=== PATIENT | female | born 1970 | race Caucasian/White ===

== ENCOUNTER → 2016-11-30 | Outpatient (CLI) | payer OTHER ==
--- NOTE | 2016-12-01 08:17 | MM ---
Reason for exam: screening (asymptomatic). Last mammogram was performed 1 year ago. History: Family history of breast cancer in maternal aunt. Implants in both breasts, May 22, 2014. Physical Findings: A clinical breast exam by your physician is recommended on an annual basis and results should be correlated with mammographic findings. MG Screening Mammo Implant/CAD Bilateral CC, MLO, and ID view(s) were taken. Prior study comparison: November 29, 2015, bilateral MG screening mammo implant/CAD. There are scattered fibroglandular densities. Finding: There are typically benign round calcifications in both breasts. There is no discrete abnormality. There are subpectoral implants x 2. ASSESSMENT: Benign, BI-RAD 2 RECOMMENDATION: Routine screening mammogram of both breasts in 1 year.
== END | disposition home or self-care (01) ==
LOC: RADMAMWWP 09:15
PROVIDERS: ATTEND Family Medicine
DX: Z12.31 Encounter for screening mammogram for malignant neoplasm of breast (principal)

== ENCOUNTER → 2016-12-08 | Outpatient (CLI) | payer OTHER ==
--- NOTE | 2016-12-08 09:16 | US ---
EXAMINATION TYPE: US thyroid st tissue head/neck DATE OF EXAM: 12/08/2016 8:15 AM COMPARISON: NONE CLINICAL HISTORY: E21.0 PARATHYROID ENLARGEMENT. GLAND SIZE: Right Lobe: 4.2 x 1.0 x 1.4 cm Overall Parenchyma: homogenous Left Lobe: 4.8 x 1.0 x 1.5 cm Overall Parenchyma: homogeneous Isthmus Thickness: 0.2 cm NODULES RIGHT: # of nodules measured on right: 0 LEFT: # of nodules measured on left: 0 ISTHMUS: # of nodules measured in the isthmus: 0 TECHNOLOGIST IMPRESSION: Bilateral neck scanned, no abnormal lymphadenopathy noted. Parathyroid area scanned, no obvious nodule or abnormality IMPRESSION: Normal study.
== END | disposition home or self-care (01) ==
LOC: RADUSWWP 07:58
PROVIDERS: ATTEND Family Medicine
DX: E21.0 Primary hyperparathyroidism (principal)
CPT/HCPCS: 76536

== ENCOUNTER → 2016-12-08 | Outpatient (CLI) | payer OTHER ==
--- NOTE | 2016-12-08 08:43 | MR ---
EXAMINATION TYPE: MR brain wo con DATE OF EXAM: 12/08/2016 7:53 AM COMPARISON: MRI brain January 14, 2015. HISTORY: temporal lobe white matter changes per order, memory loss per patient. TECHNIQUE: Multiplanar, multisequence imaging of the brain and brainstem is performed without IV cont rast. FINDINGS: Diffusion weighted images demonstrate no evidence of a recent infarct or other diffusion abnormality. There is no worrisome extra-axial fluid collection. The ventricular system and cisternal spaces are normal in size and appearance. The brain volume is age appropriate. There are some scattered foci of T2 hyperintensity seen throughout the white matter bilaterally. I estimates 5 to 8 scattered lesions all measuring 4 mm or smaller in size. There may be new left posterior frontal coronal radiata lesio n on axial image 17. Other lesions felt stable. Midline structures demonstrate normal morphology. The craniocervical junction appears within normal limits. Normal vascular flow voids are present. The globes are distorted by artifact. The visualized paranasal sinuses are clear. IMPRESSION: Mild nonspecific white matter changes with possible single new lesion, among the broad di fferential ischemic change related to product of migraine headaches, infectious process such as Lyme' s disease, and vasculitis need to be considered.
== END | disposition home or self-care (01) ==
LOC: RADMRIMAIN 07:17
PROVIDERS: ATTEND Family Medicine
DX: R90.82 White matter disease, unspecified (principal)
CPT/HCPCS: 70551; 76536

== ENCOUNTER → 2017-06-21 | Outpatient (CLI) | payer OTHER ==
--- NOTE | 2017-06-21 15:42 | XR ---
EXAMINATION TYPE: XR shoulder complete LT DATE OF EXAM: 06/21/2017 COMPARISON: NONE HISTORY: Pain TECHNIQUE: Three views are submitted. FINDINGS: The osseous structures are intact. There is no acute fracture or dislocation. Arthropathy of the AC joint. IMPRESSION: 1. AC joint arthropathy correlate for chronic rotator cuff disease. IMPRESSION: 1. No acute process.
--- NOTE | 2017-06-21 15:42 | XR ---
EXAMINATION TYPE: XR thoracic spine complete DATE OF EXAM: 06/21/2017 COMPARISON: NONE HISTORY: Back pain Alignment is anatomic. There is no compression deformities. Hypertrophic and degenerative disc disea se noted throughout the thoracic spine with most marked changes seen involving the mid and lower thor acic spine. No compression deformities. Curvature of the spine noted. Surgical clips in the right upper quadrant noted. IMPRESSION: 1. Multilevel degenerative disc disease.
--- NOTE | 2017-06-21 15:42 | XR ---
EXAMINATION TYPE: XR cervical spine comp DATE OF EXAM: 06/21/2017 TECHNIQUE: Frontal, lateral, oblique, swimmers, and open mouth view of the cervical spine are obtaine d. HISTORY: M25.512:Pain in left shoulder, M54.2:Cervicalgia COMPARISON: None FINDINGS: The cervical spine is visualized in its entirety from C1 thru the top of T1 level, it is s atisfactory in alignment without evidence of acute fracture or dislocation. The pre-vertebral soft t issue appears within normal limits. The C1-C2 articulation is within normal limits on the open mouth view. The oblique images are within normal limits. Intervertebral disc space narrowing is seen at C 5-C6 with endplate sclerosis. IMPRESSION: 1. No acute fracture or dislocation is seen in the cervical spine. 2. Mild degenerative disc disease at C5-C6.
== END ==
LOC: RAD 15:02
PROVIDERS: ATTEND Family Medicine
DX: M50.322 Other cervical disc degeneration at C5-C6 level (principal); M51.34 Other intervertebral disc degeneration, thoracic region; M19.012 Primary osteoarthritis, left shoulder
CPT/HCPCS: 72050; 72072

== ENCOUNTER → 2017-08-06 | Outpatient (CLI) | payer OTHER ==
--- NOTE | 2017-08-09 07:22 | MR ---
EXAMINATION TYPE: MR cspine/tspine/lspine wo con DATE OF EXAM: 08/06/2017 COMPARISON: Outside report of prior MRI lumbar spine dated 01/12/2012 from [facility] HISTORY: shoulder pain , neck pain, back pain TECHNIQUE: Multiplanar, multisequence imaging of the cervical, thoracic, and lumbar spine was perform ed without IV contrast. FINDINGS: CERVICAL SPINE: The cervical spine vertebral bodies maintain vertebral body height and alignment. Bon e marrow signal is within normal limits. Cervical cord signal is unremarkable. C2-C5: At each level there is a small left paracentral disc osteophyte complex present without neural foraminal stenosis or spinal canal stenosis. C5-C6: A large bilobed disc bulge is seen with mass effect upon the ventral thecal space abutting the ventral cervical cord resulting in mild spinal canal stenosis and mild bilateral neural foraminal na rrowing in combination with mild uncovertebral hypertrophy. C6-C7: Small left paracentral disc osteophyte complex is seen without spinal canal stenosis nor neura l foraminal narrowing. THORACIC SPINE: The thoracic spine vertebral bodies maintain vertebral body height and alignment. Bon e marrow signal is within normal limits. Cervical cord signal is unremarkable. Intervertebral disc sp parul narrowing, disc desiccation and broad-based disc bulges are present at T8-T9, T9-T10 and T11-T12 without focal disc herniation. No disc herniation is seen at any thoracic vertebral level. No neural foraminal narrowing or spinal canal stenosis are seen at any thoracic vertebral level. Mild facet art hropathy is present T10-T11 and T11-T12. LUMBAR SPINE: The lumbar spine vertebral bodies maintain vertebral body height and alignment. Bone ma rrow signal is within normal limits. Cervical cord signal is unremarkable. Disc desiccation is seen a t L3-S1. T2 hyperintense and T1 hypointense right posterior renalr lesion is 8 mm and too small to ac curately characterize but could represent a renal cyst. L1-L2: No significant disc disease, neuroforaminal narrowing, or spinal canal stenosis. L2-L3: No significant disc disease, neural foraminal narrowing, or spinal canal stenosis. L3-L4: Small broad-based disc bulge results in mild bilateral neural foraminal narrowing. No spinal c anal stenosis. Mild facet arthropathy and ligamentum flavum buckling are present. L4-L5: Left paracentral annular tear is seen within a broad-based disc bulge. No current focality to suggest disc herniation. Facet arthropathy and ligamentum flavum buckling contribute to minimal neura l foraminal narrowing. No spinal canal stenosis. L5-S1: The previously described right eccentric broad-based disc bulge with annular tear has progress ed to a focal disc herniation. This disc protrusion/herniation is foraminal extending into the right neural foramen creating only mild neural foraminal narrowing in combination with facet arthropathy an d ligamentum flavum buckling, however there is abutment with the exiting L5 nerve root. The left neur al foramen and spinal canal remain patent. IMPRESSION: 1. Progression of the previously described annular tear at L5-S1, now seen as a right neural foramina l disc herniation abutting the right L5 nerve root. 2. Left paracentral annular tear at L4-L5 without recurrent disc herniation. Minimal bilateral neural foraminal narrowing but no spinal canal stenosis. 3. Large bilobed broad-based disc bulge at C5-C6 resulting in mild spinal canal stenosis. No neural f oraminal narrowing. 4. No evidence of disc herniation, neural foraminal stenosis or spinal canal stenosis within the thor acic spine.
== END | disposition home or self-care (01) ==
LOC: RADMRIMAIN 12:16
PROVIDERS: ATTEND Family Medicine
DX: M48.02 Spinal stenosis, cervical region (principal); M99.73 Connective tissue and disc stenosis of intervertebral foramina of lumbar region; M51.26 Other intervertebral disc displacement, lumbar region; M50.222 Other cervical disc displacement at C5-C6 level; M51.37 Other intervertebral disc degeneration, lumbosacral region
CPT/HCPCS: 72141; 72146; 72148

== ENCOUNTER → 2017-10-22 | Outpatient (CLI) | payer OTHER ==
--- NOTE | 2017-10-23 08:52 | ECHOF ---
Referral Reason:R07.89 Chest pain MEASUREMENTS -------- HEIGHT: 170.2 cm WEIGHT: 77.1 kg BP: 130/93 RVIDd: 2.4 cm (< 3.3) IVSd: 1.0 cm (0.6 - 1.1) LVIDd: 4.8 cm (3.9 - 5.3) LVPWd: 1.0 cm (0.6 - 1.1) IVSs: 1.6 cm LVIDs: 3.1 cm LVPWs: 1.5 cm LA Diam: 3.1 cm (2.7 - 3.8) LAESV Index (A-L): 11.83 ml/m Ao Diam: 3.4 cm (2.0 - 3.7) AV Cusp: 2.3 cm (1.5 - 2.6) MV EXCURSION: 15.271 mm (> 18.000) MV EF SLOPE: 100 mm/s (70 - 150) EPSS: 0.2 cm MV E Robinson: 0.60 m/s MV DecT: 232 ms MV A Robinson: 0.76 m/s MV E/A Ratio: 0.80 FINDINGS -------- Sinus rhythm. This was a technically good study. The left ventricular size is normal. Left ventricular wall thickness is normal. Overall left vent ricular systolic function is normal with, an EF between 60 - 65 %. The right ventricle is normal in size. The left atrial size is normal. The right atrium is normal in size. The aortic valve is trileaflet and appears structurally normal. The mitral valve is normal. The tricuspid valve appears structurally normal. The pulmonic valve was not well visualized. There is no pulmonic regurgitation present. The aortic root size is normal. Normal inferior vena cava with normal inspiratory collapse consistent with estimated right atrial pre ssure of 5 mmHg. There is no pericardial effusion. CONCLUSIONS -------- 1. Sinus rhythm. 2. This was a technically good study. 3. Left ventricular wall thickness is normal. 4. Overall left ventricular systolic function is normal with, an EF between 60 - 65 %. 5. The left atrial size is normal. 6. The aortic valve is trileaflet and appears structurally normal. 7. The mitral valve is normal. 8. The pulmonic valve was not well visualized. 9. There is no pulmonic regurgitation present. 10. The aortic root size is normal. 11. Normal inferior vena cava with normal inspiratory collapse consistent with estimated right atrial pressure of 5 mmHg. 12. There is no pericardial effusion. R[employer]STAB[employer] CREW PUSHER: Charleen Wilcox RDCS
--- NOTE | 2017-10-28 20:03 | EST ---
EXERCISE STRESS AGE: 47 SEX: Female. HT: 67 WT: 170 PROTOCOL: Abiel. STAGE: III DURATION OF EXERCISE: 9 minutes 23 seconds. HEART RATE REST: 91 BLOOD PRESSURE REST: 130/93 MAXIMUM HEART RATE ACHIEVED: 141 MAXIMUM BLOOD PRESSURE: 156/78 85% MPHR: 149 100% MPHR: 175 METS: 10.9 INDICATIONS: History of shortness of breath with exertion. CLINICAL INFORMATION: Baseline heart rate 91 beats per minute. Baseline blood pressure 130/93 mmHg. Baseline 12-lead ECG showed normal sinus rhythm with normal cardiac intervals. Patient exercised on a Abiel protocol for 9 minutes 23 seconds, achieving a peak heart rate of 141 beats per minute. Normal blood pressure response to exercise. There was no ECG evidence for ischemia; however, there was considerable baseline artifact during the stress test portion. No exercise-induced arrhythmias were noted. IMPRESSION: Good exercise capacity. Normal blood pressure response to exercise. No definite ECG evidence for ischemia. At peak exercise and during recovery, no arrhythmias were noted. MMODL / IJN: [id number] /
== END | disposition home or self-care (01) ==
LOC: RADNMMAIN 11:23
PROVIDERS: ATTEND Family Medicine
DX: R07.89 Other chest pain (principal)
CPT/HCPCS: 93017; 93306

== ENCOUNTER → 2017-10-26 | Outpatient (CLI) | payer OTHER ==
--- NOTE | 2017-10-26 10:23 | XR ---
EXAMINATION TYPE: XR chest 2V DATE OF EXAM: 10/26/2017 COMPARISON: NONE TECHNIQUE: PA and lateral views submitted. HISTORY: Chest pain FINDINGS: The lungs are clear and there is no pneumothorax, pleural effusion, or focal pneumonia. Curvature t he spine noted with degenerative changes. Biapical pleural thickening arthropathy of the shoulders. N o overt failure. Degenerative change of the spine. IMPRESSION: 1. No acute process.
== END | disposition home or self-care (01) ==
LOC: RADXRMAIN 09:14
PROVIDERS: ATTEND Family Medicine
DX: R07.89 Other chest pain (principal)
CPT/HCPCS: 71046

== ENCOUNTER → 2017-10-29 | Outpatient (CLI) | payer OTHER ==
[2017-10-29 12:12] LABS: Basophils % (A) 1 %; Eosinophils # (A) 0.1 k/uL (0-0.7); Eosinophils % (A) 1 %; HGB 14.6 gm/dL (11.4-16.0); Lymphocytes # (A) 1.6 k/uL (1.0-4.8); Lymphocytes % (A) 22 %; MCH 30.8 pg (25.0-35.0); MCHC 31.6 g/dL (31.0-37.0); MCV 97.3 fL (80.0-100.0); Mean Platelet Volume 6.9; Monocytes # (A) 0.5 k/uL (0-1.0); Monocytes % (A) 7 %; Neutrophils % (A) 68 %; Platelet Count 280 k/uL (150-450); RBC 4.73 m/uL (3.80-5.40); RDW 14.5 % (11.5-15.5); WBC 7.4 k/uL (3.8-10.6)
[2017-10-29 19:31] LABS: Immunoglobulin E 15.6 IU/mL (0.00-114.00)
[2017-11-01 15:07] LABS: Alt. alternata IgE Class CLASS I; Alternaria alternata IgE 0.65 kU/L (<0.35); Asperg. fumagatus IgE <0.35 kU/L (<0.35); Asperg. fumagatus IgE Class CLASS 0; Bermuda Grass IgE <0.35 kU/L (<0.35); Birch(Com.Silvr) IgE <0.35 kU/L (<0.35); Birch(Com.Silvr) IgE Class CLASS 0; Cat Epith & Dander IgE <0.35 kU/L (<0.35); Cat Epith & Dander IgE Class CLASS 0; Clad herbarum IgE <0.35 kU/L (<0.35); Cockroach IgE <0.35 kU/L (<0.35); Cottonwood IgE <0.35 kU/L (<0.35); Dermato. Pteronyssinus IgE <0.35 kU/L (<0.35); Dermato. farinae IgE <0.35 kU/L (<0.35); Dermato. farinae IgE Class CLASS 0; Dog Dander IgE <0.35 kU/L (<0.35); Elm IgE <0.35 kU/L (<0.35); Maple (Box Elder) IgE <0.35 kU/L (<0.35); Maple (Box Elder) IgE Class CLASS 0; Mountain Cedar IgE <0.35 kU/L (<0.35); Mountain Cedar IgE Class CLASS 0; Mouse Urine IgE Class CLASS 0; Nettle IgE <0.35 kU/L (<0.35); Nettle IgE Class CLASS 0; Oak IgE <0.35 kU/L (<0.35); Penicillium notatum IgE Class CLASS 0; Rough Marshelder IgE <0.35 kU/L (<0.35); Rough Marshelder IgE Class CLASS 0; Timothy Grass IgE <0.35 kU/L (<0.35); White Ash IgE Class CLASS 0
[2017-11-02 12:17] LABS: Alpha 1 Anti-Trypsin 154 mg/dL (90 - 200)
[2017-11-03 18:17] LABS: Alternaria Alternata IgG 2.1 mcg/mL (< 13.6); Aspergillus fumigatus IgG Not detected (Not detected); Aureobasidium pullulans IgG 2.7 mcg/mL (< 13.6); Cladosporium herbarium IgG 12.5 mcg/mL (< 14.7); Phoma ssp. IgG 2.8 mcg/mL (< 6.6); Saccaharomospora viridis Not detected (Not detected); Saccaharopoly. rectivirgula Not detected (Not detected)
== END | disposition home or self-care (01) ==
LOC: LABWHC1 11:42
PROVIDERS: ATTEND Internal Medicine
DX: R05 Cough (principal); J45.909 Unspecified asthma, uncomplicated
CPT/HCPCS: 36415; 82103; 82104; 82785; 85025; 86001; 86003; 86606; 86609

== ENCOUNTER → 2017-11-23 | Outpatient (CLI) | payer OTHER | END | disposition home or self-care (01) | LOC: CPPFTMAIN 12:01 | PROVIDERS: ATTEND Internal Medicine | DX: R06.02 Shortness of breath (principal) | CPT/HCPCS: 94060; 94726; 94729 ==

== ENCOUNTER 2017-11-30 19:57 | Observation (INO) | payer OTHER ==
[2017-11-30] MEDS ORDERED: SODIUM CHLORIDE 0.9% 1,000 ML IV STA (21:09)
[2017-11-30] MEDS ORDERED: HYDROmorphone 4 MG/ML 1 ML SYRINGE IVP STA (21:09)
[2017-11-30] MEDS ORDERED: ACETAMINOPHEN TAB 325 MG TAB PO STA (21:12)
--- NOTE | 2017-11-30 21:12 | ED ---
Abdominal Pain HPI - General Chief Complaint: Abdominal Pain Stated Complaint: lower right abdominal pain Time Seen by Provider: 11/30/17 21:03 Source: patient Mode of arrival: ambulatory Limitations: no limitations - History of Present Illness Initial Comments: 47-year-old female patient presents to the emergency department today for complaints of right lower quadrant abdominal pain. Patient states the pain started last evening. She states that the pain is sharp in nature and constant. She states that she has had some diarrhea with this. States she did take Zantac and Gas-X without relief of symptoms. States that today she has had nausea and decreased appetite. States she did attempt to eat earlier but did vomit it up. She states that she has been feeling warmer than usual and has possibly had a fever. She denies any history of abdominal surgeries. She denies any hematuria, dysuria, urinary frequency, urinary urgency. She denies any hematemesis, hematochezia, or melena. Patient denies any recent rash, chills, shortness breath, chest pain, back pain, numbness, tingling, dizziness, weakness, headache, visual changes, or any other complaints. - Related Data Home Medications Medication Instructions Recorded Confirmed Albuterol Inhaler [Ventolin Hfa 2 puff INHALATION RT-Q6H PRN 11/30/17 11/30/17 Inhaler] Ascorbic Acid [Vitamin C] 500 mg PO DAILY 11/30/17 11/30/17 Beclomethasone Dipropionate [Qvar 1 puff INHALATION RT-BID PRN 11/30/17 11/30/17 80 mcg] Cholecalciferol [Vitamin D3] 1,000 unit PO DAILY 11/30/17 11/30/17 Cyclobenzaprine [Flexeril] 20 mg PO HS 11/30/17 11/30/17 Diazepam [Valium] 5 mg PO HS PRN 11/30/17 11/30/17 Ferrous Sulfate [Feosol] 325 mg PO DAILY 11/30/17 11/30/17 HYDROcodone/APAP 10-325MG [[place] 1 tab PO QID PRN 11/30/17 11/30/17 10-325] Loratadine [Claritin] 10 mg PO DAILY 11/30/17 11/30/17 Phentermine HCl [Adipex-P] 37.5 mg PO QAM 11/30/17 11/30/17 Ranitidine HCl 150 mg PO BID 11/30/17 11/30/17 Thyroid,Pork [[place] Thyroid] 15 mg PO DAILY 11/30/17 11/30/17 Ubidecarenone [Co Q-10] 100 mg PO DAILY 11/30/17 11/30/17 Vitamin B Complex 1 cap PO DAILY 11/30/17 11/30/17 metFORMIN HCL 1,000 mg PO HS 11/30/17 11/30/17 traZODone HCL 50 mg PO HS 11/30/17 11/30/17 Allergies Allergy/AdvReac Type Severity Reaction Status Date / Time broccoli Allergy Unknown Verified 11/30/17 20:28 pineapple Allergy Unknown Verified 11/30/17 20:28 Sulfa (Sulfonamide Allergy shortness Verified 11/30/17 20:28 Antibiotics) of breathe Review of Systems ROS Statement: Those systems with pertinent positive or pertinent negative responses have been documented in the HPI. ROS Other: All systems not noted in ROS Statement are negative. Past Medical History Past Medical History: Asthma Additional Past Medical History / Comment(s): Temporal lobe brain damage History of Any Multi-Drug Resistant Organisms: None Reported Past Surgical History: Cholecystectomy, Orthopedic Surgery Additional Past Surgical History / Comment(s): bilateral knee, gastric sleeve Past Psychological History: ADD/ADHD Smoking Status: Current every day smoker Past Alcohol Use History: Occasional Past Drug Use History: None Reported General Exam Limitations: no limitations General appearance: alert, in no apparent distress, other (This is a well- developed, well-nourished, nontoxic-appearing 47-year-old female patient in no acute distress. Vital signs upon presentation are temperature 198.6, pulse 117 , respirations 18, blood pressure 137/95, pulse ox 100% on room air.) Eye exam: Present: normal appearance, PERRL, EOMI. Absent: scleral icterus, conjunctival injection, periorbital swelling ENT exam: Present: normal exam, normal oropharynx, mucous membranes moist Respiratory exam: Present: normal lung sounds bilaterally. Absent: respiratory distress, wheezes, rales, rhonchi, stridor Cardiovascular Exam: Present: regular rate, normal rhythm, normal heart sounds. Absent: systolic murmur, diastolic murmur, rubs, gallop, clicks GI/Abdominal exam: Present: soft, tenderness (Right lower quadrant tenderness, periumbilical tenderness), normal bowel sounds. Absent: distended, guarding, rebound, rigid Back exam: Present: normal inspection. Absent: CVA tenderness (R), CVA tenderness (L) Neurological exam: Present: alert, oriented X3, CN II-XII intact Psychiatric exam: Present: normal affect, normal mood Skin exam: Present: warm, dry, intact, normal color. Absent: rash Course Vital Signs 11/30/17 11/30/17 11/30/17 20:09 20:57 23:05 Temperature 98.6 F 100.2 F H 98.9 F Pulse Rate 117 H 106 H 103 H Respiratory 18 18 20 Rate Blood Pressure 137/95 137/81 120/73 O2 Sat by Pulse 100 100 95 Oximetry 12/01/17 00:25 Temperature 98.3 F Pulse Rate 75 Respiratory 18 Rate Blood Pressure 129/85 O2 Sat by Pulse 98 Oximetry Medical Decision Making - Medical Decision Making 47-year-old female patient presented to the emergency department today for complaints of right lower quadrant abdominal pain and lack of appetite. Upon arrival patient was febrile, white blood cell count showed a level of 12.3, neutrophils 10.4. CT of the abdomen and pelvis was obtained and showed a thickened appendix with surrounding inflammatory changes consistent with acute appendicitis. Patient was started on Rocephin and Flagyl at the direction of my attending physician Dr. Douglas. He did speak with the on-call surgeon Dr. Tam who admits patient is planning surgery in the morning. Pain management , nausea management, and IV fluids have been provided. - Lab Data Result diagrams: 11/30/17 20:40 11/30/17 20:40 Lab Results 11/30/17 11/30/17 11/30/17 Range/Units 20:40 20:40 20:40 WBC 12.3 H (3.8-10.6) k/uL RBC 5.08 (3.80-5.40) m/uL Hgb 15.7 (11.4-16.0) gm/dL Hct 46.4 H (34.0-46.0) % MCV 91.4 D (80.0-100.0) fL MCH 31.0 (25.0-35.0) pg MCHC 33.9 (31.0-37.0) g/dL RDW 12.4 (11.5-15.5) % Plt Count 293 (150-450) k/uL Neutrophils % 85 % Lymphocytes % 7 % Monocytes % 6 % Eosinophils % 1 % Basophils % 0 % Neutrophils # 10.4 H (1.3-7.7) k/uL Lymphocytes # 0.8 L (1.0-4.8) k/uL Monocytes # 0.7 (0-1.0) k/uL Eosinophils # 0.1 (0-0.7) k/uL Basophils # 0.0 (0-0.2) k/uL Sodium 137 (137-145) mmol/L Potassium 4.3 (3.5-5.1) mmol/L Chloride 101 (98-107) mmol/L Carbon Dioxide 25 (22-30) mmol/L Anion Gap 11 mmol/L BUN 19 H (7-17) mg/dL Creatinine 0.60 (0.52-1.04) mg/dL Est GFR (MDRD) Af Amer >60 (>60 ml/min/1.73 sqM) Est GFR (MDRD) Non-Af >60 (>60 ml/min/1.73 sqM) Glucose 84 (74-99) mg/dL Plasma Lactic Acid [place] 1.2 (0.7-2.0) mmol/L Calcium 10.1 (8.4-10.2) mg/dL Total Bilirubin 0.6 (0.2-1.3) mg/dL AST 26 (14-36) U/L ALT 35 (9-52) U/L Alkaline Phosphatase 63 (38-126) U/L Total Protein 7.2 (6.3-8.2) g/dL Albumin 4.4 (3.5-5.0) g/dL Amylase 58 (30-110) U/L Lipase 56 (23-300) U/L Urine Color Urine Appearance (Clear) Urine pH (5.0-8.0) Ur Specific [place] (1.001-1.035) Urine Protein (Negative) Urine Glucose (UA) (Negative) Urine Ketones (Negative) Urine Blood (Negative) Urine Nitrite (Negative) Urine Bilirubin (Negative) Urine Urobilinogen (<2.0) mg/dL Ur Leukocyte Esterase (Negative) 11/30/17 Range/Units 23:05 WBC (3.8-10.6) k/uL RBC (3.80-5.40) m/uL Hgb (11.4-16.0) gm/dL Hct (34.0-46.0) % MCV (80.0-100.0) fL MCH (25.0-35.0) pg MCHC (31.0-37.0) g/dL RDW (11.5-15.5) % Plt Count (150-450) k/uL Neutrophils % % Lymphocytes % % Monocytes % % Eosinophils % % Basophils % % Neutrophils # (1.3-7.7) k/uL Lymphocytes # (1.0-4.8) k/uL Monocytes # (0-1.0) k/uL Eosinophils # (0-0.7) k/uL Basophils # (0-0.2) k/uL Sodium (137-145) mmol/L Potassium (3.5-5.1) mmol/L Chloride (98-107) mmol/L Carbon Dioxide (22-30) mmol/L Anion Gap mmol/L BUN (7-17) mg/dL Creatinine (0.52-1.04) mg/dL Est GFR (MDRD) Af Amer (>60 ml/min/1.73 sqM) Est GFR (MDRD) Non-Af (>60 ml/min/1.73 sqM) Glucose (74-99) mg/dL Plasma Lactic Acid [place] (0.7-2.0) mmol/L Calcium (8.4-10.2) mg/dL Total Bilirubin (0.2-1.3) mg/dL AST (14-36) U/L ALT (9-52) U/L Alkaline Phosphatase (38-126) U/L Total Protein (6.3-8.2) g/dL Albumin (3.5-5.0) g/dL Amylase (30-110) U/L Lipase (23-300) U/L Urine Color Yellow Urine Appearance Clear (Clear) Urine pH 5.5 (5.0-8.0) Ur Specific [place] 1.021 (1.001-1.035) Urine Protein Negative (Negative) Urine Glucose (UA) Negative (Negative) Urine Ketones Negative (Negative) Urine Blood Negative (Negative) Urine Nitrite Negative (Negative) Urine Bilirubin Negative (Negative) Urine Urobilinogen <2.0 (<2.0) mg/dL Ur Leukocyte Esterase Negative (Negative) - Radiology Data Radiology results: report reviewed, image reviewed CT the abdomen and pelvis was obtained, report was reviewed in its entirety. Impression by Dr. Crain shows thickened appendix with surrounding inflammatory changes consistent with acute appendicitis. No abscess seen. Disposition Clinical Impression: Appendicitis Disposition: ADMITTED IP TO THIS [facility] Condition: Serious Decision to Admit Reason: Admit from EC Decision Date: 11/30/17 Decision Time: 23:57
[2017-11-30] MEDS: ONDANSETRON 4 MG/2 ML VIAL IVP STA (21:21)
[2017-11-30 21:41] LABS: ALT 35 U/L (9-52); AST 26 U/L (14-36); Albumin 4.4 g/dL (3.5-5.0); Alkaline Phosphatase 63 U/L (38-126); Amylase 58 U/L (30-110); Anion Gap 11 mmol/L; Basophils % (A) 0 %; Blood Urea Nitrogen 19 mg/dL (7-17); Calcium 10.1 mg/dL (8.4-10.2); Carbon Dioxide 25 mmol/L (22-30); Chloride 101 mmol/L (98-107); Eosinophils # (A) 0.1 k/uL (0-0.7); Eosinophils % (A) 1 %; Glucose 84 mg/dL (74-99); HCT 46.4 % (34.0-46.0); HGB 15.7 gm/dL (11.4-16.0); Lipase 56 U/L (23-300); Lymphocytes # (A) 0.8 k/uL (1.0-4.8); Lymphocytes % (A) 7 %; MCHC 33.9 g/dL (31.0-37.0); Mean Platelet Volume 6.5; Monocytes # (A) 0.7 k/uL (0-1.0); Monocytes % (A) 6 %; Neutrophils # (A) 10.4 k/uL (1.3-7.7); Neutrophils % (A) 85 %; Platelet Count 293 k/uL (150-450); Potassium 4.3 mmol/L (3.5-5.1); RBC 5.08 m/uL (3.80-5.40); RDW 12.4 % (11.5-15.5); Sodium 137 mmol/L (137-145); Total Bilirubin 0.6 mg/dL (0.2-1.3); Total Protein 7.2 g/dL (6.3-8.2); WBC 12.3 k/uL (3.8-10.6)
[2017-11-30 21:53] LABS: MCV 91.4 fL (80.0-100.0)
--- NOTE | 2017-11-30 22:27 | CT ---
EXAMINATION TYPE: CT abdomen pelvis wo con DATE OF EXAM: 11/30/2017 COMPARISON: NONE HISTORY: RLQ pain. CT DLP: 403.8 mGycm Automated exposure control for dose reduction was used. TECHNIQUE: Helical acquisition of images was performed from the lung bases through the pelvis. FINDINGS: Lung bases are clear of consolidation. There is no pleural effusion. Liver shows no focal defect. There are clips from cholecystectomy. Spleen and pancreas appear normal. Bile ducts are not dilated. There is no adrenal mass. Kidneys have normal size and contour. There is no hydronephrosis. There is no retroperitoneal adenopathy. There are surgical clips apparently from bariatric surgery. There is extensive fat stranding in the right lower quadrant. Appendix measures 10 mm. I see no intestinal wall thickening. There is no sign of a bowel obstruction. Bladder distends smooth ly. There is no sign of a pelvic mass. The bony structures are intact. There is no sign of free air. IMPRESSION: THICKENED APPENDIX WITH SURROUNDING INFLAMMATORY CHANGES CONSISTENT WITH ACUTE APPENDICITIS. NO ABSCE SS SEEN.
[2017-11-30] MEDS ORDERED: metroNIDAZOLE-NS PMX 500 MG in SALINE 1 100ML.BAG IVPB STA (23:10)
[2017-11-30 23:28] LABS: Appearance,Urine Clear (Clear); Bilirubin,Urine Negative (Negative); Blood,Urine Negative (Negative); Color,Urine Yellow; Glucose,Urine (UA) Negative (Negative); Ketones,Urine Negative (Negative); Leukocyte Esterase,Urine Negative (Negative); Nitrite,Urine Negative (Negative); PH, Urine 5.5 (5.0-8.0); Protein,Urine Negative (Negative); Specific Gravity,Urine 1.021 (1.001-1.035); Urobilinogen,Urine <2.0 mg/dL (<2.0)
[2017-11-30] MEDS ORDERED: cefTRIAXone IN SWFI 1,000 MG/10 ML SYRINGE IVP ONE (23:45)
[2017-11-30] MEDS ORDERED: cefTRIAXone IN SWFI 1,000 MG/10 ML SYRINGE IVP STA (23:57)
[2017-11-30] MEDS ORDERED: ACETAMINOPHEN TAB 325 MG TAB PO PRN (23:58)
[2017-11-30] MEDS ORDERED: NALOXONE 0.4 MG/ML 1 ML VIAL IV PRN (23:58)
[2017-11-30] MEDS ORDERED: ONDANSETRON 4 MG/2 ML VIAL IVP PRN (23:58)
[2017-12-01 01:25] VITALS: BMI 27.3
[2017-12-01] MEDS ORDERED: DIAZEPAM 5 MG TAB PO PRN (02:14)
[2017-12-01] MEDS: CYCLOBENZAPRINE 10 MG TAB PO SCH ×2 (02:45→20:40)
[2017-12-01] MEDS: traZODone HCL 50 MG TAB PO SCH ×2 (02:45→20:40)
[2017-12-01] MEDS: HYDROmorphone 4 MG/ML 1 ML SYRINGE IVP PRN ×3 (02:46→12:59)
[2017-12-01 07:36] LABS: Basophils % (A) 0 %; Eosinophils % (A) 0 %; HCT 40.2 % (34.0-46.0); HGB 13.1 gm/dL (11.4-16.0); Lymphocytes # (A) 1.2 k/uL (1.0-4.8); Lymphocytes % (A) 15 %; MCH 30.9 pg (25.0-35.0); MCHC 32.5 g/dL (31.0-37.0); MCV 95.1 fL (80.0-100.0); Mean Platelet Volume 6.3; Monocytes # (A) 0.6 k/uL (0-1.0); Monocytes % (A) 8 %; Neutrophils # (A) 5.8 k/uL (1.3-7.7); Neutrophils % (A) 73 %; Platelet Count 245 k/uL (150-450); RBC 4.23 m/uL (3.80-5.40); RDW 12.4 % (11.5-15.5)
[2017-12-01 07:43] LABS: Anion Gap 9 mmol/L; Blood Urea Nitrogen 16 mg/dL (7-17); Calcium 8.8 mg/dL (8.4-10.2); Carbon Dioxide 27 mmol/L (22-30); Chloride 102 mmol/L (98-107); Glucose 85 mg/dL (74-99); Sodium 138 mmol/L (137-145)
--- NOTE | 2017-12-01 08:13 | P.GSHP ---
History of Present Illness H&P Date: 11/30/17 Chief Complaint: Right lower quadrant pain This a 47-year-old female referred from Dr. Jason Carrasco. Patient was admitted through the emergency room on with complaints of right lower quadrant pain. Her CAT scan shows evidence of acute appendicitis. The patient' s had pain for approximately 12 hours. Past Medical History Past Medical History: Asthma, Blood Disorder, Eye Disorder, GERD/Reflux, Memory Impairment, Pneumonia, Thyroid Disorder Additional Past Medical History / Comment(s): Temporal lobe brain damage, anemia , gastritis, bleeding ulcer, short term memory loss, arthritis, DDD, Left rotator cuff 2 tears History of Any Multi-Drug Resistant Organisms: None Reported Past Surgical History: Adenoidectomy, Cholecystectomy, Hysterectomy, Orthopedic Surgery, Tonsillectomy, Tubal Ligation Additional Past Surgical History / Comment(s): bilateral knee, gastric sleeve tonsils, addenoids, hyst, tubal Past Anesthesia/Blood Transfusion Reactions: Previous Problems w/ Anesthesia Additional Past Anesthesia/Blood Transfusion Reaction / Comment(s): Needs low anesthesia, VSS plummet. Sickness r/t anesthesia Past Psychological History: ADD/ADHD, Anxiety, PTSD Smoking Status: Current every day smoker Past Alcohol Use History: Occasional Past Drug Use History: None Reported - Past Family History Father Family Medical History: Pulmonary Embolus Mother Family Medical History: Diabetes Mellitus, Hypertension Medications and Allergies Home Medications Medication Instructions Recorded Confirmed Type Albuterol Inhaler [Ventolin Hfa 2 puff INHALATION RT-Q6H PRN 11/30/17 11/30/17 History Inhaler] Ascorbic Acid [Vitamin C] 500 mg PO DAILY 11/30/17 11/30/17 History Beclomethasone Dipropionate [Qvar 1 puff INHALATION RT-BID PRN 11/30/17 History 80 mcg] Cholecalciferol [Vitamin D3] 1,000 unit PO DAILY 11/30/17 11/30/17 History Cyclobenzaprine [Flexeril] 20 mg PO HS 11/30/17 11/30/17 History Diazepam [Valium] 5 mg PO HS PRN 11/30/17 11/30/17 History Ferrous Sulfate [Feosol] 325 mg PO DAILY 11/30/17 11/30/17 History HYDROcodone/APAP 10-325MG [[place] 1 tab PO QID PRN 11/30/17 11/30/17 History 10-325] Loratadine [Claritin] 10 mg PO DAILY 11/30/17 11/30/17 History Phentermine HCl [Adipex-P] 37.5 mg PO QAM 11/30/17 11/30/17 History Ranitidine HCl 150 mg PO BID 11/30/17 11/30/17 History Thyroid,Pork [[place] Thyroid] 15 mg PO DAILY 11/30/17 11/30/17 History Ubidecarenone [Co Q-10] 100 mg PO DAILY 11/30/17 11/30/17 History Vitamin B Complex 1 cap PO DAILY 11/30/17 11/30/17 History metFORMIN HCL 1,000 mg PO HS 11/30/17 11/30/17 History traZODone HCL 50 mg PO HS 11/30/17 11/30/17 History Allergies Allergy/AdvReac Type Severity Reaction Status Date / Time broccoli Allergy Unknown Verified 11/30/17 20:28 pineapple Allergy Unknown Verified 11/30/17 20:28 Sulfa (Sulfonamide Allergy shortness Verified 11/30/17 20:28 Antibiotics) of breathe Surgical - Exam Vital Signs Temp Pulse Resp BP Pulse Ox 98.6 F 117 H 18 137/95 100 11/30/17 20:09 11/30/17 20:09 11/30/17 20:09 11/30/17 20:09 11/30/17 20:09 - General well developed, no distress - Eyes PERRL - ENT normal pinna - Neck no masses - Respiratory normal expansion - Cardiovascular Rhythm: regular - Abdomen Right lower quadrant tenderness with rebound tenderness Abdomen: soft Results - Labs 12/01/17 07:10 12/01/17 07:10 Abnormal Lab Results - Last 24 Hours (Table) 11/30/17 11/30/17 Range/Units 20:40 20:40 WBC 12.3 H (3.8-10.6) k/uL Hct 46.4 H (34.0-46.0) % Neutrophils # 10.4 H (1.3-7.7) k/uL Lymphocytes # 0.8 L (1.0-4.8) k/uL BUN 19 H (7-17) mg/dL Diabetes panel 11/30/17 12/01/17 Range/Units 20:40 07:10 Sodium 137 138 (137-145) mmol/L Potassium 4.3 4.0 (3.5-5.1) mmol/L Chloride 101 102 (98-107) mmol/L Carbon Dioxide 25 27 (22-30) mmol/L BUN 19 H 16 (7-17) mg/dL Creatinine 0.60 0.64 (0.52-1.04) mg/dL Glucose 84 85 (74-99) mg/dL Calcium 10.1 8.8 (8.4-10.2) mg/dL AST 26 (14-36) U/L ALT 35 (9-52) U/L Alkaline Phosphatase 63 (38-126) U/L Total Protein 7.2 (6.3-8.2) g/dL Albumin 4.4 (3.5-5.0) g/dL Calcium panel 11/30/17 12/01/17 Range/Units 20:40 07:10 Calcium 10.1 8.8 (8.4-10.2) mg/dL Albumin 4.4 (3.5-5.0) g/dL Pituitary panel 11/30/17 12/01/17 Range/Units 20:40 07:10 Sodium 137 138 (137-145) mmol/L Potassium 4.3 4.0 (3.5-5.1) mmol/L Chloride 101 102 (98-107) mmol/L Carbon Dioxide 25 27 (22-30) mmol/L BUN 19 H 16 (7-17) mg/dL Creatinine 0.60 0.64 (0.52-1.04) mg/dL Glucose 84 85 (74-99) mg/dL Calcium 10.1 8.8 (8.4-10.2) mg/dL Adrenal panel 11/30/17 12/01/17 Range/Units 20:40 07:10 Sodium 137 138 (137-145) mmol/L Potassium 4.3 4.0 (3.5-5.1) mmol/L Chloride 101 102 (98-107) mmol/L Carbon Dioxide 25 27 (22-30) mmol/L BUN 19 H 16 (7-17) mg/dL Creatinine 0.60 0.64 (0.52-1.04) mg/dL Glucose 84 85 (74-99) mg/dL Calcium 10.1 8.8 (8.4-10.2) mg/dL Total Bilirubin 0.6 (0.2-1.3) mg/dL AST 26 (14-36) U/L ALT 35 (9-52) U/L Alkaline Phosphatase 63 (38-126) U/L Total Protein 7.2 (6.3-8.2) g/dL Albumin 4.4 (3.5-5.0) g/dL - Imaging CT scan - pelvis: report reviewed (Acute appendicitis) Assessment and Plan Assessment: Acute appendicitis. Patient will undergo laparoscopic appendectomy.
[2017-12-01] MEDS ORDERED: IV FLUID CONTINUATION 775 ML IV ONE (08:43)
[2017-12-01] MEDS: ONDANSETRON 4 MG/2 ML VIAL IVP STA (09:03)
[2017-12-01] MEDS ORDERED: DEXAMETHASONE SOD PHOSPHATE 10 MG/ML 1 ML VIAL IV ONE (09:03)
[2017-12-01] MEDS ORDERED: METOCLOPRAMIDE 5 MG/ML 2 ML VIAL IVP ONE (09:04)
[2017-12-01] MEDS ORDERED: SCOPOLAMINE 1.5MG/72HR PATCH TRANSDERM ONE (09:04)
[2017-12-01] MEDS ORDERED: FAMOTIDINE 20 MG/2 ML VIAL IV ONE (09:04)
[2017-12-01] MEDS ORDERED: HEPARIN SODIUM,PORCINE 5,000 UNIT/ML 1 ML VIAL SQ ONE (09:05)
[2017-12-01] MEDS ORDERED: LIDOCAINE 1% INJ 10MG/ML (20 ML MDV) ONE (09:22)
[2017-12-01] MEDS ORDERED: MIDAZOLAM 2 MG/2 ML VIAL ONE (09:22)
[2017-12-01] MEDS ORDERED: GLYCOPYRROLATE 0.2 MG/ML 2 ML VIAL ONE (09:22)
[2017-12-01] MEDS ORDERED: SODIUM CHLORIDE 0.9% 50 ML with ceFAZolin 2,000 MG IV ONE ×2 (09:22)
[2017-12-01] MEDS ORDERED: NEOSTIGMINE 1 MG/ML 10 ML VIAL ONE (09:22)
[2017-12-01] MEDS ORDERED: ROCURONIUM BROMIDE 10 MG/ML 10 ML VIAL IV ONE (09:22)
[2017-12-01] MEDS ORDERED: PROPOFOL 10 MG/ML 20 ML VIAL IV ONE (09:22)
[2017-12-01] MEDS ORDERED: fentaNYL (PF) 50 MCG/ML 2 ML AMP ONE (09:22)
[2017-12-01] MEDS ORDERED: PHENYLEPHRINE-0.9% NACL SYG 1 MG/10 ML SYRINGE ONE (09:22)
[2017-12-01] MEDS ORDERED: ALBUTEROL INHALER 60 PUFF/8 GM INHALER INHALATION ONE (09:22)
[2017-12-01] MEDS ORDERED: BUPIVACAINE (PF) 0.25% 30 ML VIAL SQ ONE (09:52)
[2017-12-01] MEDS ORDERED: NALOXONE 0.4 MG/ML 1 ML VIAL IV PRN (10:14)
[2017-12-01] MEDS ORDERED: LACTATED RINGERS 1,000 ML IV ONE ×2 (10:14→11:02)
[2017-12-01] MEDS ORDERED: HYDROmorphone 4 MG/ML 1 ML SYRINGE IVP PRN ×2 (10:14→13:31)
[2017-12-01] MEDS ORDERED: HYDROcodone/APAP 5-325MG 1 EACH TAB PO PRN (10:14)
--- NOTE | 2017-12-01 10:14 | P.OP ---
Date of Procedure: 12/01/17 Preoperative Diagnosis: Acute appendicitis Postoperative Diagnosis: Acute appendicitis Procedure(s) Performed: Laparoscopic appendectomy Anesthesia: AMARJIT Surgeon: Phoenix Tam Estimated Blood Loss (ml): 5 Pathology: other (Appendix) Condition: stable Disposition: PACU Description of Procedure: The patient's placed on the operating table in the supine position. The patient received general anesthesia. The abdomen was prepped and draped in the usual sterile fashion. The skin was anesthetized 1% local Xylocaine at the trocar sites. Using an 11 blade the skin was incised at the umbilicus. The umbilicus was grasped with a [place] clamp and then a Veress needle was placed into the peritoneal cavity. Position of the Veress needle was confirmed with positive drop test. After adequate insufflation a 5 mm trocar was placed into the peritoneal cavity. The abdomen was further insufflated. And then the laparoscope was placed in the peritoneal cavity. Next a 5 mm trocar was placed in the midline suprapubic position. And then a 10 mm trocar was placed in the midline epigastric position. The patient was rotated with the right side up and in Trendelenburg. The appendix was visualized. The appendix appeared to be inflamed. The appendix was grasped and then using the Harmonic scissors the mesoappendix was divided. A PDS Endoloop was then placed around the base of the appendix. And then the appendix was divided using Harmonic scissors. The appendix was placed into an Endo Catch and brought out through the 10 mm trocar site. The abdomen was irrigated. There is no bleeding seen. The trochars withdrawn. The skin was closed interrupted 3-0 Monocryl suture. Dermabond dressing was applied. Patient was sent to recovery room in stable condition.
[2017-12-01] MEDS ORDERED: MEPERIDINE 50 MG/ML SYRINGE IVP ONE ×2 (10:30→10:55)
[2017-12-01] MEDS ORDERED: ALBUTEROL NEBULIZED 2.5 MG/3 ML INHALATION PRN (13:28)
[2017-12-01] MEDS ORDERED: HYDROcodone/APAP 10-325MG 1 EACH TAB PO PRN (13:28)
[2017-12-01] MEDS ORDERED: BUDESONIDE 0.5 MG/2 ML NEBU INHALATION PRN (13:28)
[2017-12-01] MEDS ORDERED: THYROID, PORK 30 MG TAB PO STA (14:29)
[2017-12-01] MEDS ORDERED: FAMOTIDINE 20 MG TAB PO STA (15:51)
[2017-12-01] MEDS ORDERED: HYDROmorphone 0.5 MG/0.5 ML SYRINGE IVP PRN (20:10)
[2017-12-01] MEDS: FAMOTIDINE 20 MG TAB PO SCH (20:40)
[2017-12-01] MEDS: DOCUSATE 100 MG CAP PO SCH (20:40)
[2017-12-01] MEDS ORDERED: traZODone HCL 50 MG TAB PO SCH (21:00)
[2017-12-01] MEDS ORDERED: metFORMIN 500 MG TAB PO SCH (21:00)
[2017-12-01] MEDS ORDERED: CYCLOBENZAPRINE 10 MG TAB PO SCH (21:00)
[2017-12-01] MEDS ORDERED: cefTRIAXone IN SWFI 1,000 MG/10 ML SYRINGE IVP SCH (23:00)
[2017-12-02] MEDS ORDERED: THYROID, PORK 30 MG TAB PO SCH (06:30)
[2017-12-02 07:04] LABS: Basophils % (A) 0 %; Eosinophils % (A) 0 %; HCT 36.7 % (34.0-46.0); HGB 11.9 gm/dL (11.4-16.0); Lymphocytes # (A) 1.5 k/uL (1.0-4.8); Lymphocytes % (A) 26 %; MCH 30.3 pg (25.0-35.0); MCHC 32.5 g/dL (31.0-37.0); MCV 93.2 fL (80.0-100.0); Mean Platelet Volume 6.6; Monocytes # (A) 0.5 k/uL (0-1.0); Monocytes % (A) 8 %; Neutrophils # (A) 3.6 k/uL (1.3-7.7); Neutrophils % (A) 62 %; Platelet Count 259 k/uL (150-450); RBC 3.94 m/uL (3.80-5.40); RDW 12.2 % (11.5-15.5); WBC 5.8 k/uL (3.8-10.6)
[2017-12-02 08:20] VITALS: BP 125/73; PULSE 79; RESP 16; TEMP 97.7
[2017-12-02] MEDS: FAMOTIDINE 20 MG TAB PO SCH (08:43)
[2017-12-02] MEDS: DOCUSATE 100 MG CAP PO SCH (08:44)
[2017-12-02] MEDS ORDERED: ASCORBIC ACID 500 MG TAB PO SCH (09:00)
[2017-12-02] MEDS ORDERED: CO Q-10 100MG PO SCH (09:00)
[2017-12-02] MEDS ORDERED: CHOLECALCIFEROL 1,000 UNIT TAB PO SCH (09:00)
[2017-12-02] MEDS ORDERED: LORATADINE 10 MG TAB PO SCH (09:00)
[2017-12-02] MEDS ORDERED: FERROUS SULFATE 325 MG TAB PO SCH (09:00)
[2017-12-02] MEDS ORDERED: B COMPLEX-VIT C-VIT E-ZINC 1 EACH TAB PO SCH (09:00)
[2017-12-02] MEDS ORDERED: ENOXAPARIN 40 MG/0.4 ML SYRINGE SQ SCH (09:00)
--- NOTE | 2017-12-02 10:18 | P.DS ---
Providers Date of admission: 11/30/17 23:06 Expected date of discharge: 12/02/17 Attending physician: Phoenix Tam Primary care physician: Jason Carrasco [facility] Course: 47-year-old female came into the emergency room with right lower quadrant pain. CAT scan abdomen and pelvis showed evidence of an acute appendicitis. Patient stated the pain started 12 hours prior. Patient's primary care providers Dr. Jason Carrasco. On December 01 patient underwent laparoscopic appendectomy for acute appendicitis. There was no postop events. On the day of discharge patient was hemodynamically stable and appropriate proceed with a discharge to home Impression discharge diagnoses Present on admission right lower quadrant abdominal pain suspect due to acute appendicitis CAT scan abdomen and pelvis on admission showed evidence of an acute appendicitis Postop December 01 laparoscopic appendectomy for acute appendicitis The above impression and plan of care have been discussed and directed by signing physician. Mirna Steiner nurse practitioner acting as scribe for signing physician. Patient Condition at Discharge: Serious Plan - Discharge Summary Discharge Rx Participant: Yes New Discharge Prescriptions: New Acetaminophen Tab [Tylenol] 650 mg PO Q6HR PRN tab PRN Reason: Mild Pain Or Fever > 100.5 HYDROcodone/APAP 10-325MG [[place] 10-325] 1 each PO QID PRN #20 tab PRN Reason: Pain Continue Ubidecarenone [Co Q-10] 100 mg PO DAILY Ferrous Sulfate [Iron (65 MG Elemental)] 325 mg PO DAILY Cholecalciferol [Vitamin D3] 1,000 unit PO DAILY Ascorbic Acid [Vitamin C] 500 mg PO DAILY Albuterol Inhaler [Ventolin Hfa Inhaler] 2 puff INHALATION RT-Q6H PRN PRN Reason: Shortness Of Breath metFORMIN HCL 1,000 mg PO HS Vitamin B Complex 1 cap PO DAILY Diazepam [Valium] 5 mg PO HS PRN PRN Reason: Anxiety Cyclobenzaprine [Flexeril] 20 mg PO HS traZODone HCL 50 mg PO HS Ranitidine HCl 150 mg PO BID Loratadine [Claritin] 10 mg PO DAILY HYDROcodone/APAP 10-325MG [[place] 10-325] 1 tab PO QID PRN PRN Reason: Pain Thyroid,Pork [[place] Thyroid] 15 mg PO DAILY Phentermine HCl [Adipex-P] 37.5 mg PO QAM Beclomethasone Dipropionate [Qvar 80 mcg] 1 puff INHALATION RT-BID PRN PRN Reason: Shortness Of Breath Discharge Medication List Albuterol Inhaler [Ventolin Hfa Inhaler] 2 puff INHALATION RT-Q6H PRN 11/30/17 [ History] Ascorbic Acid [Vitamin C] 500 mg PO DAILY 11/30/17 [History] Beclomethasone Dipropionate [Qvar 80 mcg] 1 puff INHALATION RT-BID PRN 11/30/17 [History] Cholecalciferol [Vitamin D3] 1,000 unit PO DAILY 11/30/17 [History] Cyclobenzaprine [Flexeril] 20 mg PO HS 11/30/17 [History] Diazepam [Valium] 5 mg PO HS PRN 11/30/17 [History] Ferrous Sulfate [Iron (65 MG Elemental)] 325 mg PO DAILY 11/30/17 [History] HYDROcodone/APAP 10-325MG [[place] 10-325] 1 tab PO QID PRN 11/30/17 [History] Loratadine [Claritin] 10 mg PO DAILY 11/30/17 [History] Phentermine HCl [Adipex-P] 37.5 mg PO QAM 11/30/17 [History] Ranitidine HCl 150 mg PO BID 11/30/17 [History] Thyroid,Pork [[place] Thyroid] 15 mg PO DAILY 11/30/17 [History] Ubidecarenone [Co Q-10] 100 mg PO DAILY 11/30/17 [History] Vitamin B Complex 1 cap PO DAILY 11/30/17 [History] metFORMIN HCL 1,000 mg PO HS 11/30/17 [History] traZODone HCL 50 mg PO HS 11/30/17 [History] Acetaminophen Tab [Tylenol] 650 mg PO Q6HR PRN tab 12/02/17 [Rx] HYDROcodone/APAP 10-325MG [[place] 10-325] 1 each PO QID PRN #20 tab 12/02/17 [Rx] Follow up Appointment(s)/Referral(s): Jason Carrasco DO [Primary Care Provider] - 1-2 days Phoenix Tam MD [STAFF PHYSICIAN] - 1 Week Activity/Diet/Wound Care/Special Instructions: Patient home medications in pharmacy No tub bath for six weeks. Shower daily. No lifting over 4 pounds for the next 6 weeks. Do not remove surgical dressings until seen in a follow-up visit. May use ice packs to surgical site. No driving while taking narcotic for pain. Discharge Disposition: HOME SELF-CARE
== END 2017-12-02 10:45 | disposition home or self-care (01) ==
LOC: EC 19:57 → INTOOBSV 23:06 → 3SUR 23:06 → UNDODISIN 12-02 10:45
PROVIDERS: ADMIT Surgery; ATTEND Surgery
DX: K35.80 Unspecified acute appendicitis (principal); J45.909 Unspecified asthma, uncomplicated; F43.10 Post-traumatic stress disorder, unspecified; K21.9 Gastro-esophageal reflux disease without esophagitis; M19.90 Unspecified osteoarthritis, unspecified site; F90.9 Attention-deficit hyperactivity disorder, unspecified type; R41.3 Other amnesia; E07.9 Disorder of thyroid, unspecified; F41.9 Anxiety disorder, unspecified; F17.210 Nicotine dependence, cigarettes, uncomplicated; Z87.11 Personal history of peptic ulcer disease; Z86.2 Personal history of diseases of the blood and blood-forming organs and certain disorders involving the immune mechanism; Z86.69 Personal history of other diseases of the nervous system and sense organs; Z87.01 Personal history of pneumonia (recurrent); Z90.89 Acquired absence of other organs; Z90.49 Acquired absence of other specified parts of digestive tract; Z98.51 Tubal ligation status; Z90.710 Acquired absence of both cervix and uterus; Z79.899 Other long term (current) drug therapy; Z79.891 Long term (current) use of opiate analgesic; Z79.84 Long term (current) use of oral hypoglycemic drugs; Z88.2 Allergy status to sulfonamides; Z91.018 Allergy to other foods; Z98.84 Bariatric surgery status; Z83.3 Family history of diabetes mellitus; Z82.49 Family history of ischemic heart disease and other diseases of the circulatory system
CPT/HCPCS: 44970; 96375 ×3; 96361; 96365; 99285; 36415; 88304; 80053; 80048; 82150; 83605; 83690; 85025 ×3; 81003; 87040; 74176; G0378 ×3; J2250; J1644; J1100; J2710; J2765; J2175; J2405 ×2; J2001; J1650; J0696; J3010; J0690; J2370; J2704; J1170 ×3

== ENCOUNTER → 2018-04-22 | Outpatient (CLI) | payer OTHER ==
--- NOTE | 2018-04-22 13:16 | XR ---
Right hand HISTORY: Pain in right hand, thumb 3 views of the right hand Hypertrophic changes present at the carpometacarpal joint of the first digit. Small ossific density p resent with remodeling. Some marginal spurring, subchondral sclerosis noted. IMPRESSION: Osteoarthritis.
== END | disposition home or self-care (01) ==
LOC: RADXRMAIN 09:07
PROVIDERS: ATTEND Family Medicine
DX: M19.041 Primary osteoarthritis, right hand (principal)

== ENCOUNTER → 2018-08-22 | Outpatient (CLI) | payer OTHER ==
--- NOTE | 2018-08-22 23:01 | MR ---
EXAMINATION TYPE: MR cspine/tspine/lspine wo con DATE OF EXAM: 08/22/2018 COMPARISON: Prior MRI entire spine August 06, 2017 HISTORY: M54.5, G89.29,M25.512 all per border. Headaches with numbness into fingers for 10 to 20 year s causing pain and weakness into left arm per patient. DDD and osteoarthritis mid back since 1994 wit h pain per patient. Toe and leg numbness with back pain since 1994 causing pain into bilateral buttoc ks per patient. TECHNIQUE: Multiplanar, multisequence imaging of the cervical, thoracic, and lumbar spine are all per formed without IV contrast. FINDINGS: C-SPINE: FINDINGS: Sagittal images of the cervical spine show the craniocervical junction to remain within nor mal limits. The cervical and upper thoracic spinal cord is normal in course, caliber, and signal. Th ere is stable grade 1 retrolisthesis of C5 on C6.. There is stable moderate disc space narrowing C5-C 6 level otherwise the vertebral body and intravertebral disk heights are normal. The bone marrow sig nal intensity is within normal limits. No significant spurring is present. Axial images at C2-C3 through C4-C5 levels show stable small to tiny left paracentral disc protrusion s effacing the anterolateral thecal sac, bilateral neural foramina are patent. No significant change from prior. Axial images at C5-C6 levels with posterior spur disc complex effacing the anterior thecal sac and ca using mild to moderate right greater than left bilateral neural foraminal narrowing, no significant c hange from prior. Axial images at C6-C7 level left paracentral disc protrusion axial image 16 effacing anterior thecal sac, bilateral neural foramina are patent. No significant change from prior. Axial images at C7-T1 level are felt within normal limits. IMPRESSION: Multilevel degenerative changes of cervical spine as detailed above, most prominent findi ngs redemonstrated at C5-C6 level. No significant change from prior study noted. T-SPINE: FINDINGS: Spinal cord redemonstrates normal course, caliber, and signal as it courses the thoracic sp ine. Vertebral body heights and alignment remain satisfactory. Multilevel disc desiccation is redem onstrated. There is some mild disc space narrowing mid to lower thoracic levels again seen. Tiny mult ilevel posterior disc herniations are seen minimally effacing the anterior thecal sac on sagittal sarah ges at T2-T3, T3-T4, T5-T6, T6-T7, T7-T8, T8-T9, T9-T10, and T11-T12 levels. No significant change fr om prior. Some heterogeneous endplate changes at T12 level are present. Mild multilevel anterior spur ring lower thoracic spine is redemonstrated. Review of the axial images shows no significant spinal canal stenosis or neural foraminal narrowing a t any thoracic level. No significant new or large disc herniation is present. IMPRESSION: Stable multilevel degenerative changes in thoracic spine as detailed above. L-SPINE: Sagittal images of the lumbar spine show vertebral body heights and alignment to appear satisfactory. Multilevel disc desiccation is seen but this space heights are fairly well-maintained. No new or lar ge posterior disc herniations are seen on sagittal images. The conus medullaris remains normal in po sition and signal ending mid L1 level. The bone marrow signal intensity is within normal limits. No significant spurring is seen. Axial images show the T12-L1, L1-L2, and L2-L3 levels all to remain within normal limits. Axial images at the L3-L4 level show mild facet degenerative changes bilaterally. There is broad-base d posterior disc protrusion mildly facing anterior thecal sac. Bilateral neural foramina are patent. No significant change from prior. Axial images at L4-L5 level mild facet degenerative changes bilaterally. There is broad-based posteri or disc protrusion minimally effacing the anterior thecal sac. Bilateral neural foramina are patent. No significant change from prior. Axial images at the L5-S1 level shows mild to moderate facet degenerative changes bilaterally. There is right foraminal disc protrusion axial image 3 redemonstrated causing asymmetric moderate inferior right-sided neural foraminal narrowing encroaching on right L5 nerve sagittal image 13. Left-sided ne ural foramen is patent. No significant change from prior. There is fairly stable 8 mm oval T2 hyperintense lesion posterior right kidney axial image 25 favorin g simple thin-walled cyst IMPRESSION: Multilevel degenerative changes in the mid to lower lumbar spine as detailed above, stabl e eccentric disc herniation right L5-S1 level encroaching on exiting right L5 nerve.
== END | disposition home or self-care (01) ==
LOC: RADMRIMAIN 17:10
PROVIDERS: ATTEND Family Medicine
DX: M51.27 Other intervertebral disc displacement, lumbosacral region (principal); M47.812 Spondylosis without myelopathy or radiculopathy, cervical region; M47.814 Spondylosis without myelopathy or radiculopathy, thoracic region; M47.816 Spondylosis without myelopathy or radiculopathy, lumbar region
CPT/HCPCS: 72141; 72146; 72148

== ENCOUNTER → 2018-09-05 | Outpatient (CLI) | payer OTHER ==
--- NOTE | 2018-09-05 15:47 | CT ---
EXAMINATION TYPE: CT abdomen pelvis wo con DATE OF EXAM: 09/05/2018 COMPARISON: INDICATION: Patient complains of RUQ pain. DLP: 405.2 mGycm, Automated exposure control for dose reduction was used. CONTRAST: mL of . Study performed without Oral Contrast TECHNIQUE: Axial images were obtained from above the diaphragm to the pubic rami in the axial plane a t 5 mm thick sections. Reconstructed images are reviewed on the computer in the coronal plane. FINDINGS: Limited CT sections are obtained the lung bases. The lung bases are clear. Bilateral breast prosthe ses are present. Small hiatal hernia is present. Gastric sleeve is been performed. CT ABDOMEN: Liver: Normal Spleen: Normal Pancreas: Normal Adrenal glands: The adrenal glands are normal. Gallbladder: Surgically absent. Kidneys: No masses are evident. No hydronephrosis is present. No cysts are present. No renal stone s are identified. Aorta: Normal. Inferior vena cava: Normal. CT PELVIS: Loops of bowel within the abdomen and pelvis are normal. Study is performed without oral contrast . Appendix: Normal as visualized. Urinary bladder: Normal. Genitourinary structures: Vaginal cuff region is normal. No free fluid is within the pelvis. Adnexal regions are normal. Osseous structures: No suspicious lytic or sclerotic lesions. IMPRESSIONS: 1. Normal noncontrast CT abdomen and pelvis. 2. Hiatal hernia. Gastric sleeve is been performed.
== END | disposition home or self-care (01) ==
LOC: RADCTMAIN 08:19
PROVIDERS: ATTEND Family Medicine
DX: K44.9 Diaphragmatic hernia without obstruction or gangrene (principal); Z98.84 Bariatric surgery status
CPT/HCPCS: 74176

== ENCOUNTER → 2018-10-07 | Outpatient (CLI) | payer OTHER ==
[2018-10-07 14:25] LABS: Blood Urea Nitrogen 19 mg/dL (7-17)
--- NOTE | 2018-10-07 15:57 | CT ---
CT brain with and without contrast HISTORY: S06.5X9A, abnormal physical exam with blood crusting right ureter Helical acquisition obtained through the brain pre- and postadministration of 100 cc Isovue 300 IV. DLP 2072.0 mGycm, automated exposure control for dose reduction utilized. No comparisons There is no hemorrhage or hydrocephalus. No abnormal enhancement following contrast administration. C alvarium is intact. Paranasal sinuses and mastoid air cells as visualized are normal. Orbits show sym metric appearance. There is a partially empty sella present. IMPRESSION: No abnormality evident to account for patient's symptoms.
== END | disposition home or self-care (01) ==
LOC: RADCTMAIN 13:49
PROVIDERS: ATTEND Family Medicine
DX: S06.5X9A Traumatic subdural hemorrhage with loss of consciousness of unspecified duration, initial encounter (principal)
CPT/HCPCS: 82565; 84520; 70470; 36415; Q9967

== ENCOUNTER → 2018-11-24 | Outpatient (CLI) | payer OTHER ==
--- NOTE | 2018-11-25 10:50 | MM ---
Reason for exam: screening (asymptomatic). Last mammogram was performed 2 years ago. History: Family history of breast cancer in maternal aunt. Implants in both breasts, May 22, 2014. Physical Findings: A clinical breast exam by your physician is recommended on an annual basis and results should be correlated with mammographic findings. MG Screening Mammo Implant/CAD Bilateral CC, MLO, and ID view(s) were taken. Prior study comparison: November 30, 2016, bilateral MG screening mammo implant/CAD. November 29, 2015, bilateral MG screening mammo implant/CAD. The breast tissue is heterogeneously dense. This may lower the sensitivity of mammography. Finding #1: There is a 14 mm oval mass in the upper quadrant, anterior position of the right breast on MLO ID view only. Finding #2: There are typically benign round calcifications in both breasts. Bilateral subpectoral implants redemonstrated. ASSESSMENT: Incomplete: need additional imaging evaluation, BI-RAD 0 RECOMMENDATION: Special view mammogram of the right breast. Ultrasound of the left breast. (palpable by patient) [facility] will attempt to contact patient to return for supplemental views and ultrasound.
== END | disposition home or self-care (01) ==
LOC: RADMAMWWP 13:02
PROVIDERS: ATTEND Family Medicine
DX: Z12.31 Encounter for screening mammogram for malignant neoplasm of breast (principal)
CPT/HCPCS: 77067

== ENCOUNTER → 2018-12-08 | Outpatient (CLI) | payer OTHER ==
--- NOTE | 2018-12-08 10:32 | MM ---
Reason for exam: additional evaluation requested from abnormal screening. Last mammogram was performed less than 1 month ago. History: Family history of breast cancer in maternal aunt. Implants in both breasts, May 22, 2014. Physical Findings: Nurse did not find any significant physical abnormalities on exam. MG Work Up Ulices W/Imp W/CAD R ML and spot compression MLO view(s) were taken of the right breast. Prior study comparison: November 24, 2018, bilateral MG screening mammo implant/CAD. November 30, 2016, bilateral MG screening mammo implant/CAD. There is no discrete abnormality. Prior may have been nipple. These results were verbally communicated with the patient and result sheet given to the patient on 12/08/18. ASSESSMENT: Benign, BI-RAD 2 RECOMMENDATION: Return to routine screening mammogram schedule for both breasts.
--- NOTE | 2018-12-08 10:33 | USB ---
Reason for exam: additional evaluation requested from abnormal screening. History: Family history of breast cancer in maternal aunt. Implants in both breasts, May 22, 2014. US Breast Workup Limited LT Left limited breast ultrasound including focal area of concern, retroareolar and axilla demonstrates no significant cystic or solid lesion seen greater than 0.50cm. These results were verbally communicated with the patient and result sheet given to the patient on 12/08/18. ASSESSMENT: Negative, BI-RAD 1 RECOMMENDATION: Return to routine screening mammogram schedule for both breasts.
== END | disposition home or self-care (01) ==
LOC: RADMAMWWP 07:55
PROVIDERS: ATTEND Family Medicine
DX: R92.8 Other abnormal and inconclusive findings on diagnostic imaging of breast (principal)
CPT/HCPCS: 77065

== ENCOUNTER → 2018-12-13 | Outpatient (CLI) | payer OTHER ==
[2018-12-14 01:54] LABS: Cyclic Citrullinated Pep IgG NEGATIVE (NEGATIVE); DNA Double-Stranded NEGATIVE (NEGATIVE); RNP <0.2 AI; Scleroderma SC-70 Ab <0.2 AI
== END | disposition home or self-care (01) ==
LOC: LABWHC1 16:29
PROVIDERS: ATTEND Nurse Practitioner Family
DX: R53.83 Other fatigue (principal); R41.3 Other amnesia
CPT/HCPCS: 36415; 82607; 83516; 84443; 84481; 86038; 86200; 86225; 86235

== ENCOUNTER → 2018-12-19 | Outpatient (CLI) | payer OTHER ==
[2018-12-19 17:02] LABS: Total Protein,CSF 30 mg/dL (12-60)
[2018-12-19 17:09] LABS: Appearance,CSF Clear; CSF Tube Number 4
[2018-12-19 19:16] LABS: Red Blood Cell,CSF 0 u/L (0-10)
[2018-12-19 19:17] LABS: Nucleated Cells, CSF 3 u/L (0-5)
[2018-12-21 13:24] LABS: IgG/Albumin Index (CSF) 0.52 (0.00 - 0.77); Immunoglobulin G 654 mg/dL (700 - 1600)
== END ==
LOC: LABWHC1 09:17
PROVIDERS: ATTEND Nurse Practitioner Family
DX: R90.82 White matter disease, unspecified (principal)
CPT/HCPCS: 36415; 82040; 82042; 82784; 83873; 83916; 84157; 87801; 89050

== ENCOUNTER → 2019-06-14 | Outpatient (CLI) | payer OTHER ==
--- NOTE | 2019-07-14 12:03 | EM ---
EVENT MONITOR AGE: 49 SEX: Female INDICATIONS: Patient was monitored between the 14 of June and the June,. Rhythm strip revealed sinus mechanism with single PVC. There was episode of sinus tachycardia and a short burst of supraventricular tachycardia that was asymptomatic. Symptoms of nausea, vomiting, and sweating correlated with sinus mechanism. Symptoms of dizziness or lightheadedness correlated with a single PVC as well with episode of atrial tachycardia. No evidence of atrial fibrillation was noted and no significant ventricular ectopic activity was noted. MMODL / IJN: [id number] /
== END | disposition home or self-care (01) ==
LOC: RADECHMAIN 12:22
PROVIDERS: ATTEND Family Medicine
DX: R00.2 Palpitations (principal); I45.10 Unspecified right bundle-branch block
CPT/HCPCS: 93270

== ENCOUNTER 2019-07-19 22:16 | Emergency (ER) | payer OTHER ==
--- NOTE | 2019-07-19 22:52 | ED ---
Wound/Laceration HPI - General Chief Complaint: Wound/Laceration Stated Complaint: Calf Wound Time Seen by Provider: 07/19/19 22:51 Source: patient Mode of arrival: ambulatory Limitations: no limitations - History of Present Illness Initial Comments: This is a 49-year-old female who presents the ER today for reevaluation of wound. Patient reports that yesterday she was carrying a plastic tote that was broken and it hit her in the left lateral aiken causing a skin flap. Patient was seen and evaluated at outside hospital, though was a flap because of the size of the decision was made to suture down the skin tear as a biologic dressing and apply Dermabond over the wound. Patient reports today she noted that the skin flap appears to be blackened and she is concerned that there is redness around the wound. She wanted a second opinion. Patient wants to have the Dermabond removed and the skin flap removed. She states that she when she had a [place] niculectomy they left the wound open and she did dressing changes and debridement for healing. She thought that that might be what we should do with this wound. - Related Data Home Medications Medication Instructions Recorded Confirmed Albuterol Inhaler [Ventolin Hfa 2 puff INHALATION RT-Q6H PRN 11/30/17 07/19/19 Inhaler] Ascorbic Acid [Vitamin C] 500 mg PO DAILY 11/30/17 07/19/19 Cholecalciferol [Vitamin D3 (25 1,000 unit PO DAILY 11/30/17 07/19/19 Mcg = 1000 Iu)] Cyclobenzaprine [Flexeril] 20 mg PO HS 11/30/17 07/19/19 Ferrous Sulfate [Iron (65 MG 325 mg PO DAILY 11/30/17 07/19/19 Elemental)] HYDROcodone/APAP 10-325MG [[place] 1 tab PO QID PRN 11/30/17 07/19/19 10-325] Loratadine [Claritin] 10 mg PO DAILY 11/30/17 07/19/19 Phentermine HCl [Adipex-P] 37.5 mg PO QAM 11/30/17 07/19/19 Ranitidine HCl 150 mg PO BID 11/30/17 07/19/19 Thyroid,Pork [[place] Thyroid] 15 mg PO DAILY 11/30/17 07/19/19 Ubidecarenone [Co Q-10] 100 mg PO DAILY 11/30/17 07/19/19 Vitamin B Complex 1 cap PO DAILY 11/30/17 07/19/19 metFORMIN HCL 1,000 mg PO HS 11/30/17 07/19/19 traZODone HCL 50 mg PO HS 11/30/17 07/19/19 Furosemide [Lasix] 20 mg PO DAILY 07/19/19 07/19/19 Previous Rx's Medication Instructions Recorded Cephalexin [Keflex] 500 mg PO Q6HR #28 cap 07/19/19 Allergies Allergy/AdvReac Type Severity Reaction Status Date / Time broccoli Allergy Unknown Verified 07/19/19 22:53 pineapple Allergy Unknown Verified 07/19/19 22:53 Sulfa (Sulfonamide Allergy shortness Verified 07/19/19 22:53 Antibiotics) of breathe Review of Systems ROS Statement: Those systems with pertinent positive or pertinent negative responses have been documented in the HPI. ROS Other: All systems not noted in ROS Statement are negative. Past Medical History Past Medical History: Asthma, Blood Disorder, Eye Disorder, GERD/Reflux, Memory Impairment, Pneumonia, Thyroid Disorder Additional Past Medical History / Comment(s): Temporal lobe brain damage, anemia, gastritis, bleeding ulcer, short term memory loss, arthritis, DDD, Left rotator cuff 2 tears History of Any Multi-Drug Resistant Organisms: None Reported Past Surgical History: Adenoidectomy, Cholecystectomy, Hysterectomy, Orthopedic Surgery, Tonsillectomy, Tubal Ligation Additional Past Surgical History / Comment(s): bilateral knee, gastric sleeve tonsils, addenoids, hyst, tubal Past Anesthesia/Blood Transfusion Reactions: Previous Problems w/ Anesthesia Additional Past Anesthesia/Blood Transfusion Reaction / Comment(s): Needs low anesthesia, VSS plummet. Sickness r/t anesthesia Past Psychological History: ADD/ADHD, Anxiety, PTSD Smoking Status: Current every day smoker Past Alcohol Use History: Occasional Past Drug Use History: None Reported - Past Family History Father Family Medical History: Pulmonary Embolus Mother Family Medical History: Diabetes Mellitus, Hypertension General Exam - General Exam Comments Initial Comments: Physical Exam GENERAL: Patient is well-developed and well-nourished. Patient is nontoxic and well-hydrated and is in no distress. HENT: Normocephalic, Atraumatic. EYES: PERRL, EOMI PULMONARY: Unlabored respirations. CARDIOVASCULAR: RRR ABDOMEN: Soft and nontender with normal bowel sounds. SKIN: Laceration on left lateral aiken, flap repaired with suture and dermabond flap is necrotic there is bruising around the injury no purulent drainage, no malodorous drainage : Deferred NEUROLOGIC: Patient is alert and oriented x3. Moving all extremities spontaneously MUSCULOSKELETAL: Normal extremities with adequate strength and full range of motion. No lower extremity swelling or edema. No calf tenderness. PSYCHIATRIC: Anxious Limitations: no limitations Course Vital Signs 07/19/19 07/19/19 22:20 23:27 Temperature 98.6 F 97.8 F Pulse Rate 107 H 79 Respiratory 16 18 Rate Blood Pressure 135/87 156/86 O2 Sat by Pulse 99 97 Oximetry Medical Decision Making - Medical Decision Making Patient was seen and evaluated history was obtained from the patient Patient had a traumatic injury of the left aiken yesterday was repaired at an outside hospital today she has some redness and area, on my evaluation of a very high suspicion this is simply a hematoma however patient is very anxious concerned about infection. At this time I will not take down the Dermabond or remove the sutures however the borders of the erythema were marked with a surgical pen patient will be given Keflex ordered patient advised follow-up with her primary care physician on Wednesday for wound evaluation. Patient was advised to take pictures of the wound daily to track any changes. All questions pert aining care were answered return parameters were discussed patient was discharged home in stable condition. Disposition Clinical Impression: Visit for wound check Disposition: HOME SELF-CARE Condition: Stable Instructions (If sedation given, give patient instructions): Wound Infection (DC) Prescriptions: Cephalexin [Keflex] 500 mg PO Q6HR #28 cap Is patient prescribed a controlled substance at d/c from ED?: No Referrals: Jason Carrasco DO [Primary Care Provider] - 1-2 days
[2019-07-19] MEDS ORDERED: CEPHALEXIN 500MG STARTER PACK 4 CAP BTL PO STA (23:16)
[2019-07-19 23:28] VITALS: BP 156/86; PULSE 79; RESP 18; TEMP 97.8
== END 2019-07-19 23:27 | disposition home or self-care (01) ==
LOC: EC 22:16
DX: S81.812A Laceration without foreign body, left lower leg, initial encounter (principal); J45.909 Unspecified asthma, uncomplicated; K21.9 Gastro-esophageal reflux disease without esophagitis; E07.9 Disorder of thyroid, unspecified; D64.9 Anemia, unspecified; F41.9 Anxiety disorder, unspecified; F17.200 Nicotine dependence, unspecified, uncomplicated; Z88.2 Allergy status to sulfonamides; Z91.018 Allergy to other foods; Z79.84 Long term (current) use of oral hypoglycemic drugs; Z79.890 Hormone replacement therapy; Z79.899 Other long term (current) drug therapy; Z98.890 Other specified postprocedural states; W22.8XXA Striking against or struck by other objects, initial encounter; Y93.89 Activity, other specified
CPT/HCPCS: 99282

== ENCOUNTER → 2019-12-05 | Outpatient (CLI) | payer OTHER ==
--- NOTE | 2019-12-05 16:47 | CT ---
EXAMINATION TYPE: CT abdomen pelvis wo con DATE OF EXAM: 12/05/2019 COMPARISON: 09/05/2018 HISTORY: Generalized abdominal and back pain. CT DLP: 1044 mGycm Automated exposure control for dose reduction was used. TECHNIQUE: Helical acquisition of images was performed from the lung bases through the pelvis. FINDINGS: LUNG BASES: No significant abnormality is appreciated. LIVER/GB: Gallbladder is surgically absent. Unenhanced liver is unremarkable in morphology. PANCREAS: No significant abnormality is seen. SPLEEN: No significant abnormality is seen. ADRENALS: No significant abnormality is seen. KIDNEYS: No hydronephrosis. Punctate 1 to 2 mm nonobstructing left upper pole renal calculus on image 23. No right-sided renal calculi. FREE AIR: No free air is visualized ADENOPATHY: No greater than 1 cm short axis lymph node in the abdomen or pelvis. OSSEOUS STRUCTURES: Multilevel degenerative change of the spine. BOWEL: Gastric sleeve noted. There is a hernia containing oral contrast. Very few sigmoid diverticul a are seen without pericolonic fat stranding. No dilated large bowel. Small bowel are clustered in th e left mid abdomen, however no dilation is seen. Minimal prominence of the valvulae conniventes. OTHER: Bilateral breast implants are partially visualized. IMPRESSION: 1. SMALL HIATAL HERNIA CONTAINS CONTRAST AND MAY RELATE TO GASTROESOPHAGEAL REFLUX. 2. SLIGHT PROMINENCE OF THE SMALL BOWEL MUCOSAL FOLD. MILD INFLAMMATORY OR INFECTIOUS ENTERITIS IS PO SSIBLE. 3. PUNCTATE NONOBSTRUCTING SOLITARY LEFT RENAL CALCULUS.
== END | disposition home or self-care (01) ==
LOC: RADCTMAIN 14:03
PROVIDERS: ATTEND Family Medicine
DX: K44.9 Diaphragmatic hernia without obstruction or gangrene (principal); K21.9 Gastro-esophageal reflux disease without esophagitis; N20.0 Calculus of kidney
CPT/HCPCS: 74176

== ENCOUNTER 2019-12-21 08:39 | Day surgery (SDC) | payer OTHER ==
[2019-12-18 18:19] VITALS: BMI 30.5
--- NOTE | 2019-12-21 08:05 | P.GSHP ---
History of Present Illness H&P Date: 12/21/19 CHIEF COMPLAINT: GERD and colon screen HISTORY OF PRESENT ILLNESS: The patient is a 49-year-old female who presents with gastroesophageal reflux disease and need for colon screen. Upper and lower endoscopy were offered for further evaluation and management. PAST MEDICAL HISTORY: Please see list. PAST SURGICAL HISTORY: Please see list. MEDICATIONS: Please see list. ALLERGIES: Please see list. SOCIAL HISTORY: No illicit drug use FAMILY HISTORY: No reports of Crohn disease or ulcerative colitis. REVIEW OF ORGAN SYSTEMS: CONSTITUTIONAL: No reports of fevers or chills. GI: Denies any blood in stools or constipation. PHYSICAL EXAM: VITAL SIGNS: Stable GENERAL: Well-developed pleasant in no acute distress. HEENT: No scleral icterus. Extraocular movements grossly intact. Moist buccal mucosa. NECK: Supple without lymphadenopathy. CHEST: Unlabored respirations. Equal bilateral excursions. CARDIOVASCULAR: Regular rate and rhythm. Distal 2+ pulses. ABDOMEN: Soft, nondistended. MUSCULOSKELETAL: No clubbing, cyanosis, or edema. ASSESSMENT: 1. Gastroesophageal reflux disease 2. Colon screen. PLAN: 1. Recommend proceeding with an upper and lower endoscopy Past Medical History Past Medical History: Asthma, Blood Disorder, Eye Disorder, GERD/Reflux, GI Bleed, Memory Impairment, Musculoskeletal Disorder, Pneumonia, Thyroid Disorder Additional Past Medical History / Comment(s): Temporal lobe brain damage, anemia/low iron, gastritis, bleeding ulcer 2009, short term memory loss, arthritis, DDD, Left rotator cuff 2 tears that dislocates. Metabolic syndrome, Insulin resistance, eats once daily. "Incomplete RBBB." Hx colon polyps. Bruises easily. History of Any Multi-Drug Resistant Organisms: None Reported Past Surgical History: Adenoidectomy, Appendectomy, Bariatric Surgery, Breast Surgery, Cholecystectomy, Hysterectomy, Orthopedic Surgery, Tonsillectomy, Tubal Ligation Additional Past Surgical History / Comment(s): bilateral knees, gastric sleeve 02/2012, Hemorrhoids, Colonoscopy, Brachioplasty, Breast Augmentation w/ implants, Thigh plastic surgery, lower body lift, Panniculectomy, exc cyst upper lip, exc cysts from labia, lt 5th finger repair/reattached, Rt thumb basal joint exc/repair w/ CTR Past Anesthesia/Blood Transfusion Reactions: Previous Problems w/ Anesthesia, Family History of Problems w/ Anesthesia, Postoperative Nausea & Vomiting (PONV) Additional Past Anesthesia/Blood Transfusion Reaction / Comment(s): Needs low anesthesia, VS plummet; has awoken during surgery in [place]. Uuncle has anesthesia problems, allergic reaction. Smoking Status: Current every day smoker - Past Family History Father Family Medical History: Pulmonary Embolus Mother Family Medical History: Diabetes Mellitus, Hypertension Medications and Allergies Home Medications Medication Instructions Recorded Confirmed Type Albuterol Inhaler [Ventolin Hfa 2 puff INHALATION RT-Q6H PRN 11/30/17 12/18/19 History Inhaler] Cholecalciferol [Vitamin D3 (25 1,000 unit PO DAILY 11/30/17 12/18/19 History Mcg = 1000 Iu)] Cyclobenzaprine [Flexeril] 10 mg PO TID PRN 11/30/17 12/18/19 History Ferrous Sulfate [Iron (65 MG 325 mg PO DAILY 11/30/17 12/18/19 History Elemental)] HYDROcodone/APAP 10-325MG [[place] 1 tab PO QID PRN 11/30/17 12/18/19 History 10-325] Loratadine [Claritin] 10 mg PO DAILY 11/30/17 12/18/19 History Phentermine HCl [Adipex-P] 37.5 mg PO QAM 11/30/17 12/18/19 History Thyroid,Pork [[place] Thyroid] 7.5 mg PO DAILY 11/30/17 12/18/19 History Ubidecarenone [Co Q-10] 100 - 200 mg PO DAILY 11/30/17 12/18/19 History metFORMIN HCL 1,000 mg PO BID 11/30/17 12/18/19 History traZODone HCL 50 mg PO HS 11/30/17 12/18/19 History Furosemide [Lasix] 20 mg PO DAILY 07/19/19 12/18/19 History Dexlansoprazole [Dexilant] 60 mg PO BID 12/18/19 12/18/19 History Simethicone [Gas-X] 125 mg PO DIRECTED PRN 12/18/19 12/18/19 History Toradol Injection 1 injection IM Q14D 12/18/19 History Allergies Allergy/AdvReac Type Severity Reaction Status Date / Time broccoli Allergy Unknown Verified 12/18/19 17:27 pineapple Allergy Unknown Verified 12/18/19 17:27 Sulfa (Sulfonamide Allergy shortness Verified 12/18/19 17:27 Antibiotics) of breathe, wheezy
[~2019-12-21 08:39] MED LIST: LACTATED RINGERS 1,000 ML IV SCH
[2019-12-21 09:06] VITALS: RESP 16; TEMP 97.4
[2019-12-21] MEDS ORDERED: LIDOCAINE 1% 20 ML VIAL (10MG/ML) FOR IV START INTRADERMA ONE (09:07)
[2019-12-21] MEDS ORDERED: ONDANSETRON 4 MG/2 ML VIAL IVP ONE (09:08)
[2019-12-21] MEDS ORDERED: LIDOCAINE 1% INJ 10MG/ML (20 ML MDV) ONE (09:08)
[2019-12-21] MEDS ORDERED: PROPOFOL 10 MG/ML 20 ML VIAL IV ONE (09:08)
--- NOTE | 2019-12-21 09:52 | P.PCN ---
Date of Procedure: 12/21/19 Description of Procedure: PREOPERATIVE DIAGNOSIS: Status post sleeve gastrectomy. Gastroesophageal reflux disease. Epigastric abdominal pain. POSTOPERATIVE DIAGNOSIS: Status post sleeve gastrectomy. Gastroesophageal reflux disease. Epigastric abdominal pain. Erosive esophagitis, chronic. Diaphragmatic hiatal hernia without obstruction. Chronic superficial gastritis. OPERATION: Esophagogastroduodenoscopy with cold forceps biopsies along the antrum. SURGEON: Lore Mueller MD ANESTHESIA: MAC. INDICATIONS: The patient is a 49-year-old female who presents with a history of sleeve gastrectomy with abdominal pain. She is over 2 years out from her bariatric procedure. Benefits and risks of the procedure were described. Informed consent was obtained. DESCRIPTION: The patient was brought into the endoscopy suite and laid in the left lateral decubitus position. An Olympus gastroscope was passed along the posterior oropharynx down to the distal esophagus where the squamocolumnar junction was at 34 centimeters from the incisors remarkable for chronic erosive esophagitis, LA grade B without ulceration. The stomach was entered where she had a 3-cm hiatal hernia with a diaphragmatic hiatus found at 37 cm. The sleeve reservoir moderately large allowing easy retroflexion of the scope to view the lower esophageal valve. Chronic gastritis albeit mild was found along the antrum with cold biopsies obtained. The first through third portion of the duodenum was examined and unremarkable. The scope again had easily retroflexed along the antrum. The stomach was desufflated. The patient tolerated the procedure well. FINDINGS: No acute ulceration found along her sleeve. Corkscrewing sleeve gastrectomy. Squamocolumnar junction at 34 cm from the incisors. Diaphragmatic hiatus at 37 cm. Moderate large gastric reservoir with prior history of sleeve gastrectomy allowing easy retroflexion of the gastroscope to view the lower esophageal valve. Hiatal hernia 3 cm LA grade B erosive esophagitis. No active duodenitis. Chronic gastritis. RECOMMENDATIONS: Upper endoscopy as needed. May benefit from antireflux operation. Continue with current therapy.
--- NOTE | 2019-12-21 09:58 | P.PCN ---
Date of Procedure: 12/21/19 Description of Procedure: PREOPERATIVE DIAGNOSIS: Personal history of colon polyps Change in bowel habits Colitis POSTOPERATIVE DIAGNOSIS: Personal history of colon polyps Change in bowel habits Colitis Tubular adenoma cecum Tubular adenoma transverse colon Sigmoid diverticulosis Internal hemorrhoids, grade 2 OPERATION: Colonoscopy to the ileocecal valve and appendiceal orifice. Colonoscopy with multiple hot snare polypectomies Colonoscopy with cold forceps biopsies SURGEON: Lore Mueller MD. ANESTHESIA: MAC. INDICATIONS: The patient is an 49-year-old female who presents with personal history of colon polyps including change in bowel habit. Last colonoscopy over 10 years. Benefits and risks were described and informed consent was obtained. DESCRIPTION OF PROCEDURE: The patient had undergone Suprep. She had been brought into the operating room and laid in the left lateral decubitus position. After adequate intravenous sedation, the rectum was examined with 2% lidocaine jelly. External hemorrhoids were encountered. The rectal tone was within normal limits. No lesions were palp ated in the rectal vault. An Olympus colonoscope was advanced until the ileocecal valve and appendiceal orifice were clearly viewed. The prep was excellent. Sigmoid diverticulosis was encountered. Multiple colonic polyps were found and snare polypectomy or cold forceps biopsy. No evidence of focal colitis was found. Retroflexion of the scope demonstrated grade 2 internal hemorrhoids without active bleeding or inflammation. The colon was desufflated. The patient had tolerated the procedure well. Withdrawal time was over 6 minutes. FINDINGS: Aronchick preparation quality scale 1 (1-5) Internal hemorrhoids, grade 2 with recent inflammation and bleeding External hemorrhoids, grade 2. No arteriovenous malformations. Sigmoid diverticulosis Removal of 4 polyps: - Snare polypectomy cecum/ileocecal valve, 8 mm tubulovillous adenoma polyp. - Snare polypectomy mid transverse colon, 5 mm flat villous adenoma polyp. - Cold forceps biopsy at cecum, 4 mm polyp. - Cold forceps biopsy at proximal transverse colon, 5 mm polyp. No focal colitis. RECOMMENDATIONS: Repeat colonoscopy 3 years, 2022 Plan - Discharge Summary Discharge Rx Participant: No New Discharge Prescriptions: Continue Ubidecarenone [Co Q-10] 100 - 200 mg PO DAILY Ferrous Sulfate [Iron (65 MG Elemental)] 325 mg PO DAILY Cholecalciferol [Vitamin D3 (25 Mcg = 1000 Iu)] 1,000 unit PO DAILY Albuterol Inhaler [Ventolin Hfa Inhaler] 2 puff INHALATION RT-Q6H PRN PRN Reason: Shortness Of Breath metFORMIN HCL 1,000 mg PO BID Cyclobenzaprine [Flexeril] 10 mg PO TID PRN PRN Reason: Pain traZODone HCL 50 mg PO HS Loratadine [Claritin] 10 mg PO DAILY HYDROcodone/APAP 10-325MG [[place] 10-325] 1 tab PO QID PRN PRN Reason: Pain Thyroid,Pork [[place] Thyroid] 7.5 mg PO DAILY Phentermine HCl [Adipex-P] 37.5 mg PO QAM Furosemide [Lasix] 20 mg PO DAILY Simethicone [Gas-X] 125 mg PO DIRECTED PRN PRN Reason: abd pain Dexlansoprazole [Dexilant] 60 mg PO BID Toradol Injection 1 injection IM Q14D Discharge Medication List Albuterol Inhaler [Ventolin Hfa Inhaler] 2 puff INHALATION RT-Q6H PRN 11/30/17 [History] Cholecalciferol [Vitamin D3 (25 Mcg = 1000 Iu)] 1,000 unit PO DAILY 11/30/17 [History] Cyclobenzaprine [Flexeril] 10 mg PO TID PRN 11/30/17 [History] Ferrous Sulfate [Iron (65 MG Elemental)] 325 mg PO DAILY 11/30/17 [History] HYDROcodone/APAP 10-325MG [[place] 10-325] 1 tab PO QID PRN 11/30/17 [History] Loratadine [Claritin] 10 mg PO DAILY 11/30/17 [History] Phentermine HCl [Adipex-P] 37.5 mg PO QAM 11/30/17 [History] Thyroid,Pork [[place] Thyroid] 7.5 mg PO DAILY 11/30/17 [History] Ubidecarenone [Co Q-10] 100 - 200 mg PO DAILY 11/30/17 [History] metFORMIN HCL 1,000 mg PO BID 11/30/17 [History] traZODone HCL 50 mg PO HS 11/30/17 [History] Furosemide [Lasix] 20 mg PO DAILY 07/19/19 [History] Dexlansoprazole [Dexilant] 60 mg PO BID 12/18/19 [History] Simethicone [Gas-X] 125 mg PO DIRECTED PRN 12/18/19 [History] Toradol Injection 1 injection IM Q14D 12/18/19 [History] Follow up Appointment(s)/Referral(s): Lore Mueller MD [STAFF PHYSICIAN] - 01/02/20 Patient Instructions/Handouts: How to Stop Smoking (DC), Gastroesophageal Reflux Disease (DC), Colorectal Polyps (DC) Activity/Diet/Wound Care/Special Instructions: Repeat colonoscopy in 3 years, 2022 Discharge Disposition: HOME SELF-CARE
[2019-12-21 10:08] VITALS: BP 131/89; PULSE 71
== END 2019-12-21 10:34 | disposition home or self-care (01) ==
LOC: ORWHC2ENDO 08:39
PROVIDERS: ATTEND Surgery Plastic and Reconstructive Surgery
DX: K21.0 Gastro-esophageal reflux disease with esophagitis (principal); K22.10 Ulcer of esophagus without bleeding; K44.9 Diaphragmatic hernia without obstruction or gangrene; Z91.09 Other allergy status, other than to drugs and biological substances; K29.30 Chronic superficial gastritis without bleeding; D12.0 Benign neoplasm of cecum; D12.3 Benign neoplasm of transverse colon; K52.9 Noninfective gastroenteritis and colitis, unspecified; K57.30 Diverticulosis of large intestine without perforation or abscess without bleeding; K64.1 Second degree hemorrhoids; K64.4 Residual hemorrhoidal skin tags; Z98.84 Bariatric surgery status; Z86.010 Personal history of colon polyps; J45.909 Unspecified asthma, uncomplicated; D64.9 Anemia, unspecified; R41.3 Other amnesia; E07.9 Disorder of thyroid, unspecified; M19.90 Unspecified osteoarthritis, unspecified site; M51.9 Unspecified thoracic, thoracolumbar and lumbosacral intervertebral disc disorder; E88.81 Metabolic syndrome and other insulin resistance; I45.19 Other right bundle-branch block; F17.200 Nicotine dependence, unspecified, uncomplicated; Z86.69 Personal history of other diseases of the nervous system and sense organs; Z87.39 Personal history of other diseases of the musculoskeletal system and connective tissue; Z87.01 Personal history of pneumonia (recurrent); Z87.820 Personal history of traumatic brain injury; Z87.11 Personal history of peptic ulcer disease; Z90.89 Acquired absence of other organs; Z90.49 Acquired absence of other specified parts of digestive tract; Z98.890 Other specified postprocedural states; Z90.710 Acquired absence of both cervix and uterus; Z98.51 Tubal ligation status; Z98.82 Breast implant status; Z91.89 Other specified personal risk factors, not elsewhere classified; Z79.899 Other long term (current) drug therapy; Z79.891 Long term (current) use of opiate analgesic; Z79.890 Hormone replacement therapy; Z79.84 Long term (current) use of oral hypoglycemic drugs; Z91.018 Allergy to other foods; Z88.2 Allergy status to sulfonamides; Z84.89 Family history of other specified conditions; Z82.49 Family history of ischemic heart disease and other diseases of the circulatory system; Z83.3 Family history of diabetes mellitus
CPT/HCPCS: 88305; 45380; 45385; 43239; J2405; J2001; J2704

== ENCOUNTER → 2020-03-27 | Outpatient (CLI) | payer OTHER ==
--- NOTE | 2020-04-02 10:02 | MM ---
Reason for exam: screening (asymptomatic). Last mammogram was performed 1 year and 4 months ago. History: Family history of breast cancer in maternal aunt. Implants in both breasts, May 22, 2014. Physical Findings: A clinical breast exam by your physician is recommended on an annual basis and results should be correlated with mammographic findings. MG Screening Mammo Implant/CAD Bilateral CC, MLO, and ID view(s) were taken. Prior study comparison: November 24, 2018, bilateral MG screening mammo implant/CAD. November 30, 2016, bilateral MG screening mammo implant/CAD. There are benign appearing round calcifications bilaterally. Focal asymmetry left upper outer quadrant. Bilateral breast prothesis. No significant changes when compared with prior studies. ASSESSMENT: Benign, BI-RAD 2 RECOMMENDATION: Routine screening mammogram of both breasts in 1 year.
== END | disposition home or self-care (01) ==
LOC: RADMAMWWP 13:53
PROVIDERS: ATTEND Family Medicine
DX: Z12.31 Encounter for screening mammogram for malignant neoplasm of breast (principal)
CPT/HCPCS: 77067

== ENCOUNTER → 2020-04-29 | Outpatient (CLI) | payer OTHER ==
--- NOTE | 2020-04-30 09:50 | USB ---
Reason for exam: clinical finding. History: Family history of breast cancer in maternal aunt. Implants in both breasts, May 22, 2014. Indicated problem(s): pain in the right breast. Physical Findings: Nurse Summary: bilateral silicone implants, all soft, movable (nurse ts). US Breast BILAT Right complete breast ultrasound includes all four quadrants, the retroareolar region and axilla. Finding demonstrates no cystic or solid lesion seen. Left complete breast ultrasound includes all four quadrants, the retroareolar region and axilla. Finding demonstrates no cystic or solid lesion seen. These results were verbally communicated with the patient and result sheet given to the patient on 04/29/20. ASSESSMENT: Negative, BI-RAD 1 RECOMMENDATION: Return to routine screening mammogram schedule for both breasts. Back on schedule. Manage patient on a clinical basis.
== END | disposition home or self-care (01) ==
LOC: RADUSWWP 07:10
PROVIDERS: ATTEND Family Medicine
DX: N64.4 Mastodynia (principal)

== ENCOUNTER → 2020-05-24 | Outpatient (CLI) | payer OTHER ==
--- NOTE | 2020-05-24 18:05 | MR ---
EXAMINATION TYPE: MR knee RT wo con DATE OF EXAM: 05/24/2020 COMPARISON: None HISTORY: Chronic Knee pain. Getting worse last several months. Prior surgery. TECHNIQUE: Multiplanar, multisequence imaging of the right knee is performed without IV contrast. FINDINGS: MEDIAL MENISCUS: Anterior and posterior horns are intact without tear. LATERAL MENISCUS: Anterior and posterior horns are intact without tear. CRUCIATE LIGAMENTS: The anterior and posterior cruciate ligaments are intact. COLLATERAL LIGAMENTS: The medial collateral ligament and lateral collateral ligament complex are inta ct and unremarkable. EXTENSOR MECHANISM: Visualized quadriceps and patellar tendons are intact. EFFUSION: No significant suprapatellar joint effusion. POPLITEAL CYST: No popliteal/stanley cyst. TRICOMPARTMENT SPACES: Tricompartmental degenerative spurring. There is lateral displacement of the p atella and patellofemoral joint space narrowing due to spurring. CARTILAGE: There is complete chondral loss of the lateral patella and lateral patellar facet. There i s chondral thinning and fraying of the anterior and mid lateral femoral condyle. There is chondral fr aying and linear defect of the mid lateral tibial plateau. BONE MARROW SIGNAL: Overall normal marrow signal. Lateral femoral condyle and lateral patellar bone m arrow edema. There is cystic change at the anterior medial tibial plateau, which may be postsurgical. OTHER: The anterior compartment demonstrates a 5 mm loose body anterior to the anterior horn of the lateral meniscus (401:19), likely chondromatous nodule. There is a 2.6 x 1.5 x 4.2 cm septated cystic area anterior lateral to the medial gastrocnemius muscle, with out definitive communication to the p opliteal fossa. IMPRESSION: 1. Marked tricompartmental degenerative spurring, with patellofemoral and lateral compartment chondr osis. 2. Anterior compartment 5 mm loose body. 3. 2.6 x 1.5 x 4.2 cm septated cystic area of the posterior knee may represent synovial/ganglion cys t.
== END | disposition home or self-care (01) ==
LOC: RADMRIMAIN 10:34
PROVIDERS: ATTEND Orthopaedic Surgery
DX: M17.11 Unilateral primary osteoarthritis, right knee (principal)

== ENCOUNTER → 2020-06-10 | Outpatient (CLI) | payer OTHER ==
[~2020-06-10] MED LIST changes: -LACTATED RINGERS 1,000 ML IV SCH; +REGADENOSON 0.4 MG/5 ML SYRINGE IV ONE
--- NOTE | 2020-06-10 12:16 | EST ---
EXERCISE STRESS DATE OF SERVICE: 06/10/2020 AGE: 50 SEX: Fe HT: 66 WT: 202 lbs PROTOCOL: Lexiscan Cardiolite STAGE: DURATION OF EXERCISE: HEART RATE REST: 75 BLOOD PRESSURE REST: 153/100 MAXIMUM HEART RATE ACHIEVED: 102 MAXIMUM BLOOD PRESSURE: 153/100 85% MPHR: 146 100% MPHR: 172 METS: INDICATIONS: Chest pain. STRESS DATA: Heart rate 75. Pressure is 153/100 mmHg. Baseline EKG showed sinus mechanism. 0.4 mg of Lexiscan over 15 seconds per protocol. Max heart rate was 102 beats per minute. Maximum pressure was 153/100 mmHg. Clinically the patient did not have any symptoms and the EKG did not show any significant ST or T-wave abnormalities concerning for ischemia. CONCLUSION: 1. Nondiagnostic electrocardiogram stress test at this time. 2. Please follow up on the Cardiolite portion on separate report from Radiology Department. MMODL / IJN: [id number] /
--- NOTE | 2020-06-10 15:23 | NM ---
EXAMINATION TYPE: NM stress lexiscan cardiolite DATE OF EXAM: 06/10/2020 COMPARISON: NONE HISTORY: Atypical chest pain TECHNIQUE: After the intravenous administration of 9.81 mCi Tc 99m Sestamibi - Cardiolite resting SP ECT images acquired 45 minutes post injection. The patient received 0.4mg Lexiscan, 26.4 mCi Tc 99m Sestamibi - Stress images obtained [address] injection FINDINGS: Review of stress and rest SPECT images demonstrates no distinct perfusion abnormality. Gated analysi s shows normal wall motion with an estimated left ventricular ejection fraction of 59 %. IMPRESSION: No scintigraphic evidence for reversible ischemia.
== END | disposition home or self-care (01) ==
LOC: RADNMMAIN 08:32
PROVIDERS: ATTEND Family Medicine
DX: R07.89 Other chest pain (principal); Z88.0 Allergy status to penicillin; Z88.1 Allergy status to other antibiotic agents
CPT/HCPCS: 93017; 78452; A9500; J2785

== ENCOUNTER → 2020-06-17 | Outpatient (CLI) | payer OTHER ==
--- NOTE | 2020-06-18 07:10 | US ---
EXAMINATION TYPE: US thyroid st tissue head/neck DATE OF EXAM: 06/17/2020 COMPARISON: 12/08/2016 CLINICAL HISTORY: R22.0 swelling in neck,. Patient states she feels something on left side. GLAND SIZE: Right Lobe: 3.7 x 1.5 x 1.4 cm Overall Parenchyma: homogenous Left Lobe: 3.9 x 1.5 x 1.2 cm Overall Parenchyma: homogeneous Isthmus Thickness: 0.3 cm NODULES RIGHT: # of nodules measured on right: 0 LEFT: # of nodules measured on left: 0 ISTHMUS: # of nodules measured in the isthmus: 0 Bilateral neck scanned, no evidence of lymphadenopathy. IMPRESSION: No distinct abnormality is appreciated.
== END | disposition home or self-care (01) ==
LOC: RADUSWWP 16:06
PROVIDERS: ATTEND Family Medicine
DX: R22.0 Localized swelling, mass and lump, head (principal)
CPT/HCPCS: 76536

== ENCOUNTER → 2020-09-10 | Outpatient (CLI) | payer OTHER ==
--- NOTE | 2020-09-10 17:40 | MR ---
EXAMINATION TYPE: MR cervical spine wo con DATE OF EXAM: 09/10/2020 COMPARISON: MR C-spine 08/06/2017 HISTORY: Cervicalgia TECHNIQUE: Multiplanar, multisequence images of the cervical spine were acquired. C2-C3: No evidence for degenerative disc disease. No disc bulge/herniation or protrusion. No Canal stenosis. Foramina are patent bilaterally. C3-C4: No evidence for degenerative disc disease. No disc bulge/herniation or protrusion. No Canal stenosis. Foramina are remarkable for some minimal uncovertebral joint hypertrophy, mild narrowing. C4-C5: Minimal posterior disc bulge is present. No spinal stenosis or foraminal encroachment. C5-C6: Foraminal encroachment is present greater on the right than on the left due to uncovertebral j oint hypertrophy. There is posterior extension endplate disc complex causing anterior mass effect on the thecal sac, mild spinal stenosis similar to prior exam. C6-C7: Small posterior disc bulge causes slight anterior mass effect on the thecal sac similar to wyatt or exam. C7-T1: No evidence for degenerative disc disease. No disc bulge/herniation or protrusion. No Canal stenosis. Foramina are patent bilaterally. Cervical segments are intact. There is normal alignment. Cervical spinal cord is of normal signal. Craniovertebral junction relationships are within normal limits. Findings are similar to prior exam . Loss of disc height signal present at C5-6. Alignment is unchanged. There is spondylosis with endpl ate discogenic marrow signal change greatest at C5-6. IMPRESSION: Stable degenerative disc disease. No significant interval change.
== END | disposition home or self-care (01) ==
LOC: RADMRIMAIN 08:18
PROVIDERS: ATTEND Orthopaedic Surgery
DX: M50.321 Other cervical disc degeneration at C4-C5 level (principal)
CPT/HCPCS: 72141

== ENCOUNTER → 2020-09-27 | Outpatient (CLI) | payer OTHER ==
--- NOTE | 2020-09-29 11:17 | MR ---
EXAMINATION TYPE: MR lumbar spine wo con DATE OF EXAM: 09/27/2020 COMPARISON: Radiograph 08/14/2020 HISTORY: 50-year-old female M54.5 TECHNIQUE: Multiplanar, multisequence images of the lumbar spine were acquired. FINDINGS: Vertebral body heights are preserved. Advanced hypertrophic facet arthropathy throughout. Associated joint effusion particularly on the rig ht L3-L4 along with a 1.4 cm synovial cyst rejecting posteriorly. There is trace grade 1 anterolisthesis at L3-L4. Remaining alignment is maintained. Fatty matrix hemangioma within the T12 vertebral body. Additionally, some fatty Modic type II endplat e changes present anteriorly at T11-T12 and L3-L4. Conus medullaris is normal. Mild multilevel degenerative disc disease with desiccation and bulging discs. No prevertebral or paravertebral soft tissue abnormality seen. At T12-L1, no canal or foraminal stenosis. At L1-L2, no canal or foraminal stenosis. At L2-L3, facet arthropathy and disc bulge eccentric toward the left approaches but does not clearly abut the traversing left L3 nerve root. No significant spinal canal stenosis. Minimal inferior left n eural foraminal narrowing. At L3-L4, hypertrophic facet arthropathy with mild disc bulge, right paracentral annular fissure, and grade 1 anterolisthesis. There is circumferential attenuation of the thecal sac without significant spinal canal stenosis. Mild right neuroforaminal stenosis. At L4-L5, hypertrophic facet arthropathy w ithout significant canal or foraminal stenosis. At L5-S1, mild disc bulge and facet arthropathy. Intraforaminal disc protrusion is also noted on the right which abuts the exiting right L5 nerve root causing mild right neuroforaminal stenosis. No spin al canal stenosis. IMPRESSION: 1. Mild multilevel degenerative disc disease. Hypertrophic facet arthropathy throughout, especially s evere on the right at L3-L4 where a joint effusion is present as well as a 1.4 cm synovial cyst locat ed posteriorly. 2. Degenerative grade 1 anterolisthesis L3-L4. There is a disc bulge at this level with a right-sided annular fissure and disc material contributing to mild neuroforaminal narrowing on the right, possib ly abutting the exiting right L3 nerve root. No significant spinal canal stenosis. 3. Right intraforaminal disc protrusion at L5-S1 abuts the exiting right L5 nerve root and mildly suma rowing the neuroforamen. Correlate for any corresponding radicular symptoms.
== END | disposition home or self-care (01) ==
LOC: RADMRIMAIN 06:08
PROVIDERS: ATTEND Orthopaedic Surgery
DX: M48.061 Spinal stenosis, lumbar region without neurogenic claudication (principal); M51.26 Other intervertebral disc displacement, lumbar region; M51.27 Other intervertebral disc displacement, lumbosacral region; M51.36 Other intervertebral disc degeneration, lumbar region; M43.16 Spondylolisthesis, lumbar region; M47.816 Spondylosis without myelopathy or radiculopathy, lumbar region
CPT/HCPCS: 72148

== ENCOUNTER → 2020-11-04 | Outpatient (CLI) | payer OTHER ==
--- NOTE | 2020-11-04 17:16 | XR ---
EXAMINATION TYPE: XR chest 2V DATE OF EXAM: 11/04/2020 COMPARISON: Prior chest x-ray 10/26/2017 HISTORY: Z01.818, presurgical TECHNIQUE: Frontal and lateral views of the chest are obtained. FINDINGS: The patient is rotated. There is no focal air space opacity, pleural effusion, or pneumotho rax seen. The cardiac silhouette size is within normal limits. Stable elevation of the right hemidi aphragm. The osseous structures are intact, thoracic spondylosis again noted. IMPRESSION: No acute cardiopulmonary process.
== END | disposition home or self-care (01) ==
LOC: LABPAT 12:58
PROVIDERS: ATTEND Orthopaedic Surgery
DX: Z01.818 Encounter for other preprocedural examination (principal); M50.122 Cervical disc disorder at C5-C6 level with radiculopathy; Z22.322 Carrier or suspected carrier of Methicillin resistant Staphylococcus aureus
CPT/HCPCS: 71046; 86850; 86900; 86901; 87070

== ENCOUNTER 2020-12-03 06:25 | Observation (INO) | payer OTHER ==
[2020-11-28 17:41] VITALS: BMI 36.4
[~2020-12-03 06:25] MED LIST changes: +ACETAMINOPHEN TAB 500 MG TAB PO PRN; +GABAPENTIN 300 MG CAP PO PRN; +MIDAZOLAM 2 MG/2 ML VIAL IV PRN; +ONDANSETRON 4 MG/2 ML VIAL IVP PRN; -REGADENOSON 0.4 MG/5 ML SYRINGE IV ONE
--- NOTE | 2020-12-03 06:33 | P.HPOR ---
History of Present Illness H&P Date: 11/27/20 Chief Complaint: Neck pain, b/l UE radiculopathy This 50 year old female presents with years of low back pain. She notes right sided pain that radiates across her back into her SI joint and up to her neck. She notes increased weakness with her bilateral upper and lower extremities. sheis having trouble holding onto objects and she will just drop them without understanding why. She has difficulty with fine motor skills. Patient notes pain with the use of stairs in her low back and pain while doing dished with her cervical spine. Patient has occasional loss of urine while bending. Patient currently is on oral steroids with relief. She takes Vancourt as needed. she denies overt bowel or bladder incontinence. She denies perineal numbness or tingling. No fevers chills shortness breath or chest pain. This 50 year old female presents today for a follow up on her neck pain and MRI results. She reports continued neck pain and bilateral upper extremity weakness. She notes that her neck pain increase with certain activities. Patient notes that in 2019 that she had an incident of bowel and bladder incontinence. Patient is taking Vancourt as needed for pain. Patient is ambulating independently. She states that she does not know if she has rectal or genital numbness but does not notice that she does. She states no f/c/sob/cp at this time. Review of Systems 14 points review of systems completed and as stated in HPI, all other systems reviewed are negative. Past Medical History Past Medical History: Asthma, Blood Disorder, GERD/Reflux, GI Bleed, Memory Impairment, Musculoskeletal Disorder, Pneumonia, Thyroid Disorder Additional Past Medical History / Comment(s): Temporal lobe brain damage, short term memory prob. anemia/low iron, gastritis, bleeding ulcer 2008, DDD, Left rotator cuff 2 tears that dislocates. PCOS, Metabolic syndrome, Insulin resistance. "Incomplete RBBB." Hx colon polyps. Bruises easily. Edema BLE. Cervical disc prob; NT fingers, arms, BLE History of Any Multi-Drug Resistant Organisms: None Reported Past Surgical History: Adenoidectomy, Appendectomy, Bariatric Surgery, Breast Surgery, Cholecystectomy, Hysterectomy, Orthopedic Surgery, Tonsillectomy, Tubal Ligation Additional Past Surgical History / Comment(s): bilateral knees, gastric sleeve 02/2012, Hemorrhoids, Colonoscopy/EGD, Brachioplasty, Breast Augmentation w/ implants, Thigh plastic surgery, lower body lift, Panniculectomy, exc cyst upper lip, exc cysts from labia, lt 5th finger repair/reattached, Rt thumb basal joint exc/repair w/ Rt CTR Past Anesthesia/Blood Transfusion Reactions: Previous Problems w/ Anesthesia, Family History of Problems w/ Anesthesia, Postoperative Nausea & Vomiting (PONV) Additional Past Anesthesia/Blood Transfusion Reaction / Comment(s): Needs low anesthesia, VS plummet. Uncle has anesthesia problems, allergic reaction. Smoking Status: Former smoker - Past Family History Father Family Medical History: Cancer, Deep Vein Thrombosis (DVT), Pulmonary Embolus Additional Family Medical History / Comment(s): poss bone cancer Mother Family Medical History: Dementia, Diabetes Mellitus, Hypertension Medications and Allergies Home Medications Medication Instructions Recorded Confirmed Type Albuterol Inhaler (Mhu) [Ventolin 2 puff INHALATION RT-Q6H PRN 11/30/17 11/28/20 History Hfa Inhaler (Mhu)] Cyclobenzaprine [Flexeril] 10 mg PO TID PRN 11/30/17 11/28/20 History HYDROcodone/APAP 10-325MG [Vancourt 1 tab PO QID PRN 11/30/17 11/28/20 History 10-325] Loratadine [Claritin] 10 mg PO DAILY 11/30/17 11/28/20 History Phentermine HCl [Adipex-P] 37.5 mg PO QAM 11/30/17 11/28/20 History Thyroid,Pork [[place] Thyroid] 15 mg PO QAM 11/30/17 11/28/20 History metFORMIN HCL 1,000 mg PO BID 11/30/17 11/28/20 History traZODone HCL 150 mg PO HS 11/30/17 11/28/20 History Furosemide [Lasix] 20 - 40 mg PO DAILY 07/19/19 11/28/20 History Simethicone [Gas-X] 125 mg PO DIRECTED PRN 12/18/19 11/28/20 History Toradol Injection 1 injection IM Q14D 12/18/19 11/28/20 History Omeprazole 20 mg PO BID 08/26/20 11/28/20 History predniSONE 10 mg PO DIRECTED PRN 09/10/20 11/28/20 History Ascorbic Acid [Vitamin C] 1,000 mg PO DAILY 11/06/20 11/28/20 History Calcium Carbonate [Tums] 500 mg PO DAILY PRN 11/06/20 11/28/20 History Cholecalciferol [Vitamin D3 (25 125 mcg PO DAILY 11/06/20 11/28/20 History Mcg = 1000 Iu)] Fluconazole [Diflucan] 100 mg PO DAILY PRN 11/06/20 11/28/20 History Magnesium 200 mg PO DAILY 11/06/20 11/28/20 History Pantoprazole Sodium 10 mg PO DAILY 11/06/20 11/28/20 History Potassium Chloride [K-Tab ER] 20 meq PO DIRECTED PRN 11/06/20 11/28/20 History Ubidecarenone [Co Q-10] 400 mg PO DAILY 11/06/20 11/28/20 History Vitamin B Complex 1 each PO DAILY 11/06/20 11/28/20 History Garlic (Unknown Dose) 1 tab PO DAILY 11/28/20 History Turmeric (Unknown Dose) 1 tab PO DAILY 11/28/20 History Vitamin B6 (Unknown Dose) 1 tab PO DAILY 11/28/20 History Allergies Allergy/AdvReac Type Severity Reaction Status Date / Time broccoli Allergy Abdominal Verified 11/28/20 17:02 Pain mold Allergy Dyspnea Verified 11/28/20 17:03 pineapple Allergy Abdominal Verified 11/28/20 17:02 Pain pollen extracts Allergy Dyspnea Verified 11/28/20 17:03 Sulfa (Sulfonamide Allergy shortness Verified 11/28/20 17:02 Antibiotics) of breathe, wheezy wheat Allergy Wheezing Verified 11/28/20 17:02 Physical Examination Osteopathic Statement: *. No significant issues noted on an osteopathic str uctural exam other than those noted in the History and Physical/Consult. PHYSICAL EXAMINATION: Vitals: Stable General: Awake, alert, appropriate for age, in no acute distress. HEENT: No unusual neck masses around region of lateral neck triangle, thyroid, supraclavicular groove. Heart: Regular rate and rhythm, normal S1, S2 and no murmur/gallop. Lungs: Clear to auscultation bilaterally with no use of accessory muscles. Extremities: Skin warm and dry without no acute lesions, coloration, temperature, skin intact, no tenderness or erythema. Integument: Hairy patches: Absent Dorsal skin dimples: Absent Cafe au lait spots: Absent Surgical incisions: Palpation: Please see Pain drawing on Intake sheet for further detail. (Tenderness = T, Nontender = NT, Swelling = S, Ecchymosis = E) Findings on Midline and paraspinal palpation and percussion: Cervical: Mild tenderness to palpation Thoracic: NT Lumbar: NT Sacral: NT Special findings: POSTURAL and MUSCULO-SKELETAL EVALUATION: Coronal Balance: Neutral Recumbent testing: Patient can lay flat on back Sagittal Balance: Neutral Shoulder Profile: Level Pelvic Girdle: Level Neck ROM: Unrestricted in six directions Lumbar ROM: Unrestricted in six directions Shoulder ROM: Symmetric in abduction, ER/IR Hip ROM: Symmetric in abduction, adduction, ER/IR Knee ROM: Symmetric and intact in Flexion / extension Hands: Normal appearing structure L and R Feet: Normal appearing structure L and R VASCULAR STATUS : Wrist Pulses: 2/4 bilateral radial and ulnar Pedal Pulses: 2/4 bilateral DP and PT Color: Normal Edema: None NEUROLOGIC EXAMINATION: Mental Status: Awake and alert, fully oriented, with normal attention, concentration and memory, and fluent, appropriate speech. Cranial Nerves: I: Olfactory not tested. II: Visual acuity normal, no visual field deficit noted with confrontation. III,IV: Normal pupillary reflexes & intact extraocular movements without nystagmus. V,: Intact symmetrical facial sensation. VII: Intact symmetrical facial motor movement VIII: Hearing intact. IX,X: Intact gag, swallow, & normal voice. XI: Sternocleidomastoid, trapezius function intact. XII: Tongue midline with normal movements. Special Tests: L'hermitte's Sign: Absent Spurling'Sign: Absent Bilateral Cubital percussion test: Absent Bilateral Marce-Tinel sign - Carpal region: Absent Bilateral Straight Leg Raising: Absent Bilateral Motor Exam (0-5/5, N/T) STRENGTH UPPER EXTREMITY Shoulder Abd (Not part of CHARLENE Motor score): RIGHT 5 LEFT 5 Elbow Flexors: RIGHT 5 LEFT 5 Elbow Extensor: RIGHT 5 LEFT 5 Wrrist Dorsiflexors: RIGHT 5 LEFT 5 Finger Abductor: RIGHT 5 LEFT 5 Sample Box Maker: RIGHT 4+ LEFT 5 LOWER EXTREMITY Hip Flexor (Not part of CHARLENE Motor Score): RIGHT 5 LEFT 5 Knee Flexor: RIGHT 5 LEFT 5 Knee Extensor: RIGHT 5 LEFT 5 Ankle Dorsiflexion: RIGHT 5 LEFT 5 Ankle Plantarflexion: RIGHT 5 LEFT 5 EHL: RIGHT 5 LEFT 5 FHL: RIGHT 5 LEFT 5 CHARLENE Motor Score: RIGHT 50/50 LEFT 50/50 REFLEXES Biecp: RIGHT 2 LEFT 2 Tricep: RIGHT 2 LEFT 2 Brachioradialis: RIGHT 2 LEFT 2 Patellar: RIGHT 2 LEFT 2 Achilles: RIGHT 2 LEFT 2 Pathological Reflexes Martinez's: RIGHT Absent LEFT present Babinski: RIGHT Absent LEFT Absent Clonus: RIGHT None LEFT None SENSORY Joint Position: Intact bilaterally Vibration Intact bilaterally Pain and LT sense Intact C5-T1 and L2-S1 Dermatomal deficit None Gait and Functional Evaluation: Ambulatory aids: Romberg's test: Intact bilaterally. Toe walk/ heel walk / heel-toe walk intact while maintaining satisfactory balance. Squatting and straightening out without assistance to a minimum of 60 degrees knee flexion Single leg stance: intact/ Trendelenburg sign negative bilaterally Hand and finger dexterity intact bilaterally. Disdiadochokinesis examination negative bilaterally. Results MRI of the cervical spine is reviewed from 09/10/2020. This demonstrates stable changes at C5 6 however there is C5 6 disc herniation with central stenosis there is no myelomalacia that is seen however there is beginning changes within the T2 signal within the cervical cord which is likely myelomalacia in nature. This is the only level compression however this is focally kyphotic as well. There are no fractures or dislocations noted. There is overall maintained disc spaces above and below this level. There are no other areas of foraminal or central stenosis secondary identified at this time. revious MRIs from 2018 are reviewed. These demonstrate a C5 6 disc herniation with spondylosis and central stenosis. Lumbar spine fails to demonstrate any acute or severe compressive neurologic lesions. There are no fractures or dislocations noted thoracic spine MRI is also benign with no severe compressive lesions noted. Assessment and Plan Assessment: 1. 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 It was my pleasure to have seen and examined Katerina Maurice In our visit today we have had a chance to go over subjective complaints, physical examination findings and treatments including the natural course history without intervention and various interventional options. The patients imaging demonstrates C5 6 disc osteophyte complex with severe central stenosis no myelomalacia and acute kyphotic changes. On physical exam, Katerina Maurice demonstrates bilateral upper extremity weakness with right upper extremity numbness and tingling as well as radiculopathy. I have explained to the patient that as their condition progresses it will cause further neurological deficits and eventual paralysis. Based on the patients imaging, physical exam, and the rapid progression and disabling nature of their symptoms, at this time I recommend surgery in the form or a: anterior cervical discectomy and fusion. I discussed the risk and benefits of this procedure at length with Katerina Maurice. The patient agreed to considered pursuing the procedure abovementioned. Prior to surgery, she should follow up with her PCP (Cardio, ID, IM etc) for clearance. Questions were invited and answered, and the patient wishes to proceed as outlined below. Currently, I am recommendin.Cervical 5 to cervical 6 anterior cervical total disc replacement 2.Follow up with PCP for surgical clearance 3.Review of surgical risks and benefits as well as an educational packet on the proposed surgical procedure. Risks: All surgical procedures come with inherent risks, including those related to positioning, anesthesia, intraoperative findings, and postoperative complications. It is important to understand that surgery does not come with any guarantee of a successful outcome as complications and adverse events are always possible. The patient was given a handout in office today discussing the surgical procedure and risks associated with the intervention, both of which were discussed with the patient. These risks include but are not limited to the fo llowing: * Experiencing same, different or even worse symptoms in back, neck, arms, or legs compared to before surgery. Requiring further surgery or other forms of treatment presently or at some time in the future at same or other levels of the intended spine surgery. On an extreme but fortunately relatively rare basis severe complication such as blindness, stroke, heart attack, temporary and/or permanent nerve injury, paralysis, coma, or may occur, sometimes without known explanation. Surgical complications may include but are not limited to risk of infection, fluid accumulation in the surgical dissection site, including a seroma or hematoma, that requires additional surgery, wound drainage, bleeding, new numbness or weakness, vision changes/loss, spinal fluid leakage, non-healing and/or infected incision, headaches, difficulty or inability to swallow, hoarseness, hemopneumothorax, pneumothorax, impotence, retrograde ejaculation, vaginal dryness; injury to nerves, spinal cord, blood vessels, lymphatics or other vital organs (i.e., bowel injury, injury to the great vessels); heterotopic bone formation; complications related to the hardware such as screws, rods, cages including misplaced hardware, device failure, instrumentation at the wrong spine level, hardware fracture/breakage, or hardware loosening; vertebral failure of the spinal column above or below the newly placed hardware; retained surgical instrumentations or devices and the need for further surgery. * Medical risks of the planned spine surgery include but are not limited to generalized Infections to the whole body or local areas outside of the surgical site (sepsis), heart attack, bleeding, anaphylaxis, meningitis, seizure, epilepsy, hearing loss, burn menjivar, laceration of the head or other areas of the body, bruising, hypersensitivity of the skin, bladder over distension; allergic reaction; shoulder injury related to positioning; fat, blood and air clots to other areas of the body like heart, lungs, brain; failure of internal organs such as lungs, kidneys, liver and excessive bleeding. If blood transfusions are necessary, note that transfusions may cause intolerance reactions such as anaphylaxis or other complex reactions. Despite best efforts, the results of spine surgery might not heal in terms of bone, soft tissues such as skin, fascia, ligaments, and joints. Additionally, in order to achieve best possible results, spine surgery may be carried out beyond the initially planned levels and involve decompression, fusion including insertion of hardware at levels other than the original intended area of surgical interest change some portions of the procedure in order to ensure the best possible outcomes. With spine surgery and spinal fusion, there are different off label uses of instrumentation (devices, implants and hardware) as well as biological substances (bone morphogenic proteins, demineralized bone matrix) as well as using extra bone from allograft sources (i.e. cadaver bone) or autograft (iliac crest bone, ribs, or the spine itself). The patient has been given information about these practices and their inherent risks and benefits. [facility] is an educational center that serves as a training facility for neurosurgical and orthopedic spine residents and fellows. Residents are physicians who are completing their surgical intensive training following medical school. They assist in the operating room with direct supervision of the attending surgeons. [place] are surgeons who have completed their training and eligible for board certification. They have opted for an elective year of more specialized training in their field. They assist in the operating room under the supervision of the attending surgeons. Physician assistants are medically trained surgical providers who function in the outpatient, inpatient, and operating room setting under the direct supervision of the attending surgeon. [facility] has multiple operating rooms with single and overlapping rooms running daily. They currently function under the required guidelines as produced by the [facility] Finance Committee with regards to the overlapping rooms and will continue to comply with changes to this policy as they occur. The requirements include and are complied with as follows: (1) the critical portions of the overlapping rooms will not occur at the same time, (2) the attending physician will be physically present during the critical portions of the procedure and immediately available during the entire case, and (3) a back-up at [facility] is designated should the primary attending not be immediately available. The patient has had a chance to review all the listed information, has been given print outs detailing this information, and has had all his/her questions answered to their satisfaction. It was my pleasure to have seen and examined Katerina Maurice. In our visit today we have had a chance to go over my understanding of our patient's current condition, the natural course history without intervention and various interventional options. Questions were invited and answered, and the patient wishes to proceed as outlined above. I have seen and examined the patient for 25 minutes and we have spent more than 50% of the time in repeat and detailed counseling about the patient's condition, its natural course history with out and as much as can be predicted with surgery and re-review of various surgical treatment options. In conclusion, Katerina Maurice requested we proceed with the above suggested surgery and are willing to accept risks and limitations of the suggested surgery as nature of the disease process and our best attempts at treatment for the condition. Thank you again for allowing us to be part of your patient's care. Please don't hesitate to contact me if you have any further questions. Signed and authenticated by: Dayday Barnard DO [facility] [address] [facility], [address] [id number]
[2020-12-03] MEDS ORDERED: DEXAMETHASONE SOD PHOSPHATE 10 MG/ML 1 ML VIAL IV ONE (07:20)
[2020-12-03] MEDS: LACTATED RINGERS 1,000 ML IV SCH (07:20)
[2020-12-03] MEDS ORDERED: LIDOCAINE 1% (10MG/ML) FOR IV START IV ONE (07:21)
[2020-12-03] MEDS ORDERED: MIDAZOLAM 2 MG/2 ML VIAL ONE (07:27)
[2020-12-03] MEDS ORDERED: HYDROmorphone (PF) 1 MG/ML ONE (07:27)
[2020-12-03] MEDS ORDERED: fentaNYL (PF) 50 MCG/ML 2 ML AMP ONE (07:27)
[2020-12-03] MEDS ORDERED: LIDOCAINE 1% INJ 10MG/ML (20 ML MDV) ONE (07:27)
[2020-12-03] MEDS ORDERED: SUCCINYLCHOLINE CHLORIDE 100 MG/5 ML SYR IV ONE (07:27)
[2020-12-03] MEDS ORDERED: PROPOFOL 10 MG/ML 20 ML VIAL IV ONE (07:27)
[2020-12-03 07:29] LABS: Glucose,Whole Blood 122 mg/dL (75-99)
[2020-12-03] MEDS ORDERED: BUPIVACAINE (PF) 0.25% 30 ML VIAL SQ ONE ×2 (08:44)
[2020-12-03] MEDS ORDERED: LACTATED RINGERS 1,000 ML IV ONE (08:49)
[2020-12-03] MEDS ORDERED: GELATIN SPONGE,ABSORB (LARGE) 1 EACH SPONGE TOPICAL ONE (08:54)
[2020-12-03] MEDS ORDERED: THROMBIN (BOVINE) 5,000 UNIT VIAL TOPICAL ONE (08:54)
--- NOTE | 2020-12-03 09:57 | FL ---
EXAMINATION TYPE: FL guidance operating room DATE OF EXAM: 12/03/2020 HISTORY: Fluoroscopy time 39 seconds of fluoroscopy provided. IMPRESSION: 1. Fluoroscopy time.
--- NOTE | 2020-12-03 10:01 | XR ---
EXAMINATION TYPE: XR cervical spine limited DATE OF EXAM: 12/03/2020 COMPARISON: NONE HISTORY: Postop TECHNIQUE: 2 view submitted FINDINGS: Post surgical change noted. Resolution is limited. IMPRESSION: Post op change.
[2020-12-03] MEDS ORDERED: HYDROcodone/APAP 5-325MG 1 EACH TAB PO PRN (10:09)
[2020-12-03] MEDS ORDERED: DEXAMETHASONE SOD PHOSPHATE 4 MG/ML 1 ML VIAL IV PRN (10:14)
[2020-12-03] MEDS ORDERED: FLUCONAZOLE 100 MG TAB PO PRN (10:15)
[2020-12-03] MEDS ORDERED: CALCIUM CARBONATE 500 MG CHEWABLE PO PRN (10:15)
[2020-12-03] MEDS ORDERED: NON FORMULARY DRUG (Potassium Chloride [K-Tab Er] 20 MEQ Tablet.Er) PO PRN (10:15)
[2020-12-03] MEDS ORDERED: ALBUTEROL NEBULIZED 2.5 MG/3 ML INHALATION PRN (10:15)
[2020-12-03] MEDS: HYDROmorphone 0.5 MG/0.5 ML SYRINGE IVP PRN ×9 (10:16→23:19)
--- NOTE | 2020-12-03 10:33 | P.OP ---
Date of Procedure: 12/03/20 Preoperative Diagnosis: 1. C5-6 spondylosis, severe, with HNP and myelopathy/radiculopathy UE Postoperative Diagnosis: 1. C5-6 spondylosis, severe, with HNP and myelopathy/radiculopathy UE Procedure(s) Performed: 1. C5-6 total disc replacement Implants: Centinal spine 6 mm L deep total disc replacement Anesthesia: GETA Surgeon: Dayday Barnard (MAKENZIE Howard was present for the entire case and was necessary due to the complexity of the case. ) Estimated Blood Loss (ml): 75 IV fluids (ml): 2,000 Urine output (ml): 0 Pathology: none sent Condition: stable Disposition: PACU Indications for Procedure: Janett dukes 50-year-old female presenting to the office with complaints of bilateral upper extremity weakness as well as numbness and tingling. The patient states that she is having difficulty holding on option objects keeps dropping them. She is going through course of physical therapy and injections cervical measures anti-inflammatory medications none of which seemed to help her problem. She went of neck pain as well. She complained of radicular pain that goes down her arms. She states that everything does not seem to work and she wants to pursue surgical options. Just has a history of low back pain as well however she like to get this taken care of as soon as possible. She still office after MRIs which showed C5 6 disc herniation with spondylosis of urine pending myelopathic changes. She showed increased reflexes as well as Eugene sign on the left of her upper extremities. We discussed all the different options including no surgery continue with conservative management as well as surgical options and she opted for surgery. Operative Findings: Complete desiccation C5 6 disc with intact endplates disc herniation posteriorly. Foraminal stenosis bilaterally Description of Procedure: The patient was seen and examined in the preoperative area. All preoperative protocols were followed. Informed consent was obtained risks and benefits of the procedure were discussed at length. Risks including bleeding infection damage to the surrounding tissue and risk of reoperation were discussed with the patient. Risk of anesthesia up to and including was a discussed with the patient. These are outlined in the risk review. They were willing to accept these risks and all of the risks of surgery. The patient was given a weight- based dose of antibiotics in the form of 2 g Ancef IVPB 1 preoperatively. The patient was seen and evaluated by the anesthesia team who deemed them fit for surgery. The site was marked, the patient was willing to proceed with the procedure. The patient was transferred to the operative suite by the Department of anesthesia. They were then drifted off to sleep by the department anesthesia and general endotracheal intubation. The patient tolerated this well. . Once confirmation of lines and ventilation the patient was transferred to a flat Jose table very carefully. All bony prominences including wrists, elbows, axilla, chest, hips, and thighs, and feet were padded very well. Special attention was paid to the genitalia and these were padded accordingly. SCDs were placed on bilateral lower extremities and were connected. Arms were well padded and placed at her side and tucked. Shoulders were then taped down to the bed. A bump was placed under the patient's shoulders and neck for support as well as extension. Patient's head was secured.. Once in position, again we confirmed good ventilation capabilities and that lines were running appropriately. The patient's anterior cervical spine was then exposed. 1010s were placed outlining the incision site. Standard alcohol was used to clean the incision site and allowed to dry. C-arm was used to biomark the patient and confirm level for incision which was marked with a skin marker. Operative briefing was performed with all teams and everyone in agreement to proceed. The patient was then prepped and draped in a normal sterile fashion. Timeout was then performed and all parties were in agreement with the procedure to be performed. Infiltration of quarter percent Marcaine without epinephrine was placed over the previously by marked area. Transverse incision of approximately 3 cm was made over the previously by marked area. Blunt dissection was taken down to his normal muscle which was identified. This was split longitudinally with its fibers. Blunt dissection was then taken the interval between the strap muscles him wired on the SCM. This was easily identified identified and the omohyoid maintained. Deep dissection was taken down to the deep cervical fascia which was incised. This revealed the anterior longitudinal ligament. Blunt dissection was then taken to an carefully to allow to mobilize the esophagus and trachea. These were then retracted which allowed good visualization of the ACL well and the anterior disc spaces. [place] 4 was then used along with lateral fluoroscopy to identify the correct disc. Marker was then placed in the C5 disc space. Once this was accomplished the shadow line retractor was placed and locked into position. Subperiosteal dissection was performed in the C5 6 region and disc to allow for good longissimus flaps. Uncovertebral joints were exposed bilaterally at C5 6 to allow visualization of midline. The shadow line retractor was then replaced deep to the longissimus muscles and retracted. Under lateral fluoroscopy and then Trimble pins were placed first by using a awl to create a starting point under lateral fluoroscopy and then placement of the 12 Trimble pin. This is done under lateral fluoroscopy and care was taken to be parallel to the disc endplates to allow for parallel distraction. Once these were in position the disc space was cleaned initially with a Kerrison rongeur. This allowed for freeing up of the disc space. The distractor was then placed and the locking pins placed on the distractor. Lamina balance staff staker was then placed in the disc space and under lateral fluoroscopy the lamina balance staff staker was opened. The distractor was then used to hold this open. In the lamina balance staff staker was removed. This allowed for good distraction of the disc space which was visualized on lateral fluoroscopy and parallel. A discectomy was then performed from uncovertebral joint to uncovertebral joint. Posterior osteophyte complex was drilled with a high-speed bur revealing the posterior longitudinal ligament. Posterior longitudinal ligament was then released and there is a large disc herniation posterior to this. This is removed in its entirety as well as the longitudinal ligament. Bilateral foraminotomies was performed with the 2 Kerrison. This allowed for even further and better parallel distraction at this level. Uncovertebral joints were completely cleaned and cartilage was completely cleaned from the endplates which were scraped. Care was taken to create parallel endplates with minimal endplate burring. Once preparation was complete the trial disc replacement was placed a 6 mm large deep was selected. This was impacted into place under lateral fluoroscopy. It was placed as posterior as possible. Once in good position it was locked into position distraction was removed and x-ray was taken. This confirmed midline position as well as good position laterally and posterior. We then placed and locked down the jig for endplates keel burring. The superior endplate was then burred on live pulsed fluoroscopy to allow for visualization as well as depth. A pin was placed into this and then this was repeated of the superior endplate of C6 and good keel preparation. We then used the chisel to complete these cuts and ensure there clean. We then removed the jig as well as the trial. The keel cuts were then cleaned with the keel vat cleaner the 2 Kerrison was used to ensure that the ameena extended all the way posterior. And a 60 up-biting curette was used to cure and clean the ameena. The disc space and the bone was then irrigated thoroughly with normal sterile saline. We then selected the trial implant ensured its position and then under lateral fluoroscopy impacted into place and so was in good position and as posterior as necessary. We then took an AP fluoroscopy which confirmed midline position. The plastic frame inserter was then removed the wound was copiously irrigated with normal sterile saline. FloSeal was placed in the gutters. This allowed for meticulous hemostasis. Bone wax was placed over the open bone edges. Trimble pins were then removed and bone wax placed in the void. Final AP and lateral fluoroscopy shots were then taken. The wound was again copiously irrigated with normal sterile saline. Surgicel was placed deep along with surgical cell powder. This allowed for good hemostasis. The esophagus was visualized and there was no injury. Retractors were then removed and the platysma was closed with 3-0 Vicryl in a simple fashion followed by subcu with 3-0 Vicryl. Fluoroscopy strata fix Monocryl is in place and subcuticular and the wound was cleaned with alcohol and then dressed with excess fin glue followed by Telfa and a Tegaderm. The patient was transferred back to her hospital bed atraumatically. Patient was then awakened and extubated by the department of anesthesia having tolerated the procedure very well with no complications. She was transferred to the postoperative care unit in stable condition.
[2020-12-03 10:55] LABS: Glucose,Whole Blood 114 mg/dL (75-99)
[2020-12-03] MEDS ORDERED: DEXAMETHASONE SOD PHOSPHATE 4 MG/ML 1 ML VIAL IV ONE (11:10)
[2020-12-03] MEDS: CYCLOBENZAPRINE 10 MG TAB PO PRN ×2 (12:22→22:59)
[2020-12-03] MEDS: GABAPENTIN 300 MG CAP PO SCH ×2 (17:33→22:08)
[2020-12-03] MEDS: 0.9% NACL WITH KCL 20 MEQ/L 1,000 ML IV SCH (18:45)
--- NOTE | 2020-12-03 20:18 | P.CONS ---
History of Present Illness - Reason for Consult Consult date: 12/03/20 Medical management - History of Present Illness There is a 50-year-old pleasant lady patient of Dr. Carrasco. She has underlying history of asthma GERD, memory impairment thyroid disorder, temporal lobe brain damage, anemia iron deficiency, insulin resistance, incomplete right bundle kody block, colon polyps, admitted under the service of Dr. Barnadr secondary to C5-C6 spondylosis severe, with myelopathy and radical PPI per Nella, she underwent C5-C6 total disc replacement, on 12/03/2020, intraoperatively she was found to have complete desiccation C5-C6 with intact endplate disc herniation posteriorly, foraminal stenosis bilaterally. She was seen postoperatively, without any complaints of chest pain palpitations, no difficulty breathing, no nausea no vomiting. No current labs for review except for blood glucose of 114, vitals are stable that pressure 105-149, heart rate stable, no fever, pulse ox 97% room air Review of Systems Constitutional: Reports as per HPI, Denies anorexia, Denies chills, Denies chronic headaches, Denies chronic pain, Denies daytime sleepiness, Denies fatigue, Denies fever, Denies lethargy, Denies malaise, Denies night sweats, Denies poor appetite, Denies sweats, Denies weakness, Denies weight gain, Denies weight loss Ears, nose, mouth and throat: Reports as per HPI, Reports ant. neck pain, Denies bleeding gums, Denies dental pain, Denies dysphagia, Denies epistaxis, Denies headache, Denies hoarseness, Denies mouth pain, Denies nasal congestion, Denies nasal discharge, Denies neck fullness/pressure, Denies neck lump, Denies nose pain, Denies odynophagia, Denies post-nasal drip, Denies sinus pain, Denies sinus pressure, Denies swelling in mouth, Denies swelling in throat, Denies sore throat, Denies vertigo, Denies voice changes Cardiovascular: Reports as per HPI, Denies chest pain, Denies claudication, Denies decreased exercise tolerance, Denies dyspnea on exertion, Denies edema, Denies high blood pressure, Denies irregular heart beat, Denies leg edema, Denies lightheadedness, Denies orthopnea, Denies palpitations, Denies paroxysmal nocturnal dyspnea, Denies phlebitis, Denies rapid heart beat, Denies shortness of breath, Denies syncope Respiratory: Reports as per HPI Gastrointestinal: Reports as per HPI, Denies abdominal pain, Denies belching, Denies bloating, Denies BRBPR, Denies change in bowel habits, Denies coffee ground emesis, Denies constipation, Denies diarrhea, Denies dyspepsia, Denies early satiety, Denies excessive gas, Denies heartburn, Denies hematemesis, Denies hematochezia, Denies indigestion, Denies jaundice, Denies lactose intolerance, Denies loss of appetite, Denies melena, Denies nausea, Denies vomiting Genitourinary: Reports as per HPI Menstruation: Reports as per HPI, Denies amenorrhea, Denies amenorrhea on BC, Denies currently menstrual, Denies cycle < 21 days, Denies cycle > 35 days, Denies cycle variable, Denies menses 1-7 days, Denies menses 8 or > days, Denies menses variable, Denies period heavy, Denies period light, Denies period normal, Denies period spotting, Denies post hysterectomy, Denies postmenopausal, Denies premenarcheal Musculoskeletal: Reports as per HPI Integumentary: Reports as per HPI Neurological: Reports as per HPI, Reports memory loss, Reports motor disturbance, Reports paresthesias, Denies aphasia, Denies ataxia, Denies balance difficulties, Denies burning pain, Denies change in mentation, Denies change in smell/taste, Denies change in speech, Denies confusion, Denies convulsions, Denies double vision, Denies gait dysfunction, Denies head injury, Denies headaches, Denies hearing difficulties, Denies lack of coordination, Denies loss of vision, Denies migraines, Denies numbness, Denies paralysis, Denies seizures, Denies sensory deficit, Denies spasticity, Denies syncope, Denies tic, Denies tingling, Denies transient paralysis, Denies tremors, Denies vertigo, Denies weakness, Denies visual changes Psychiatric: Reports as per HPI, Denies anhedonia, Denies anxiety, Denies anxiety attacks, Denies change in appetite, Denies change in libido, Denies change in sleep habits, Denies confusion, Denies depression, Denies difficulty concentrating, Denies disorientation, Denies hallucinations, Denies hopelessness, Denies hypersomnia, Denies insomnia, Denies irritability, Denies memory loss, Denies mood swings, Denies paranoia, Denies sadness/tearfulness, Denies sleep disturbances, Denies suicidal ideation Endocrine: Reports as per HPI, Denies cold intolerance, Denies deepening of the voice, Denies excessive sweating, Denies excessive thirst, Denies fatigue, Denies flushing, Denies heat intolerance, Denies high blood sugars, Denies increase in ring/shoe/hat size, Denies low blood sugars, Denies nocturia, Denies palpitations, Denies polydipsia, Denies polyphagia, Denies polyuria, Denies proptosis, Denies recent glucocorticoid use, Denies thyroid mass, Denies weight change Hematologic/Lymphatic: Reports as per HPI Allergic/Immunologic: Reports as per HPI, Denies allergic rhinitis, Denies anaphylaxis, Denies angioedema, Denies gluten intolerance, Denies persistent infections, Denies seasonal allergies, Denies urticaria, Denies wheezing Past Medical History Past Medical History: Asthma, Blood Disorder, GERD/Reflux, GI Bleed, Memory Impairment, Musculoskeletal Disorder, Pneumonia, Thyroid Disorder Additional Past Medical History / Comment(s): Temporal lobe brain damage, short term memory prob. anemia/low iron, gastritis, bleeding ulcer 2008, DDD, Left rotator cuff 2 tears that dislocates. PCOS, Metabolic syndrome, Insulin resist ance. "Incomplete RBBB." Hx colon polyps. Bruises easily. Edema BLE. Cervical disc prob; NT fingers, arms, BLE History of Any Multi-Drug Resistant Organisms: None Reported Past Surgical History: Adenoidectomy, Appendectomy, Bariatric Surgery, Breast Surgery, Cholecystectomy, Hysterectomy, Orthopedic Surgery, Tonsillectomy, Tubal Ligation Additional Past Surgical History / Comment(s): bilateral knees, gastric sleeve 02/2012, Hemorrhoids, Colonoscopy/EGD, Brachioplasty, Breast Augmentation w/ implants, Thigh plastic surgery, lower body lift, Panniculectomy, exc cyst upper lip, exc cysts from labia, lt 5th finger repair/reattached, Rt thumb basal joint exc/repair w/ Rt CTR Past Anesthesia/Blood Transfusion Reactions: Previous Problems w/ Anesthesia, Family History of Problems w/ Anesthesia, Postoperative Nausea & Vomiting (PONV) Additional Past Anesthesia/Blood Transfusion Reaction / Comm: Needs low anesthesia, VS plummet. Uncle has anesthesia problems, allergic reaction. Past Psychological History: ADD/ADHD, Anxiety, PTSD Smoking Status: Former smoker Past Alcohol Use History: Occasional Additional Past Alcohol Use History / Comment(s): Smoking since 1984 on/off, was up to 1ppd at most, last 1 month ago Past Drug Use History: None Reported - Past Family History Father Family Medical History: Cancer, Deep Vein Thrombosis (DVT), Pulmonary Embolus Additional Family Medical History / Comment(s): poss bone cancer Mother Family Medical History: Dementia, Diabetes Mellitus, Hypertension Medications and Allergies Home Medications Medication Instructions Recorded Confirmed Type Albuterol Inhaler (Mhu) [Ventolin 2 puff INHALATION RT-Q6H PRN 11/30/17 11/28/20 History Hfa Inhaler (Mhu)] Cyclobenzaprine [Flexeril] 10 mg PO TID PRN 11/30/17 11/28/20 History HYDROcodone/APAP 10-325MG [[place] 1 tab PO QID PRN 11/30/17 12/03/20 History 10-325] Loratadine [Claritin] 10 mg PO DAILY 11/30/17 11/28/20 History Phentermine HCl [Adipex-P] 37.5 mg PO QAM 11/30/17 12/03/20 History Thyroid,Pork [[place] Thyroid] 15 mg PO QAM 11/30/17 12/03/20 History metFORMIN HCL 1,000 mg PO BID 11/30/17 12/03/20 History traZODone HCL 150 mg PO HS 11/30/17 12/03/20 History Furosemide [Lasix] 20 - 40 mg PO DAILY 07/19/19 11/28/20 History Simethicone [Gas-X] 125 mg PO DIRECTED PRN 12/18/19 12/03/20 History Toradol Injection 1 injection IM Q14D 12/18/19 12/03/20 History Omeprazole 20 mg PO BID 08/26/20 12/03/20 History predniSONE 10 mg PO DIRECTED PRN 09/10/20 12/03/20 History Ascorbic Acid [Vitamin C] 1,000 mg PO DAILY 11/06/20 12/03/20 History Calcium Carbonate [Tums] 500 mg PO DAILY PRN 11/06/20 11/28/20 History Cholecalciferol [Vitamin D3 (25 125 mcg PO DAILY 11/06/20 12/03/20 History Mcg = 1000 Iu)] Fluconazole [Diflucan] 100 mg PO DAILY PRN 11/06/20 11/28/20 History Magnesium 200 mg PO DAILY 11/06/20 11/28/20 History Pantoprazole Sodium 10 mg PO DAILY 11/06/20 12/03/20 History Potassium Chloride [K-Tab ER] 20 meq PO DIRECTED PRN 11/06/20 12/03/20 History Ubidecarenone [Co Q-10] 400 mg PO DAILY 11/06/20 12/03/20 History Vitamin B Complex 1 each PO DAILY 11/06/20 12/03/20 History Garlic (Unknown Dose) 1 tab PO DAILY 11/28/20 History Turmeric (Unknown Dose) 1 tab PO DAILY 11/28/20 History Vitamin B6 (Unknown Dose) 1 tab PO DAILY 11/28/20 History Allergies Allergy/AdvReac Type Severity Reaction Status Date / Time broccoli Allergy Abdominal Verified 12/03/20 12:30 Pain mold Allergy Dyspnea Verified 12/03/20 12:30 pineapple Allergy Abdominal Verified 12/03/20 12:30 Pain pollen extracts Allergy Dyspnea Verified 12/03/20 12:30 Sulfa (Sulfonamide Allergy shortness Verified 12/03/20 12:30 Antibiotics) of breathe, wheezy wheat Allergy Wheezing Verified 12/03/20 12:30 dust Allergy Wheezing Uncoded 12/03/20 12:32 feathers Allergy Wheezing Uncoded 12/03/20 12:32 pine trees Allergy Wheezing Uncoded 12/03/20 12:32 Physical Exam Vitals: Vital Signs Temp Pulse Pulse Resp BP BP BP 12/03/20 13:20 84 18 149/83 12/03/20 12:50 83 18 139/82 12/03/20 12:35 85 18 156/90 12/03/20 12:20 83 18 158/92 12/03/20 12:05 98.0 F 84 18 12/03/20 11:15 85 16 169/84 12/03/20 11:00 88 16 170/83 12/03/20 10:45 85 16 168/85 12/03/20 10:30 90 16 173/96 12/03/20 10:15 88 16 179/87 12/03/20 10:03 96.8 F L 85 20 175/90 12/03/20 07:11 97.9 F 94 18 150/90 BP Pulse Ox 12/03/20 13:20 97 12/03/20 12:50 97 12/03/20 12:35 97 12/03/20 12:20 149/81 98 12/03/20 12:05 158/92 99 12/03/20 11:15 98 12/03/20 11:00 98 12/03/20 10:45 98 12/03/20 10:30 100 12/03/20 10:15 100 12/03/20 10:03 99 12/03/20 07:11 97 Intake and Output 12/02/20 12/03/20 12/03/20 22:59 06:59 14:59 Intake Total 2250 Output Total 50 Balance 2200 Intake: IV 2250 Output: Estimated Blood Loss 50 Other: Weight 102.6 kg 102.6 kg - Constitutional General appearance: cooperative, no acute distress - EENT Eyes: EOMI, PERRLA, dentition normal ENT: NA/AT, normal oropharynx - Neck Neck: normal ROM - Respiratory Respiratory: bilateral: CTA, negative: diminished, dullness - Cardiovascular Rhythm: regular Heart sounds: normal: S1, S2 Abnormal Heart Sounds: no systolic murmur, no diastolic murmur, no rub, no S3 Gallop, no S4 Gallop, no click, no other - Gastrointestinal General gastrointestinal: normal bowel sounds, soft - Integumentary Integumentary: decreased turgor, normal - Neurologic Neurologic: CNII-XII intact - Musculoskeletal Musculoskeletal: strength equal bilaterally - Psychiatric Psychiatric: A&O x's 3, appropriate affect, intact judgment & insight Results Labs: Abnormal Lab Results - Last 24 Hours (Table) 12/03/20 12/03/20 Range/Units 07:17 10:54 POC Glucose (mg/dL) 122 H 114 H (75-99) mg/dL Assessment and Plan Plan: 1. Cervical myelopathy, status post C5-C6 disc replacement secondary to severe spondylosis and cervical spinal stenosis, performed on 12/03/2020 patient is to have incentive spirometry, local wound care, monitor for blood losses. 2. History of mild intermittent asthma without any exacerbation 2. 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 History of iron deficiency, check labs 5. History of metabolic syndrome, and insulin resistance on maintenance metformin 1 g twice a day, check A1c 6. History of colon polyps without any current blood losses 7. History of bariatric surgery, monitor for nutritional losses including vitamin D, currently on phentermine, 8. Chronic pain, on prednisone when necessary, and [place] GI Prophylaxis DVT prophylaxis and pulmonary prophylaxis
[2020-12-03] MEDS ORDERED: traZODone HCL 50 MG TAB PO SCH (21:00)
[2020-12-03] MEDS: metFORMIN 500 MG TAB PO SCH (22:06)
[2020-12-03] MEDS: DOCUSATE 100 MG CAP PO SCH (22:07)
[2020-12-04] MEDS: oxyCODONE-APAP 5-325MG 1 EACH TAB PO PRN ×2 (02:24→13:43)
[2020-12-04] MEDS: HYDROmorphone 0.5 MG/0.5 ML SYRINGE IVP PRN (06:23)
[2020-12-04] MEDS: LACTATED RINGERS 1,000 ML IV SCH (06:39)
[2020-12-04 06:40] LABS: Basophils % (A) 0 %; Eosinophils % (A) 0 %; HCT 39.2 % (34.0-46.0); HGB 12.5 gm/dL (11.4-16.0); Lymphocytes % (A) 10 %; MCH 30.6 pg (25.0-35.0); MCV 95.7 fL (80.0-100.0); Mean Platelet Volume 6.4; Monocytes # (A) 0.8 k/uL (0-1.0); Monocytes % (A) 7 %; Neutrophils # (A) 8.7 k/uL (1.3-7.7); Neutrophils % (A) 81 %; Platelet Count 228 k/uL (150-450); RDW 13.2 % (11.5-15.5); WBC 10.7 k/uL (3.8-10.6)
[2020-12-04 06:53] LABS: African American GFR (CKD) >90 (>60 ml/min/1.73 sqM); Anion Gap 6 mmol/L; Blood Urea Nitrogen 18 mg/dL (7-17); Calcium 7.8 mg/dL (8.4-10.2); Carbon Dioxide 24 mmol/L (22-30); Chloride 106 mmol/L (98-107); Glucose 133 mg/dL (74-99); Non-African American GFR(CKD) >90 (>60 ml/min/1.73 sqM); Potassium 3.8 mmol/L (3.5-5.1); Sodium 136 mmol/L (137-145)
[2020-12-04] MEDS ORDERED: PANTOPRAZOLE 40 MG TABLET PO SCH (07:30)
--- NOTE | 2020-12-04 08:15 | P.PN ---
Subjective Progress Note Date: 12/04/20 Principal diagnosis: C5-6 spndylosis severe Patient seen and examined. She is comfortable in bed. States that last night she had pain of 10 out of 10 and required Dilaudid but otherwise doing okay today. States she got up and went to her x-ray this morning without any issues. She denies any numbness or tingling states that her small fingers are actually starting to get more feeling back at this time. She denies any fevers chills shortness of breath or chest pain. She denies any bowel or bladder issues. Objective - Vital Signs Vital signs: Vital Signs Temp 97.4 F L 12/04/20 02:00 Pulse 82 12/04/20 02:00 Resp 18 12/04/20 02:00 BP 122/65 12/04/20 02:00 Pulse Ox 95 12/04/20 02:00 Intake & Output 12/03/20 12/04/20 12/04/20 18:59 06:59 18:59 Intake Total 3250 Output Total 50 Balance 3200 Weight 102.6 kg Intake: IV 2250 Oral 1000 Output: Estimated Blood Loss 50 Other: Voiding Method Toilet # Voids 1 2 - Exam GEN: AOX3, NAD VSS Inspection: Appears well sitting in bed soft collar in place Palpation: And will tenderness to palpation anterior neck no fluctuance no hematoma Motor: 5/5 shoulder abd/EF/EE/WF/intrinsics 5/5 DF/PF/EHL/FHL/HF/KE/KF Reflexes: 2/4 DTR all upper and LE Sensation intact to light touch in C5-T1 as well as L2-S1 distribution Martinez's: Negative bilaterally Clonus: Negative bilaterally Babinski: Negative bilaterally Incision: Clean dry and intact Dressing: Lean dry and intact - Labs CBC & Chem 7: 12/04/20 06:05 12/04/20 06:05 Labs: Abnormal Lab Results - Last 24 Hours (Table) 12/03/20 12/04/20 12/04/20 Range/Units 10:54 06:05 06:05 WBC 10.7 H (3.8-10.6) k/uL Neutrophils # 8.7 H (1.3-7.7) k/uL Sodium 136 L (137-145) mmol/L BUN 18 H (7-17) mg/dL Creatinine 0.42 L (0.52-1.04) mg/dL Glucose 133 H (74-99) mg/dL POC Glucose (mg/dL) 114 H (75-99) mg/dL Calcium 7.8 L (8.4-10.2) mg/dL Assessment and Plan Assessment: 1. 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 -Pain control: Adequate at this time -Aggressive ambulation protocol. OOB with all meals. OOB or in chair 4-5x daily. -PT/OT -TEDs, SCDs, mechanical ppx. OK for heparin today. Early ambulation is best. -GI ppx. -Upright x-rays cervical spine pending -Trend labs. -Dispo: Home today
--- NOTE | 2020-12-04 08:21 | XR ---
EXAMINATION TYPE: XR cervical spine limited DATE OF EXAM: 12/04/2020 COMPARISON: NONE HISTORY: Post cervical fusion TECHNIQUE: Two views are submitted. FINDINGS: Air is seen in the soft tissues which could be postsurgical related to soft tissue emphysema. Lung ap ices clear. Spacer device and postsurgical change C5-C6. Mild hypertrophic and degenerative changes C 4-C5. IMPRESSION: 1. Postsurgical changes. There is air in the soft tissues which could be postsurgical correlate clini nadiya to exclude infectious etiology.
--- NOTE | 2020-12-04 08:22 | P.DS ---
Providers Date of admission: 12/04/20 03:02 Expected date of discharge: 12/04/20 Attending physician: Dayday Hawkins DO Consults: 12/03/20 13:38 Consult Physician Routine Consulting Provider: Sherrie Carbajal Consult Reason/Comments: medical management Do you want consulting provider notified?: Yes Primary care physician: [place] Hospital Course: Spine Surgery Discharge Summary Note Admission Date: 12/03/2020 Discharge Date: 12 04 2020 Providers: be hawkins Principal Diagnosis: c56 spondylosis severe Procedures: C5 6 disc replacement Secondary Diagnoses: Chronic pain asthma history of colon polyps and adenoma Discharge Medications: See list Allergies: Broccoli mold pineapple pole and extract sulfa antibiotic suite feathers [place] trees Hospital Course: The patient was evaluated preoperatively and found to have the diagnosis of C5 6 severe spondylosis with kyphosis and disc herniation. They underwent appropriate preoperative care and were willing to undergo the intended procedure. They underwent a successful C5 6 total disc replacement, were recovered appropriately and sent to the floor. While on the floor they worked with physical therapy, occupational therapy and nursing to enhance their recovery experience. Their pain was well controlled through their stay and they were started on appropriate medications, DVT ppx modalities, activity and dietar y needs. Daily labs were monitored closely, and transfusions were only used when necessary. Medicine as well as other consulting services have made their input and have helped with our team approach and multidisciplinary care. PT milestones have been met and passed and they have made the recommendation of home with home health care for this patient and treating providers agree with this care path. The patient will be discharged home with appropriate medications, instructions and follow-up information and in stable condition. Patient Condition at Discharge: Stable Plan - Discharge Summary Discharge Rx Participant: Yes New Discharge Prescriptions: New Cyclobenzaprine [Flexeril] 10 mg PO HS PRN #40 tab PRN Reason: Spasms Gabapentin 300 mg PO TID 3 Days #9 cap polyethylene glycoL 3350 [Miralax] 17 gm PO DAILY PRN #10 packet PRN Reason: Constipation HYDROcodone/APAP 10-325MG [[place] 10-325] 1 tab PO Q4HR PRN 3 Days #56 tab PRN Reason: Pain Sennosides/Docusate Sodium [Senna Plus 8.6-50 mg Softgel] 1 each PO BID PRN #20 capsule PRN Reason: Constipation Indomethacin 25 mg PO BID #14 capsule Pantoprazole [Protonix] 40 mg PO DAILY #30 tablet.dr [place] Action Albuterol Inhaler (u) [Ventolin Hfa Inhaler (u)] 2 puff INHALATION RT-Q6H PRN PRN Reason: Shortness Of Breath metFORMIN HCL 1,000 mg PO BID Cyclobenzaprine [Flexeril] 10 mg PO TID PRN PRN Reason: Pain traZODone HCL 150 mg PO HS Loratadine [Claritin] 10 mg PO DAILY HYDROcodone/APAP 10-325MG [[place] 10-325] 1 tab PO QID PRN PRN Reason: Pain Thyroid,Pork [[place] Thyroid] 15 mg PO QAM Phentermine HCl [Adipex-P] 37.5 mg PO QAM Furosemide [Lasix] 20 - 40 mg PO DAILY Simethicone [Gas-X] 125 mg PO DIRECTED PRN PRN Reason: abd pain Toradol Injection 1 injection IM Q14D Omeprazole 20 mg PO BID predniSONE 10 mg PO DIRECTED PRN PRN Reason: increased pain Fluconazole [Diflucan] 100 mg PO DAILY PRN PRN Reason: with antibiotics Potassium Chloride [K-Tab ER] 20 meq PO DIRECTED PRN PRN Reason: when taking Lasix 40 mg Pantoprazole Sodium 10 mg PO DAILY Cholecalciferol [Vitamin D3 (25 Mcg = 1000 Iu)] 125 mcg PO DAILY Calcium Carbonate [Tums] 500 mg PO DAILY PRN PRN Reason: acid reflux Vitamin B Complex 1 each PO DAILY Ubidecarenone [Co Q-10] 400 mg PO DAILY Magnesium 200 mg PO DAILY Ascorbic Acid [Vitamin C] 1,000 mg PO DAILY Turmeric (Unknown Dose) 1 tab PO DAILY Garlic (Unknown Dose) 1 tab PO DAILY Vitamin B6 (Unknown Dose) 1 tab PO DAILY Discharge Medication List Albuterol Inhaler (Mhu) [Ventolin Hfa Inhaler (u)] 2 puff INHALATION RT-Q6H PRN 11/30/17 [History] Cyclobenzaprine [Flexeril] 10 mg PO TID PRN 11/30/17 [History] HYDROcodone/APAP 10-325MG [[place] 10-325] 1 tab PO QID PRN 11/30/17 [History] Loratadine [Claritin] 10 mg PO DAILY 11/30/17 [History] Phentermine HCl [Adipex-P] 37.5 mg PO QAM 11/30/17 [History] Thyroid,Pork [[place] Thyroid] 15 mg PO QAM 11/30/17 [History] metFORMIN HCL 1,000 mg PO BID 11/30/17 [History] traZODone HCL 150 mg PO HS 11/30/17 [History] Furosemide [Lasix] 20 - 40 mg PO DAILY 07/19/19 [History] Simethicone [Gas-X] 125 mg PO DIRECTED PRN 12/18/19 [History] Toradol Injection 1 injection IM Q14D 12/18/19 [History] Omeprazole 20 mg PO BID 08/26/20 [History] predniSONE 10 mg PO DIRECTED PRN 09/10/20 [History] Ascorbic Acid [Vitamin C] 1,000 mg PO DAILY 11/06/20 [History] Calcium Carbonate [Tums] 500 mg PO DAILY PRN 11/06/20 [History] Cholecalciferol [Vitamin D3 (25 Mcg = 1000 Iu)] 125 mcg PO DAILY 11/06/20 [History] Fluconazole [Diflucan] 100 mg PO DAILY PRN 11/06/20 [History] Magnesium 200 mg PO DAILY 11/06/20 [History] Pantoprazole Sodium 10 mg PO DAILY 11/06/20 [History] Potassium Chloride [K-Tab ER] 20 meq PO DIRECTED PRN 11/06/20 [History] Ubidecarenone [Co Q-10] 400 mg PO DAILY 11/06/20 [History] Vitamin B Complex 1 each PO DAILY 11/06/20 [History] Garlic (Unknown Dose) 1 tab PO DAILY 11/28/20 [History] Turmeric (Unknown Dose) 1 tab PO DAILY 11/28/20 [History] Vitamin B6 (Unknown Dose) 1 tab PO DAILY 11/28/20 [History] Cyclobenzaprine [Flexeril] 10 mg PO HS PRN #40 tab 12/04/20 [Rx] Gabapentin 300 mg PO TID 3 Days #9 cap 12/04/20 [Rx] HYDROcodone/APAP 10-325MG [[place] 10-325] 1 tab PO Q4HR PRN 3 Days #56 tab 12/04/20 [Rx] Indomethacin 25 mg PO BID #14 capsule 12/04/20 [Rx] Pantoprazole [Protonix] 40 mg PO DAILY #30 tablet. 12/04/20 [Rx] Sennosides/Docusate Sodium [Senna Plus 8.6-50 mg Softgel] 1 each PO BID PRN #20 capsule 12/04/20 [Rx] polyethylene glycoL 3350 [Miralax] 17 gm PO DAILY PRN #10 packet 12/04/20 [Rx] Follow up Appointment(s)/Referral(s): Azael Lau PAC [PHYSICIAN STAIN WIPER] - 2 Weeks Dayday Hawkins DO [Doctor of Osteopathic Medicine] - 6 Weeks Activity/Diet/Wound Care/Special Instructions: Spine Discharge and Recovery Instructions Date of Surgery: 12/03/2020 Diagnosis: 56 severe spondylosis with disc herniation myelopathy Procedure: C5 6 total disc replacement Medications: See list All medication refills should be obtained through your primary care doctor or your clinic spine surgeon. Please discuss prescription refills at your follow up appointment. Do not call the hospital for medication refills. Dressing: Leave your dressing in place for a total of 3 days post operatively. Then you may remove your dressing and leave open to air. Keep the area clean and if not able to keep area clean, then cover with sterile gauze and tape. Showering: You may shower 3 days after your procedure allowing soap and water to run over incision. Do not scrub. Do not soak. Blot dry. Follow up: Please confirm a follow up appointment with your surgeon 2 weeks post operatively. Please make an appointment to follow up with your PCP in 1-2 weeks after surgery for evaluation 3 phase, 3-week plan POST OP WEEKS 1-3 1. Lifting/carrying/pushing/pulling limited to less than 5 pounds. 2. Do not sit for longer than 15 minutes at one time. Get up and walk around. Prolonged sitting is NOT advised. If you lay down, see if you can t olerate laying down on you front (belly side) 3. Walk for periods of 15 minutes = 1 mile but no longer; do it multiple times times each day. 4.Ice your low back after activity. POST OP WEEKS 3-6 1. Lifting limited to less than 20 pounds. 2. Do not sit for longer than 30 minutes at a time. Frequently change positions. Use a sit-to stand workstation or take frequent breaks from sitting if you have returned to work. 3. Walk for 30 minutes each day. If possible, do these three or more times a day POST OP WEEKS 6+ At your 6-week appointment we will give you a physical therapy referral to focus on a core stabilization and strengthening program. You should also work on leg & buttock strengthening, hamstring & quadriceps stretching, and continue a low impact aerobic activity program such as swimming, walking, or riding a stationary bicycle. During the initial 6 weeks after your surgery, you are at the highest risk of re-injuring your spine. You should generally avoid BLTs (bending, lifting and twisting combination motions) and follow the above guidelines to reduce the germain ce of reinjury. You can anticipate post op appointments in our office at approximately 3 weeks and 6 weeks after your surgery. INCISION CARE: If your incision is not draining you do NOT need to cover it with a dressing. Keep your incision clean, dry and intact. In most cases, we apply skin glue, mary kay or sutures to the incision at the time of surgery. This will be like a crust or have the appearance of a scab and will fall off in time on its own. The stitches or mary kay need to be removed at 3 weeks post op appointment. You may begin to shower 3 days after surgery (this allows the glue to loza well). However, please avoid scrubbing the incision site or peeling off any of the skin glue. This will ensure optimal healing of your incision. Also, during this time avoid soaking the incision area in water - this includes swimming pools, hot tubs or baths. No ointments, lotions or oils on the incision until your surgeon allows. Leave mary kay, sutures or glue in place. Neurological dysfunction that comes on suddenly can also be a sign of a stroke. Below some common symptoms of a stroke are listed: B - balance difficulty such as sudden onset walking or leaning to one side - NEW E - eye problem such as sudden double vision or trouble seeing on one side - NEW F - Facial weakness or numbness on one side - NEW A - Arm or leg weakness or numbness on one side - NEW S - Slurred speech or difficulty with word finding - NEW T - Time is BRAIN! Call 911 as soon as you recognize these symptoms Diet: Consume a regular diet rich in vegetables and lean protein such as chicken or fish. You should consume in a ratio of approximately 20% fats|40% carbohydrates|40%protein. Vegetables, sweet potatoes, brown rice or quinoa are examples of good carbohydrates. Chips, white bread, cookies and sweets/sugar are examples of bad carbohydrates. Limit your bad carbs, go wild with good carbs. "Life's Simple 7" Guidelines as per [place] [employer] These will help you reclaim your life after surgery and tractor operator helper in your recovery, keeping in mind your restrictions. (1) Get Active. Physical activity can help people lose weight, control high blood pressure and cholesterol, feel emotionally better, and sleep better. (2) Control Cholesterol. Avoid a diet high in saturated fat, trans fat, & cholesterol. Limit whole milk & cream, ice cream, butter, egg yolks, processed meats (like sausage and hot dogs), and fatty meats. Choose healthy foods that are low in saturated fat, trans fat and cholesterol which include: Fruits and vegetables, fiber rich grain products (like whole g rain pasta and brown rice), lean meat such as chicken, fish, nuts, seeds, and legumes. (3) Eat Better. Eat small portions. Shop at the grocery with a list and do not stray from it. Tips for a healthy diet include: Limit sodium intake to less than 1500mg daily, avoid prepackaged, processed, and fast foods, choose a diet rich in fruits, vegetables, and whole grain, high fiber foods, and limit saturated & cholesterol in your diet. (4) Manage Blood Pressure. If you have high blood pressure, you should have a cuff at home so that you can check your blood pressure regularly. Be sure you have a good cuff. An arm one is generally better than a wrist one. Bring the cuff to a doctor's appointment to validate that the measurements that your cuff are taking are accurate. Take your blood pressure twice daily when you are sitting down and relaxing. Record the numbers in a log and bring this log with you to your doctors' appointments. (5) Lose Weight if your BMI is above 25. A healthy BMI is between 19-25. To calculate Your BMI, you may use a Standard BMI Calculator on the NIH BMI website: <www.nhlbi.nih.gov/guidelines/obesity/BMI/bmicalc.htm>. Weigh oneself daily. If you are overweight, set a goal to lose weight. A pound a week loss if needed is a good target. (6) Reduce Blood Sugar. Limit foods and liquids with "added sugars." (Added sugars include sucrose, fructose, glucose, maltose, dextrose, high fructose corn syrup, corn syrup, concentrated fruit juice and honey). (7) Stop Smoking. If you smoke, quitting smoking is one of the best things that you can do for your health. Smoking increases your risk of heart attack, stroke, and peripheral vascular disease, which is a build-up of plaque in your arteries. Please discard all the cigarettes and lighters in your house. Have a plan for what you will do when you have the urge to smoke. Direct and second- hand smoke shortens your life as well as the lives of your family, friends and others around you. For your health and the health of those around you, please consider quitting! Proper Bending Body Mechanics: Maintain a wide stance with one foot slightly in front of the other. Keep your back straight. Bend utilizing the strength in your hips and knees. Do not bend at the waist. Maintain the lifted object at your waist-level close to your body. Avoid lifting weight that causes immediately pain or pain anywhere in the body afterwards. Smoking/Nicotine If there was ever one thing that you could do to increase your overall health, decrease your risk of cardiovascular problems by about 39% the second you make the choice, it is to STOP SMOKING. Your body's most instant gratification is the second you stop smoking. We have all heard the studies, read the articles but it is true, smoking is extremely bad for your overall health, and moreover it is detrimental to your bone health. Nicotine, IN ANY FORM, kills bone cells, prevents your body from healing fractures, and significantly prolongs healing after surgery. In spine surgery specifically, it increases your risk of not healing your bones to create a fusion and increases your risk of having a revision surgery due to this up to 60%. I know it is hard. I know it feels impossible. But there are ways. Take control of your life. We are here to help you through it. And when you are ready, ask us and we can direct you to help if you desire. Use the START Plan to Quit Smoking (please visit the [employer] website listed below for more information): S = Set a quit date. Choose a date within the next 2 weeks, so you have enough time to prepare without losing your motivation to quit. If you mainly smoke at work, quit on the weekend, so you have a few days to adjust to the change. T = Tell family, friends, and co-workers that you plan to quit. Let your friends and family in on your plan to quit smoking and tell them you need their support and encouragement to stop. Look for a quit malcolm who wants to stop smoking as well. You can help each other get through the rough times. A = Anticipate and plan for the challenges you'll face while quitting. Most people who begin smoking again do so within the first 3 months. You can help yourself make it through by preparing ahead for common challenges, such as nicotine withdrawal and cigarette cravings. R = Remove cigarettes and other tobacco products from your home, car, and work. Throw away all your cigarettes (no emergency pack!), lighters, ashtrays, and matches. Wash your clothes and freshen up anything that smells like smoke. Shampoo your car, clean your drapes and carpet, and steam your furniture. T = Talk to your doctor about getting help to quit. Your doctor can prescribe medication to help with withdrawal and suggest other alternatives. If you can't see a doctor, you can get many products over the counter at your local pharmacy or grocery store, including the nicotine patch, nicotine lozenges, and nicotine gum. Resources for Quitting Smoking: <https://www.[place].gov/documents/[facility]/Quit_Tobacco_Resources_for_ patients_313480_7.pdf> Supplementation: Take recommended dosages of Vitamin D and Calcium to help fortify your bones and help them to heal. See your health maintenance packet for dosages and recommended levels. DVT/VTE prophylaxis: You will be given compression stockings from the hospital. Wear these daily for the first two weeks after surgery. You may take them off at night. You may be prescribed a medication to help thin your blood. Take this as directed. If you are not prescribed this medication, early and frequent ambulation has been shown to be the best prophylaxis to deep vein thrombosis and sequelae related to this event. Discharge Disposition: HOME WITH HOME HEALTH SERVICES Pending Studies Pending Results: X-rays of the cervical spine AP and lateral postoperative reviewed. This demonstrates excellent placement of C5 6 disc replacement. Kyphosis at this level has been eliminated and there is good disc space. Implant is in good position with no evidence of loosening or hardware failure.
[2020-12-04 08:54] VITALS: BP 135/88; PULSE 89; RESP 14; TEMP 98.2
[2020-12-04] MEDS ORDERED: INDOMETHACIN 25 MG CAP PO SCH (09:00)
[2020-12-04] MEDS ORDERED: CHOLECALCIFEROL 25 MCG (1000 IU) TABLET PO SCH (09:00)
[2020-12-04] MEDS ORDERED: polyethylene glycoL 3350 17 GM POWD.PACK PO SCH (09:00)
[2020-12-04] MEDS ORDERED: FUROSEMIDE 20 MG TAB PO SCH (09:00)
[2020-12-04] MEDS ORDERED: THYROID, PORK 30 MG TAB PO SCH (09:00)
[2020-12-04] MEDS ORDERED: Phentermine Hcl [Adipex-P] PO SCH (09:00)
[2020-12-04] MEDS ORDERED: ASCORBIC ACID 500 MG TAB PO SCH (09:00)
[2020-12-04] MEDS ORDERED: methylPREDNISolone SOD SUCCI 125 MG/2 ML VIAL IM ONE (09:14)
[2020-12-04] MEDS ORDERED: BACLOFEN 10 MG TAB PO PRN (09:14)
[2020-12-04] MEDS: 0.9% NACL WITH KCL 20 MEQ/L 1,000 ML IV SCH (09:21)
[2020-12-04] MEDS: DOCUSATE 100 MG CAP PO SCH (09:22)
[2020-12-04] MEDS: metFORMIN 500 MG TAB PO SCH (09:22)
[2020-12-04] MEDS: GABAPENTIN 300 MG CAP PO SCH (09:24)
[2020-12-04] MEDS ORDERED: methylPREDNISolone SOD SUCCI 125 MG/2 ML VIAL IV STA (10:07)
--- NOTE | 2020-12-04 11:45 | P.PN ---
Subjective Progress Note Date: 12/04/20 HISTORY OF PRESENT ILLNESS There is a 50-year-old pleasant lady patient of Dr. Carrasco. She has underlying history of asthma GERD, memory impairment thyroid disorder, temporal lobe brain damage, anemia iron deficiency, insulin resistance, incomplete right bundle kody block, colon polyps, admitted under the service of Dr. Barnard secondary to C5-C6 spondylosis severe, with myelopathy and radical PPI per Nella, she underwent C5-C6 total disc replacement, on 12/03/2020, intraoperatively she was found to have complete desiccation C5-C6 with intact endplate disc herniation posteriorly, foraminal stenosis bilaterally. She was seen postoperatively, without any complaints of chest pain palpitations, no difficulty breathing, no nausea no vomiting. No current labs for review except for blood glucose of 114, vitals are stable that pressure 105-149, heart rate stable, no fever, pulse ox 97% room air 12/04: Patient has been afebrile, heart rate 82, blood pressure 122/65, pulse ox 95% on room air. Repeat blood work reveals W BC 10.7, hemoglobin 12.5. BUN 18 creatinine 0.42. Blood sugars running between 114 and 133. Patient states that she had significant pain during the night and was unable to get any pain relief with Percocet. She also states that she was very stiff in the neck and upper back and shoulder area and was not able to get out of bed because of this discomfort and stiffness. She then had Dilaudid and that seemed to help. She is very concerned that she will be able to manage at home, be able to get out of bed on her own. We have added in baclofen and 1 dose of Solu-Medrol. Patient is noted to be already on Flexeril as well. At the time of evaluation, pain is improved. No numbness or tingling. She denies any chest pain or shortness of breath. No fever or chills. Patient is reaching 3500 on incentive spirometry. REVIEW OF SYSTEMS Constitutional: No fever, no chills, no night sweats. No weight change. No weakness, fatigue or lethargy. No daytime sleepiness. EENT: No headache. No blurred vision or double vision, no loss of vision. No loss of Hearing, reports anterior neck pain. No nasal drainage or congestion. No epistaxis. Reports sore throat. Lungs: No shortness of breath, cough, no sputum production. No wheezing. Cardiovascular: No chest pain, no lower extremity edema. No palpitations. No paroxysmal nocturnal dyspnea. No orthopnea. No lightheadedness or dizziness. No syncopal episodes. Abdominal: No abdominal pain. No nausea, vomiting. No diarrhea. No constipation. No bloody or tarry stools.. No loss of appetite. Genitourinary: No dysuria, increased frequency, urgency. No urinary retention. Musculoskeletal: No myalgias. No muscle weakness, no gait dysfunction, no frequent falls. No back pain. No neck pain. Integumentary: No wounds, no lesions. No rash or pruritus. No unusual bruising. No change in hair or nails. Neurologic: No aphasia. No facial droop. No change in mentation. No head injury. No headache. No paralysis. No paresthesia. Psychiatric: No depression. No anxiety. No mood swings. Endocrine: No abnormal blood sugars. No weight change. No excessive sweating or thirst. No cold intolerance. PHYSICAL EXAMINATION Gen: This is this is a 50-year-old female. Patient is resting in bed and appears comfortable at rest. HEENT: Head is atraumatic, normocephalic. Pupils equal, round. Sclerae is anicteric. NECK: Supple. No JVD. No lymphadenopathy. No thyromegaly. LUNGS: Clear to auscultation. No wheezes or rhonchi. No intercostal retractions. HEART: Regular rate and rhythm. No murmur. ABDOMEN: Soft. Bowel sounds are present. No masses. No tenderness. EXTREMITIES: No pedal edema. No calf tenderness. NEUROLOGICAL: Patient is awake, alert and oriented x3. Cranial nerves 2 through 12 are grossly intact. ASSESSMENT AND PLAN 1. Cervical myelopathy, status post C5-C6 disc replacement secondary to severe spondylosis and cervical spinal stenosis, performed on 12/03/2020. Continue incentive spirometry, local wound care, monitor for blood losses. Continue pain management per surgeon. Increase activity. Added baclofen and 1 dose of IV Solu-Medrol. 2. History of mild intermittent asthma without any exacerbation 2. 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 History of iron deficiency, check labs 5. History of metabolic syndrome, and insulin resistance on maintenance metformin 1 g twice a day, check A1c 6. History of colon polyps without any current blood losses 7. History of bariatric surgery, monitor for nutritional losses including vitamin D, currently on phentermine, 8. Chronic pain, on prednisone when necessary, and [place] [facility] Prophylaxis DVT prophylaxis and pulmonary prophylaxis DISCHARGE PLAN Home today after PT and OT evaluations Impression and plan of care have been directed as dictated by the signing physician. Carlene Alarcon nurse practitioner acting as scribe for signing physician. Objective - Vital Signs Vital signs: Vital Signs Temp 97.4 F L 12/04/20 02:00 Pulse 82 12/04/20 02:00 Resp 18 12/04/20 02:00 BP 122/65 12/04/20 02:00 Pulse Ox 95 12/04/20 02:00 Intake & Output 12/03/20 12/04/20 12/04/20 18:59 06:59 18:59 Intake Total 3250 Output Total 50 Balance 3200 Weight 102.6 kg Intake: IV 2250 Oral 1000 Output: Estimated Blood Loss 50 Other: Voiding Method Toilet # Voids 1 2 - Labs CBC & Chem 7: 12/04/20 06:05 12/04/20 06:05 Labs: Abnormal Lab Results - Last 24 Hours (Table) 12/03/20 12/04/20 12/04/20 Range/Units 10:54 06:05 06:05 WBC 10.7 H (3.8-10.6) k/uL Neutrophils # 8.7 H (1.3-7.7) k/uL Sodium 136 L (137-145) mmol/L BUN 18 H (7-17) mg/dL Creatinine 0.42 L (0.52-1.04) mg/dL Glucose 133 H (74-99) mg/dL POC Glucose (mg/dL) 114 H (75-99) mg/dL Calcium 7.8 L (8.4-10.2) mg/dL
[2020-12-04 15:18] LABS: Hemoglobin A1C 5.8 % (4.0-6.0)
== END 2020-12-04 14:35 | disposition home health service (06) ==
LOC: OR 06:25 → 6PED 10:03 → OR 12-04 03:10
PROVIDERS: ADMIT Orthopaedic Surgery; ATTEND Orthopaedic Surgery
DX: M50.022 Cervical disc disorder at C5-C6 level with myelopathy (principal); M47.12 Other spondylosis with myelopathy, cervical region; M50.122 Cervical disc disorder at C5-C6 level with radiculopathy; M48.02 Spinal stenosis, cervical region; J45.20 Mild intermittent asthma, uncomplicated; K21.9 Gastro-esophageal reflux disease without esophagitis; D50.9 Iron deficiency anemia, unspecified; E07.9 Disorder of thyroid, unspecified; E28.2 Polycystic ovarian syndrome; R41.3 Other amnesia; G89.29 Other chronic pain; M54.5 Low back pain; I45.10 Unspecified right bundle-branch block; E88.81 Metabolic syndrome and other insulin resistance; F43.10 Post-traumatic stress disorder, unspecified; M40.202 Unspecified kyphosis, cervical region; F41.9 Anxiety disorder, unspecified; F90.9 Attention-deficit hyperactivity disorder, unspecified type; F17.210 Nicotine dependence, cigarettes, uncomplicated; Z79.84 Long term (current) use of oral hypoglycemic drugs; Z79.890 Hormone replacement therapy; Z79.891 Long term (current) use of opiate analgesic; Z79.52 Long term (current) use of systemic steroids; Z88.2 Allergy status to sulfonamides; Z91.018 Allergy to other foods; Z91.048 Other nonmedicinal substance allergy status; Z87.01 Personal history of pneumonia (recurrent); Z87.19 Personal history of other diseases of the digestive system; Z87.891 Personal history of nicotine dependence; Z86.010 Personal history of colon polyps; Z90.49 Acquired absence of other specified parts of digestive tract; Z90.710 Acquired absence of both cervix and uterus; Z98.84 Bariatric surgery status; Z98.82 Breast implant status; Z98.890 Other specified postprocedural states; Z87.820 Personal history of traumatic brain injury; Z82.49 Family history of ischemic heart disease and other diseases of the circulatory system; Z83.3 Family history of diabetes mellitus; Z81.8 Family history of other mental and behavioral disorders
CPT/HCPCS: 22856; 97162; 97165; 86900; 86901; 80048; 85025; 86850; 83036; 72040 ×2; 36415; G0378; L0120; C1713; C1762; J2250; J1100 ×2; J2930; J0690; J2405; J2001; J3010; J1170 ×3; J0330; J2704

== ENCOUNTER → 2020-12-24 | Outpatient (CLI) | payer OTHER ==
[2020-12-24 15:20] LABS: HGB 13.6 g/dL (12.0-15.0); MCH 30.5 pg (27.0-32.0); MCHC 31.6 g/dL (32.0-37.0); MCV 96.4 fL (80.0-97.0); Mean Platelet Volume 8.8 fL (9.5-12.2); Platelet Count 306 X 10*3/uL (140-440); RBC 4.46 X 10*6/uL (4.10-5.20); RDW 13.4 % (11.5-14.5); WBC 7.72 X 10*3/uL (4.50-10.00)
[2020-12-24 16:04] LABS: African American GFR (CKD) 132.6 (60.0-200.0); Albumin 4.2 g/dL (3.80-4.90); Albumin/Globulin Ratio 2.33 (1.60-3.17); Anion Gap 7.9 mmol/L (4.00-12.00); Calcium 9.2 mg/dL (8.7-10.3); Carbon Dioxide 28.1 mmol/L (21.6-31.8); Globulin 1.8 g/dL (1.6-3.3); Non-African American GFR(CKD) 114.4 (60.0-200.0); Potassium 4.5 mmol/L (3.5-5.5); Total Bilirubin 0.5 mg/dL (0.2-1.2)
[2020-12-24 17:08] LABS: Basophils # (M) 0 X 10*3/uL (0.00-0.10); Eosinophils # (M) 0 X 10*3/uL (0.04-0.35); Lymphocytes # (M) 1.85 X 10*3/uL (0.90-5.00); Monocytes # (M) 0.46 X 10*3/uL (0.20-1.00); Myelocytes % 3 % (0-0); Neutrophils # (M) 5.17 X 10*3/uL (2.00-8.90); Neutrophils % (M) 67 %
== END | disposition home or self-care (01) ==
LOC: LABWHC1 07:53
PROVIDERS: ATTEND Family Medicine
DX: E03.9 Hypothyroidism, unspecified (principal); M54.30 Sciatica, unspecified side; M25.519 Pain in unspecified shoulder
CPT/HCPCS: 36415; 80053; 82024; 82533; 85025; 85379

== ENCOUNTER → 2020-12-26 | Outpatient (CLI) | payer OTHER ==
--- NOTE | 2020-12-26 13:39 | US ---
EXAMINATION TYPE: US venous doppler duplex LE BI DATE OF EXAM: 12/26/2020 1:27 PM COMPARISON: NONE CLINICAL HISTORY: 50-year-old female R79.1 ABN COAGULATION PROFILE. Pain, elevated d dimer SIDE PERFORMED: Bilateral TECHNIQUE: The lower extremity deep venous system is examined utilizing real time linear array sonog naresh with graded compression, doppler sonography and color-flow sonography. FINDINGS: VESSELS IMAGED: Common Femoral Vein Deep Femoral Vein Greater Saphenous Vein * Femoral Vein Popliteal Vein Small Saphenous Vein * Proximal Calf Veins (* superficial vessels) Right Leg: Negative for DVT Left Leg: Negative for DVT IMPRESSION: No evidence for DVT within the bilateral lower extremities imaged from the groin to the upper calves.
== END ==
LOC: RADUSWWP 12:57
PROVIDERS: ATTEND Family Medicine
DX: M79.604 Pain in right leg (principal); M79.605 Pain in left leg
CPT/HCPCS: 93970

== ENCOUNTER → 2021-01-17 | Outpatient (CLI) | payer OTHER ==
[2021-01-17 17:56] LABS: Progesterone 14.1 ng/mL
[2021-01-17 18:47] LABS: Procalcitonin 0.04 ng/mL (0.02-0.09)
[2021-01-17 19:13] LABS: Testosterone <7.00 ng/dL (9.01-47.94)
== END | disposition home or self-care (01) ==
LOC: LABWHC1 09:23
PROVIDERS: ATTEND Family Medicine
DX: M54.9 Dorsalgia, unspecified (principal); G89.29 Other chronic pain; R63.5 Abnormal weight gain; Q63.3 Hyperplastic and giant kidney
CPT/HCPCS: 36415; 82306; 82607; 83003; 83520; 83970; 84144; 84145; 84403; 84588; 86060

== ENCOUNTER → 2021-01-21 | Outpatient (CLI) | payer OTHER | END | disposition home or self-care (01) | LOC: LABWHC1 09:08 | PROVIDERS: ATTEND Family Medicine | DX: R63.5 Abnormal weight gain (principal); M54.9 Dorsalgia, unspecified; G89.29 Other chronic pain; Q63.3 Hyperplastic and giant kidney | CPT/HCPCS: 36415; 83519 ==

== ENCOUNTER → 2021-02-13 | Outpatient (CLI) | payer OTHER ==
[2021-02-13 17:42] LABS: DHEA Sulfate <3.0 ug/dL (26.0-430.0)
[2021-02-13 23:19] LABS: African American GFR (CKD) 124.9 (60.0-200.0); Anion Gap 10.2 mmol/L (4.00-12.00); Calcium 9.2 mg/dL (8.7-10.3); Carbon Dioxide 27.8 mmol/L (21.6-31.8); Non-African American GFR(CKD) 107.8 (60.0-200.0); Potassium 4.4 mmol/L (3.5-5.5)
[2021-02-14 19:08] LABS: ACTH <5.00 pg/mL (0.00-45.99)
== END | disposition home or self-care (01) ==
LOC: LABWHC1 07:13
PROVIDERS: ATTEND Internal Medicine Endocrinology, Diabetes & Metabolism
DX: R79.89 Other specified abnormal findings of blood chemistry (principal)
CPT/HCPCS: 36415; 80048; 82024; 82533; 82627

== ENCOUNTER → 2021-02-13 | Outpatient (CLI) | payer OTHER ==
--- NOTE | 2021-02-19 09:38 | P.ARTDOP ---
Arterial Doppler LOWER EXTREMITY ARTERIAL DOPPLER: DATE OF SERVICE: 02/13/2021 Reason for study: Bilateral calf ulcers. Doppler waveforms: Multiphasic bilateral, with excellent digital waveforms. Pulse volume recording: []. Pressure gradients: None. Ankle-brachial indices: 0.95 on the right and greater than 1 on the left. Toe brachial indices: 0.69 on the right, 0.80 on the left Impression: Normal study.
== END | disposition home or self-care (01) ==
LOC: RADUSWWP 07:08
PROVIDERS: ATTEND Family Medicine
DX: L97.229 Non-pressure chronic ulcer of left calf with unspecified severity (principal); L97.219 Non-pressure chronic ulcer of right calf with unspecified severity
CPT/HCPCS: 93922

== ENCOUNTER → 2021-02-18 | Outpatient (CLI) | payer OTHER ==
[~2021-02-18] MED LIST changes: -ACETAMINOPHEN TAB 500 MG TAB PO PRN; +COSYNTROPIN 0.25 MG VIAL IVP NR; -GABAPENTIN 300 MG CAP PO PRN; -MIDAZOLAM 2 MG/2 ML VIAL IV PRN; -ONDANSETRON 4 MG/2 ML VIAL IVP PRN
[2021-02-18 09:20] VITALS: BP 141/95; PULSE 94; RESP 18; TEMP 97.9
[2021-02-18 10:07] LABS: African American GFR (CKD) >90 (>60 ml/min/1.73 sqM); Anion Gap 4 mmol/L; Blood Urea Nitrogen 24 mg/dL (7-17); Calcium 8.6 mg/dL (8.4-10.2); Carbon Dioxide 30 mmol/L (22-30); Chloride 106 mmol/L (98-107); Glucose 95 mg/dL (74-99); Non-African American GFR(CKD) >90 (>60 ml/min/1.73 sqM); Potassium 4.2 mmol/L (3.5-5.1); Sodium 140 mmol/L (137-145)
== END ==
LOC: PROCWHC3 09:00
PROVIDERS: ATTEND Family Medicine
DX: R79.89 Other specified abnormal findings of blood chemistry (principal); F17.200 Nicotine dependence, unspecified, uncomplicated
CPT/HCPCS: 80048; 82626; 82533; 82024; 96374; J0834

== ENCOUNTER → 2021-03-20 | Outpatient (CLI) | payer OTHER ==
--- NOTE | 2021-03-20 12:45 | CONS ---
CONSULTATION DATE OF SERVICE: 03/20/2021 This is a 50-year-old lady who has been evaluated in [facility] for possible obstructive sleep apnea-hypopnea syndrome. HISTORY OF PRESENT ILLNESS/SLEEP-WAKE EVALUATION: The patient had been diagnosed with obstructive sleep apnea about 25 years ago. She was started on treatment with CPAP, but then had some difficulties with CPAP. Underwent several surgeries including rhinoplasty, turbinate reduction, tonsillectomy and adenoidectomy. After surgery, she feels better, but presently her symptoms are back and has a lot of problems related to sleep. Her sleep schedule from 10 p.m. to 12 midnight until 7 a.m. on average. She does have problems with falling asleep. No TV in bedroom. Presently, she takes trazodone at bedtime to help with falling asleep. During the sleep, she has loud snoring, episodes of stopped breathing during sleep. She wakes up from sleep with choking, GERD, dry mouth, palpitation, sweating, and nocturia. According to patient, it happened multiple times during the night. In the morning, she wakes up tired, has difficulties to pay attention, falling asleep during the day, has problems with memory, concentration, irritability, depression, anxiety, claustrophobia, sexual dysfunction. Elk Sleepiness Scale significantly increased to 15. No history of hypnagogic hallucinations, although patient may see vivid dreams during the naps. Significant changing of her weight from 362 pounds down to 180 pounds and for the last several years weight increased to 253 pounds. PAST MEDICAL HISTORY: Positive for adrenal insufficiency, GERD, fluctuation of blood pressure with episodes of hypertension, anxiety episodes, numbness over the right side of the face, asthma, headaches, thyroid problems, anemia. PAST SURGICAL HISTORY: Neck surgery, C5-C6 12/03/2020, tonsillectomy, adenoidectomy, rhinoplasty 1994, partial hysterectomy 2016, low back surgery 2014 and 2016, cholecystectomy 2012, appendectomy 2017, knee surgery 1994 and 1995. MEDICATIONS: Hydrocortisone 5 mg once a day, DHEA 25 mg once a day, Thyroid [place] 7.5 mg once a day, metformin 1000 mg twice a day, [place] 10/325 mg once a day on p.r.n. basis, trazodone 150 mg at bedtime, loratadine in the morning. SOCIAL HISTORY: Negative for smoking or using alcohol. FAMILY HISTORY: Positive for cancer, hypertension. REVIEW OF SYSTEMS: Difficulties to initiate sleep, multiple awakenings from sleep, numbness of right side of the face. PHYSICAL EXAMINATION: GENERAL: lady without distress. VITAL SIGNS: BP 159/81, HR 107, RR 15, height 5 feet 6 inches, weight 253.4, temperature 97.0, oxygen saturation at room air 97%, BMI 40.8. HEENT: PERRLA, EOMI. Oropharynx low position of soft palate. Mallampati 3. NECK: Wide 16 inches in circumference. LUNGS: Clear to percussion and to auscultation. Good air exchange. No wheezing or rhonchi. HEART: S1, S2 regular. No murmurs, gallops, or rubs. ABDOMEN: Obese. EXTREMITIES: No clubbing or cyanosis. PLASMA PROCESSING TECHNICIAN: Awake, alert, and oriented X3. Cranial nerves 2 to 7 intact. There is no fasciculation or atrophy. noted. No focal deficits observed. IMPRESSION: 1. Loud snoring, multiple awakenings from sleep with episodes of choking. Low position of soft palate, Mallampati 3, wide neck 16 inches in circumference. History of obstructive sleep apnea-hypopnea syndrome in the past documented more than 20 years ago. Obstructive sleep apnea-hypopnea syndrome. 2. Obesity, body mass index 40.8. 3. Status post tonsillectomy, rhinoplasty, turbinate reduction. 4. Status post C5-C6 surgery in 12/03/2020. Numbness of the right side of the face. 5. Hypertension in the office today. 6. History of adrenal insufficiency, on treatment with hydrocortisone, DHEA. 7. History of metabolic syndrome, on treatment with metformin. 8. Gastroesophageal reflux disease. 9. Patient is on treatment with opioids for pain, which increases risk of central sleep apnea. 10.History of asthma. 11.History of anemia. 12.History of sepsis. 13.Hypothyroidism. 14.Difficulties to initiate sleep. 15.Significant excessive daytime sleepiness. Elk Sleepiness Scale in the range 15 to 16. History of vivid dreams during naps. Differential diagnosis should include hypersomnia. PLAN: 1. Polysomnography for evaluation of patient breathing during sleep. Also to check for any abnormalities of movements during the sleep. 2. CPAP/BiPAP titration if sleep study confirms obstructive sleep apnea-hypopnea syndrome. 3. Preferable position during sleep on the side. 4. No driving if patient feels any sleepiness. 5. I will see patient for follow up visit to explain results of testing and following plan. 6. Aggressive losing weight program. Thank you very much for referring this patient for consultation. Sincerely, Josh King MD, PhD, FAASM Diplomat of [employer] Composite Engineer of [facility] [place] MMODL / IJN: [id number] /
== END ==
LOC: SLEEP 11:02
PROVIDERS: ATTEND Internal Medicine
DX: G47.33 Obstructive sleep apnea (adult) (pediatric) (principal); E66.9 Obesity, unspecified; I10 Essential (primary) hypertension; J45.909 Unspecified asthma, uncomplicated; E03.9 Hypothyroidism, unspecified; R52 Pain, unspecified; K21.9 Gastro-esophageal reflux disease without esophagitis; R20.0 Anesthesia of skin; F17.200 Nicotine dependence, unspecified, uncomplicated; Z68.41 Body mass index [BMI] 40.0-44.9, adult; Z90.89 Acquired absence of other organs; Z98.890 Other specified postprocedural states; Z86.39 Personal history of other endocrine, nutritional and metabolic disease; Z86.2 Personal history of diseases of the blood and blood-forming organs and certain disorders involving the immune mechanism; Z86.19 Personal history of other infectious and parasitic diseases; Z79.84 Long term (current) use of oral hypoglycemic drugs; Z79.891 Long term (current) use of opiate analgesic; Z79.899 Other long term (current) drug therapy; Z91.018 Allergy to other foods; Z88.2 Allergy status to sulfonamides; Z91.048 Other nonmedicinal substance allergy status
CPT/HCPCS: 99211

== ENCOUNTER → 2021-03-28 | Outpatient (CLI) | payer OTHER ==
--- NOTE | 2021-03-29 05:21 | MR ---
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 Weakne ss throughout whole body including arms, fingers, and feet. History of concussions and head blows. Multiplanar multiecho imaging of the brain was performed without contrast. Diffusion images show no evidence of an acute infarct. On the FLAIR images there are scattered white matter high signal foci at the ortiz-white matter junction of both cerebral hemispheres. These are mor e noticeable in the frontal lobes. Total number is less than 10. Lesions measure up to 5 mm. Corpus callosum is intact. The brainstem appears intact. There is no evidence of a posterior fossa ma ss. Cerebellum is intact. Sella turcica appears normal. IMPRESSION: Scattered white matter small high signal foci as above without adverse change compared to old exam. T hese are nonspecific. No evidence of a cortical infarct.
== END | disposition home or self-care (01) ==
LOC: RADMRIMAIN 19:07
PROVIDERS: ATTEND Family Medicine
DX: E27.40 Unspecified adrenocortical insufficiency (principal); R90.82 White matter disease, unspecified
CPT/HCPCS: 70551

== ENCOUNTER → 2021-04-11 | Outpatient (CLI) | payer OTHER ==
--- NOTE | 2021-04-15 09:26 | MM ---
Reason for exam: screening (asymptomatic). Last mammogram was performed 1 year ago. History: Family history of breast cancer in maternal aunt. Implants in both breasts, May 22, 2014. Took progesterone for 2 years. Physical Findings: A clinical breast exam by your physician is recommended on an annual basis and results should be correlated with mammographic findings. MG Screening Mammo Implant/CAD Bilateral CC and MLO view(s) were taken. Prior study comparison: March 27, 2020, bilateral MG screening mammo implant/CAD. November 24, 2018, bilateral MG screening mammo implant/CAD. November 30, 2016, bilateral MG screening mammo implant/CAD. There are scattered fibroglandular densities. There is chronic nodularity in the left lateral CC view. Benign oil cyst calcifications. Bilateral retropectoral silicone implants. No significant changes when compared with prior studies. ASSESSMENT: Benign, BI-RAD 2 RECOMMENDATION: Routine screening mammogram of both breasts in 1 year.
== END | disposition home or self-care (01) ==
LOC: RADMAMWWP 09:09
PROVIDERS: ATTEND Family Medicine
DX: Z12.31 Encounter for screening mammogram for malignant neoplasm of breast (principal); Z80.3 Family history of malignant neoplasm of breast
CPT/HCPCS: 77067

== ENCOUNTER → 2021-05-28 | Outpatient (CLI) | payer OTHER | END | disposition home or self-care (01) | LOC: LABWHC1 09:23 | PROVIDERS: ATTEND Family Medicine | DX: E27.40 Unspecified adrenocortical insufficiency (principal) | CPT/HCPCS: 36415; 82533 ==

== ENCOUNTER → 2021-06-12 | Outpatient (CLI) | payer OTHER ==
--- NOTE | 2021-06-12 10:05 | P.STRESS ---
- Stress Test Note Stress Test Results/Findings: Exam Performed: stress test Exam Date: 06/12/21 Reason for Exam: CP Height: 5 ft 7 in Weight: 99.5 kg Protocol: ALIX Stage: 2 Duration of Exercise: 4:14 Resting Heart Rate: 95 Resting Blood Pressure: 132/92 Maximum Achieved Heart Rate: 145 Maximum Achieved Blood Pressure: 142/93 85% PMHR: 145 100% PMHR: 171 METS: 6.0 Technologist Comment: Stress Test Results/Findings: This is a 51-year-old female with history of smoking, family history of ischemic heart disease being evaluated for chest pain and shortness of breath. Stress data: Baseline EKG showed sinus rhythm with normal NH interval and QRS duration with a mild and nonspecific and aren't, conduction delay. Blood pressure at rest is 130/90 with pulse rate of 95. Patient walked on the Alix protocol for 4 minutes and 14 seconds achieving a maximal rate of 145 with a blood pressure 142/93. EKGs taken during and after exercise did not reveal any significant changes from the baseline. Patient has achieved 85% predicted heart rate. Did not complain of any chest pain. Final impression: #1. Negative stress test #2. Patient did not express any chest pain #3. No arrhythmias noted.
--- NOTE | 2021-06-13 10:47 | EST ---
Stress Test Results/Findings: Exam Performed: stress test Exam Date: 06/12/21 Reason for Exam: CP Height: 5 ft 7 in Weight: 99.5 kg Protocol: ALIX Stage: 2 Duration of Exercise: 4:14 Resting Heart Rate: 95 Resting Blood Pressure: 132/92 Maximum Achieved Heart Rate: 145 Maximum Achieved Blood Pressure: 142/93 85% PMHR: 145 100% PMHR: 171 METS: 6.0 Technologist Comment: Stress Test Results/Findings: This is a 51-year-old female with history of smoking, family history of ischemic heart disease being evaluated for chest pain and shortness of breath. Stress data: Baseline EKG showed sinus rhythm with normal LA interval and QRS duration with a mild and nonspecific and aren't, conduction delay. Blood pressure at rest is 130/90 with pulse rate of 95. Patient walked on the Alix protocol for 4 minutes and 14 seconds achieving a maximal rate of 145 with a blood pressure 142/93. EKGs taken during and after exercise did not reveal any significant changes from the baseline. Patient has achieved 85% predicted heart rate. Did not complain of any chest pain. Final impression: #1. Negative stress test #2. Patient did not express any chest pain #3. No arrhythmias noted. MTDD
== END | disposition home or self-care (01) ==
LOC: RADNMMAIN 08:37
PROVIDERS: ATTEND Family Medicine
DX: R07.9 Chest pain, unspecified (principal)
CPT/HCPCS: 93017

== ENCOUNTER 2021-07-09 07:56 | Day surgery (SDC) | payer OTHER ==
[2021-07-04 10:50] VITALS: BMI 42.3
[~2021-07-09 07:56] MED LIST changes: -COSYNTROPIN 0.25 MG VIAL IVP NR; +LACTATED RINGERS 1,000 ML IV SCH
[2021-07-09 08:16] VITALS: TEMP 98
[2021-07-09] MEDS ORDERED: LACTATED RINGERS 1,000 ML IV ONE (08:16)
[2021-07-09] MEDS ORDERED: PROPOFOL 10 MG/ML 20 ML VIAL IV ONE (08:44)
[2021-07-09] MEDS ORDERED: LIDOCAINE 1% INJ 10MG/ML (20 ML MDV) ONE (08:44)
--- NOTE | 2021-07-09 08:46 | P.GSHP ---
History of Present Illness H&P Date: 07/09/21 CHIEF COMPLAINT: GERD and change in bowel habits HISTORY OF PRESENT ILLNESS: The patient is a 69-year-old male who presents with gastroesophageal reflux disease and change in bowel habit Upper and lower endoscopy were offered for further evaluation and management. PAST MEDICAL HISTORY: Please see list. PAST SURGICAL HISTORY: Please see list. MEDICATIONS: Please see list. ALLERGIES: Please see list. SOCIAL HISTORY: No illicit drug use FAMILY HISTORY: No reports of Crohn disease or ulcerative colitis. REVIEW OF ORGAN SYSTEMS: CONSTITUTIONAL: No reports of fevers or chills. PHYSICAL EXAM: VITAL SIGNS: Stable GENERAL: Well-developed pleasant in no acute distress. HEENT: No scleral icterus. Extraocular movements grossly intact. Moist buccal mucosa. NECK: Supple without lymphadenopathy. CHEST: Unlabored respirations. Equal bilateral excursions. CARDIOVASCULAR: Regular rate and rhythm. Distal 2+ pulses. ABDOMEN: Soft, nondistended. MUSCULOSKELETAL: No clubbing, cyanosis, or edema. ASSESSMENT: 1. Gastroesophageal reflux disease 2. Change in bowel habit PLAN: 1. Recommend proceeding with an upper and lower endoscopy Past Medical History Past Medical History: Asthma, Blood Disorder, GERD/Reflux, GI Bleed, Memory Im pairment, Musculoskeletal Disorder, Pneumonia, Thyroid Disorder Additional Past Medical History / Comment(s): Temporal lobe brain damage, short term memory prob. anemia/low iron, gastritis, bleeding ulcer 2008, DDD, Left rotator cuff 2 tears that dislocates. PCOS, Metabolic syndrome, Insulin resistance. "Incomplete RBBB." Hx colon polyps. Bruises easily. Edema BLE. C ervical disc prob; NT fingers, arms, BLE, LOW BACK PAIN, MULTIPLE LEVELS OF STENONIS IN LOWER BACK, HX SECONDARY ADRENAL INSUFFICIENCY-WAS ON STEROIDS UNTIL April History of Any Multi-Drug Resistant Organisms: None Reported Past Surgical History: Adenoidectomy, Appendectomy, Bariatric Surgery, Breast Surgery, Cholecystectomy, Hysterectomy, Orthopedic Surgery, Tonsillectomy, Tubal Ligation Additional Past Surgical History / Comment(s): bilateral knees, gastric sleeve 02/2012, Hemorrhoids, Colonoscopy/EGD, Brachioplasty, Breast Augmentation w/ implants, Thigh plastic surgery, lower body lift, Panniculectomy, exc cyst upper lip, exc cysts from labia, lt 5th finger repair/reattached, Rt thumb basal joint exc/repair w/ Rt CTR, C-5-C6 PROSTHESIS DEVICE Past Anesthesia/Blood Transfusion Reactions: Previous Problems w/ Anesthesia, Family History of Problems w/ Anesthesia, Postoperative Nausea & Vomiting (PONV) Additional Past Anesthesia/Blood Transfusion Reaction / Comment(s): Needs low anesthesia, VS plummet. Uncle has anesthesia problems, allergic reaction. Smoking Status: Former smoker - Past Family History Father Family Medical History: Cancer, Deep Vein Thrombosis (DVT), Pulmonary Embolus Additional Family Medical History / Comment(s): poss bone cancer Mother Family Medical History: Dementia, Diabetes Mellitus, Hypertension Medications and Allergies Home Medications Medication Instructions Recorded Confirmed Type Albuterol Inhaler (Mhu) [Ventolin 2 puff INHALATION RT-Q6H PRN 11/30/17 07/04/21 History Hfa Inhaler (Mhu)] Furosemide [Lasix] 40 mg PO DAILY 07/19/19 07/04/21 History Simethicone [Gas-X] 125 mg PO DIRECTED PRN 12/18/19 07/04/21 History Omeprazole 20 mg PO BID 08/26/20 07/04/21 History Baclofen [Lioresal] 10 mg PO TID PRN #60 tab 12/04/20 07/04/21 Rx HYDROcodone/APAP 10-325MG [[place] 1 tab PO Q4HR PRN 3 Days #56 tab 12/04/20 07/04/21 Rx 10-325] Indomethacin [Indocin] 50 mg PO TID 07/04/21 07/04/21 History Ondansetron HCl [Zofran] 4 mg PO Q8H PRN 07/04/21 07/04/21 History Thyroid,Pork [[place] Thyroid] 7.5 mg PO DAILY 07/04/21 07/04/21 History traZODone HCL [Desyrel] 100 mg PO HS 07/04/21 07/04/21 History Allergies Allergy/AdvReac Type Severity Reaction Status Date / Time broccoli Allergy Abdominal Verified 07/04/21 10:36 Pain mold Allergy Dyspnea Verified 07/04/21 10:36 pineapple Allergy Abdominal Verified 07/04/21 10:36 Pain pollen extracts Allergy Dyspnea Verified 07/04/21 10:36 Sulfa (Sulfonamide Allergy shortness Verified 07/04/21 10:36 Antibiotics) of breathe, wheezy wheat Allergy Wheezing Verified 07/04/21 10:36 dust Allergy Wheezing Uncoded 07/04/21 10:36 feathers Allergy Wheezing Uncoded 07/04/21 10:36 pine trees Allergy Wheezing Uncoded 07/04/21 10:36 Surgical - Exam Vital Signs Temp Pulse Resp BP Pulse Ox 98.0 F 107 H 18 142/70 98 07/09/21 08:15 07/09/21 08:15 07/09/21 08:15 07/09/21 08:15 07/09/21 08:15
--- NOTE | 2021-07-09 08:57 | P.PCN ---
Date of Procedure: 07/09/21 Description of Procedure: PREOPERATIVE DIAGNOSIS: Status post sleeve gastrectomy. Gastroesophageal reflux disease. Epigastric abdominal pain. POSTOPERATIVE DIAGNOSIS: Status post sleeve gastrectomy. Gastroesophageal reflux disease. Epigastric abdominal pain. Erosive esophagitis, chronic. Diaphragmatic hiatal hernia without obstruction. Chronic superficial gastritis. OPERATION: Esophagogastroduodenoscopy with cold forceps biopsies along the antrum. SURGEON: Lore Mueller MD ANESTHESIA: MAC. INDICATIONS: The patient is a 51-year-old female who presents with a history of sleeve gastrectomy with abdominal pain including worsening of gastroesophageal reflux disease Benefits and risks of the procedure were described. Informed consent was obtained. DESCRIPTION: The patient was brought into the endoscopy suite and laid in the left lateral decubitus position. An Olympus gastroscope was passed along the posterior oropharynx down to the distal esophagus where the squamocolumnar junction was at 33 centimeters from the incisors remarkable for chronic erosive esophagitis, LA grade A without ulceration. The stomach was entered where she had a 3-cm hiatal hernia with a diaphragmatic hiatus found at 36 cm. The sleeve reservoir was within normal limits. Chronic gastritis was found along the antrum with cold biopsies obtained. The first through fourth portion of the duodenum was examined and unremarkable. The stomach was desufflated. The patient tolerated the procedure well. FINDINGS: No acute ulceration found along her sleeve. No corkscrewing sleeve gastrectomy. Squamocolumnar junction at 33 cm from the incisors. Diaphragmatic hiatus at 36 cm. Sleeve gastrectomy reservoir within normal limits Hiatal hernia 3 cm, fixed. LA grade A erosive esophagitis. No active duodenitis. Acute and chronic gastritis RECOMMENDATIONS: Omeprazole 40 mg daily Carafate 1 g twice daily for 2 weeks May benefit from antireflux operation
--- NOTE | 2021-07-09 09:26 | P.PCN ---
Date of Procedure: 07/09/21 Description of Procedure: PREOPERATIVE DIAGNOSIS: Change in bowel habits Personal history of colon polyps POSTOPERATIVE DIAGNOSIS: Change in bowel habits Personal history of colon polyps Tubular adenoma adenoma Tubular adenoma hepatic flexure Tubular adenoma transverse colon Tubal adenoma descending colon Sigmoid diverticulosis Internal hemorrhoids, grade 2 OPERATION: Colonoscopy to the ileocecal valve and appendiceal orifice, cecum Colonoscopy with hot snare polypectomy SURGEON: Lore Mueller MD. ANESTHESIA: MAC. INDICATIONS: The patient is an 51-year-old male who presents with change in bowel habits and abdominal pain. Benefits and risks were described and informed consent was obtained. DESCRIPTION OF PROCEDURE: The patient had undergone Sutab prep. The patient had been brought into the operating room and laid in the left lateral decubitus position. After adequate intravenous sedation, the rectum was examined with 2% lidocaine jelly. External hemorrhoids were encountered. The rectal tone was within normal limits. No lesions were palpated in the rectal vault. An Olympus colonoscope was advanced until the cecum, ileocecal valve and appendiceal orifice were clearly viewed. The sigmoid colon was fairly redundant. The prep was good. Sigmoid diverticulosis was encountered. Colonic polyps were found and removed. No evidence of focal colitis was found. Retroflexion of the scope demonstrated grade 2 internal hemorrhoids without active bleeding or inflammation. The colon was desufflated. The patient had tolerated the procedure well. Withdrawal time was over 6 minutes. FINDINGS: Aronchick preparation quality scale 2 (1-5) Internal hemorrhoids, grade 2 External hemorrhoids, grade 2 No arteriovenous malformations. Sigmoid diverticulosis Removal of 5 polyps: - Snare polypectomy 40 cm from the anal verge, 7 mm tubulovillous adenoma polyp. - Snare polypectomy 70 cm from the anal verge, 5 mm flat villous adenoma polyp. - Snare polypectomy proximal transverse colon, 5 mm flat villous adenoma polyp. - Snare polypectomy ascending colon, 6 mm flat villous adenoma polyp. - Snare polypectomy hepatic flexure, 5 mm flat villous adenoma polyp. No focal colitis. RECOMMENDATIONS: Given severity of tubular adenomas, repeat colonoscopy 3 years, 2023 Plan - Discharge Summary Discharge Rx Participant: No New Discharge Prescriptions: New Sucralfate [Carafate] 1 gm PO BID #30 tablet Omeprazole [PriLOSEC] 40 mg PO DAILY #90 cap Continue Albuterol Inhaler (Mhu) [Ventolin Hfa Inhaler (Mhu)] 2 puff INHALATION RT-Q6H PRN PRN Reason: Shortness Of Breath Furosemide [Lasix] 40 mg PO DAILY Simethicone [Gas-X] 125 mg PO DIRECTED PRN PRN Reason: abd pain HYDROcodone/APAP 10-325MG [[place] 10-325] 1 tab PO Q4HR PRN 3 Days #56 tab PRN Reason: Pain Baclofen [Lioresal] 10 mg PO TID PRN #60 tab PRN Reason: Muscle Spasm Ondansetron HCl [Zofran] 4 mg PO Q8H PRN PRN Reason: Nausea And Vomiting Thyroid,Pork [[place] Thyroid] 7.5 mg PO DAILY traZODone HCL [Desyrel] 100 mg PO HS Discontinued Omeprazole 20 mg PO BID Indomethacin [Indocin] 50 mg PO TID Discharge Medication List Albuterol Inhaler (u) [Ventolin Hfa Inhaler (u)] 2 puff INHALATION RT-Q6H PRN 11/30/17 [History] Furosemide [Lasix] 40 mg PO DAILY 07/19/19 [History] Simethicone [Gas-X] 125 mg PO DIRECTED PRN 12/18/19 [History] Baclofen [Lioresal] 10 mg PO TID PRN #60 tab 12/04/20 [Rx] HYDROcodone/APAP 10-325MG [[place] 10-325] 1 tab PO Q4HR PRN 3 Days #56 tab 12/04/20 [Rx] Ondansetron HCl [Zofran] 4 mg PO Q8H PRN 07/04/21 [History] Thyroid,Pork [[place] Thyroid] 7.5 mg PO DAILY 07/04/21 [History] traZODone HCL [Desyrel] 100 mg PO HS 07/04/21 [History] Omeprazole [PriLOSEC] 40 mg PO DAILY #90 cap 07/09/21 [Rx] Sucralfate [Carafate] 1 gm PO BID #30 tablet 07/09/21 [Rx] Follow up Appointment(s)/Referral(s): Lore Mueller MD [STAFF PHYSICIAN] - 07/29/21 Patient Instructions/Handouts: *[facility] - (Anesthesia) Endoscopy Discharge Instructions, Diverticulosis (DC), Colorectal Polyps (GEN), Diverticulosis Diet (GEN), Upper Endoscopy (DC) Activity/Diet/Wound Care/Special Instructions: Repeat colonoscopy 3 years, 2023 Discharge Disposition: HOME SELF-CARE
[2021-07-09 09:33] VITALS: BP 152/81; PULSE 73; RESP 16
== END 2021-07-09 10:30 | disposition home or self-care (01) ==
LOC: ORWHC2ENDO 07:56
PROVIDERS: ATTEND Surgery Plastic and Reconstructive Surgery
DX: D12.4 Benign neoplasm of descending colon (principal); D12.3 Benign neoplasm of transverse colon; K57.90 Diverticulosis of intestine, part unspecified, without perforation or abscess without bleeding; K64.8 Other hemorrhoids; K64.4 Residual hemorrhoidal skin tags; K29.50 Unspecified chronic gastritis without bleeding; K63.5 Polyp of colon; K21.9 Gastro-esophageal reflux disease without esophagitis; E07.9 Disorder of thyroid, unspecified; Z87.891 Personal history of nicotine dependence; Z98.84 Bariatric surgery status; E28.2 Polycystic ovarian syndrome; I45.10 Unspecified right bundle-branch block; Z87.820 Personal history of traumatic brain injury; D64.9 Anemia, unspecified; E88.81 Metabolic syndrome and other insulin resistance; Z79.899 Other long term (current) drug therapy; Z91.018 Allergy to other foods; Z91.048 Other nonmedicinal substance allergy status; G47.33 Obstructive sleep apnea (adult) (pediatric); J45.909 Unspecified asthma, uncomplicated; R41.3 Other amnesia; Z88.2 Allergy status to sulfonamides
CPT/HCPCS: 88305; 45385; 43239; J2001; J2704

== ENCOUNTER → 2021-07-11 | Outpatient (CLI) | payer OTHER ==
--- NOTE | 2021-07-11 15:57 | XR ---
EXAMINATION TYPE: XR chest 2V DATE OF EXAM: 07/11/2021 COMPARISON: Chest x-ray 11/04/2020 HISTORY: R07.89,R06.2 TECHNIQUE: Frontal and lateral views of the chest are obtained. FINDINGS: There is no focal air space opacity, pleural effusion, or pneumothorax seen. The cardiac silhouette size is within normal limits. The osseous structures are intact, postop change noted to the cervical spine. Eventration right hemidiaphragm is stable. IMPRESSION: No acute cardiopulmonary process.
== END | disposition home or self-care (01) ==
LOC: RADXRMAIN 15:33
PROVIDERS: ATTEND Family Medicine
DX: R07.89 Other chest pain (principal); R06.2 Wheezing
CPT/HCPCS: 71046

== ENCOUNTER → 2021-07-21 | Outpatient (CLI) | payer OTHER ==
[2021-07-21 09:14] VITALS: BP 126/87; PULSE 104; RESP 18; TEMP 98.3
--- NOTE | 2021-07-21 09:50 | P.PAINCN ---
History of Present Illness - Reason for Consult Consult date: 07/21/21 - History of Present Illness This is 51 years old female with a chronic history of severe low back pain patient diagnosed with right sacroiliitis, and lumbar degenerative disc disease, spondylosis with lumbar facet arthropathy, patient had physical therapy in the past without any significant relief of her pain she tried home exercise, and she continued to have severe low back pain and she is currently on baclofen and Nor co which is helping to some degree, she had lumbar epidural steroid injection without any significant relief of her pain, currently she is complaining of severe low back pain mainly on the right side with radiation to the right buttock area , she denies any motor or sensory deficit and she reported that the pain is constant and increases with any activity interfere with her quality of life, Past Medical History Past Medical History: Asthma, Blood Disorder, Diabetes Mellitus, GERD/Reflux, GI Bleed, Memory Impairment, Musculoskeletal Disorder, Pneumonia, Thyroid Disorder Additional Past Medical History / Comment(s): Temporal lobe brain damage, short term memory prob. anemia/low iron, gastritis, bleeding ulcer 2008, DDD, Left r otator cuff 2 tears that dislocates. , Metabolic syndrome, Insulin resistance. "Incomplete RBBB." Hx colon polyps. Bruises easily. Edema BLE. Cervical disc prob; NT fingers, arms, back slipped disc L4-5 History of Any Multi-Drug Resistant Organisms: None Reported Past Surgical History: Adenoidectomy, Appendectomy, Bariatric Surgery, Breast Surgery, Cholecystectomy, Hysterectomy, Orthopedic Surgery, Tonsillectomy, Tubal Ligation Additional Past Surgical History / Comment(s): bilateral knees, gastric sleeve 02/2012, Hemorrhoids, Colonoscopy/EGD, Brachioplasty, Breast Augmentation w/ implants, Thigh plastic surgery, lower body lift, Panniculectomy, exc cyst upper lip, exc cysts from labia, lt 5th finger repair/reattached, Rt thumb basal joint exc/repair w/ Rt CTR,prostethetic C4-5 Past Anesthesia/Blood Transfusion Reactions: Previous Problems w/ Anesthesia, Family History of Problems w/ Anesthesia, Postoperative Nausea & Vomiting (PONV) Additional Past Anesthesia/Blood Transfusion Reaction / Comm: Needs low anesthesia, VS plummet. Uncle has anesthesia problems, allergic reaction. Smoking Status: Former smoker - Past Family History Father Family Medical History: Cancer, Deep Vein Thrombosis (DVT), Pulmonary Embolus Additional Family Medical History / Comment(s): poss bone cancer Mother Family Medical History: Dementia, Diabetes Mellitus, Hypertension Medications and Allergies Home Medications Medication Instructions Recorded Confirmed Type Albuterol Inhaler (Mhu) [Ventolin 2 puff INHALATION RT-Q6H PRN 11/30/17 07/04/21 History Hfa Inhaler (Mhu)] Furosemide [Lasix] 40 mg PO DAILY 07/19/19 07/04/21 History Simethicone [Gas-X] 125 mg PO DIRECTED PRN 12/18/19 07/04/21 History Baclofen [Lioresal] 10 mg PO TID PRN #60 tab 12/04/20 07/04/21 Rx HYDROcodone/APAP 10-325MG [[place] 1 tab PO Q4HR PRN 3 Days #56 tab 12/04/20 07/04/21 Rx 10-325] Ondansetron HCl [Zofran] 4 mg PO Q8H PRN 07/04/21 07/04/21 History Thyroid,Pork [[place] Thyroid] 7.5 mg PO DAILY 07/04/21 07/04/21 History traZODone HCL [Desyrel] 100 mg PO HS 07/04/21 07/04/21 History Omeprazole [PriLOSEC] 40 mg PO DAILY #90 cap 07/09/21 Rx Sucralfate [Carafate] 1 gm PO BID #30 tablet 07/09/21 Rx Allergies Allergy/AdvReac Type Severity Reaction Status Date / Time broccoli Allergy Abdominal Verified 07/18/21 12:02 Pain mold Allergy Dyspnea Verified 07/18/21 12:02 pineapple Allergy Abdominal Verified 07/18/21 12:02 Pain pollen extracts Allergy Dyspnea Verified 07/18/21 12:02 Sulfa (Sulfonamide Allergy shortness Verified 07/18/21 12:02 Antibiotics) of breathe, wheezy wheat Allergy Wheezing Verified 07/18/21 12:02 dust Allergy Wheezing Uncoded 07/18/21 12:02 feathers Allergy Wheezing Uncoded 07/18/21 12:02 pine trees Allergy Wheezing Uncoded 07/18/21 12:02 Physical Exam Vitals: Vital Signs Temp Pulse Resp BP Pulse Ox 07/21/21 09:06 98.3 F 104 H 18 126/87 97 Physical Examinations : -Constitutiona : Cooperative , not in acute distress . -HEENT : nech : supple , no Lymphadenopathy , normal thyroid size . : eyes : no ptosis , no icterus, no photophobia . - neurologic : Cranial nerve II to XII intact , no focal neurological deffecit . -psychatric : alert , oriented X 3 , appropriate affect , intact judgment and insight . -Lymphatic : no Lymphadenopathy . - musculoskeltal : Lumber spine moter stegnth lower extremities ,thigh and legs 5/5 Right side , 5/5 Left side deep tendon reflexes : normal Knee Jerk , normal ankle Jerk lumber facet Loading Test =positive Right , positive Left Range of motion of the lumbar spine Flexion 30 degrees, extension 10 degrees strait leg raising test = positive at 30 degree on the right side , negative on the left side Fabere test= negative bilaterally . Sever tenderness over the Sacroiliac joint on the Right . Gaenslen test= positive right ,and negative left . Seated flexion test= positive right ,and negative Left . Distraction test= positive bilaterally Sacroiliac compression test= positive right side Results Comments: MRI of the lumbar spine= multilevel lumbar degenerative disc disease, multilevel lumbar spondylosis with lumbar facet arthropathy. MRI of the Right sacroiliac joint= no sacroiliitis Assessment and Plan Plan: Assessment and plan=1-Right sacroiliitis. 2-lumbar spondylosis with lumbar facet arthropathy. 3-Lumbar degenerative disc disease. Patient will be good candidate for right sacroiliac joint steroid injection under fluoroscopy guidance Time with Patient: Greater than 30 PQRS Measure Charge Sheet Measure #130: Documentation of Current Meds in Medical Chart: Patient's medications documented in chart Measure #226: Tobacco Use: Screen & Cessation Intervention: Pt not a tobacco user Measure #111: Pneumonia Vaccination: Pneumococcal vaccine NOT administered or previously given Measure #47: Advance Care Plan: Advance care planning discussed & documented, pt chose/unable to give Measure #412: Opioid Treatment Agreement: No documentation of signed opioid treatment agreement Measure #408: Opioid Therapy Follow-up Evaluation: Patient had NO f/u eval minimum every 3 months during opioid therapy Measure #317: Preventitive Care & Scrn High Bld Press & F/U: Normal blood pressure, f/u not required Measure #128: Body Mass Index (BMI) Screening & Follow-up: BMI documented ABOVE normal parameters - f/u documented Measure #131: Pain Assessment & Follow-up: Pain positive & plan documented, Follow-up scheduled Measure #431: Unhealthy Alcohol Use Preventative Care & Scrn: Patient not identified as an unhealthy alcohol user Mode of Arrival: Ambulatory - Pain Location Lower Back Non-Pharmacological Interventions: Home Exercise, Inactivity, Physical Therapy, Stretching Pharmacological Interventions: Medication, PRN Medication PQRS Narrative: Smoking Status Current every day smoker Blood Pressure 126/87 Pain Intensity [Lower Back] 8 Scale Used Numeric (1 - 10) Hx Alcohol Use (MH) No Home Medications: Ambulatory Orders Albuterol Inhaler (Mhu) [Ventolin Hfa Inhaler (Mhu)] 2 puff INHALATION RT-Q6H PRN 11/30/17 Furosemide [Lasix] 40 mg PO DAILY 07/19/19 Simethicone [Gas-X] 125 mg PO DIRECTED PRN 12/18/19 Baclofen [Lioresal] 10 mg PO TID PRN #60 tab 12/04/20 HYDROcodone/APAP 10-325MG [[place] 10-325] 1 tab PO Q4HR PRN 3 Days #56 tab 12/04/20 Ondansetron HCl [Zofran] 4 mg PO Q8H PRN 07/04/21 Thyroid,Pork [[place] Thyroid] 7.5 mg PO DAILY 07/04/21 traZODone HCL [Desyrel] 100 mg PO HS 07/04/21 Omeprazole [PriLOSEC] 40 mg PO DAILY #90 cap 07/09/21 Sucralfate [Carafate] 1 gm PO BID #30 tablet 07/09/21
== END ==
LOC: PNWHC3 08:58
PROVIDERS: ATTEND Specialist
DX: M46.1 Sacroiliitis, not elsewhere classified (principal); M47.816 Spondylosis without myelopathy or radiculopathy, lumbar region; M51.36 Other intervertebral disc degeneration, lumbar region; J45.909 Unspecified asthma, uncomplicated; E11.9 Type 2 diabetes mellitus without complications; K21.9 Gastro-esophageal reflux disease without esophagitis; F17.200 Nicotine dependence, unspecified, uncomplicated; Z79.51 Long term (current) use of inhaled steroids; Z79.899 Other long term (current) drug therapy; Z91.018 Allergy to other foods; Z91.048 Other nonmedicinal substance allergy status; Z88.2 Allergy status to sulfonamides
CPT/HCPCS: 99211

== ENCOUNTER → 2021-09-11 | Outpatient (CLI) | payer OTHER ==
--- NOTE | 2021-09-12 09:13 | SFUN ---
SLEEP CENTER FOLLOW UP NOTE DATE OF SERVICE: 09/11/2021 51-year-old lady has been followed in Sleep Center for treatment of obstructive sleep apnea-hypopnea syndrome. Recently the patient had a polysomnogram which showed the patient has obstructive sleep apnea-hypopnea syndrome. The patient had CPAP titration. On titration her respiration fully normalized. Then I wrote prescription for her for CPAP unit and she received a new CPAP machine. Today is her first visit after she started to use her CPAP unit. She does have some problems, sometimes her mask goes out from her face according to the patient, but otherwise she is trying to use the machine and feels better while using it. I checked her CPAP unit. Range of the pressure 5-12, but according to machine, patient used it only for 5 out of 9 nights and only a few hours per night. Leak is very high 71 L/minute. Apnea-hypopnea index is not normal at 16.6. [place] Sleepiness Scale today is significantly increased to 11. CURRENT MEDICATIONS: Thyroid [place], naproxen, DHEA. PHYSICAL EXAMINATION: GENERAL: Patient in no distress. BP 105/60, HR 89, RR 15, weight 265.2, temperature 96.1. Oropharynx: Low position of soft palate, Mallampati 3. NECK: Supple, no JVD. Thyroid is not palpable. LUNGS: Clear to percussion and to auscultation. Good air exchange. No wheezing or rhonchi. HEART: S1, S2 regular. No murmurs, gallops, or rubs. ABDOMEN: Obese. Soft and nontender. Bowel sounds are present. No organomegaly appreciated. EXTREMITIES: No clubbing or cyanosis. PARISH NURSE: Awake, alert, and oriented X3. Cranial nerves 2 to 7 intact. There is no fasciculation or atrophy. noted. No focal deficits observed. IMPRESSION: 1. Obstructive sleep apnea-hypopnea syndrome. According to reading from the CPAP unit, the patient had a machine only for 9 nights although she had it for a longer time, significant leak from the mask, although she has nasal pillow mask and usually there is no significant leak from this mask. Apnea-hypopnea index reading increased. 2. Obesity. 3. Status post tonsillectomy, rhinoplasty, turbinate reductions. 4. Status post C5-C6 surgery in November of 2020. 5. History of adrenal insufficiency on treatment with hydrocortisone, DHEA. 6. History of metabolic syndrome on treatment with metformin. 7. Gastroesophageal reflux disease. 8. History of usage of opioids for pain. 9. History of asthma. 10.History of anemia. 11.History of sepsis. 12.Hypothyroidism. 13.Difficulties to initiate sleep. PLAN: 1. I discussed with detail the necessity to use CPAP equipment every night for the whole night and to check how she used it and it compared with the numbers which the machine showed to be sure that machine showed correct information. The patient promised to do so. 2. Losing weight. 3. Sleep hygiene with time in bed for 7.5 hours at least. 4. No driving if feeling sleepiness. 5. I will see patient in 4-6 weeks for follow-up visit to recheck her compliance and make any necessary adjustments related to mask fitting, pressure and humidification. Thank you very much for allowing me to participate in management of your patient. Sincerely, Josh King MD, PhD, FAASM Diplomat of [place] [employer] Sleep Medicine [employer] [place] [employer] Specialist of [facility] [place] MMODL / MANJULAN: [id number] /
== END ==
LOC: SLEEP 14:20
PROVIDERS: ATTEND Internal Medicine
DX: G47.33 Obstructive sleep apnea (adult) (pediatric) (principal); E66.9 Obesity, unspecified; K21.9 Gastro-esophageal reflux disease without esophagitis; J45.909 Unspecified asthma, uncomplicated; E03.9 Hypothyroidism, unspecified; F17.200 Nicotine dependence, unspecified, uncomplicated; Z86.2 Personal history of diseases of the blood and blood-forming organs and certain disorders involving the immune mechanism; Z86.19 Personal history of other infectious and parasitic diseases; Z79.891 Long term (current) use of opiate analgesic; Z90.89 Acquired absence of other organs; Z98.890 Other specified postprocedural states; Z86.39 Personal history of other endocrine, nutritional and metabolic disease; Z79.890 Hormone replacement therapy; Z79.899 Other long term (current) drug therapy; Z91.09 Other allergy status, other than to drugs and biological substances; Z91.018 Allergy to other foods; Z88.2 Allergy status to sulfonamides

== ENCOUNTER → 2021-10-16 | Outpatient (CLI) | payer OTHER ==
--- NOTE | 2021-10-16 15:40 | NM ---
EXAMINATION TYPE: NM bone scan whole body DATE OF EXAM: 10/16/2021 COMPARISON: NONE HISTORY: Chronic pain Delayed whole-body scanning was performed following the injection of 24.1 mCi Tc 99m MDP. Images acq uired 3 hours post injection. FINDINGS: Abnormal uptake involving the knees, feet, sternoclavicular joints, and shoulders is likely post arth ritic. Faint uptake involving the thoracic and lumbar spine likely degenerative. Abnormal uptake involving the mandible likely related to periodontal disease. Faint abnormal uptake involving the hips likely post arthritic. IMPRESSION: 1. Uptake of mild intensity involving the vertebral column appears most likely degenerative. 2. Abnormal uptake involving the shoulders and knees is typical post arthritic change correlate clini nadiya.
== END | disposition home or self-care (01) ==
LOC: RADNMMAIN 11:05
PROVIDERS: ATTEND Family Medicine
DX: G89.29 Other chronic pain (principal); R93.7 Abnormal findings on diagnostic imaging of other parts of musculoskeletal system
CPT/HCPCS: 78306; A9503

== ENCOUNTER 2021-11-06 06:45 | Day surgery (SDC) | payer OTHER ==
[2021-10-30 14:20] VITALS: BMI 42.9
[2021-11-06 07:08] VITALS: TEMP 97
[2021-11-06 07:14] LABS: Glucose,Whole Blood 125 mg/dL (75-99)
[2021-11-06] MEDS ORDERED: MIDAZOLAM 2 MG/2 ML VIAL ONE (07:15)
[2021-11-06] MEDS ORDERED: methylPREDNISolone ACETATE 40 MG/ML 1 ML VIAL ONE (07:15)
[2021-11-06] MEDS ORDERED: fentaNYL (PF) 50 MCG/ML 2 ML AMP ONE (07:15)
[2021-11-06] MEDS ORDERED: IOPAMIDOL M200 10 ML VIAL ONE (07:15)
--- NOTE | 2021-11-06 07:29 | P.PCN ---
Date of Procedure: 11/06/21 Procedure(s) Performed: Procedure= Right sacroiliac joints steroid injection under fluoroscopy guidance (fluoroscopy image stored on file in the radiology Department ) Preoperative diagnosis= 1-sacroiliitis 2-lumbar degenerative disc disease 3- lumbar spondylosis with lumbar facet arthropathy Postoperative diagnosis=Same as preop Diagnosis . Complication = none Condition= stable Anesthesia= moderate sedation with intravenous Versed 2 mg , and fentanyl 100 micrograms . Indication for the procedure= patient complaining of low back pain , examination was positive for severe tenderness over the sacroiliac joints bilaterally and patient diagnosed with sacroiliitis, for this reason she was good candidate for sacroiliac joint steroid injection. Description of the procedure= procedure risk and benefits discussed with the patient, including but not limited, risk of infection and bleeding, and ALLERGIC reaction to the medication and not complete pain relief and patient agreed with the preceding patient taken to the operating room, placed in prone position or standard monitors applied to the patient then after induction of anesthesia back prepped with chlorhexidine 3 times , Then under strict sterile technique, first I did the right sacroiliac joint the which was identified under fluoroscopy guidance been local infiltration of the skin and subcu interstitial with lidocaine 1% then 22-gauge 5 inches long Qu[place]ke Needle advanced slowly under fluoroscopy and placed in the right s acroiliac joint needle placement confirmed with AP and oblique and lateral view and after appropriate needle placement confirmed and after negative aspiration, or heme , then Ropivacaine 0.5% 6 mL, and 40 mg of Depo-Medrol mixed together and injected in the right sacroiliac joint after negative aspiration patient tolerated the procedure well without any complication.
[2021-11-06 07:40] VITALS: RESP 20
[2021-11-06 07:54] VITALS: BP 123/78; PULSE 88
--- NOTE | 2021-11-06 08:52 | FL ---
EXAMINATION TYPE: FL guided pain mgmt statistic DATE OF EXAM: 11/06/2021 CLINICAL HISTORY: Right sacroiliac joint pain. TECHNIQUE: Fluoroscopy. COMPARISON: None. FINDINGS: Fluoroscopic guidance was provided during pain relief procedure performed by Dr. Moreno . A total of 3 seconds of fluoroscopic time was utilized during the procedure and 1 spot images are acquired. Single image acquired shows needle localization at the inferior sacroiliac joint level. IMPRESSION: As Above.
== END 2021-11-06 08:01 | disposition home or self-care (01) ==
LOC: ORPAIN 06:45
PROVIDERS: ATTEND Specialist
DX: M46.1 Sacroiliitis, not elsewhere classified (principal); Z91.018 Allergy to other foods; Z91.09 Other allergy status, other than to drugs and biological substances; Z79.52 Long term (current) use of systemic steroids
CPT/HCPCS: J2250; J1030; J3010; Q9966; G0260; 27096; 99152

== ENCOUNTER → 2021-12-01 | Outpatient (CLI) | payer OTHER ==
[2021-12-01 08:24] VITALS: BP 142/94; PULSE 97; RESP 18; TEMP 97.7
--- NOTE | 2021-12-01 08:34 | P.PN ---
Subjective Progress Note Date: 12/01/21 Principal diagnosis: A 51 yr oldfemale with a history of severe and chronic low back pain secondary to lumbar degenerative disc diseases and lumbar spondylosis with facet arthropathy presents today for follow-up of a right SI joint injection. She admits she experienced 60% pain relief for 5 days as the pain returned she received TPI in the lower lumbar spine area. Pain level is currently at 4 out of 10 in intensity in the bilateral SI joints. Pain is described as a pulsating, deep, dull, achy sensation in the lower lumbar spine and accompanied with numbness and tingling towards the left lower extremity. Pain is provoked by any type of movements especially when household cleaning including walking sitting bending or standing for 20 minutes. Pain is alleviated with medications, topicals, injections, ice, heat, physical therapy, use of TENS unit, massage and rest. Interventional pain procedures completed include right SI joint injection Patient is currently on [place] 10/325mg #[address] Art Keenan Patient denies any side effects of the medication(s), denies excessive drowsiness or sleepiness, denies suicidal ideation and reports that the current pain medication is helping to control the pain and improve activities of daily living. Patient denies any motor or sensory deficits. Patient denies any fever or night sweats, denies any change in the bowel movements or urination. Physical Examination: -Constitutional: Cooperative. Not in acute distress . -HEENT: Neck is supple. No lymphadenopathy. No thyromegaly. Normal thyroid size. Eyes: No ptosis , no icterus, no photophobia. ENT: No auditory deficits. Normal oropharynx. No Thrush. - Respiratory: Chest clear to auscultations bilaterally. No wheezing. No rhonchi. - Cardiovascular: Regular rate and rhythm. S1 / S2 , no S3 , no S4. - Gastrointestinal: Abdomen soft no tenderness. Bowel sounds positive in all four quadrants. No organomegaly. - Genitourinary: Deferred. - Neurologic: Cranial nerve II to XII intact. No focal neurological deficits . - Psychatric: Alert & oriented x 3. Matching mood & appropriate affect. Judgment and insight intact. - Lymphatic: No Lymphadenopathy. - Musculoskeletal: Cervical spine: Muscle bulk/ tone/ strength in the bilateral upper extremities normal. Facet loading test cervical area positive. Lumbar spine: Motor bulk/ tone/ strength lower extremities , thigh and legs : 5/5 Deep tendon reflexes : Normal Knee Jerk. Normal Ankle Jerk . Vertebral body tenderness over the L2 through S1 bodies Lumbar Facet Loading Test positive over the L4-L5 and SI joints bilaterally Straight Leg Raise: positive at 30 degree right side/ left side not performed as patient did not sit for exam [place] test: positive right side / left side Range of motion: Range of motion in flexion of the lumbar spine <60 degrees Range of motion: Extension of the lumbar spine <20 degrees Severe tenderness over the Sacroiliac joint: right side / left side Assessment and plan: Chronic low back pain secondary to lumbar degenerative disc disease , lumbar spondylosis with facet arthropathy without myelopathy Recommendation of bilateral SI joint injection Risks benefits of procedure discussed and patient verbalized understanding Denies aspirin or anticoagulant use All patient questions answered MAPS reviewed and it was appropriate. I have spent 31 minutes on patient care today. Dr Moreno was available by phone for the evaluation of this patient. The time was used to review the medical records including relevant urine studies and Prescription history (MAPs), review of the available imaging, evaluation and examination of the patient, coordination of care with the medical staff and if applicable referring physicians, as well as creation of the medical record Objective - Vital Signs Vital signs: Vital Signs Temp 97.7 F 12/01/21 08:09 Pulse 97 12/01/21 08:09 Resp 18 12/01/21 08:09 BP 142/94 12/01/21 08:09 Pulse Ox 96 12/01/21 08:09 PQRS Measure Charge Sheet Mode of Arrival: Ambulatory - Pain Location Lower Back Non-Pharmacological Interventions: Heat, Ice, Inactivity, Massage, Position/Reposition Pharmacological Interventions: PRN Medication, Topical Medication PQRS Narrative: Smoking Status Current every day smoker Blood Pressure 142/94 Pain Intensity [Lower Back] 3 Scale Used Numeric (1 - 10) Hx Alcohol Use (MH) No Home Medications: Ambulatory Orders Albuterol Inhaler (Mhu) [Ventolin Hfa Inhaler (Mhu)] 2 puff INHALATION RT-Q6H PRN 11/30/17 Furosemide [Lasix] 40 mg PO DAILY PRN 07/19/19 Simethicone [Gas-X] 125 mg PO DIRECTED PRN 12/18/19 Baclofen [Lioresal] 10 mg PO TID PRN #60 tab 12/04/20 HYDROcodone/APAP 10-325MG [[place] 10-325] 1 tab PO Q4HR PRN 3 Days #56 tab 12/04/20 Thyroid,Pork [[place] Thyroid] 7.5 mg PO DAILY 07/04/21 traZODone HCL [Desyrel] 100 mg PO HS 07/04/21 Indomethacin [Indocin] 50 mg PO TID PRN 10/30/21 Omeprazole [PriLOSEC] 20 mg PO BID 10/30/21 predniSONE [Deltasone] 20 mg PO DAILY 10/30/21 Liraglutide [Victoza 2-John] 0.6 mg SQ DAILY 11/25/21
== END ==
LOC: PNWHC3 07:42
PROVIDERS: ATTEND Physician Assistant Medical
DX: M51.36 Other intervertebral disc degeneration, lumbar region (principal); M47.816 Spondylosis without myelopathy or radiculopathy, lumbar region; G89.29 Other chronic pain; F17.200 Nicotine dependence, unspecified, uncomplicated; Z91.018 Allergy to other foods; Z88.2 Allergy status to sulfonamides; Z91.09 Other allergy status, other than to drugs and biological substances; Z91.048 Other nonmedicinal substance allergy status
CPT/HCPCS: 99211

== ENCOUNTER → 2021-12-24 | Outpatient (CLI) | payer OTHER ==
--- NOTE | 2021-12-24 15:53 | SFUN ---
SLEEP CENTER FOLLOW UP NOTE DATE OF SERVICE: 12/24/2021 This 51-year-old lady has been followed in Sleep Center for treatment of obstructive sleep apnea-hypopnea syndrome. During her previous visit 4 months ago, patient demonstrated poor compliance with CPAP treatment. At that time I had an extensive discussion with her about the necessity of full-night treatment, and now the patient reports that she is using the machine every night and that she sleeps better with that, she feels better, and feels better during the day. Her only complaint is that she sometimes feels dryness in her mouth while she is using her machine. She is using a nasal pillow mask. [place] Sleepiness Scale today is 8. I checked her CPAP unit. Range of the pressure is 5 to 12, average 8.4. Usage is 26/30 nights and 22/30 nights for more than 4 hours, average 6.1 hours per night. Leak is only 5 L/minute. Apnea-hypopnea index is only 0.6, which is perfect. During her previous visit it was 16.6, so everything has normalized. MEDICATIONS: 1. Trazodone 100 mg once a day. 2. Hydrocodone/Tylenol 10/325 mg up to 4 times a day. 3. Hydrocortisone 15 mg daily. 4. Baclofen 20 mg up to 3 times a day. 5. Thyroid Perry. 6. Victoza. 7. Indomethacin. PHYSICAL EXAMINATION: GENERAL: Pleasant patient in no distress. VITAL SIGNS: BP 115/70, HR about 100, RR 14, weight 290.8. The patient's weight has increased by 25 pounds since her previous visit. Temperature 96.2, oxygen saturation at room air 96%. HEENT: PERRPILLO, EOMI, evaluation of oropharynx showed tongue protrudes midline. Low position of soft palate; Mallampati III. NECK: Supple, no JVD. Thyroid is not palpable. LUNGS: Clear to percussion and to auscultation. Good air exchange. No wheezing or rhonchi. HEART: S1, S2 regular. No murmurs, gallops, or rubs. ABDOMEN: Obese. EXTREMITIES: No clubbing or cyanosis. AERIAL SPRAYER: Awake, alert, and oriented X3. Cranial nerves 2 to 7 intact. There is no fasciculation or atrophy. noted. No focal deficits observed. IMPRESSION: 1. Obstructive sleep apnea-hypopnea syndrome. At present patient has demonstrated great compliance with treatment. Normal respiration on CPAP. Some complaints of dryness in the mouth. 2. Obesity. 3. Status post tonsillectomy, rhinoplasty, turbinate reduction. 4. Status post C5-C6 surgery in November of 2020. 5. History of adrenal insufficiency, on treatment with hydrocortisone. 6. History of metabolic syndrome, on treatment with metformin. 7. Gastroesophageal reflux disease. 8. On opioids for pain. 9. History of asthma. 10.History of anemia. 11.History of sepsis. 12.Hypothyroidism. PLAN: 1. I taught the patient how to adjust humidity in the CPAP unit and I adjusted the level of humidity from 4 up to 6. 2. Prescription for chin strap, to use in addition to the nasal pillow mask to prevent opening mouth, because that could be the reason for dryness in the mouth. 3. Patient will continue to use PAP equipment every night for the whole night. 4. Sleep hygiene with regular time in bed for at least 7-1/2 to 8 hours. 5. Precautions related to driving. No driving if feeling sleepiness. 6. I will maintain all necessary prescription for PAP supplies including mask, tube, filters. 7. Watching weight. 8. Follow-up visit in 6 months or earlier if patient has any problems. Thank you very much for allowing me to participate in the management of your patient. Sincerely, Josh King MD, PhD, FAASM Diplomat of [place] [employer] Specialties Sleep Medicine Board of [place] Board of Internal Medicine Copy Director of [facility] [place] MMODL / IJN: [id number] /
== END ==
LOC: SLEEP 14:24
PROVIDERS: ATTEND Internal Medicine
DX: G47.33 Obstructive sleep apnea (adult) (pediatric) (principal); E66.9 Obesity, unspecified; K21.9 Gastro-esophageal reflux disease without esophagitis; J45.909 Unspecified asthma, uncomplicated; E03.9 Hypothyroidism, unspecified; R52 Pain, unspecified; F17.200 Nicotine dependence, unspecified, uncomplicated; Z79.891 Long term (current) use of opiate analgesic; Z86.39 Personal history of other endocrine, nutritional and metabolic disease; Z90.89 Acquired absence of other organs; Z86.2 Personal history of diseases of the blood and blood-forming organs and certain disorders involving the immune mechanism; Z86.19 Personal history of other infectious and parasitic diseases; Z98.890 Other specified postprocedural states; Z79.899 Other long term (current) drug therapy; Z79.890 Hormone replacement therapy; Z91.018 Allergy to other foods; Z91.09 Other allergy status, other than to drugs and biological substances; Z88.2 Allergy status to sulfonamides

== ENCOUNTER 2021-12-30 12:00 | Day surgery (SDC) | payer OTHER ==
[2021-12-29 11:03] VITALS: BMI 46.0
[2021-12-30 12:29] VITALS: TEMP 97.6
[2021-12-30] MEDS ORDERED: LACTATED RINGERS 1,000 ML IV ONE (12:29)
[2021-12-30 12:33] LABS: Glucose,Whole Blood 100 mg/dL (75-99)
[2021-12-30] MEDS ORDERED: fentaNYL (PF) 50 MCG/ML 2 ML AMP ONE (12:56)
[2021-12-30] MEDS ORDERED: MIDAZOLAM 2 MG/2 ML VIAL ONE (12:56)
[2021-12-30] MEDS ORDERED: ROPIVACAINE 5MG/ML 20ML VIAL ONE (12:56)
[2021-12-30] MEDS ORDERED: TRIAMCINOLONE ACETONIDE 40 MG/ML 1 ML VIAL ONE (12:56)
--- NOTE | 2021-12-30 13:13 | P.PCN ---
Date of Procedure: 12/30/21 Description of Procedure: Preoperative diagnoses: 1. Lumbosacral Spondylosis 2. Bilateral sacroiliitis. Postoperative diagnoses: Same as preoperative diagnosis. Procedure: Bilateral sacroiliac joint steroid injection under fluoroscopic guidance. Surgeon: Charli Hamlin M.D. Anesthesia: Conscious sedation with Versed 1 mg and fentanyl 50 micrograms and local infiltration with lidocaine 1% 4 ml EBL: None Procedure indication: The patient had a history of severe chronic low back pain, diagnosed with sacroiliitis and lumbar sacral facet arthropathy unresponsive to conservative treatment. Procedure description: The patient was seen and identified in the preoperative holding area, risks and benefits and alternative of the procedure and possible complications discussed with the patient, and he agreed with the preceding, patient signed the consent, an IV was started, and vital signs were monitored and were stable throughout the procedure, patient was placed in the prone position or table and the lumbosacral area was prepped and draped with a sterile fashion, vital signs were closely monitored during the procedure, the fluoroscopy camera was placed in the contralateral oblique view on the right sacroiliac joint and the lower part of the joint was identified a 2 mL then a 25-gauge Quincke-type spinal needle advanced slowly under fluoroscopy and placed in the posterior and inferior border of the right sacroiliac joint, placement confirmed with AP and lateral view, and after appropriate needle placement confirmed and after negative aspiration for heme and CSF and there was , 4 ml of Ropivacaine 0.5% and 40 mg of Kenalog mixed and 2.5ml injected after negative aspiration into each joint left and right, no paresthesia during the injection, no resistance to injection, and the needle was removed. The entire same procedure was repeated for the left sacroiliac joint Patient tolerated the procedure well without any complication. The patient returned to supine position after the back was cleaned and a Band- Aid applied, the patient transported to recovery room in stable condition and he was monitored for 30 minutes before he was discharged home and then patient was reexamined before going home and patient was discharged in stable condition and patient will follow up with the pain clinic in a few weeks
[2021-12-30] MEDS ORDERED: IV FLUID CONTINUATION 1,000 ML IV ONE (13:22)
[2021-12-30] MEDS ORDERED: LIDOCAINE 1% (10MG/ML) FOR IV START INTRADERMA PRN (13:27)
[2021-12-30] MEDS ORDERED: LACTATED RINGERS 1,000 ML IV SCH (13:27)
[2021-12-30 13:41] VITALS: BP 154/88; PULSE 70; RESP 16
--- NOTE | 2021-12-30 15:00 | FL ---
Fluoroscopy HISTORY: Pain 18 seconds fluoroscopy time supplied to the referring clinician. 2 intraoperative C-arm images docum ent the procedure. See dictated report from anesthesia.
== END 2021-12-30 13:51 | disposition home or self-care (01) ==
LOC: ORPAIN 12:00
PROVIDERS: ATTEND Anesthesiology
DX: M47.817 Spondylosis without myelopathy or radiculopathy, lumbosacral region (principal); M46.1 Sacroiliitis, not elsewhere classified
CPT/HCPCS: 27096; J2250; J3301; J3010; J2795; G0260; 99152

== ENCOUNTER → 2022-01-14 | Outpatient (CLI) | payer OTHER ==
[2022-01-14 08:04] VITALS: BP 168/94; PULSE 92; RESP 18; TEMP 98.2
--- NOTE | 2022-01-14 08:55 | P.PN ---
Subjective Progress Note Date: 01/14/22 Principal diagnosis: A 51 yr old female with a history of severe and chronic low back pain secondary to lumbar degenerative disc diseases and lumbar spondylosis with facet arthropathy and sacroiliitis presents today for evaluation status post bilateral SI joint injection. Patient states she experienced 80% pain relief for the last 2-3 weeks status post procedure. Pain level is currently at 3 out of 10 in intensity, dull, achy in the lower tailbone aspects of her lumbar spine but escalates as high as 10 out of 10 in intensity when sitting for periods of 2 minutes or more. Patient has to reposition, stand and stretch for pain relief. Pain is in the lower lumbar spine with radiation to the hips bilaterally, the right groin, and the right lateral thigh. Pain is alleviated with medications, topicals, injections, ice, heat, physical therapy in the past, chiropractic treatment which made the pain worse, home-based stretching regimen, deep tissue massage with massage can at home, laying on her side at bedtime and rest. Interventional pain procedures completed include R SI joint injection x 1. BL SI joint injection x 1. Patient is currently on [place], Baclofen by Dr Isaac Patient denies any side effects of the medication(s), denies excessive drowsiness or sleepiness, denies suicidal ideation and reports that the current pain medication is helping to control the pain and improve activities of daily living. Patient denies any motor or sensory deficits. Patient denies any fever or night sweats, denies any change in the bowel movements or urination. Physical Examination: -Constitutional: Cooperative. Not in acute distress . -HEENT: Neck is supple. No lymphadenopathy. No thyromegaly. Normal thyroid size. Eyes: No ptosis , no icterus, no photophobia. ENT: No auditory deficits. Normal oropharynx. No Thrush. - Respiratory: Chest clear to auscultations bilaterally. No wheezing. No rhonchi. - Cardiovascular: Regular rate and rhythm. S1 / S2 , no S3 , no S4. - Gastrointestinal: Abdomen soft no tenderness. Bowel sounds positive in all four quadrants. No organomegaly. - Genitourinary: Deferred. - Neurologic: Cranial nerve II to XII intact. No focal neurological deficits. - Psychatric: Alert & oriented x 3. Matching mood & appropriate affect. Judgment and insight intact. - Lymphatic: No Lymphadenopathy. - Musculoskeletal: Cervical spine: Muscle bulk/ tone/ strength in the bilateral upper extremities normal. Facet loading test cervical area positive. Lumbar spine: Motor bulk/ tone/ strength lower extremities , thigh and legs : 5/5 Deep tendon reflexes : Normal Knee Jerk. Normal Ankle Jerk . Vertebral body tenderness to palpation over Lumbar Facet Loading Test positive Straight Leg Raise: positive at 30 degrees right side/ left side Gaenslen's Test positive Sacral spine : Severe tenderness over the Sacroiliac joint: right side / left side Range of motion: Flexion of the lumbar spine <60 degrees Range of motion: Extension of the lumbar spine <20 degrees Gaenslen's Test positive [place] test: positive right side > left side Assessment and plan: Chronic low back pain secondary to lumbar degenerative disc disease , lumbar spondylosis with facet arthropathy without myelopathy Recommendation of caudal ROMINA with lysis. Risks, benefits of procedure discussed and patient verbalized understanding. Admits to prednisone 10 mg daily use from her knitting supervisor. Patient has MRIs of the thoracic and lumbar spine scheduled in 1 week which were ordered by her orthopedic surgeon to consider surgery. Medical clearance from knitting supervisor needed. Denies diabetes medical history. All patient questions answered MAPS reviewed and it was appropriate. Prescription refill for I have spent 31 minutes on patient care today. Dr Moreno was available by wilberto gaitan for the evaluation of this patient. The time was used to review the medical records including relevant urine studies and Prescription history (MAPs), review of the available imaging, evaluation and examination of the patient, coordination of care with the medical staff and if applicable referring physicians, as well as creation of the medical record Objective - Vital Signs Vital signs: Vital Signs Temp 98.2 F 01/14/22 07:58 Pulse 92 01/14/22 07:58 Resp 18 01/14/22 07:58 BP 168/94 01/14/22 07:58 Pulse Ox 97 01/14/22 07:58 Intake & Output 01/13/22 01/14/22 01/14/22 18:59 06:59 18:59 Weight 132.903 kg PQRS Measure Charge Sheet Mode of Arrival: Ambulatory - Pain Location Lower Back Non-Pharmacological Interventions: Chiropractic Treatment, Heat, Home Exercise, Ice, Massage, Physical Therapy, Position/Reposition, Stretching Pharmacological Interventions: PRN Medication, Topical Medication PQRS Narrative: Smoking Status Current every day smoker Blood Pressure 168/94 Pain Intensity [Lower Back] 3 Scale Used Numeric (1 - 10) Hx Alcohol Use (MH) No Home Medications: Ambulatory Orders Albuterol Inhaler (Mhu) [Ventolin Hfa Inhaler (Mhu)] 2 puff INHALATION RT-Q6H PRN 11/30/17 Furosemide [Lasix] 40 mg PO DAILY PRN 07/19/19 Simethicone [Gas-X] 125 mg PO DIRECTED PRN 12/18/19 Baclofen [Lioresal] 10 mg PO TID PRN #60 tab 12/04/20 HYDROcodone/APAP 10-325MG [[place] 10-325] 1 tab PO Q4HR PRN 3 Days #56 tab 12/04/20 Thyroid,Pork [[place] Thyroid] 7.5 mg PO DAILY 07/04/21 traZODone HCL [Desyrel] 100 mg PO HS 07/04/21 Indomethacin [Indocin] 50 mg PO TID PRN 10/30/21 Omeprazole [PriLOSEC] 20 mg PO BID 10/30/21 predniSONE [Deltasone] 20 mg PO DAILY 10/30/21 Liraglutide [Victoza 2-John] 0.6 mg SQ DAILY 11/25/21
== END ==
LOC: PNWHC3 07:33
PROVIDERS: ATTEND Specialist
DX: M46.1 Sacroiliitis, not elsewhere classified (principal); M51.36 Other intervertebral disc degeneration, lumbar region; M47.816 Spondylosis without myelopathy or radiculopathy, lumbar region; G89.29 Other chronic pain; F17.200 Nicotine dependence, unspecified, uncomplicated; Z91.018 Allergy to other foods; Z88.2 Allergy status to sulfonamides; Z91.09 Other allergy status, other than to drugs and biological substances
CPT/HCPCS: 99211

== ENCOUNTER → 2022-01-21 | Outpatient (CLI) | payer OTHER ==
--- NOTE | 2022-01-21 18:54 | MR ---
EXAMINATION TYPE: MR tspine/lspine wo con DATE OF EXAM: 01/21/2022 COMPARISON: Lumbar spine radiograph 12/12/2021, lumbar spine MRI 09/27/2020 HISTORY: 51-year-old female and 54.50, M54.6, Mid and lower back pain, RLE radiculopathy. TECHNIQUE: Multiplanar, multisequence imaging of the thoracic and lumbar spine is performed without I V contrast. FINDINGS: THORACIC SPINE: There is some susceptibility artifact from fusion changes in the mid to lower cervical spine which ar e inadequately assessed. There is normal course, caliber, and signal intensity of the cervical spinal cord. Mild to moderate degenerative disc disease is present throughout the thoracic spine were desiccated, narrowed, and bulging discs. Small disc protrusions are present at multiple levels. Scattered facet arthropathy. Trace grade 1 anterolisthesis T2-T3. Otherwise, vertebral body heights are preserved and remaining alignment is maintained. No suspicious bone marrow replacement. On the left, changes result in moderate foraminal stenosis at T10-T11 and mild at additional levels. On the right, variable mild neuroforaminal narrowing at multiple levels. No large focal disc herniation or significant spinal canal stenosis. Large body habitus. Mediastinal lipomatosis may be present. Possible moderate-sized hilar hernia. LUMBAR SPINE: Vertebral body heights are preserved. Advanced hypertrophic facet arthropathy mid to lower lumbar spi ne. There is an associated joint effusion at L3-L4 and L4-L5. Conus medullaris is normal. Scattered mild intervertebral disc desiccation. Disc bulge at T11-T12 impresses on to the ventral cord and contributes to mild overall narrowing of t he spinal canal. No significant stenosis or cord compression. Mild disc bulge at L2-L3 and L3-L4 towards the left. Possible tiny annular fissure at L2-L3 with disc material that may abut the traversing left L3 nerve root at this level. Refer to sagittal image 6. O verall minimal inferior foraminal narrowing at L2-L3 on the left. Right foraminal disc bulge at L3-L4 with small annular fissure. Minimal neuroforaminal narrowing here . Focal intraforaminal disc protrusion on the right at L5-S1 contributing to mild to moderate neural fo raminal narrowing with possible abutment of the exiting right L5 nerve root, refer to axial image 4 a nd sagittal image 13. Overall changes are relatively similar to prior study. Vertebral body heights are preserved and alignment is maintained. No suspicious bone marrow placement . Suspect a 1.4 cm cyst of each ovary (versus 1.2 cm on the right and 1.0 cm on the left, previously). COMBINED IMPRESSION: THORACIC SPINE: 1. Mild to moderate multilevel degenerative disc disease with small disc protrusions. Posterior disc bulge at T11-T12 mildly impresses onto the ventral cord. Along with ligamentum flavum thickening, the re is a mild overall spinal canal narrowing here. No cord compression or significant canal stenosis. Findings similar to 09/27/2020. 2. Scattered facet arthropathy contributing to variable mild neural foraminal narrowing, moderate on the left at T10-T11. 3. Degenerative trace grade 1 anterolisthesis at T2-T3. LUMBAR SPINE: 4. Severe hypertrophic facet arthropathy mid to lower lumbar spine with associated variable joint eff usions. No vertebral compression collapse or malalignment. No spinal canal stenosis. 5. Small eccentrically located disc bulges. A bulge towards the left at L2-L3 has an annular fissure and may abut the traversing left L3 nerve root. 6. Right-sided disc bulge at L3-L4 also has a small annular fissure but only contributes to minimal n eural foraminal narrowing. 7. Additional right intraforaminal disc herniation at L5-S1 contributing to [id number] neural f oraminal stenosis but likely with abutment of the exiting right L5 nerve root. 8. Changes appear relatively similar to 09/27/2020.
== END | disposition home or self-care (01) ==
LOC: RADMRIMAIN 15:06
PROVIDERS: ATTEND Orthopaedic Surgery
DX: M47.24 Other spondylosis with radiculopathy, thoracic region (principal); M47.26 Other spondylosis with radiculopathy, lumbar region; M51.16 Intervertebral disc disorders with radiculopathy, lumbar region; M25.48 Effusion, other site; M51.17 Intervertebral disc disorders with radiculopathy, lumbosacral region; M43.14 Spondylolisthesis, thoracic region; M51.14 Intervertebral disc disorders with radiculopathy, thoracic region
CPT/HCPCS: 72146; 72148

== ENCOUNTER → 2022-01-23 | Outpatient (CLI) | payer OTHER ==
[2022-01-23 12:00] LABS: ACTH <1.50 pg/mL (0.00-45.99)
== END | disposition home or self-care (01) ==
LOC: LABWHC1 07:13
PROVIDERS: ATTEND Internal Medicine
DX: E27.49 Other adrenocortical insufficiency (principal)
CPT/HCPCS: 36415; 82024; 82533; 82627

== ENCOUNTER 2022-02-19 10:28 | Day surgery (SDC) | payer OTHER ==
[2022-02-17 16:14] VITALS: BMI 47.7
[2022-02-19 10:50] VITALS: TEMP 97.5
[2022-02-19] MEDS ORDERED: LIDOCAINE 1% (10MG/ML) FOR IV START INTRADERMA ONE (10:53)
[2022-02-19] MEDS ORDERED: LACTATED RINGERS 1,000 ML IV ONE (10:53)
[2022-02-19 10:58] LABS: Glucose,Whole Blood 105 mg/dL (75-99)
[2022-02-19] MEDS ORDERED: fentaNYL (PF) 50 MCG/ML 2 ML AMP ONE (11:16)
[2022-02-19] MEDS ORDERED: IOPAMIDOL M200 10 ML VIAL ONE (11:16)
[2022-02-19] MEDS ORDERED: methylPREDNISolone ACETATE 40 MG/ML 1 ML VIAL ONE (11:16)
[2022-02-19] MEDS ORDERED: MIDAZOLAM 2 MG/2 ML VIAL ONE (11:16)
--- NOTE | 2022-02-19 11:33 | P.PCN ---
Date of Procedure: 02/19/22 Description of Procedure: PREOPERATIVE DIAGNOSIS: Lumbar degenerative disc disease, and lumbar r adiculopathy. POSTOPERATIVE DIAGNOSIS: Lumbar degenerative disc disease,, and lumbar radiculopathy. PROCEDURE: 1. Caudal epidural steroid injection under fluoroscopic guidance #1. 2. Caudal epidurogram. SURGEON: Jordan Olvera ANESTHESIA: Local with 1% lidocaine; IV sedation : Versed and fentanyl EBL: None. Specimens removed: None Complications: None Fluoroscopic image: saved to electronic medical records PROCEDURE INDICATION: Patient had a history of lumbar postlaminectomy syndrome, failed with conservative therapy. pain radiating distally returns for caudal epidural steroid injection. PROCEDURE DESCRIPTION: The patient was seen and identified in the preoperative area. Risks, benefits, complications, and alternatives were discussed with the patient. The patient agreed to proceed with the procedure and signed the consent. IV was started, and vital signs were stable. Patient was taken to the OR and time out was completed. The patient was placed in the prone position on procedure table and a pillow was placed under the abdomen to reduce lumbar lordosis. The lumbosacral area was prepped and draped in the usual sterile fashion. Critical pause was taken. Vital signs were closely monitored during the procedure. Using lateral fluoroscopy the anterior-posterior plates of the sacrum were identified and the skin and deeper tissues corresponding into sacrococcygeal ligament were anesthetized using approximately 3 mL of 1% lidocaine. Then under fluoroscopy, a 5-inch 22-gauge spinal needle was guided through the sacrococcygeal ligament, and into the epidural space. After negative aspiration, a 2 mL of [id number] contrast dye was injected with epidurogram. Again after negative aspiration for CSF, blood, and with no paresthesias, Depo-Medrol 40mg, with 10ml of preservative free normal saline(total of 11ml) solution was injected with washout of epidurogram. Needle was withdrawn intact. Skin was cleansed, and bandage was applied. DISPOSITION / PLANS: The patient was placed in a supine position and transferred to the recovery area in a stable condition for observation and was discharged from the recovery room after meeting discharge criteria. Home discharge instructions given to the patient by the staff. The patient was reexamined prior to discharge. The patient will schedule a follow up in the clinic in 4 weeks.
[2022-02-19] MEDS ORDERED: IV FLUID CONTINUATION 1,000 ML IV ONE (11:35)
[2022-02-19] MEDS ORDERED: LACTATED RINGERS 1,000 ML IV SCH (11:45)
[2022-02-19 11:50] VITALS: BP 129/84; PULSE 104; RESP 16
--- NOTE | 2022-02-19 12:46 | FL ---
Fluoroscopy HISTORY: Pain 15 seconds fluoroscopy time supplied to the referring clinician. 2 intraoperative C-arm images docum ent the procedure. See dictated report from anesthesia.
== END 2022-02-19 12:06 | disposition home or self-care (01) ==
LOC: ORPAIN 10:28
DX: M51.16 Intervertebral disc disorders with radiculopathy, lumbar region (principal)
CPT/HCPCS: 62264; J2250; J1030; J3010; Q9966; 99152

== ENCOUNTER → 2022-04-09 | Outpatient (CLI) | payer OTHER ==
[2022-04-09 08:47] VITALS: BP 136/89; PULSE 117; RESP 18; TEMP 97.8
--- NOTE | 2022-04-09 08:48 | P.PAINPG ---
Objective - Vital Signs Vital signs: Intake & Output 04/08/22 04/09/22 04/09/22 18:59 06:59 18:59 Weight 134.717 kg PQRS Measure Charge Sheet Comment: A 51 yr old female with a history of severe and chronic low back pain secondary to lumbar degenerative disc diseases and lumbar spondylosis with facet arthropathy presents today for evaluation status post caudal ROMINA. She states she experienced 10% pain relief s/p procedure. Pain level is currently at 6/10 in intensity, dull/ achy/ in the lumbosacral spine with radiation of sharp/ shooting pain towards the R foot. Pain is provoked by standing. Pain is alleviated with topicals, injections, ice, heat, physical therapy 2019, daily home stretching regimen, repositioning and rest. Interventional pain procedures completed include SI joint injection, caudal ROMINA. Patient is currently on Biofreeze gel Patient denies any side effects of the medication(s), denies excessive drowsiness or sleepiness, denies suicidal ideation and reports that the current pain medication is helping to control the pain and improve activities of daily living. Patient denies any motor or sensory deficits. Patient denies any fever or night sweats, denies any change in the bowel movements or urination. Physical Examination: -Constitutional: Cooperative. Not in acute distress . -HEENT: Neck is supple. No lymphadenopathy. No thyromegaly. Normal thyroid size. Eyes: No ptosis , no icterus, no photophobia. ENT: No auditory deficits. Normal oropharynx. No Thrush. - Respiratory: Chest clear to auscultations bilaterally. No wheezing. No rhonchi. - Cardiovascular: Regular rate and rhythm. S1 / S2 , no S3 , no S4. - Gastrointestinal: Abdomen soft no tenderness. Bowel sounds positive in all four quadrants. No organomegaly. - Genitourinary: Deferred. - Neurologic: Cranial nerve II to XII intact. No focal neurological deficits. - Psychatric: Alert & oriented x 3. Matching mood & appropriate affect. Judgment and insight intact. - Lymphatic: No Lymphadenopathy. - Musculoskeletal: Cervical spine: Muscle bulk/ tone/ strength in the bilateral upper extremities normal Vertebral body tenderness to palpation over Facet loading test positive Thoracic spine Muscle bulk / tone/ strength in the bilateral paraspinal muscles normal Vertebral body tender to palpation over Facet loading test positive Lumbar spine: Motor bulk/ tone/ strength lower extremities , thigh and legs : 5/5 Deep tendon reflexes : Normal Knee Jerk. Normal Ankle Jerk . Vertebral body tenderness to palpation over Lumbar Facet Loading Test positive over R L5-S1 with jump reflex and accompanying paraspinal TTP Straight Leg Raise: positive at 30 degrees right side/ left side Gaenslen's Test positive Sacral spine : Severe tenderness over the Sacroiliac joint: right side / left side Range of motion: Flexion of the lumbar spine <60 degrees Range of motion: Extension of the lumbar spine <20 degrees Gaenslen's Test positive Kevan's Test positive [place] test: positive right side / left side Thigh Thrust Test Sacral Thrust Test Assessment and plan: Chronic low back pain secondary to lumbar degenerative disc disease , lumbar spondylosis with facet arthropathy without myelopathy Recommendation of R L5-S1 and MBB. May need a series of injections, up until RFA, for optimal pain relief. Risks, benefits of procedure discussed and patient verbalized understanding. Denies anticoagulant use or medical history of diabetes. All patient questions answered I have spent 31 minutes on patient care today. Dr Moreno was available by phone for the evaluation of this patient. The time was used to review the medical records including relevant urine studies and Prescription history (MAPs), review of the available imaging, evaluation and examination of the patient, coordination of care with the medical staff and if applicable referring physicians, as well as creation of the medical record - Pain Location Right Lower Back Non-Pharmacological Interventions: Chiropractic Treatment, Heat, Home Exercise, Ice, Massage, Physical Therapy, Standing, Stretching Pharmacological Interventions: Epidural, Topical Medication PQRS Narrative: Smoking Status Current every day smoker Pain Intensity [Right Lower 7 Back] Hx Alcohol Use (MH) Yes: RARE Home Medications: Ambulatory Orders Albuterol Inhaler (Mhu) [Ventolin Hfa Inhaler (Mhu)] 2 puff INHALATION RT-Q6H PRN 11/30/17 Furosemide [Lasix] 20 - 40 mg PO DAILY PRN 07/19/19 Simethicone [Gas-X] 125 mg PO DIRECTED PRN 12/18/19 Baclofen [Lioresal] 10 mg PO TID PRN #60 tab 12/04/20 Thyroid,Pork [[place] Thyroid] 7.5 mg PO DAILY 07/04/21 traZODone HCL [Desyrel] 100 mg PO HS 07/04/21 Indomethacin [Indocin] 50 mg PO TID PRN 10/30/21 Omeprazole [PriLOSEC] 20 mg PO BID 10/30/21 predniSONE [Deltasone] 10 mg PO DAILY 10/30/21 Liraglutide [Victoza 2-John] 1.2 mg SQ HS 11/25/21 HYDROcodone/APAP 10-325MG [[place] 10-325] 1 tab PO Q6H PRN 04/08/22 Methylphenidate HCl [Ritalin] 20 mg PO DAILY 04/08/22 Controlled Substance Measures - Controlled Substance Measures Is patient prescribed a controlled substance at discharge?: No
== END ==
LOC: PNWHC3 08:15
PROVIDERS: ATTEND Specialist
DX: M46.1 Sacroiliitis, not elsewhere classified (principal); M48.061 Spinal stenosis, lumbar region without neurogenic claudication; M47.26 Other spondylosis with radiculopathy, lumbar region; M51.16 Intervertebral disc disorders with radiculopathy, lumbar region; G89.29 Other chronic pain; F17.200 Nicotine dependence, unspecified, uncomplicated; Z91.018 Allergy to other foods; Z88.2 Allergy status to sulfonamides; Z91.09 Other allergy status, other than to drugs and biological substances
CPT/HCPCS: 99211

== ENCOUNTER → 2022-05-06 | Outpatient (CLI) | payer OTHER | END | disposition home or self-care (01) | LOC: LABWHC1 09:48 | PROVIDERS: ATTEND Family Medicine | DX: E27.1 Primary adrenocortical insufficiency (principal) | CPT/HCPCS: 36415; 84140 ==

== ENCOUNTER 2022-05-15 08:26 | Day surgery (SDC) | payer OTHER ==
[2022-05-15 09:05] VITALS: RESP 16; TEMP 96.8
[2022-05-15] MEDS ORDERED: MIDAZOLAM 2 MG/2 ML VIAL ONE (09:06)
[2022-05-15] MEDS ORDERED: ROPIVACAINE 5 MG/ML 20 ML AMPULE ONE (09:06)
[2022-05-15] MEDS ORDERED: TRIAMCINOLONE ACETONIDE 40 MG/ML 1 ML VIAL ONE (09:06)
[2022-05-15 09:11] LABS: Glucose,Whole Blood 115 mg/dL (70-110)
--- NOTE | 2022-05-15 09:19 | P.PCN ---
Date of Procedure: 05/15/22 Surgeon: Jakub Patiño Pathology: none sent Condition: stable Disposition: PACU Description of Procedure: PREOPERATIVE DIAGNOSIS : 1- Lumbar spondylosis with Facet Arthropathy without myelopathy . 2- Lumber degenerative disc disease POSTOPERATIVE DIAGNOSIS: 1- Lumbar spondylosis with Facet Arthropathy without myelopathy . 2- Lumber degenerative disc disease PROCEDURE: Diagnostic Right L4 -5 , and L5-S1 medial branch block under fluoroscopy Physician: Jakub Patiño MD ANESTHESIA: Local with 1% lidocaine; IV moderate conscious sedation with Versed 2 mg . EBL: Negligible COMPLICATION: None. PROCEDURE INDICATION: Chronic low back pain secondary to Facet arthropathy unresponsive to conservative treatment. PROCEDURE DESCRIPTION: the patient was seen and identified in the preop holding area , risks and benefits and possible complications of the procedure and alternatives were discussed with the patient, and the patient agreed to proceed with the procedure and signed the consent. IV was started and vital signs monitored during the procedure and fluoroscopy was used to maximize the benefit and accuracy of the needle placement, sedation was given to decrease patient anxiety, patient was taken to the procedure room and placed in prone position vital signs monitored. The patient was brought into the procedure room and placed in prone position. Skin was prepped with Chloraprep and draped in a sterile manner. Lidocaine 1% was used to numb the skin up at the target points that were chosen as follows: at the L5-S1 level which corresponds to the dorsal ramus of L5 the target points were at the superior medial aspect of the sacral ala on each side of the spine on the AP view of fluoroscopy, and for theL3 and L4 medial branches the target points were the connection between the transverse process and the superior articular process of L4 and L5 respectively on the oblique views of fluoroscopy. I used 22-gauge 5 inch Quincke spinal needles for this procedure and after contacting bone at the target points mentioned above I injected 1 mL of a mixture of Kenalog 40 mg +2 MLS of Ropivacaine 0.5% PF . Patient tolerated procedure well. At the end of the procedure the needles removed and a bandage applied after the skin was cleaned the cleaning solution. patient was then taken to the recovery room in stable condition and monitored in the recovery room for 20-30 minutes and discharged home in stable condition after discharge criteria met . A copy of the needle placement picture was saved to the C-arm machine.
[2022-05-15] MEDS ORDERED: IV FLUID CONTINUATION 900 ML IV ONE (09:25)
[2022-05-15 09:40] VITALS: BP 132/62; PULSE 85
--- NOTE | 2022-05-15 12:19 | FL ---
Fluoroscopy HISTORY: Pain 9 seconds fluoroscopy time supplied to the referring clinician. 2 intraoperative C-arm images docume nt the procedure. See dictated report from anesthesia.
== END 2022-05-15 10:00 | disposition home or self-care (01) ==
LOC: ORPAIN 08:26
PROVIDERS: ATTEND Anesthesiology
DX: M47.817 Spondylosis without myelopathy or radiculopathy, lumbosacral region (principal); M51.37 Other intervertebral disc degeneration, lumbosacral region; E66.9 Obesity, unspecified; I45.10 Unspecified right bundle-branch block; J45.909 Unspecified asthma, uncomplicated; E88.81 Metabolic syndrome and other insulin resistance; E07.9 Disorder of thyroid, unspecified; R41.3 Other amnesia; K21.9 Gastro-esophageal reflux disease without esophagitis; K92.2 Gastrointestinal hemorrhage, unspecified; Z68.42 Body mass index [BMI] 45.0-49.9, adult; Z79.899 Other long term (current) drug therapy; Z88.2 Allergy status to sulfonamides; Z88.8 Allergy status to other drugs, medicaments and biological substances; Z91.018 Allergy to other foods
CPT/HCPCS: 64493; 64494; J2250; J3301; J2795

== ENCOUNTER → 2022-05-28 | Outpatient (CLI) | payer OTHER ==
--- NOTE | 2022-05-28 09:49 | P.PN ---
Subjective Progress Note Date: 05/28/22 This is follow up visit for 52 years old female with a chronic history of severe low back pain patient diagnosed with right sacroiliitis, and lumbar degenerative disc disease, spondylosis with lumbar facet arthropathy, patient had physical therapy in the past without any significant relief of her pain she tried home exercise, Recently, we have done a right facet injection at L4 5 and L5-S1 and she is here for follow-up visit after the injection she reported that her pain level was 9/10 before the injection dropped to 2-3/10 after the injection, the pain relief was only for short time, and she continued to have severe low back pain and she is currently on baclofen and [place] which is helping to some degree, she had lumbar epidural steroid injection without any significant relief of her pain, currently she is complaining of severe low back pain mainly on the right side with radiation to the right buttock area , she denies any motor or sensory deficit and she reported that the pain is constant and increases with any activity interfere with her quality of life, Physical Examinations : -Constitutiona : Cooperative , not in acute distress . -HEENT : nech : supple , no Lymphadenopathy , normal thyroid size . : eyes : no ptosis , no icterus, no photophobia . - neurologic : Cranial nerve II to XII intact , no focal neurological deffecit . -psychatric : alert , oriented X 3 , appropriate affect , intact judgment and insight . -Lymphatic : no Lymphadenopathy . - musculoskeltal : Lumber spine moter stegnth lower extremities ,thigh and legs 5/5 Right side , 5/5 Left side deep tendon reflexes : normal Knee Jerk , normal ankle Jerk lumber facet Loading Test =positive Right , negative Left Range of motion of the lumbar spine Flexion 30 degrees, extension 10 degrees strait leg raising test = positive at 30 degree on the right side , negative on the left side Fabere test= negative bilaterally . Sever tenderness over the Sacroiliac joint on the Right . Gaenslen test= positive right ,and negative left . Seated flexion test= positive right ,and negative Left . Distraction test= positive bilaterally Sacroiliac compression test= positive right side Results Comments: MRI of the lumbar spine= multilevel lumbar degenerative disc disease, multilevel lumbar spondylosis with lumbar facet arthropathy. MRI of the Right sacroiliac joint= no sacroiliitis Assessment and Plan Plan: Assessment and plan=1-Right sacroiliitis. 2-lumbar spondylosis with lumbar facet arthropathy. 3-Lumbar degenerative disc disease. Patient will be good candidate for second right medial branch block at L4 5 and L5-S1 injection under fluoroscopy guidance PQRS Measure Charge Sheet Measure #130: Documentation of Current Meds in Medical Chart: Patient's medications documented in chart Measure #226: Tobacco Use: Screen & Cessation Intervention: Pt not a tobacco user Measure #111: Pneumonia Vaccination: Pneumococcal vaccine NOT administered or previously given Measure #47: Advance Care Plan: Advance care planning discussed & documented, pt chose/unable to give Measure #412: Opioid Treatment Agreement: No documentation of signed opioid treatment agreement Measure #408: Opioid Therapy Follow-up Evaluation: Patient had NO f/u eval min imum every 3 months during opioid therapy Measure #317: Preventitive Care & Scrn High Bld Press & F/U: Normal blood pressure, f/u not required Measure #128: Body Mass Index (BMI) Screening & Follow-up: BMI documented ABOVE normal parameters - f/u documented Measure #131: Pain Assessment & Follow-up: Pain positive & plan documented, Follow-up scheduled Measure #431: Unhealthy Alcohol Use Preventative Care & Scrn: Patient not identified as an unhealthy alcohol user Mode of Arrival: Ambulatory Objective - Vital Signs Vital signs: Intake & Output 05/27/22 05/28/22 05/28/22 18:59 06:59 18:59 Weight 128.82 kg
[2022-05-28 09:59] VITALS: BP 135/99; PULSE 114; RESP 18; TEMP 98.2
== END ==
LOC: PNWHC3 09:13
PROVIDERS: ATTEND Specialist
DX: M47.816 Spondylosis without myelopathy or radiculopathy, lumbar region (principal); M46.1 Sacroiliitis, not elsewhere classified; M51.36 Other intervertebral disc degeneration, lumbar region; Z91.018 Allergy to other foods; Z91.09 Other allergy status, other than to drugs and biological substances; Z88.2 Allergy status to sulfonamides; F17.200 Nicotine dependence, unspecified, uncomplicated
CPT/HCPCS: 99211

== ENCOUNTER → 2022-06-05 | Outpatient (CLI) | payer OTHER ==
--- NOTE | 2022-06-05 15:58 | XR ---
EXAMINATION TYPE: XR Hip Bilateral Complete DATE OF EXAM: 06/05/2022 COMPARISON: NONE HISTORY: Pain TECHNIQUE: 2 views submitted FINDINGS: There is no evidence of erosive change or acute fracture. Mild concentric narrowing of the joint spac e. Hypertrophic changes of the acetabulum. IMPRESSION: 1. Mild arthropathy correlate for femoral acetabular impingement.
== END | disposition home or self-care (01) ==
LOC: LABWHC1 15:28
PROVIDERS: ATTEND Family Medicine
DX: M25.551 Pain in right hip (principal); M25.552 Pain in left hip
CPT/HCPCS: 73521

== ENCOUNTER → 2022-06-25 | Outpatient (CLI) | payer OTHER ==
--- NOTE | 2022-06-25 11:17 | XR ---
EXAMINATION TYPE: XR knee complete bilateral DATE OF EXAM: 06/25/2022 COMPARISON: NONE HISTORY: Pain TECHNIQUE: Three views are submitted. FINDINGS: Severe narrowing of medial compartment and patellofemoral compartment joints with hypertrophic spurri ng bilaterally. No erosive changes. No acute fracture or dislocation. Vascular calcification and soft tissue calcification noted. IMPRESSION: 1. Severe osteoarthritis bilaterally
--- NOTE | 2022-06-25 11:31 | XR ---
EXAMINATION TYPE: XR thoracic spine complete DATE OF EXAM: 06/25/2022 COMPARISON: NONE HISTORY: Pain TECHNIQUE: 3 views submitted FINDINGS: Alignment is anatomic. There is no compression deformities. There is multilevel hypertrophic and deg enerative changes of the spine. Postsurgical changes lower cervical spine. Surgical clips right upper quadrant. IMPRESSION: 1. Multilevel moderate to severe degenerative disc disease.
== END | disposition home or self-care (01) ==
LOC: RADXRMAIN 10:08
PROVIDERS: ATTEND Family Medicine
DX: M17.0 Bilateral primary osteoarthritis of knee (principal); M51.34 Other intervertebral disc degeneration, thoracic region
CPT/HCPCS: 72072

== ENCOUNTER → 2022-07-22 | Outpatient (CLI) | payer OTHER | END | disposition home or self-care (01) | LOC: LABWHC1 08:34 | PROVIDERS: ATTEND Nurse Practitioner | DX: D50.9 Iron deficiency anemia, unspecified (principal); E66.01 Morbid (severe) obesity due to excess calories; J45.909 Unspecified asthma, uncomplicated; J44.9 Chronic obstructive pulmonary disease, unspecified; R05.9 Cough, unspecified; R53.83 Other fatigue; R51.9 Headache, unspecified; M54.9 Dorsalgia, unspecified | CPT/HCPCS: 36415; 83516 ==

== ENCOUNTER 2022-08-06 11:58 | Day surgery (SDC) | payer OTHER ==
[2022-08-06] MEDS ORDERED: LIDOCAINE 1% (10MG/ML) FOR IV START INTRADERMA PRN (12:23)
[2022-08-06] MEDS ORDERED: LACTATED RINGERS 1,000 ML IV SCH ×2 (12:23→13:45)
[2022-08-06 12:55] VITALS: TEMP 97.9
[2022-08-06] MEDS ORDERED: TRIAMCINOLONE ACETONIDE 40 MG/ML 1 ML VIAL ONE (13:25)
[2022-08-06] MEDS ORDERED: ROPIVACAINE 5 MG/ML 20 ML AMPULE ONE (13:25)
--- NOTE | 2022-08-06 13:39 | P.PCN ---
Date of Procedure: 08/06/22 Description of Procedure: PREOPERATIVE DIAGNOSIS : 1- Lumbar spondylosis with Facet Arthropathy without myelopathy . 2- Lumber degenerative disc disease POSTOPERATIVE DIAGNOSIS: 1- Lumbar spondylosis with Facet Arthropathy without myelopathy . 2- Lumber degenerative disc disease PROCEDURE: Diagnostic Right L4 -5 , and L5-S1 medial branch block under fluoroscopy Physician: Charli Hamlin MD ANESTHESIA: Local with 1% lidocaine 6ml EBL: Negligible COMPLICATION: None. PROCEDURE INDICATION: Chronic low back pain secondary to Facet arthropathy unresponsive to conservative treatment. PROCEDURE DESCRIPTION: the patient was seen and identified in the preop holding area , risks and benefits and possible complications of the procedure and alternatives were discussed with the patient, and the patient agreed to proceed with the procedure and signed the consent. vital signs monitored during the procedure and fluoroscopy was used to maximize the benefit and accuracy of the needle placement, patient was taken to the procedure room and placed in prone position vital signs monitored. The patient was brought into the procedure room and placed in prone position. Skin was prepped with Chloraprep and draped in a sterile manner. Lidocaine 1% was used to numb the skin up at the target points that were chosen as follows: at the L5-S1 level which corresponds to the dorsal ramus of L5 the target points were at the superior medial aspect of the sacral ala on each side of the spine on the AP view of fluoroscopy, and for theL3 and L4 medial branches the target points were the connection between the transverse process and the superior articular process of L4 and L5 respectively on the oblique views of fluoroscopy. I used 22-gauge 5 inch Quincke spinal needles for this procedure and after contacting bone at the target points mentioned above I injected 1 mL of a mixture of Kenalog 40 mg +2 MLS of Ropivacaine 0.5% PF . Patient tolerated procedure well. At the end of the procedure the needles removed and a bandage applied after the skin was cleaned the cleaning solution. patient was then taken to the recovery room in stable condition and monitored in the recovery room for 20-30 minutes and discharged home in stable condition after discharge criteria met . A copy of the needle placement picture was saved
[2022-08-06 13:47] VITALS: RESP 15
--- NOTE | 2022-08-06 13:56 | FL ---
EXAMINATION TYPE: FL guided pain mgmt statistic DATE OF EXAM: 08/06/2022 HISTORY: Fluoroscopy time 9 seconds of fluoroscopy provided. IMPRESSION: 1. Fluoroscopy time.
[2022-08-06 14:01] VITALS: BP 131/78; PULSE 98
== END 2022-08-06 14:14 | disposition home or self-care (01) ==
LOC: ORPAIN 11:58
PROVIDERS: ATTEND Anesthesiology
DX: G89.29 Other chronic pain (principal); M47.816 Spondylosis without myelopathy or radiculopathy, lumbar region; M51.36 Other intervertebral disc degeneration, lumbar region
CPT/HCPCS: 64493; 64494; J3301; J2795

== ENCOUNTER → 2022-08-24 | Outpatient (CLI) | payer OTHER ==
[2022-08-24 09:04] VITALS: BP 136/87; PULSE 102; RESP 16
--- NOTE | 2022-08-24 14:41 | P.PAINPG ---
PQRS Measure Charge Sheet Comment: A 52 yr old female with a history of severe and chronic low back pain secondary to lumbar degenerative disc diseases and lumbar spondylosis with facet arthropathy without myelopathy presents today for evaluation s/p R MBB L4-L5, L5-S1 #2. Pt states she experienced 90% pain relief x 7 days s/p procedure. Pa in level is currently at 3/10 in intensity, constant, localized in the lwoer lubmar spine, achy in character w shooting towards the BLEs. Pain is provoked as high as 7/10 by sitting upright for periods of 20 min or more, standing/ walking for periods of 15 min or more. Pain is alleviated with PT in 2019, home guided stretches daily, massage gun as needed, chiropractic treatments which provoked pain, heat, ice, meds, topicals, repositioning and rest. Interventional pain procedures completed include R MBB L3-L5 x2 Patient is currently on [place], Baclofen, Indomethacin Patient denies any side effects of the medication(s), denies excessive drowsiness or sleepiness, denies suicidal ideation and reports that the current pain medication is helping to control the pain and improve activities of daily living. Patient denies any motor or sensory deficits. Patient denies any fever or night sweats, denies any change in the bowel movements or urination. Physical Examination: -Constitutional: Cooperative. Not in acute distress . - Neurologic: Cranial nerve II to XII intact. No focal neurological deficits. - Psychatric: Alert & oriented x 3. Matching mood & appropriate affect. Judgment and insight intact. - Musculoskeletal: Cervical spine: Muscle bulk/ tone/ strength in the bilateral upper extremities normal Vertebral body tenderness to palpation over [place] test positive Distraction test positive Facet loading test positive Thoracic spine Muscle bulk / tone/ strength in the bilateral paraspinal muscles normal Vertebral body tender to palpation over Facet loading test positive Lumbar spine: Motor bulk/ tone/ strength lower extremities , thigh and legs : 5/5 Deep tendon reflexes : Normal Knee Jerk. Normal Ankle Jerk . Vertebral body tenderness to palpation over Lumbar Facet Loading Test positive over R L4-L5, L5-S1 w R lateral flexion and TTP w palpation over the facets Straight Leg Raise: positive at 30 degrees right side/ left side Gaenslen's Test positive Sacral spine : Severe tenderness over the Sacroiliac joint: right side / left side Range of motion: Flexion of the lumbar spine <60 degrees Range of motion: Extension of the lumbar spine <20 degrees Gaenslen's Test positive Kevan's Test positive [place] test: positive right side / left side Thigh Thrust Test Sacral Thrust Test Assessment and plan: Chronic low back pain secondary to lumbar degenerative disc disease , lumbar spondylosis with facet arthropathy without myelopathy Recommendation of R RFA L4-L5, L5-S1. Pt exhibited sufficient and satisfactory short term pain relief w prior MBB procedures. Risks, benefits of procedure discussed and pt verbalized understanding. Denies anticoagulant use or medical history of diabetes. All patient questions answered I have spent less than 30 minutes on patient care today. Dr Moreno was available by phone for the evaluation of this patient. The time was used to review the medical records including relevant urine studies and Prescription history (MAPs), review of the available imaging, evaluation and examination of the patient, coordination of care with the medical staff and if applicable referring physicians, as well as creation of the medical record PQRS Narrative: Smoking Status Current every day smoker Hx Alcohol Use (MH) No Home Medications: Ambulatory Orders Albuterol Inhaler [Ventolin Hfa Inhaler] 2 puff INHALATION RT-Q6H PRN 11/30/17 Furosemide [Lasix] 20 - 40 mg PO DAILY PRN 07/19/19 Simethicone [Gas-X] 125 mg PO DIRECTED PRN 12/18/19 Baclofen [Lioresal] 10 mg PO TID PRN #60 tab 12/04/20 Thyroid,Pork [[place] Thyroid] 7.5 mg PO DAILY 07/04/21 traZODone HCL [Desyrel] 100 mg PO HS 07/04/21 Indomethacin [Indocin] 50 mg PO TID 10/30/21 Omeprazole [PriLOSEC] 20 mg PO BID 10/30/21 Liraglutide [Victoza 2-John] 1.2 mg SQ HS 11/25/21 HYDROcodone/APAP 10-325MG [[place] 10-325] 1 tab PO Q6H PRN 04/08/22 Methylphenidate HCl [Ritalin] 20 mg PO DAILY 04/08/22 Amoxicillin 875 mg PO Q12HR 05/14/22 Hydrocortisone [Cortef] 7.5 mg PO DAILY 05/14/22 Controlled Substance Measures - Controlled Substance Measures Is patient prescribed a controlled substance at discharge?: No
== END ==
LOC: PNWHC3 08:33
PROVIDERS: ATTEND Specialist
DX: M47.816 Spondylosis without myelopathy or radiculopathy, lumbar region (principal); M51.36 Other intervertebral disc degeneration, lumbar region; G89.29 Other chronic pain; Z88.2 Allergy status to sulfonamides; Z91.018 Allergy to other foods; Z91.048 Other nonmedicinal substance allergy status; F17.200 Nicotine dependence, unspecified, uncomplicated
CPT/HCPCS: 99211

== ENCOUNTER → 2022-09-03 | Outpatient (CLI) | payer OTHER ==
--- NOTE | 2022-09-03 11:13 | XR ---
EXAMINATION TYPE: XR hand complete bilateral DATE OF EXAM: 09/03/2022 11:03 AM INDICATION: Patient age:Female; 52 years old; Reason for study: [id number]; [facility]. COMPARISON: Right hand radiographs 04/22/2018. TECHNIQUE: Both hands are examined in AP, lateral, and oblique projections. FINDINGS: Normal alignment of the visualized joints. No acute osseous pathology is identified. No e vidence of soft tissue swelling. Postsurgical changes of the right hand with resection of the trapezi um. No osseous erosions. No radiopaque foreign bodies. IMPRESSION: 1. No acute fracture. 2. Postsurgical changes resection of the right trapezium.
== END | disposition home or self-care (01) ==
LOC: RADXRMAIN 10:24
PROVIDERS: ATTEND Family Medicine
DX: M79.641 Pain in right hand (principal); M79.642 Pain in left hand

== ENCOUNTER → 2022-10-02 | Outpatient (CLI) | payer OTHER ==
--- NOTE | 2022-10-02 14:21 | XR ---
EXAMINATION TYPE: XR shoulder complete RT DATE OF EXAM: 10/02/2022 COMPARISON: NONE HISTORY: Pain TECHNIQUE: Three views are submitted. FINDINGS: The osseous structures are intact. There is no acute fracture or dislocation. Moderate AC joint arth ropathy.. IMPRESSION: 1. AC joint arthropathy. If concern for rotator cuff injury correlate with MRI..
== END | disposition home or self-care (01) ==
LOC: RADXRMAIN 13:49
PROVIDERS: ATTEND Family Medicine
DX: M19.011 Primary osteoarthritis, right shoulder (principal); M25.511 Pain in right shoulder

== ENCOUNTER 2022-10-13 06:53 | Day surgery (SDC) | payer OTHER ==
[2022-10-09 12:20] VITALS: BMI 43.0
[2022-10-13 07:17] VITALS: RESP 16; TEMP 97
[2022-10-13] MEDS ORDERED: LACTATED RINGERS 1,000 ML IV ONE (07:17)
[2022-10-13] MEDS ORDERED: ROPIVACAINE 5 MG/ML 20 ML AMPULE ONE (07:53)
[2022-10-13] MEDS ORDERED: methylPREDNISolone ACETATE 40 MG/ML 1 ML VIAL ONE (07:53)
[2022-10-13] MEDS ORDERED: MIDAZOLAM 2 MG/2 ML VIAL ONE (07:53)
[2022-10-13] MEDS ORDERED: fentaNYL (PF) 50 MCG/ML 2 ML AMP ONE (07:53)
--- NOTE | 2022-10-13 08:16 | P.PCN ---
Date of Procedure: 10/13/22 Procedure(s) Performed: PREOPERATIVE DIAGNOSIS: 1-Lumbar Spondylosis with Facet Arthropathy without myelopathy. 2- Lumber degenerative disc disease. POSTOPERATIVE DIAGNOSIS: 1- Lumbar Spondylosis with Facet Arthropathy without myelopathy. 2- Lumber degenerative disc disease. PROCEDURES : Right Radiofrequency thermocoagulation, L3 , L4 , and L5 medial branch, with fluoroscopic guidance (fluoroscopy images available in the radiology department) ( to denervate the facet joint at Right L4-5 ,and L5-S1 levels ). ANESTHESIA: Moderate sedation with intravenous versed 2 mg and fentaneyl 100 mcg, and local infiltration with Ropivacaine 0.5 % . Sedation started at 0 757, and ended at 0813 EBL: Minimal PROCEDURE INDICATION: The patient with low back pain secondary to lumbar facet arthropathy who had more than 80% relief of her pain with previous diagnostic lumbar medial branch block with bupivacaine. PROCEDURE DESCRIPTION / TECHNIQUE: The patient was seen and identified in the preoperative area. Risks, benefits, complications, including but not limited to risk of infection ,bleeding , allergic reactions to the medications and no complete pain releife , and alternatives were discussed with the patient, the patient agreed to proceed with the procedure and signed the consent. IV was started. Vital signs remained stable throughout the procedure. Patient was taken to the OR and time out was completed. The patient was placed in the prone position on the procedure table. The lumber area was prepped and draped in the usual sterile fashion. . Vital signs were closely monitored during the procedure .IV sedation was used during the procedure to decrease patients anxiety. Using AP and then oblique fluoroscopy, the ``eye of the Michael dog corresponding to the connection between the superior and transverse articular p rocesses of right L3, L4, and L5 were identified, marked, and localized with 1% lidocaine. Subsequently, a 18 -zd radiofrequency cannula with a 10- mm active tip was advanced guided by fluoroscopy to each of the``eyes of the Michael dog at right L3, L4, and L5. Each site then underwent sensory testing at 50 Hz and 0 to 1 volt and motor testing at 2.5 Hz and 0 to 3 volt with local stimulation, but no radicular symptoms down the legs. Thereafter each sites underwent radiofrequency thermocoagulation at 80 degrees celsius for 90 seconds after injecting 0.5 ml of PF Ropivacaine 1ml, then after the thermocoagulation done , 1 ml of the block solution containing Depo-Medrol 20 mg and 3 ml of Ropivacaine 0.5% was injected at the right L3 , L4 , and L5 , levels after negative aspiration of CSF and blood and with no paresthesias. Cannulas were retracted while injecting lidocaine 1% until the needle is out. At the end of the procedure, the skin was cleansed and bandages were applied. COMPLICATIONS: No acute complications. DISPOSITION / PLANS: The patient was placed in a supine position and transferred to the recovery area in a stable condition for observation and was discharged from the recovery room after meeting discharge criteria. Home discharge instructions given to the patient by the staff. The patient was reexamined prior to discharge. The patient will schedule a follow up in the clinic in 2-4 weeks.
[2022-10-13] MEDS ORDERED: IV FLUID CONTINUATION 1,000 ML IV ONE (08:19)
[2022-10-13 08:27] VITALS: PULSE 82
[2022-10-13 08:37] VITALS: BP 137/84
--- NOTE | 2022-10-13 09:05 | FL ---
EXAMINATION TYPE: FL guided pain mgmt statistic DATE OF EXAM: 10/13/2022 HISTORY: Fluoroscopy time 11 seconds of fluoroscopy provided. IMPRESSION: 1. Fluoroscopy time.
== END 2022-10-13 08:48 | disposition home or self-care (01) ==
LOC: ORPAIN 06:53
PROVIDERS: ATTEND Specialist
DX: M51.36 Other intervertebral disc degeneration, lumbar region (principal); M47.816 Spondylosis without myelopathy or radiculopathy, lumbar region; Z88.2 Allergy status to sulfonamides
CPT/HCPCS: 64635; 64636; 99152; J2250; J1030; J3010; J2795

== ENCOUNTER → 2022-11-02 | Outpatient (CLI) | payer OTHER ==
[2022-11-02 10:04] VITALS: BP 127/82; PULSE 108; RESP 18; TEMP 97.6
--- NOTE | 2022-11-02 14:46 | P.PAINPG ---
Objective - Vital Signs Vital signs: Intake & Output 11/01/22 11/02/22 11/02/22 18:59 06:59 18:59 Weight 122.47 kg PQRS Measure Charge Sheet Comment: A 52 yr old female with a history of severe and chronic low back pain secondary to lumbar DDD and spondylosis with facet arthropathy without myelopathy presents today for evaluation s/p R RFA L3-L5. Pt states she experienced 95 % pain relief x 1 day s/p procedure. Pain level is currently at 6 /10 in intensity, constant, localized in the lumbar spine, sharp/ stabbing in character w shooting towards the BLEs. Pain is provoked by twisting, lifting, sitting for periods of 15 min or more. Pain is alleviated with PT in 2019, home exercise daily, massage gun use dialy, heat, ice, meds ([place], Muscle relaxer), lumbar support brace, topicals, repositioning and rest. Interventional pain procedures completed include R RFA L3-L5 Patient is currently on [place], muscle relaxer. Patient denies any side effects of the medication(s), denies excessive drowsiness or sleepiness, denies suicidal ideation and reports that the current pain medication is helping to control the pain and improve activities of daily living. Patient denies any motor or sensory deficits. Patient denies any fever or night sweats, denies any change in the bowel movements or urination. Physical Examination: -Constitutional: Cooperative. Not in acute distress . - Neurologic: Cranial nerve II to XII intact. No focal neurological deficits. - Psychatric: Alert & oriented x 3. Matching mood & appropriate affect. Judgment and insight intact. - Musculoskeletal: Cervical spine: Muscle bulk/ tone/ strength in the bilateral upper extremities normal Vertebral body tenderness to palpation over Spurling test positive Distraction test positive Facet loading test positive Thoracic spine Muscle bulk / tone/ strength in the bilateral paraspinal muscles normal Vertebral body tender to palpation over Facet loading test positive Lumbar spine: Motor bulk/ tone/ strength lower extremities , thigh and legs : 5/5 Deep tendon reflexes : Normal Knee Jerk. Normal Ankle Jerk . Vertebral body tenderness to palpation over Lumbar Facet Loading Test positive Straight Leg Raise: positive at 30 degrees right side/ left side Gaenslen's Test positive Sacral spine : Severe tenderness over the Sacroiliac joint: right side / left side Range of motion: Flexion of the lumbar spine <60 degrees Range of motion: Extension of the lumbar spine <20 degrees Gaenslen's Test positive R>L [place] test: positive right side > left side Thigh Thrust Test Sacral Thrust Test BL Assessment and plan: Chronic low back pain secondary to lumbar degenerative disc disease, spondylosis with facet arthropathy without myelopathy Recommendation of BL SI injections. May need a series of injections, up to every 3 mo, for optimal pain relief. Risks, benefits of procedure discussed and pt verbalized understanding. Admits to anticoagulant use or medical history of diabetes. Protocol for discontinuation/ continuation of medications flip procedure discussed. All patient questions answered I have spent less than 30 minutes on patient care today. Dr Moreno was available by phone for the evaluation of this patient. The time was used to review the medical records including relevant urine studies and Prescription history (MAPs), review of the available imaging, evaluation and examination of the patient, coordination of care with the medical staff and if applicable referring physicians, as well as creation of the medical record PQRS Narrative: Smoking Status Current every day smoker Hx Alcohol Use (MH) No Home Medications: Ambulatory Orders Albuterol Inhaler [Ventolin Hfa Inhaler] 2 puff INHALATION RT-Q6H PRN 11/30/17 Furosemide [Lasix] 20 - 40 mg PO DAILY PRN 07/19/19 Baclofen [Lioresal] 10 mg PO TID PRN #60 tab 12/04/20 Thyroid,Pork [[place] Thyroid] 7.5 mg PO DAILY 07/04/21 traZODone HCL [Desyrel] 100 mg PO HS 07/04/21 Indomethacin [Indocin] 50 mg PO TID 10/30/21 Omeprazole [PriLOSEC] 20 mg PO BID 10/30/21 Liraglutide [Victoza 2-John] 0.6 mg SQ HS 11/25/21 HYDROcodone/APAP 10-325MG [[place] 10-325] 1 tab PO Q6H PRN 04/08/22 Methylphenidate HCl [Ritalin] 20 mg PO DAILY 04/08/22 Controlled Substance Measures - Controlled Substance Measures Is patient prescribed a controlled substance at discharge?: No
== END ==
LOC: PNWHC3 09:31
PROVIDERS: ATTEND Specialist
DX: M47.816 Spondylosis without myelopathy or radiculopathy, lumbar region (principal); M51.36 Other intervertebral disc degeneration, lumbar region; F17.200 Nicotine dependence, unspecified, uncomplicated; Z88.2 Allergy status to sulfonamides; Z91.018 Allergy to other foods; Z91.048 Other nonmedicinal substance allergy status
CPT/HCPCS: 99211

== ENCOUNTER 2023-02-04 08:53 | Day surgery (SDC) | payer OTHER ==
[~2023-02-04 08:53] MED LIST changes: +LIDOCAINE 1% (10MG/ML) FOR IV START INTRADERMA PRN
[2023-02-04 09:31] LABS: Glucose,Whole Blood 102 mg/dL (70-110)
[2023-02-04 09:33] VITALS: RESP 16; TEMP 96.8
[2023-02-04] MEDS ORDERED: methylPREDNISolone ACETATE 80 MG/ML 1 ML VIAL ONE (10:08)
[2023-02-04] MEDS ORDERED: ROPIVACAINE 5 MG/ML 20 ML AMPULE ONE (10:08)
--- NOTE | 2023-02-04 10:23 | P.PCN ---
Date of Procedure: 02/04/23 Procedure(s) Performed: Procedure= bilateral sacroiliac joints steroid injection under fluoroscopy guidance (fluoroscopy image stored on file in the radiology Department ) Preoperative diagnosis= 1-sacroiliitis 2-lumbar degenerative disc disease 3- lumbar facet arthropathy Postoperative diagnosis=Same as preop Diagnosis . Complication = none Condition= stable Anesthesia= local anesthesia with lidocaine 1% 5 ml only Indication for the procedure= patient complaining of low back pain , examination was positive for severe tenderness over the sacroiliac joints bilaterally and patient diagnosed with sacroiliitis, for this reason she was good candidate for sacroiliac joint steroid injection. Description of the procedure= procedure risk and benefits discussed with the patient, including but not limited, risk of infection and bleeding, and ALLERGIC reaction to the medication and not complete pain relief and patient agreed with the preceding patient taken to the operating room, placed in prone position or standard monitors applied to the patient then after induction of anesthesia back prepped with chlorhexidine 3 times , Then under strict sterile technique, first I did the right sacroiliac joint the which was identified under fluoroscopy guidance been local infiltration of the skin and subcu interstitial with lidocaine 1% then 22-gauge 5 inches long Quincke Needle advanced slowly under fluoroscopy and placed in the right sacroiliac joint needle placement confirmed with AP and oblique and lateral view and after appropriate needle placement confirmed and after negative aspiration, or heme , then Ropivacaine 0.5% 4 mL, and 40 mg of Depo-Medrol mixed together and injected in the right sacroiliac joint after negative aspiration patient tolerated the procedure well without any complication. Then the left sacroiliac joint steroid injection done under strict sterile technique local infiltration of the skin and subcu interstitial at the location of the left sacroiliac joint then a 22-gauge 5 inches long Quincke Needle advanced slowly under fluoroscopy time placed in the left sacroiliac joint, needle placement confirmed with AP and oblique and lateral view then after appropriate needle placement confirmed and after negative aspiration 0.5% Ropivacaine 4 mL and 40 mg of Depo-Medrol injected in the left sacroiliac joint after negative aspiration patient tolerated the procedure well that any complications and she will follow up in clinic 3 weeks
[2023-02-04 10:49] VITALS: BP 109/77; PULSE 103
--- NOTE | 2023-02-04 11:20 | FL ---
Intraoperative/procedural fluoroscopic services were provided. Total fluoroscopy time is 6 seconds wi th a total of 2 submitted images to PACS. Please see the operative/procedural note for further detail s. DAP: 0.80627
== END 2023-02-04 10:58 | disposition home or self-care (01) ==
LOC: ORPAIN 08:53
PROVIDERS: ATTEND Specialist
DX: M46.1 Sacroiliitis, not elsewhere classified (principal); M51.36 Other intervertebral disc degeneration, lumbar region; M47.816 Spondylosis without myelopathy or radiculopathy, lumbar region; Z88.9 Allergy status to unspecified drugs, medicaments and biological substances
CPT/HCPCS: J1040; J2795; G0260

== ENCOUNTER → 2023-02-24 | Outpatient (CLI) | payer OTHER ==
[2023-02-24 10:56] VITALS: BP 136/97; PULSE 129; RESP 18
--- NOTE | 2023-02-24 14:33 | P.PAINPG ---
PQRS Measure Charge Sheet Comment: A 52 yr old female with a history of severe and chronic LBP secondary to lumbar DDD and spondylosis with facet arthropathy without myelopathy, BL Sacroiliitis presents today for evaluation s/p BL SI injection. Pt states she experienced 50 % pain relief x 3 wks s/p procedure. Pain level is provoked at 6/10 in intensity, constant, localized in the R hip, throbbing in character w/o shooting pain. Pain is provoked by weight bearing activity. Pain is alleviated with medications, topicals, injections, heat, ice, PT in 2020, daily physician guided exercises, repositioning and rest. Interventional pain procedures completed include BL SI injection Patient is currently on [place], Baclofen Patient denies any side effects of the medication(s), denies excessive drowsiness or sleepiness, denies suicidal ideation and reports that the current pain medication is helping to control the pain and improve activities of daily living. Patient denies any motor or sensory deficits. Patient denies any fever or night sweats, denies any change in the bowel movements or urination. Physical Examination: -Constitutional: Cooperative. Not in acute distress . - Neurologic: Cranial nerve II to XII intact. No focal neurological deficits. - Psychatric: Alert & oriented x 3. Matching mood & appropriate affect. Judgment and insight intact. - Musculoskeletal: Cervical spine: Muscle bulk/ tone/ strength in the bilateral upper extremities normal Vertebral body tenderness to palpation over Spurling test positive Distraction test positive Facet loading test positive TTP Thoracic spine Muscle bulk / tone/ strength in the bilateral paraspinal muscles normal Vertebral body tender to palpation over Facet loading test positive TTP Lumbar spine: +R hip pain w abduction +R Hip Scour Test Motor bulk/ tone/ strength lower extremities , thigh and legs : 5/5 Deep tendon reflexes : Normal Knee Jerk. Normal Ankle Jerk . Vertebral body tenderness to palpation over Lumbar Facet Loading Test positive Straight Leg Raise: positive at 30 degrees right side/ left side Gaenslen's Test positive Sacral spine : Severe tenderness over the Sacroiliac joint: right side / left side Range of motion: Flexion of the lumbar spine <60 degrees Range of motion: Extension of the lumbar spine <20 degrees Gaenslen's Test positive right side / left side [place] test: positive right side / left side Thigh Thrust Test positive right side / left side Sacral Thrust Test positive right side / left side Assessment and plan: Chronic LBP secondary to lumbar DDD, spondylosis with facet arthropathy without myelopathy, BL Sacroiliitis, R Hip OA Recommendation of R hip injection. May need a series of injections for optimal pain relief. Risks, benefits of procedure discussed and pt verbalized understanding. Admits to anticoagulant use or medical history of diabetes. Protocol for discontinuation/ continuation of medications flip procedure discussed. All questions answered. I have spent less than 30 minutes on patient care today. Dr Moreno was available by phone for the evaluation of this patient. The time was used to review the medical records including relevant urine studies and Prescription history (MAPs), review of the available imaging, evaluation and examination of the patient, coordination of care with the medical staff and if applicable referring physicians, as well as creation of the medical record PQRS Narrative: Smoking Status Current every day smoker Hx Alcohol Use (MH) No Home Medications: Ambulatory Orders Albuterol Inhaler [Ventolin Hfa Inhaler] 2 puff INHALATION RT-Q6H PRN 11/30/17 Furosemide [Lasix] 20 - 40 mg PO DAILY PRN 07/19/19 Baclofen [Lioresal] 10 mg PO TID PRN #60 tab 12/04/20 traZODone HCL [Desyrel] 100 mg PO HS 07/04/21 Indomethacin [Indocin] 50 mg PO TID 10/30/21 Omeprazole [PriLOSEC] 20 mg PO BID 10/30/21 Liraglutide [Victoza 2-John] 0.6 mg SQ HS 11/25/21 HYDROcodone/APAP 10-325MG [[place] 10-325] 1 tab PO Q6H PRN 04/08/22 Methylphenidate HCl [Ritalin] 20 mg PO DAILY 04/08/22 predniSONE 5 mg PO DAILY 01/29/23 Controlled Substance Measures - Controlled Substance Measures Is patient prescribed a controlled substance at discharge?: No
== END ==
LOC: PNWHC3 09:43
PROVIDERS: ATTEND Specialist
DX: M51.36 Other intervertebral disc degeneration, lumbar region (principal); M46.1 Sacroiliitis, not elsewhere classified; M16.11 Unilateral primary osteoarthritis, right hip; M47.816 Spondylosis without myelopathy or radiculopathy, lumbar region; G89.29 Other chronic pain; F17.200 Nicotine dependence, unspecified, uncomplicated; Z91.018 Allergy to other foods; Z88.8 Allergy status to other drugs, medicaments and biological substances; Z88.2 Allergy status to sulfonamides; Z91.048 Other nonmedicinal substance allergy status
CPT/HCPCS: 99211

== ENCOUNTER 2023-03-18 11:46 | Day surgery (SDC) | payer OTHER ==
[2023-03-17 12:15] VITALS: BMI 41.6
[2023-03-18] MEDS ORDERED: LACTATED RINGERS 1,000 ML IV SCH (12:00)
[2023-03-18] MEDS ORDERED: LIDOCAINE 1% (10MG/ML) FOR IV START INTRADERMA PRN (12:00)
[2023-03-18 12:11] VITALS: RESP 16
[2023-03-18 12:14] LABS: Glucose,Whole Blood 102 mg/dL (70-110)
[2023-03-18] MEDS ORDERED: methylPREDNISolone ACETATE 40 MG/ML 1 ML VIAL ONE (12:21)
[2023-03-18] MEDS ORDERED: ROPIVACAINE 5 MG/ML 20 ML AMPULE ONE (12:21)
--- NOTE | 2023-03-18 12:26 | P.PCN ---
Date of Procedure: 03/18/23 Procedure(s) Performed: Pre OP diagnoses= Right trochanteric bursitis . Postoperative diagnosis= same as preop diagnosis Operation= Right trochanteric bursa steroid injection under fluoroscopy guidance.(The fluoroscopy images on file in Radiology department ) Anesthesia= local infiltration with Ropivacaine 1% 2 mL only Complications= none . Description of the procedure= patient had history of severe low back pain and hip pain secondary to trochanteric bursitis for this reason patient was a good candidate to have bilateral trochanteric bursa steroid injection which hopefully it will help his pain, risks and benefits of the procedure including but not limited to risk of infection and bleeding and not complete pain relief and ALLERGIC reaction to medication discussed with the patient and the alternative also discussed with the patient and he agreed with the preceding taken to the operating room placed in supine position OR standard monitors applied ,then the right hip area prepped with chlorhexidine 3 times, and under sterile technique using 25-gauge needle for skin and subcutaneous tissue infiltration was first admitted the right trochanteric bursa injection at 22-gauge Quincke- type spinal needle advanced slowly under fluoroscopy and placed in the right trochanteric bursa needle placement confirmed with AP and lateral view and after appropriate needle placement confirmed under fluoroscopy 5 ML of Ropivacaine 0.5% mixed with 40 mg of Depo-medrol injected after negative aspiration for heme , and there was no paresthesia during the injection and needle removed and a dressing applied, patient tolerated the procedure well without any complication and she will follow up with the pain clinic in a few weeks and patient discharged home in stable condition
[2023-03-18 12:34] VITALS: BP 137/91; PULSE 66
--- NOTE | 2023-03-18 12:44 | FL ---
EXAMINATION TYPE: FL guided pain mgmt statistic DATE OF EXAM: 03/18/2023 CLINICAL HISTORY: Low Back pain. TECHNIQUE: Fluoroscopy. COMPARISON: None. FINDINGS: Fluoroscopic guidance was provided during pain relief procedure performed by Dr. Moreno . A total of 3.3 seconds of fluoroscopic time was utilized during the procedure and 1 spot images ar e acquired. Single image acquired shows needle localization at the level of the greater trochanter. IMPRESSION: As Above. TOTAL DAP = 0.65223 mGy x m2.
== END 2023-03-18 12:57 | disposition home or self-care (01) ==
LOC: ORPAIN 11:46
PROVIDERS: ATTEND Specialist
DX: M70.61 Trochanteric bursitis, right hip (principal); Z88.8 Allergy status to other drugs, medicaments and biological substances
CPT/HCPCS: 20610; 77002; J1030; J2795

== ENCOUNTER 2023-04-07 10:27 | Day surgery (SDC) | payer OTHER ==
--- NOTE | 2023-04-07 09:30 | P.GSHP ---
History of Present Illness H&P Date: 04/07/23 CHIEF COMPLAINT: GERD and colon screen HISTORY OF PRESENT ILLNESS: The patient is a 52-year-old female who presents with gastroesophageal reflux disease and need for colon screen. Upper and lower endoscopy were offered for further evaluation and management. PAST MEDICAL HISTORY: Please see list. PAST SURGICAL HISTORY: Please see list. MEDICATIONS: Please see list. ALLERGIES: Please see list. SOCIAL HISTORY: No illicit drug use FAMILY HISTORY: No reports of Crohn disease or ulcerative colitis. REVIEW OF ORGAN SYSTEMS: CONSTITUTIONAL: No reports of fevers or chills. GI: Denies any blood in stools or constipation. PHYSICAL EXAM: VITAL SIGNS: Stable GENERAL: Well-developed pleasant in no acute distress. HEENT: No scleral icterus. Extraocular movements grossly intact. Moist buccal mucosa. NECK: Supple without lymphadenopathy. CHEST: Unlabored respirations. Equal bilateral excursions. CARDIOVASCULAR: Regular rate and rhythm. Distal 2+ pulses. ABDOMEN: Soft, nondistended. MUSCULOSKELETAL: No clubbing, cyanosis, or edema. ASSESSMENT: 1. Gastroesophageal reflux disease 2. Colon screen. PLAN: 1. Recommend proceeding with an upper and lower endoscopy Past Medical History Past Medical History: Asthma, Blood Disorder, GERD/Reflux, GI Bleed, Memory Impairment, Musculoskeletal Disorder, Pneumonia, Thyroid Disorder Additional Past Medical History / Comment(s): Temporal lobe brain lesions, short term memory prob. anemia/low iron, gastritis, bleeding ulcer 2009, DDD, Left rotator cuff 2 tears that dislocates. Metabolic syndrome, Insulin resistance. "Incomplete RBBB." Hx colon polyps. Bruises easily. Edema BLE. LOW BACK PAIN, MULTIPLE LEVELS OF STENOSIS IN LOWER BACK, HX SECONDARY ADRENAL INSUFFICIENCY currently on steroids, ELEVATED BLOOD SUGAR WITH PREDNISONE USE. herniation of disc chronic back pain. spondalosis History of Any Multi-Drug Resistant Organisms: MRSA Date of last positivie culture/infection: 2017 MDRO Source:: blood Past Surgical History: Adenoidectomy, Appendectomy, Bariatric Surgery, Breast Surgery, Cholecystectomy, Hysterectomy, Orthopedic Surgery, Tonsillectomy, Tubal Ligation Additional Past Surgical History / Comment(s): arthroscopy bilateral knees, gastric sleeve 02/2012, Hemorrhoids, Colonoscopy/EGD, Brachioplasty, Breast Augmentation w/ implants, Thigh plastic surgery, lower body lift, Panniculectomy, exc cyst upper lip, exc cysts from labia, lt 5th finger repair/reattached, Rt thumb basal joint exc/repair w/ Rt CTR, C-5-C6 PROSTHESIS DEVICE Past Anesthesia/Blood Transfusion Reactions: Previous Problems w/ Anesthesia, Family History of Problems w/ Anesthesia, Postoperative Nausea & Vomiting (PONV) Additional Past Anesthesia/Blood Transfusion Reaction / Comment(s): Needs low dose anesthesia, VS plummet. Uncle has anesthesia problems, allergic reaction low vital signs". pt states reglan helps to control PONV Smoking Status: Former smoker - Past Family History Father Family Medical History: Cancer, Deep Vein Thrombosis (DVT), Pulmonary Embolus Additional Family Medical History / Comment(s): Possible bone cancer. Mother Family Medical History: Dementia, Diabetes Mellitus, Hypertension Medications and Allergies Home Medications Medication Instructions Recorded Confirmed Type Albuterol Inhaler [Ventolin Hfa 2 puff INHALATION RT-Q6H PRN 11/30/17 04/02/23 History Inhaler] Furosemide [Lasix] 20 - 40 mg PO DAILY PRN 07/19/19 04/02/23 History Baclofen [Lioresal] 10 mg PO TID PRN #60 tab 12/04/20 04/02/23 Rx traZODone HCL [Desyrel] 50 mg PO HS 07/04/21 04/02/23 History Indomethacin [Indocin] 50 mg PO TID 10/30/21 04/02/23 History Omeprazole [PriLOSEC] 20 mg PO BID 10/30/21 04/02/23 History Liraglutide [Victoza 2-John] 0.6 mg SQ 1800 11/25/21 04/02/23 History HYDROcodone/APAP 10-325MG [[place] 1 tab PO Q6H PRN 04/08/22 04/02/23 History 10-325] Methylphenidate HCl [Ritalin] 20 mg PO DAILY 04/08/22 04/02/23 History predniSONE 5 mg PO DAILY 01/29/23 04/02/23 History Allergies Allergy/AdvReac Type Severity Reaction Status Date / Time broccoli Allergy Abdominal Verified 04/02/23 12:11 Pain eucalyptus Allergy shortness Verified 04/02/23 12:11 of breath lavender (Lavandula Allergy shortness Verified 04/02/23 12:11 angustifolia) of breath mold Allergy Dyspnea Verified 04/02/23 12:11 pineapple Allergy Abdominal Verified 04/02/23 12:11 Pain pollen extracts Allergy Dyspnea Verified 04/02/23 12:11 Sulfa (Sulfonamide Allergy shortness Verified 04/02/23 12:11 Antibiotics) of breathe, wheezy wheat Allergy Wheezing Verified 04/02/23 12:11 dust Allergy Wheezing Uncoded 04/02/23 12:11 feathers Allergy Wheezing Uncoded 04/02/23 12:11 pine trees Allergy Wheezing Uncoded 04/02/23 12:11
[2023-04-07 10:50] VITALS: TEMP 96.8
[2023-04-07 11:00] LABS: Glucose,Whole Blood 116 mg/dL (70-110)
[2023-04-07] MEDS ORDERED: PROPOFOL 10 MG/ML 20 ML VIAL IV ONE (11:08)
[2023-04-07] MEDS ORDERED: LIDOCAINE 2% INJ 20 MG/ML (2 ML VIAL) ONE (11:08)
[2023-04-07 12:01] VITALS: BP 111/80; PULSE 83; RESP 16
--- NOTE | 2023-04-08 12:30 | P.PCN ---
Date of Procedure: 04/07/23 Description of Procedure: PREOPERATIVE DIAGNOSIS: Colonoscopy screening POSTOPERATIVE DIAGNOSIS: Tubular adenoma transverse colon Sigmoid diverticulosis Internal hemorrhoids, grade 2 OPERATION: Colonoscopy to the ileocecal valve and appendiceal orifice, cecum Colonoscopy with hot snare polypectomy Colonoscopy with cold forceps biopsy SURGEON: Lore Mueller MD. ANESTHESIA: MAC. INDICATIONS: The patient is an 52-year-old female who presents for colonoscopy screening. Benefits and risks were described and informed consent was obtained. DESCRIPTION OF PROCEDURE: The patient had undergone Golytely prep. The patient had been brought into the operating room and laid in the left lateral decubitus position. After adequate intravenous sedation, the rectum was examined with 2% lidocaine jelly. External hemorrhoids were encountered. The rectal tone was within normal limits. No lesions were palpated in the rectal vault. An Olympus colonoscope was advanced until the cecum, ileocecal valve and appendiceal orifice were clearly viewed. The prep was excellent. Sigmoid diverticulosis was encountered. Colonic polyps were found and removed. No evidence of focal colitis was found. Retroflexion of the scope demonstrated grade 2 internal hemorrhoids without active bleeding or inflammation. The colon was desufflated. The patient had tolerated the procedure well. Withdrawal time was over 6 minutes. FINDINGS: Aronchick preparation quality scale 1 (1-5) Internal hemorrhoids, grade 2 External hemorrhoids, grade 2. No arteriovenous malformations. Sigmoid diverticulosis Removal of 2 polyps: - Snare polypectomy transverse colon 2, 3 and 6 mm tubulovillous adenomas p. No focal colitis. RECOMMENDATIONS: Recommend repeat colonoscopy in 3 years, 2025 Plan - Discharge Summary Discharge Rx Participant: No New Discharge Prescriptions: Continue Albuterol Inhaler [Ventolin Hfa Inhaler] 2 puff INHALATION RT-Q6H PRN PRN Reason: Shortness Of Breath Furosemide [Lasix] 20 - 40 mg PO DAILY PRN PRN Reason: Edema Baclofen [Lioresal] 10 mg PO TID PRN #60 tab PRN Reason: Muscle Spasm Indomethacin [Indocin] 50 mg PO TID Liraglutide [Victoza 2-John] 0.6 mg SQ 1800 HYDROcodone/APAP 10-325MG [[place] 10-325] 1 tab PO Q6H PRN PRN Reason: Pain Methylphenidate HCl [Ritalin] 20 mg PO DAILY predniSONE 5 mg PO DAILY traZODone HCL [Desyrel] 50 mg PO HS Omeprazole [PriLOSEC] 20 mg PO BID Discharge Medication List Albuterol Inhaler [Ventolin Hfa Inhaler] 2 puff INHALATION RT-Q6H PRN 11/30/17 [History] Furosemide [Lasix] 20 - 40 mg PO DAILY PRN 07/19/19 [History] Baclofen [Lioresal] 10 mg PO TID PRN #60 tab 12/04/20 [Rx] traZODone HCL [Desyrel] 50 mg PO HS 07/04/21 [History] Indomethacin [Indocin] 50 mg PO TID 10/30/21 [History] Omeprazole [PriLOSEC] 20 mg PO BID 10/30/21 [History] Liraglutide [Victoza 2-John] 0.6 mg SQ 1800 11/25/21 [History] HYDROcodone/APAP 10-325MG [[place] 10-325] 1 tab PO Q6H PRN 04/08/22 [History] Methylphenidate HCl [Ritalin] 20 mg PO DAILY 04/08/22 [History] predniSONE 5 mg PO DAILY 01/29/23 [History] [facility]Ref[facility] [place] [facility] [place] [facility] Patient Instructions/Handouts: Hiatal Hernia (DC), Diverticulosis (GEN), Colorectal Polyps (GEN), Diverticulosis Diet (GEN) Activity/Diet/Wound Care/Special Instructions: Follow-up in the bariatric center. Repeat colonoscopy 3 years, 2025 Discharge Disposition: HOME SELF-CARE
--- NOTE | 2023-04-08 13:56 | P.PCN ---
Date of Procedure: 04/07/23 Description of Procedure: PREOPERATIVE DIAGNOSIS: Status post sleeve gastrectomy. Gastroesophageal reflux disease. Epigastric abdominal pain. POSTOPERATIVE DIAGNOSIS: Status post sleeve gastrectomy. Gastroesophageal reflux disease. Epigastric abdominal pain. Erosive esophagitis, chronic. Diaphragmatic hiatal hernia without obstruction. Chronic superficial gastritis. OPERATION: Esophagogastroduodenoscopy with cold forceps biopsies along the antrum and duodenum SURGEON: Lore Mueller MD ANESTHESIA: MAC. INDICATIONS: The patient is a 52-year-old female who presents with a history of sleeve gastrectomy with abdominal pain. She is over 5 years out from her bariatric procedure. Benefits and risks of the procedure were described. Informed consent was obtained. DESCRIPTION: The patient was brought into the endoscopy suite and laid in the left lateral decubitus position. An Olympus gastroscope was passed along the posterior oropharynx down to the distal esophagus where the squamocolumnar junction was at 37 centimeters from the incisors remarkable for chronic erosive esophagitis, LA grade A without ulceration. The stomach was entered where she had a 3-cm hiatal hernia with a diaphragmatic hiatus found at 40 cm. The sleeve reservoir moderately large allowing easy retroflexion of the scope to view the lower esophageal valve. Chronic gastritis albeit mild was found along the antrum with cold biopsies obtained. The first through third portion of the duodenum was examined and unremarkable. The scope again had easily retroflexed along the antrum. The stomach was desufflated. The patient tolerated the procedure well. FINDINGS: No acute ulceration found along her sleeve. No corkscrewing sleeve gastrectomy. Squamocolumnar junction at 37 cm from the incisors. Diaphragmatic hiatus at 40 cm. Moderate large gastric reservoir with prior history of sleeve gastrectomy allowing easy retroflexion of the gastroscope to view the lower esophageal valve. Hiatal hernia 3 cm, fixed. LA grade C erosive esophagitis. No active duodenitis. Chronic gastritis. RECOMMENDATIONS: Upper endoscopy as needed. May benefit from antireflux operation. Continue with current therapy.
== END 2023-04-07 12:33 | disposition home or self-care (01) ==
LOC: ORWHC2ENDO 10:27
PROVIDERS: ATTEND Surgery Plastic and Reconstructive Surgery
DX: Z12.11 Encounter for screening for malignant neoplasm of colon (principal); K29.50 Unspecified chronic gastritis without bleeding; K63.5 Polyp of colon; K21.9 Gastro-esophageal reflux disease without esophagitis; K22.10 Ulcer of esophagus without bleeding; K44.9 Diaphragmatic hernia without obstruction or gangrene; K64.1 Second degree hemorrhoids; K57.30 Diverticulosis of large intestine without perforation or abscess without bleeding; J45.909 Unspecified asthma, uncomplicated; E07.9 Disorder of thyroid, unspecified; J18.9 Pneumonia, unspecified organism; G89.29 Other chronic pain; K91.0 Vomiting following gastrointestinal surgery; Z90.49 Acquired absence of other specified parts of digestive tract; Z90.89 Acquired absence of other organs; Z98.84 Bariatric surgery status; Z90.710 Acquired absence of both cervix and uterus; Z98.890 Other specified postprocedural states; Z87.19 Personal history of other diseases of the digestive system; Z87.891 Personal history of nicotine dependence; Z82.49 Family history of ischemic heart disease and other diseases of the circulatory system; Z83.3 Family history of diabetes mellitus; Z79.51 Long term (current) use of inhaled steroids; Z79.899 Other long term (current) drug therapy; Z79.52 Long term (current) use of systemic steroids; Z91.018 Allergy to other foods; Z91.048 Other nonmedicinal substance allergy status; Z88.2 Allergy status to sulfonamides
CPT/HCPCS: 88305; 45385; 43239; J2704; J2001

== ENCOUNTER → 2023-04-21 | Outpatient (CLI) | payer OTHER | END | disposition home or self-care (01) | LOC: LABWHC1 16:31 | PROVIDERS: ATTEND Surgery Plastic and Reconstructive Surgery | DX: Z53.9 Procedure and treatment not carried out, unspecified reason (principal) ==

== ENCOUNTER → 2023-04-21 | Outpatient (CLI) | payer OTHER | END | disposition home or self-care (01) | LOC: LABWHC1 16:36 | PROVIDERS: ATTEND Nurse Practitioner Family | DX: Z53.9 Procedure and treatment not carried out, unspecified reason (principal) ==

== ENCOUNTER → 2023-04-29 | Outpatient (CLI) | payer OTHER ==
[2023-04-29 11:05] VITALS: BP 111/77; PULSE 106; RESP 18; TEMP 97.7
--- NOTE | 2023-04-29 14:26 | P.PAINPG ---
PQRS Measure Charge Sheet Comment: A 52 yr old female with a history of severe and chronic LBP secondary to lumbar DDD and spondylosis with facet arthropathy without myelopathy, BL Sacroiliitis presents today for evaluation s/p R Trochanteric Bursitis injection. Pt states she experienced 60 % pain relief x 5 wks s/p procedure. Pain level is provoked at 8/10 in intensity, constant, localized in the R hip, throbbing in character w/o shooting pain. Pain is provoked by weight bearing activity. Pain is alleviated with medications, topicals, use of a lumbar sport brace, injections, heat, ice, PT in 2020, massages semi annually, use of a massage gun at home, daily physician guided exercises, repositioning and rest. Oswestry pain score of 41. Interventional pain procedures completed include BL SI injection, R Trochanteric Bursitis injection Patient is currently on [place], Baclofen Patient denies any side effects of the medication(s), denies excessive drowsiness or sleepiness, denies suicidal ideation and reports that the current pain medication is helping to control the pain and improve activities of daily living. Patient denies any motor or sensory deficits. Patient denies any fever or night sweats, denies any change in the bowel movements or urination. Physical Examination: -Constitutional: Cooperative. Not in acute distress . - Neurologic: Cranial nerve II to XII intact. No focal neurological deficits. - Psychatric: Alert & oriented x 3. Matching mood & appropriate affect. Judgment and insight intact. - Musculoskeletal: Cervical spine: Muscle bulk/ tone/ strength in the bilateral upper extremities normal Vertebral body tenderness to palpation over Spurling test positive Distraction test positive Facet loading test positive TTP Thoracic spine Muscle bulk / tone/ strength in the bilateral paraspinal muscles normal Vertebral body tender to palpation over Facet loading test positive TTP Lumbar spine: Motor bulk/ tone/ strength lower extremities , thigh and legs : 5/5 Deep tendon reflexes : Normal Knee Jerk. Normal Ankle Jerk . Vertebral body tenderness to palpation over L5 Pain w RLE abduction Lumbar Facet Loading Test positive Straight Leg Raise: positive at 30 degrees right side/ left side Gaenslen's Test positive Sacral spine : Severe tenderness over the Sacroiliac joint: right side / left side Range of motion: Flexion of the lumbar spine <60 degrees Range of motion: Extension of the lumbar spine <20 degrees Gaenslen's Test positive right side / left side [place] test: positive right side / left side Thigh Thrust Test positive right side / left side Sacral Thrust Test positive right side / left side Assessment and plan: Chronic LBP secondary to lumbar DDD, spondylosis with facet arthropathy without myelopathy, BL Sacroiliitis, R Hip OA Recommendation of R TFESI L5-S1 #1. May need a series of injections for optimal pain relief. Risks, benefits of procedure discussed and pt verbalized understanding. Admits to anticoagulant use or medical history of diabetes. Protocol for discontinuation/ continuation of medications flip procedure discussed. All questions answered. I have spent less than 30 minutes on patient care today. Dr Moreno was available by phone for the evaluation of this patient. The time was used to review the medical records including relevant urine studies and Prescription history (MAPs), review of the available imaging, evaluation and examination of the patient, coordination of care with the medical staff and if applicable referring physicians, as well as creation of the medical record PQRS Narrative: Smoking Status Current every day smoker Hx Alcohol Use (MH) No Home Medications: Ambulatory Orders Albuterol Inhaler [Ventolin Hfa Inhaler] 2 puff INHALATION RT-Q6H PRN 11/30/17 Furosemide [Lasix] 20 - 40 mg PO DAILY PRN 07/19/19 Baclofen [Lioresal] 10 mg PO TID PRN #60 tab 12/04/20 traZODone HCL [Desyrel] 50 mg PO HS 07/04/21 Indomethacin [Indocin] 50 mg PO TID 10/30/21 Omeprazole [PriLOSEC] 20 mg PO BID 10/30/21 Liraglutide [Victoza 2-John] 0.6 mg SQ 1800 11/25/21 HYDROcodone/APAP 10-325MG [[place] 10-325] 1 tab PO Q6H PRN 04/08/22 Methylphenidate HCl [Ritalin] 20 mg PO DAILY 04/08/22 predniSONE 5 mg PO DAILY 01/29/23 Controlled Substance Measures - Controlled Substance Measures Is patient prescribed a controlled substance at discharge?: No
== END ==
LOC: PNWHC3 09:14
PROVIDERS: ATTEND Specialist
DX: M51.36 Other intervertebral disc degeneration, lumbar region (principal); M47.816 Spondylosis without myelopathy or radiculopathy, lumbar region; G89.29 Other chronic pain; F17.200 Nicotine dependence, unspecified, uncomplicated; M46.1 Sacroiliitis, not elsewhere classified; Z91.041 Radiographic dye allergy status; Z91.018 Allergy to other foods; Z91.048 Other nonmedicinal substance allergy status; Z88.2 Allergy status to sulfonamides
CPT/HCPCS: 99211

== ENCOUNTER → 2023-06-03 | Outpatient (CLI) | payer OTHER ==
[2023-06-03 12:59] VITALS: BP 132/81; PULSE 107; RESP 15; TEMP 98.1
--- NOTE | 2023-06-03 14:34 | P.PAINPG ---
PQRS Measure Charge Sheet Comment: A 53 yr old female with a history of severe and chronic LBP secondary to lumbar DDD and spondylosis with facet arthropathy without myelopathy, BL Sacroiliitis presents today for evaluation s/p R TFESI L5-S1. Pt states she experienced 85 % pain relief x 3 wks s/p procedure. Pain level is provoked at 6/10 in intensity, constant, localized in the lumbar, throbbing in character w/o shooting pain. Pain is provoked by weight bearing activity. Pain is alleviated with medications, topicals, use of a lumbar sport brace, injections, heat, ice, PT in 2020, massages semi annually, use of a massage gun at home, Dr Barnard guided daily physician guided exercises since 2020, repositioning and rest. Oswestry pain score of 41. Interventional pain procedures completed include BL SI injection, R Trochanteric Bursitis injection, R TFESI L5-S1 x1 Patient is currently on [place], Baclofen Patient denies any side effects of the medication(s), denies excessive drowsiness or sleepiness, denies suicidal ideation and reports that the current pain medication is helping to control the pain and improve activities of daily living. Patient denies any motor or sensory deficits. Patient denies any fever or night sweats, denies any change in the bowel movements or urination. Physical Examination: -Constitutional: Cooperative. Not in acute distress . - Neurologic: Cranial nerve II to XII intact. No focal neurological deficits. - Psychatric: Alert & oriented x 3. Matching mood & appropriate affect. Judgment and insight intact. - Musculoskeletal: Cervical spine: Muscle bulk/ tone/ strength in the bilateral upper extremities normal Vertebral body tenderness to palpation over Spurling test positive Distraction test positive Facet loading test positive TTP Thoracic spine Muscle bulk / tone/ strength in the bilateral paraspinal muscles normal Vertebral body tender to palpation over Facet loading test positive TTP Lumbar spine: Motor bulk/ tone/ strength lower extremities , thigh and legs : 5/5 Deep tendon reflexes : Normal Knee Jerk. Normal Ankle Jerk . Vertebral body tenderness to palpation Lumbar Facet Loading Test positive Straight Leg Raise: positive at 30 degrees right side/ left side Gaenslen's Test positive Sacral spine : Severe tenderness over the Sacroiliac joint: right side / left side Range of motion: Flexion of the lumbar spine <60 degrees Range of motion: Extension of the lumbar spine <20 degrees Gaenslen's Test positive right side / left side [place] test: positive right side / left side Thigh Thrust Test positive right side / left side Sacral Thrust Test positive right side / left side Assessment and plan: Chronic LBP secondary to lumbar DDD, spondylosis with facet arthropathy without myelopathy, BL Sacroiliitis, R Hip OA Will follow up w Dr Barnard to explore additional treatment options. All questions answered. I have spent less than 30 minutes on patient care today. Dr Moreno was available by phone for the evaluation of this patient. The time was used to review the medical records including relevant urine studies and Prescription history (MAPs), review of the available imaging, evaluation and examination of the patient, coordination of care with the medical staff and if applicable referring physicians, as well as creation of the medical record PQRS Narrative: Smoking Status Current every day smoker Hx Alcohol Use (MH) No Home Medications: Ambulatory Orders Albuterol Inhaler [Ventolin Hfa Inhaler] 2 puff INHALATION RT-Q6H PRN 11/30/17 Furosemide [Lasix] 20 - 40 mg PO DAILY PRN 07/19/19 Baclofen [Lioresal] 10 mg PO TID PRN #60 tab 12/04/20 traZODone HCL [Desyrel] 50 mg PO HS 07/04/21 Indomethacin [Indocin] 50 mg PO TID 10/30/21 Omeprazole [PriLOSEC] 20 mg PO BID 10/30/21 Liraglutide [Victoza 2-John] 0.6 mg SQ 1800 11/25/21 HYDROcodone/APAP 10-325MG [[place] 10-325] 1 tab PO Q6H PRN 04/08/22 Methylphenidate HCl [Ritalin] 20 mg PO DAILY 04/08/22 predniSONE 5 mg PO DAILY 01/29/23 Controlled Substance Measures - Controlled Substance Measures Is patient prescribed a controlled substance at discharge?: No
== END ==
LOC: PNWHC3 12:18
PROVIDERS: ATTEND Specialist
DX: M51.36 Other intervertebral disc degeneration, lumbar region (principal); M47.816 Spondylosis without myelopathy or radiculopathy, lumbar region; G89.29 Other chronic pain; F17.200 Nicotine dependence, unspecified, uncomplicated; Z91.018 Allergy to other foods; Z91.041 Radiographic dye allergy status; Z88.8 Allergy status to other drugs, medicaments and biological substances; Z91.048 Other nonmedicinal substance allergy status
CPT/HCPCS: 99211

== ENCOUNTER → 2023-07-02 | Outpatient (CLI) | payer OTHER ==
--- NOTE | 2023-07-06 09:43 | MM ---
Reason for Exam: Screening (asymptomatic). Last mammogram was performed 2 year(s) and 3 month(s) ago. Patient History: Menarche at age 15. First Full-Term at age 20. Hysterectomy at age 46. Patient used Progesterone for 2 years. 05/22/2014, Bilateral Implants. Maternal aunt had breast cancer. Risk Values: Marie 5 year model risk: 0.7%. NCI Lifetime model risk: 6.4%. Prior Study Comparison: 12/08/2018 Right Diagnostic Mammogram, [facility]. 03/27/2020 Bilateral Screening Mammogram, [facility]. 04/11/2021 Bilateral Screening Mammogram, [facility]. Tissue Density: The breast tissue is heterogeneously dense. This may lower the sensitivity of mammography. Findings: Analyzed By CAD. There is no suspicious group of microcalcifications or new suspicious mass in either breast. Overall Assessment: Benign, BI-RAD 2 Management: Screening Mammogram of both breasts in 1 year. . Patient should continue monthly self-breast exams. A clinical breast exam by your physician is recommended on an annual basis. This exam should not preclude additional follow-up of suspicious palpable abnormalities. Note on Marie scores and lifetime risk: 1. A Marie score greater than 3% is considered moderate risk. If this is the case, consider specialist referral to assess eligibility for a risk reducing agent. 2. If overall lifetime risk for the development of breast cancer is 20% or higher, the patient may qualify for future screening with alternating mammogram and breast MRI. Electronically signed and approved by: Baldev Rick M.D. Radiologis
== END | disposition home or self-care (01) ==
LOC: RADMAMWWP 13:39
PROVIDERS: ATTEND Obstetrics & Gynecology
DX: Z12.31 Encounter for screening mammogram for malignant neoplasm of breast (principal); Z80.3 Family history of malignant neoplasm of breast; Z98.82 Breast implant status
CPT/HCPCS: 77067

== ENCOUNTER → 2023-08-12 | Outpatient (CLI) | payer OTHER ==
--- NOTE | 2023-08-14 19:23 | MR ---
EXAMINATION TYPE: MR cspine/tspine/lspine wo con DATE OF EXAM: 08/12/2023 8:03 PM CLINICAL INDICATION:Female, 53 years old with history of M54.2,M54.6,M54.50, R15.9,R39.81; PHH, Cervi calgia, tsp pain, low back pain, numbness in fingers, prior surgery csp COMPARISON: TECHNIQUE: Multi planar, multi sequence imaging was performed utilizing: T1-weighted, T2-weighted, a nd turbo inversion recovery imaging of the cervical and lumbar spine. MR contrast: IV Contrast: cc , None. FINDINGS: CERVICAL: Alignment: The cervical vertebral bodies have preserved heights. Alignment is within normal limits gi felix patient positioning. Bones: Fixation changes to the nasal spine which limits evaluation at C4-C5 and C6. There is degenera tion changes Cord: The spinal cord is unremarkable with regards to their signal intensity and morphology. Discs: Intervertebral disc signal is maintained. C2-C3: No significant disc pathology. The spinal canal is patent. No neural foraminal stenosis. C3-C4: No significant disc pathology. The spinal canal is patent. No neural foraminal stenosis. C4-C5: No significant disc pathology. The spinal canal is patent. No neural foramen are poorly visua lized due to metallic susceptibility artifact. C5-C6: No significant disc pathology. The spinal canal is patent. No neural foramen are poorly visua lized due to metallic susceptibility artifact. C6-C7: No significant disc pathology. The spinal canal is patent. No neural foramen are poorly visua lized due to metallic susceptibility artifact. C7-T1: No significant disc pathology. The spinal canal is patent. No neural foraminal stenosis. THORACIC: Multilevel degeneration with disc space narrowing, disc desiccation and osteophyte formatio n throughout the thoracic spine. T12 vertebral body height T2 high T1 signal probable vertebral body hemangioma. T8-T9 disc bulge without significant spinal canal stenosis. No significant neural foramin al stenosis throughout the thoracic spine. T8-T9 indenting endplate reactive edema on inversion gayle very sequences. LUMBAR: Alignment: The lumbar vertebral bodies have preserved heights and alignment. Cord: The conus medullaris and the distal spinal cord appear unremarkable with regards to their signa l intensity and morphology. Bones/Discs: Degeneration changes throughout the lumbar spine with mild osteophyte formation facet courtney int arthropathy. T12-L1: No evidence of significant spinal canal stenosis or neural foraminal stenosis. L1-L2: No evidence of significant spinal canal stenosis or neural foraminal stenosis. L2-L3: No evidence of significant spinal canal stenosis or neural foraminal stenosis. L3-L4: No evidence of significant spinal canal stenosis or neural foraminal stenosis. L4-L5: No evidence of significant spinal canal stenosis or neural foraminal stenosis. L5-S1: The disc is rounded posterior morphology without significant spinal canal stenosis. Facet join t arthropathy with mild neural foraminal stenosis. Other findings: None. IMPRESSION: Postsurgical changes to the cervical spine which limits evaluation. No evidence for acute process in the cervical thoracic or lumbar spine. No evidence for significant spinal canal or neural foraminal s tenosis.
== END | disposition home or self-care (01) ==
LOC: RADMRIMAIN 18:26
PROVIDERS: ATTEND Orthopaedic Surgery
DX: M54.2 Cervicalgia (principal); M54.6 Pain in thoracic spine; M54.50 Low back pain, unspecified; R15.9 Full incontinence of feces; R39.81 Functional urinary incontinence
CPT/HCPCS: 72141; 72146; 72148

== ENCOUNTER → 2023-08-20 | Outpatient (CLI) | payer OTHER ==
[2023-08-20 17:37] LABS: % Iron Saturation 14.38 (12.00-45.00); Ferritin 34.9 ng/mL (10.0-291.0); T4, Free (Free Thyroxine) 1.16 ng/dL (0.80-1.80)
== END | disposition home or self-care (01) ==
LOC: LABWHC1 09:41
PROVIDERS: ATTEND Internal Medicine
DX: E61.1 Iron deficiency (principal); E03.9 Hypothyroidism, unspecified; R73.03 Prediabetes
CPT/HCPCS: 36415; 82306; 82728; 83036; 83540; 83550; 84439; 84443

== ENCOUNTER → 2023-09-23 | Outpatient (CLI) | payer OTHER ==
--- NOTE | 2023-09-23 12:49 | XR ---
EXAMINATION TYPE: XR chest 2V DATE OF EXAM: 09/23/2023 COMPARISON: NONE HISTORY: Cough for one week. TECHNIQUE: Frontal and lateral views of the chest are obtained. FINDINGS: There is no focal air space opacity, pleural effusion, or pneumothorax seen. The cardiac silhouette size is within normal limits. The osseous structures are intact. IMPRESSION: No acute cardiopulmonary process.
== END | disposition home or self-care (01) ==
LOC: RADXRMAIN 12:07
PROVIDERS: ATTEND Family Medicine
DX: J15.0 Pneumonia due to Klebsiella pneumoniae (principal); J20.8 Acute bronchitis due to other specified organisms
CPT/HCPCS: 71046

== ENCOUNTER → 2023-10-08 | Outpatient (CLI) | payer OTHER ==
--- NOTE | 2023-10-11 21:39 | CT ---
EXAMINATION TYPE: CT lumbar spine wo con DATE OF EXAM: 10/08/2023 COMPARISON: None HISTORY: 53-year-old female M54.50, R15.9, Low back pain TECHNIQUE: Contiguous axial scanning of the lumbar spine without IV contrast. Coronal and sagittal re constructions performed. CT DLP: 1283 mGycm Automated exposure control for dose reduction was used. FINDINGS: Vertebral body heights are preserved. Hypertrophic facet arthropathy mid to lower lumbar spine with degenerative grade 1 anterolisthesis L3 -L4 and L4-L5. Remaining alignment is maintained. There is mild multilevel degenerative disc disease with bulging discs. More moderate degenerative dis c disease L3-L4 with some disc vacuum and disc space narrowing. Overall mild narrowing of the spinal canal at L3-L4. No evident canal compromise by CT. There is limi tation due to artifact from large body habitus. On the left, changes result in moderate neural foraminal stenosis at L5-S1. Mild to moderate at L4-L5 . Mild L3-L4. On the right, changes result in moderate to severe neuroforaminal stenoses at L3-L4 and L5-S1. Mild t o moderate at L4-L5. Partially visualized cholecystectomy clips. Indeterminate 1.1 cm hypodensity posterior right kidney p robably a small underlying cyst. IMPRESSION: 1. HYPERTROPHIC FACET ARTHROPATHY WITH DEGENERATIVE GRADE 1 ANTEROLISTHESIS L3-L4 AND L4-L5. 2. MODERATE DEGENERATIVE DISC DISEASE L3-L4 WITH MILD SPINAL CANAL STENOSIS AT THIS LEVEL. MILD DEGEN ERATIVE DISC DISEASE ELSEWHERE IN THE LUMBAR SPINE. 3. VARIABLE MILD AND MODERATE FORAMINAL STENOSES OUTLINED ABOVE. POSSIBLY MODERATE TO SEVERE ON TH E RIGHT AT L3-L4 AND L4-L5.
== END | disposition home or self-care (01) ==
LOC: RADCTMAIN 08:47
PROVIDERS: ATTEND Orthopaedic Surgery
DX: M47.816 Spondylosis without myelopathy or radiculopathy, lumbar region (principal); M51.36 Other intervertebral disc degeneration, lumbar region; R39.81 Functional urinary incontinence; M99.73 Connective tissue and disc stenosis of intervertebral foramina of lumbar region; R15.9 Full incontinence of feces; M43.16 Spondylolisthesis, lumbar region
CPT/HCPCS: 72131

== ENCOUNTER → 2023-10-13 | Outpatient (CLI) | payer OTHER ==
--- NOTE | 2023-10-13 16:30 | P.PN ---
Subjective DATE: 10/13/2023 FOLLOW UP VISIT. Patient with obstructive sleep apnea hypopnea syndrome return to sleep center for follow-up visit. Information from previous visit have been reviewed. Patient is using PAP equipment every night for the whole night, getting PAP supplies in time. The patient does not have significant problems with the mask, PAP unit and humidification. Black sleepiness scale is 10, which is borderline. I checked information from PAP unit. PAP unit pressure 5-7, average 6.3 cm H2O. Usage is 80% and 75 % for more then 4 hours, average 5.1 hours per night. Leak is on l/m, which is in acceptable range. Apnea Hypopnea Index is 1.1, which is normal. MEDICATIONS:1. Trazodone 2. Prednisone 5 mg once a day 3. Omeprazole 20 mg once a day 4. Albuterol 5. Victoza During physical exam: GENERAL: A pleasant patient without any distress. VITAL SIGNS: BP 132/73, HR 99, RR 14 , weight 284, temperature 97.9, oxygen saturation at room air 96 % . HEENT: PERRLA, EOMI.low position of soft palate, Mallapati 3 . NECK: Supple. No JVD. LUNGS: Clear to percussion and to auscultation. Good air exchange. No wheezing or rhonchi. HEART: S1, S2 regular. ABDOMEN: Soft and nontender. Obese EXTREMITIES: No clubbing or cyanosis. INDUSTRIAL SOCIOLOGIST: Awake, alert, and oriented x3. No focal deficit. Impressions: 1. Obstructive sleep apnea-hypopnea syndrome. Patient demonstrated good compliance with treatment, benefiting from treatment. 2. Obesity, patient increased weight and 24 pounds, body mass index 45.6. 3. Diabetes mellitus. 4. Adrenal insufficiency. 5. Acid reflux. 6. History of asthma. 7. History of hypothyroidism. Plan: 1. Continue using PAP equipment every night for the whole night. 2. To change air filter at least 1-2 times per month. 3. PAP unit should stay lower then position of the head. 4. Advised patient to remove all remaining water from humidifier canister daily and make it dry after each usage. Refill canister with fresh distilled water before each usage. 5. Sleep hygiene with regular time in bed for at least 8 hours. 6. Precautions related to driving. No driving if feel any sleepiness. 7. I will maintain prescription for PAP supplies including mask, tube, filters. 8. Follow up visit in 6 months or earlier if patient has any problems. 9. Watching and losing weight. Thank you very much for allowing me to participate in the management of your patient. Josh King MD, PhD, FAASM. Diplomat of [place] [employer], Sleep Medicine Board by [place] [employer] Fruit Coordinator of [facility]
== END ==
LOC: 3 N SLEEP 15:56
PROVIDERS: ATTEND Internal Medicine
DX: G47.33 Obstructive sleep apnea (adult) (pediatric) (principal); E66.9 Obesity, unspecified; E11.9 Type 2 diabetes mellitus without complications; E03.9 Hypothyroidism, unspecified; E27.40 Unspecified adrenocortical insufficiency; J45.909 Unspecified asthma, uncomplicated; K21.9 Gastro-esophageal reflux disease without esophagitis; F17.200 Nicotine dependence, unspecified, uncomplicated; Z79.52 Long term (current) use of systemic steroids; Z79.899 Other long term (current) drug therapy; Z99.89 Dependence on other enabling machines and devices; Z91.018 Allergy to other foods; Z91.09 Other allergy status, other than to drugs and biological substances; Z91.041 Radiographic dye allergy status; Z91.048 Other nonmedicinal substance allergy status; Z88.2 Allergy status to sulfonamides
CPT/HCPCS: 99212

== ENCOUNTER → 2023-11-17 | Outpatient (CLI) | payer OTHER | END | disposition home or self-care (01) | LOC: LABPAT 10:03 | PROVIDERS: ATTEND Orthopaedic Surgery | DX: Z01.812 Encounter for preprocedural laboratory examination (principal); Z22.322 Carrier or suspected carrier of Methicillin resistant Staphylococcus aureus; M43.16 Spondylolisthesis, lumbar region; M48.061 Spinal stenosis, lumbar region without neurogenic claudication; M47.817 Spondylosis without myelopathy or radiculopathy, lumbosacral region | CPT/HCPCS: 36415; 86850; 86900; 86901; 87070 ==

== ENCOUNTER 2023-11-23 11:15 | Inpatient (IN) | payer OTHER ==
--- NOTE | 2023-11-23 06:41 | P.HPOR ---
History of Present Illness H&P Date: 11/17/23 .D:Date: 11/17/23 : 09:30am .T:Title: [facility] History and Physical Date of :74 [id number]: [id number] Age: 53 year Height: 5'8" Weight: 266 lbs BP:122/72 BMI: 40.44 kg/m2 Occupation: Disabled VAS: 5 Hand:Right IMPRESSION: It was my pleasure to have seen and examined Katerina. I reviewed the patient's clinical syndrome, physical findings, and imaging studies during the appointment today. It is my impression that the patient has a diagnosis of. 1. Grade I spondylolisthesis of L3 on L4 2. L3-4 spondylosis with stenosis 3. L3-S1 spondylosis 4. Low back pain 5. Bilateral SI joint osteoarthritis I outlined the natural course history without intervention and various interventional options. Spine Surgery Risk Review Ms. Maurice is presenting for evaluation of low back and bilateral lower extremity pain, right lower extremity numbness. It was my pleasure to have seen and examined Ms. Maurice. In our visit today we have had a chance to go over subjective complaints, physical examination findings and treatments including the natural course history without intervention and various interventional options. The patients imaging demonstrates: MRI scan completed on 08/12/2023 at [facility]:No large disc herniations, alignment stable. Scattered spondylotic changes. No lesions. No fractures at this time. MRI scancompleted on 08/12/2023 at [facility]:Grade I spondylolisthesis noted L3-4 with mobility and partial reduction on this supine film. There is b/l foraminal stenosis as well as central stenosis related to this that is moderate to severe. Endplate sclerosis, modic changes accompany this. No acute fracture or lesions noted. L3-S1 spondylosis noted with varying stenosis due to ligamental hypertrophy, facet hypertrophy and arthropathy. XRay Lumbar Multiview (AP, Lateral, Flexion, Extension) with AP pelvis; 5 views taken at [facility] on 05/26/23 of Lumbar Spine: - Images re-reviewed with the patient today. Multilevel degenerative changes noted from L3-S1.There is grade I spondylolisthesis that is mobile on F/E films >3mm at L3-4.There is segmental kyphosis, spondylosis and disc collapse along with facet arthrosis at L3-4 as well.There is spondylosis with facet arthrosis and disc height loss L4-S1 as well. No othe rfractures noted. No lesions noted. AP pelvis: shows congruent lvel pelvis no fracture. There is severe b/l SI joint sclerosis noted with vacuum phenomena noted in b/l joints as well. On physical exam, Ms. Maurice demonstrates: A continued dull, ache-like pain throughout the low back that radiates down into the right lower extremity. She notes that this pain is exacerbated by prolonged activity. The patient also reports experiencing a sharp, pressure-like pain throughout the lumbar spine that occurs after prolonged sitting. The patient states that her right leg pain is associated with numbness. The patient reports experiencing moderate to severe sleep disturbances related to her ongoing pain and associated symptoms. I have explained to the patient that as their condition progresses it will cause further neurological deficits and eventual paralysis. Based on the patients imaging, physical exam, and the rapid progression and disabling nature of their symptoms, at this time I recommend surgery in the form of a: Stage I: L3-4 lateral decompression and fusion / Stage II: L3-4 posterior stabilization. I discussed the risk and benefits of this procedure at length with Ms. Maurice. The patient agreed to considered pursuing the procedure abovementioned. Prior to surgery, she should follow up with her PCP (Cardio, ID, IM etc) for clearance. Questions were invited and answered, and the patient wishes to proceed as outlined below. Currently, I am recommendin.Stage I: L3-4 lateral decompression and fusion / Stage II: L3-4 posterior stabilization 2.Review of surgical risks and benefits as well as an educational packet on the proposed surgical procedure. Risks: All surgical procedures come with inherent risks, including those related to positioning, anesthesia, intraoperative findings, and postoperative complications. It is important to understand that surgery does not come with any guarantee of a successful outcome as complications and adverse events are always possible. The patient was given a handout in office today discussing the surgical procedure and risks associated with the intervention, both of which were discussed with the patient. These risks include but are not limited to the following: * Experiencing same, different or even worse symptoms in back, neck, arms, or legs compared to before surgery. Requiring further surgery or other forms of treatment presently or at some time in the future at same or other levels of the intended spine surgery. On an extreme but fortunately relatively rare basis severe complication such as blindness, stroke, heart attack, temporary and/or permanent nerve injury, paralysis, coma, or may occur, sometimes without known explanation. Surgical complications may include but are not limited to risk of infection, fluid accumulation in the surgical dissection site, including a seroma or hematoma, that requires additional surgery, wound drainage, bleeding, new numbness or weakness, vision changes/loss, spinal fluid leakage, non-healing and/or infected incision, headaches, difficulty or inability to swallow, hoarseness, hemopneumothorax, pneumothorax, impotence, retrograde ejaculation, vaginal dryness; injury to nerves, spinal cord, blood vessels, lymphatics or other vital organs (i.e., bowel injury, injury to the great vessels); heterotopic bone formation; complications related to the hardware such as screws, rods, cages including misplaced hardware, device failure, instrumentation at the wrong spine level, hardware fracture/breakage, or hardware loosening; vertebral failure of the spinal column above or below the newly placed hardware; retained surgical instrumentations or devices and the need for further surgery. * Medical risks of the planned spine surgery include but are not limited to generalized Infections to the whole body or local areas outside of the surgical site (sepsis), heart attack, bleeding, anaphylaxis, meningitis, seizure, epilepsy, hearing loss, burn menjivar, laceration of the head or other areas of the body, bruising, hypersensitivity of the skin, bladder over distension; allergic reaction; shoulder injury related to positioning; fat, blood and air clots to other areas of the body like heart, lungs, brain; failure of internal organs such as lungs, kidneys, liver and excessive bleeding. If blood transfusions are necessary, note that transfusions may cause intolerance reactions such as anaphylaxis or other complex reactions. Despite best efforts, the results of spine surgery might not heal in terms of bone, soft tissues such as skin, fascia, ligaments, and joints. Additionally, in order to achieve best possible results, spine surgery may be carried out beyond the initially planned levels and involve decompression, fusion including insertion of hardware at levels other than the original intended area of surgical interest change some portions of the procedure in order to ensure the best possible outcomes. With spine surgery and spinal fusion, there are different off label uses of instrumentation (devices, implants and hardware) as well as biological substances (bone morphogenic proteins, demineralized bone matrix) as well as using extra bone from allograft sources (i.e. cadaver bone) or autograft (iliac crest bone, ribs, or the spine itself). The patient has been given information about these practices and their inherent risks and benefits. [facility] is an educational center that serves as a training facility for neurosurgical and orthopedic POWER SWITCHBOARD OPERATOR and Nursing students. Physician assistants are medically trained surgical providers who function in the outpatient, inpatient, and operating room setting under the direct supervision of the attending surgeon. [facility] has multiple operating rooms with single and overlapping rooms running daily. They currently function under the required guidelines as produced by the [employer] [facility] [employer] with regards to the overlapping rooms and will continue to comply with changes to this policy as they occur. The requirements include and are complied with as follows: (1) the critical portions of the overlapping rooms will not occur at the same time, (2) the attending physician will be physically present during the critical portions of the procedure and immediately available during the entire case, and (3) a back-up attending is designated should the primary attending not be immediately available. The patient has had a chance to review all the listed information, has been given print outs detailing this information, and has had all his/her questions answered to their satisfaction. It was my pleasure to have seen and examined Ms. Maurice. In our visit today we have had a chance to go over my understanding of our patient's current condition, the natural course history without intervention and various interventional options. Questions were invited and answered, and the patient wishes to proceed as outlined above. I have seen and examined the patient for 25 minutes and we have spent more than 50% of the time in repeat and detailed counseling about the patient's condition, its natural course history with out and as much as can be predicted with surgery and re-review of various surgical treatment options. In conclusion, Ms. Maurice requested we proceed with the above suggested surgery and are willing to accept risks and limitations of the suggested surgery as nature of the disease process and our best attempts at treatment for the condition. Thank you again for allowing us to be part of your patient's care. Please don't hesitate to contact me if you have any further questions. Follow- up: Post procedure Patient Education: (Informational booklet, instructions, etc) given at today's appointment: Yes .ED:Patient Education: Y Medications Reviewed: YES In our visit today Ms. Maurice and I have had a chance to go over my understanding of the patient's current condition, the natural course history without intervention and various interventional options. Questions were invited and answered, and the patient wishes to proceed as outlined above. I will be sure to keep you updated afterMsSona Maurice returns here for further follow-up. Thank you again for your referral. Please do not hesitate to contact me if you have any further questions. Signed and authenticated by: Dayday Rutherford [facility] [address] [facility], [address] [address] This message is confidential, intended only for the named recipient(s) and may contain information that is privileged or exempt from disclosure under applicable law. If you are not the intended recipient(s), you are notified that the dissemination, distribution or copying of this information is strictly prohibited. If you received this message in error, please notify the sender then delete this message. Patient verbalizes understanding of the information discussed. The above note was initiated by Erna Sky, physician recording assistant professor of nursing for Dr. Dayday Barnard. This note has been reviewed by Dr. Barnard, who has made his personal changes and impressions for this document. 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 anemia/low iron, gastritis, diverticulitis, bleeding ulcer 2008, DDD, Left rotator cuff 2 tears that dislocates. PCOS, Metabolic syndrome, Insulin resistance. "Incomplete RBBB." Hx colon polyps. Bruises easily. Edema BLE. LOW BACK PAIN, MULTIPLE LEVELS OF STENOSIS IN LOWER BACK, ADRENAL INSUFFICIENCY-chronic steroid use,has [place]'s like symptoms from steroids, uses CPAP, herniation of disc, chronic back pain. spondylosis, current rectocele History of Any Multi-Drug Resistant Organisms: MRSA Date of last positivie culture/infection: 2017 MDRO Source:: blood Past Surgical History: Adenoidectomy, Appendectomy, Bariatric Surgery, Breast Surgery, Cholecystectomy, Hysterectomy, Orthopedic Surgery, Tonsillectomy, Tubal Ligation Additional Past Surgical History / Comment(s): arthroscopy bilateral knees, gastric sleeve 02/2012, Hemorrhoids, Colonoscopy/EGD, Brachioplasty, Breast Augmentation w/ implants, Thigh plastic surgery, lower body lift, Panniculectomy, exc cyst upper lip, exc cysts from labia, lt 5th finger repair/reattached, Rt thumb basal joint exc/repair w/ Rt CTR, C-5-C6 PROSTHESIS DEVICE Past Anesthesia/Blood Transfusion Reactions: Previous Problems w/ Anesthesia, Family History of Problems w/ Anesthesia, Postoperative Nausea & Vomiting (PONV) Additional Past Anesthesia/Blood Transfusion Reaction / Comment(s): Needs low dose anesthesia, VS plummet. Uncle has anesthesia problems, allergic reaction low vital signs". pt states reglan helps to control PONV Smoking Status: Former smoker - Past Family History Father Family Medical History: Cancer, Deep Vein Thrombosis (DVT), Pulmonary Embolus Additional Family Medical History / Comment(s): Possible bone cancer. Mother Family Medical History: Dementia, Diabetes Mellitus, Hypertension Medications and Allergies Home Medications Medication Instructions Recorded Confirmed Type Albuterol Inhaler [Ventolin Hfa 2 puff INHALATION RT-Q6H PRN 11/30/17 11/17/23 History Inhaler] Furosemide [Lasix] 20 - 40 mg PO DAILY PRN 07/19/19 11/17/23 History Baclofen [Lioresal] 10 mg PO TID PRN #60 tab 12/04/20 11/17/23 Rx traZODone HCL [Desyrel] 50 mg PO HS 07/04/21 11/17/23 History Omeprazole [PriLOSEC] 20 mg PO BID 10/30/21 11/17/23 History Liraglutide [Victoza 2-John] 0.6 mg SQ DAILY 11/25/21 11/17/23 History HYDROcodone/APAP 10-325MG [Ione 1 tab PO Q6H PRN 04/08/22 11/17/23 History 10-325] predniSONE 5 mg PO DAILY 01/29/23 11/17/23 History Celecoxib [CeleBREX] 200 mg PO BID 11/17/23 11/17/23 History Ferrous Sulfate [Feosol] 325 mg PO DAILY 11/17/23 11/17/23 History Simethicone [Gas-X] 80 mg PO QID PRN 11/17/23 11/17/23 History Allergies Allergy/AdvReac Type Severity Reaction Status Date / Time broccoli Allergy Abdominal Verified 11/17/23 11:04 Pain eucalyptus Allergy shortness Verified 11/17/23 11:04 of breath lavender (Lavandula Allergy shortness Verified 11/17/23 11:04 angustifolia) of breath mold Allergy Dyspnea Verified 11/17/23 11:04 pineapple Allergy Abdominal Verified 11/17/23 11:04 Pain pollen extracts Allergy Dyspnea Verified 11/17/23 11:04 wheat Allergy Wheezing Verified 11/17/23 11:04 dust Allergy Wheezing Uncoded 11/17/23 11:04 feathers Allergy Wheezing Uncoded 11/17/23 11:04 pine trees Allergy Wheezing Uncoded 11/17/23 11:04 Physical Examination Osteopathic Statement: *. No significant issues noted on an osteopathic structu ral exam other than those noted in the History and Physical/Consult.
[~2023-11-23 11:15] MED LIST changes: -LACTATED RINGERS 1,000 ML IV SCH; -LIDOCAINE 1% (10MG/ML) FOR IV START INTRADERMA PRN; +TRANEXAMIC 1,000 MG/100ML-NACL 1,000 MG in SALINE 1 100ML.BAG IVPB PRN
[2023-11-23] MEDS: GABAPENTIN 300 MG CAP PO PRN (12:05)
[2023-11-23] MEDS: ACETAMINOPHEN TAB 500 MG TAB PO PRN (12:05)
[2023-11-23] MEDS: LACTATED RINGERS 1,000 ML IV ONE ×4 (12:13→17:27)
[2023-11-23 12:14] LABS: Glucose,Whole Blood 115 mg/dL (70-110)
[2023-11-23] MEDS: ONDANSETRON 4 MG/2 ML VIAL IVP PRN (12:14)
[2023-11-23] MEDS: SCOPOLAMINE 1 MG/72 HR PATCH TRANSDERM ONE (12:14)
[2023-11-23] MEDS: FAMOTIDINE 20 MG/2 ML VIAL IVP ONE (12:19)
[2023-11-23] MEDS: HYDROCORTISONE SUCCINATE 100 MG/2 ML VIAL IVP ONE (12:25)
[2023-11-23] MEDS: MIDAZOLAM 2 MG/2 ML VIAL IVP ONE (12:45)
--- NOTE | 2023-11-23 12:58 | P.ANPRN ---
Procedure Note - Anesthesia - Invasive Line Left Arterial Line Time Out Performed: Yes Date of Procedure: 11/23/23 Time of Procedure: 12:50 Location of Patient: PreOp Preparation: Sterile Prep Arterial Line Location: Radial Ultrasound Used: Yes Purpose - Visualization and Identification of Vasculature: Yes Image Stored and Saved: Yes Narrative: Central line placement per sterile protocol utilized. 22G arterial line needle. AttemptX1
[2023-11-23] MEDS ORDERED: LIDOCAINE 1% INJ 10MG/ML (20 ML MDV) ONE (14:10)
[2023-11-23] MEDS ORDERED: TRANEXAMIC 1,000 MG/100ML-NACL PREMIX BAG ONE (14:10)
[2023-11-23] MEDS ORDERED: PROPOFOL 10 MG/ML 20 ML VIAL IV ONE (14:10)
[2023-11-23] MEDS ORDERED: fentaNYL (PF) 50 MCG/ML 2 ML AMP ONE (14:10)
[2023-11-23] MEDS ORDERED: KETAMINE HCL IN 0.9 % NACL 50 MG/5 ML SYRINGE ONE (14:10)
[2023-11-23] MEDS ORDERED: PHENYLEPHRINE 10 MG/ML VIAL ONE (14:10)
[2023-11-23] MEDS ORDERED: SUCCINYLCHOLINE CHLORIDE 200 MG/10 ML VIAL IV ONE (14:10)
[2023-11-23] MEDS ORDERED: HYDROmorphone (PF) 1 MG/ML ONE (14:10)
[2023-11-23] MEDS ORDERED: MIDAZOLAM 2 MG/2 ML VIAL ONE (14:10)
[2023-11-23] MEDS: ceFAZolin 3 GM in SODIUM CHLORIDE 0.9% 100 ML IVPB PRN (14:12)
[2023-11-23] MEDS: GELATIN SPONGE,ABSORB (LARGE) 1 EACH SPONGE TOPICAL ONE (15:29)
[2023-11-23] MEDS: THROMBIN (BOVINE) 5,000 UNIT VIAL TOPICAL ONE (15:30)
[2023-11-23] MEDS ORDERED: bisacodyL 10 MG SUPP RECTAL PRN (18:14)
[2023-11-23] MEDS ORDERED: MAGNESIUM HYDROXIDE 2,400 MG/30 ML CUP PO PRN (18:14)
[2023-11-23] MEDS: HYDROmorphone 0.5 MG/0.5 ML SYRINGE IVP ONE ×2 (18:49→19:14)
--- NOTE | 2023-11-23 18:54 | XR ---
EXAMINATION TYPE: XR lumbar spine 2 or 3V, FL guidance operating room DATE OF EXAM: 11/23/2023 Comparison: None Clinical History: 53-year-old female L3-L4 Fusion Findings: L3-4 anterior and posterior lumbar fusion. 16 images sent in PACS for anterior part of fusion. 6 imag es scanned into PACS for posterior part of fusion. Combined FL time 1 min 57 seconds. Combined DAP [address] Barnard Impression: Intraoperative fluoroscopy as above.
[2023-11-23 19:03] LABS: Glucose,Whole Blood 130 mg/dL (70-110)
[2023-11-23] MEDS: oxyCODONE-APAP 5-325MG 1 EACH TAB PO PRN (20:15)
[2023-11-23] MEDS: BACLOFEN 10 MG TAB PO PRN (20:16)
[2023-11-23] MEDS: HYDROmorphone 1 MG/ML 1 ML SYRINGE IVP PRN (22:23)
[2023-11-23] MEDS: ceFAZolin 3 GM in SODIUM CHLORIDE 0.9% 100 ML IVPB SCH (23:34)
--- NOTE | 2023-11-23 23:44 | CT ---
EXAMINATION TYPE: CT lumbar spine wo con DATE OF EXAM: 11/23/2023 11:28 PM COMPARISON: Prior CT lumbar spine October 08, 2023 HISTORY: s/p L3-L4 lateral IB fusion,L3-L4 posterior fusion CT DLP: 1941.4 mGycm Automated exposure control for dose reduction was used. Unenhanced CT of the lumbar spine was performed. Bone and soft tissue window settings are submitted as well as coronal and sagittal reconstructions. There are 5 lumbar type vertebra redemonstrated. Bilateral Posterior interpedicular rods and screws w ith metallic disc material at L3-L4 level is now seen. Metallic disc material slightly wider than the tanana disc space. Hardware position appears grossly satisfactory. Vertebral body heights and disc s pace heights are maintained above and below surgical levels. Spinal canal is grossly preserved. Revie w of axial images shows some ill-defined fluid and air through and adjacent to the left iliopsoas mus nadiya. No well-formed fluid collection clearly seen. IMPRESSION: There is new surgical change at L3-L4 level with satisfactory alignment.
[2023-11-24] MEDS: ONDANSETRON 4 MG/2 ML VIAL IVP PRN (03:25)
[2023-11-24] MEDS: HYDROcodone/APAP 10-325MG 1 EACH TAB PO PRN (05:11)
[2023-11-24 06:20] LABS: Basophils % (A) 0 %; Eosinophils # (A) 0.1 k/uL (0-0.7); Eosinophils % (A) 1 %; HCT 35.9 % (34.0-46.0); HGB 11.8 gm/dL (11.4-16.0); Lymphocytes # (A) 2.2 k/uL (1.0-4.8); Lymphocytes % (A) 20 %; MCH 29.6 pg (25.0-35.0); MCHC 32.8 g/dL (31.0-37.0); MCV 90.2 fL (80.0-100.0); Mean Platelet Volume 6.9; Monocytes # (A) 0.7 k/uL (0-1.0); Monocytes % (A) 6 %; Neutrophils % (A) 71 %; Platelet Count 259 k/uL (150-450); RBC 3.98 m/uL (3.80-5.40); RDW 13.8 % (11.5-15.5); WBC 11.2 k/uL (3.8-10.6)
[2023-11-24 06:29] LABS: African American GFR (CKD) >90 (>60 ml/min/1.73 sqM); Anion Gap 5 mmol/L; Blood Urea Nitrogen 11 mg/dL (7-17); Calcium 7.4 mg/dL (8.4-10.2); Carbon Dioxide 28 mmol/L (22-30); Chloride 102 mmol/L (98-107); Glucose 118 mg/dL (74-99); Non-African American GFR(CKD) >90 (>60 ml/min/1.73 sqM); Potassium 3.4 mmol/L (3.5-5.1); Sodium 135 mmol/L (137-145)
[2023-11-24 06:45] LABS: Glucose,Whole Blood 144 mg/dL (70-110)
--- NOTE | 2023-11-24 07:03 | P.OP ---
Date of Procedure: 11/23/23 Preoperative Diagnosis: 1. L3-4 spondylolisthesis, unstable 2. L3-4 Spondylosis, severe 3. L3-4 stenosis, severe 4. Low back pain 5. Obesity 6. Complex medical patient Postoperative Diagnosis: 1. L3-4 spondylolisthesis, unstable 2. L3-4 Spondylosis, severe 3. L3-4 stenosis, severe 4. Low back pain 5. Obesity 6. Complex medical patient Procedure(s) Performed: Part I: L3-4 Lateral Interbody fusion (05795) Use of IONM Part II: L3-4 Posteriolateral instrumented fusion (59584) L3-4 instrumentation (18092) Kathie Navigation for screw placement (01152) Use of IONM all screws testing >20 mA Implants: Globus Rise L, Lateral interbody cage Kathie Hazelhurst rods and screws Allocell, arthrocell, iFactor Magnatos, Autograft Anesthesia: GETA Surgeon: Dayday Barnard Unit Clerk #1: Lucinda Ibarra (WAS PRESENT AND ASSISTED WITH ALL ASPECTS OF THE CASE FROM POSITION TO CLOSURE) Estimated Blood Loss (ml): 150 IV fluids (ml): 2,500 Urine output (ml): 450 Pathology: none sent Condition: stable Disposition: PACU Indications for Procedure: Ms. Maurice is presenting for evaluation of low back and bilateral lower extremity pain, right lower extremity numbness. It was my pleasure to have seen and examined Ms. Maurice. In our visit today we have had a chance to go over subjective complaints, physical examination findings and treatments including the natural course history without intervention and various interventional options. The patients imaging demonstrates: MRI scan completed on 08/12/2023 [facility]:No large disc herniations, alignment stable. Scattered spondylotic changes. No lesions. No fractures at this time. MRI scancompleted on 08/12/2023 at [facility]:Grade I spondylolisthesis noted L3-4 with mobility and partial reduction on this supine film. There is b/l foraminal stenosis as well as central stenosis related to this that is moderate to severe. Endplate sclerosis, modic changes accompany this. No acute fracture or lesions noted. L3-S1 spondylosis noted with varying stenosis due to ligamental hypertrophy, facet hypertrophy and arthropathy. XRay Lumbar Multiview (AP, Lateral, Flexion, Extension) with AP pelvis; 5 views taken at [facility] on 05/26/23 of Lumbar Spine: - Images re-reviewed with the patient today. Multilevel degenerative changes noted from L3-S1.There is grade I spondylolisthesis that is mobile on F/E films >3mm at L3-4.There is segmental kyphosis, spondylosis and disc collapse along with facet arthrosis at L3-4 as well.There is spondylosis with facet arthrosis and disc height loss L4-S1 as well. No othe rfractures noted. No lesions noted. AP pelvis: shows congruent lvel pelvis no fracture. There is severe b/l SI joint sclerosis noted with vacuum phenomena noted in b/l joints as well. On physical exam, Ms. Maurice demonstrates: A continued dull, ache-like pain throughout the low back that radiates down into the right lower extremity. She notes that this pain is exacerbated by prolonged activity. The patient also reports experiencing a sharp, pressure-like pain throughout the lumbar spine that occurs after prolonged sitting. The patient states that her right leg pain is associated with numbness. The patient reports experiencing moderate to severe sleep disturbances related to her ongoing pain and associated symptoms. I have explained to the patient that as their condition progresses it will cause further neurological deficits and eventual paralysis. Based on the patients imaging, physical exam, and the rapid progression and disabling nature of their symptoms, at this time I recommend surgery in the form of a: Stage I: L3-4 lateral decompression and fusion / Stage II: L3-4 posterior stabilization. I discussed the risk and benefits of this procedure at length with Ms. Maurice. The patient agreed to considered pursuing the procedure abovementioned. Prior to surgery, she should follow up with her PCP (Cardio, ID, IM etc) for clearance. Questions were invited and answered, and the patient wishes to proceed as outlined below. Currently, I am recommendin.Stage I: L3-4 lateral decompression and fusion / Stage II: L3-4 posterior stabilization Description of Procedure: L3-4 lateral interbody fusion with posterolateral instrumented fusion (JOHN) The patient was seen and examined in the preoperative area. All preoperative protocols were followed. Informed consent was obtained, risks and benefits of the procedure were discussed at length. Risks including bleeding infection d amage to the surrounding tissue and risk of reoperation were discussed with the patient. Risk of anesthesia up to and including was discussed with the patient. These are outlined in the risk review. They were willing to accept these risks and all of the risks of surgery. The patient was given a weight- based dose of antibiotics in the form of 2 g Ancef. The patient was seen and evaluated by the anesthesia team who deemed them fit for surgery. The site was marked, the patient was willing to proceed with the procedure. The patient was transferred to the operative suite by the Department of anesthesia. They were then drifted off to sleep by the department anesthesia and GETA was performed. The patient tolerated this well. Castillo catheter was placed by nursing staff, atraumatically. Once confirmation of lines and ventilation the patient was transferred to a flat Jose table and placed in the right lateral decubitus position. Axillary roll was placed. Hip Bump was placed. All bony prominences including wrists, elbows, axilla, chest, hips, and thighs, and feet were padded very well. Special attention was paid to the genitalia and these were padded accordingly. SCDs were placed on bilateral lower extremities and were connected. Arms were well padded and placed on armboard pillows. The patient was taped to the table and secured. Once in position, again we confirmed good ventilation capabilities and that lines were running appropriately. The patient's left lateral lumbar and flank was then exposed. 1010s were placed outlining the incision site. Standard alcohol was used to clean the incision site and allowed to dry. C-arm was used to biomark the patient and confirm level for incision which was marked with a skin marker. Operative briefing was performed with all teams and everyone in agreement to proceed. The patient was then prepped and draped in a normal sterile fashion. Timeout was then performed and all parties were in agreement with the procedure to be performed. Transverse skin incision was then made over the previously biomarker area and dissection taken down with EC to the external oblique fascia. This was then identified and two large wild clamps then used for blunt dissection through the external, internal and transverse abdominis inline with the level to be exposed. Once the transversalis fascia was identified the retroperitoneal space was entered bluntly and blunt dissection was used to sweep abdominal contents anteriorly. Retroperitoneal fat was identified and the psoas as well as TVP was palpated. Once this was identified a blunt probe was placed with the help of biplanar fluoroscopy at the L3-4 level. Once it was in good position in the posterior ? of the body and at the disc space, a wire was passed. IONM was used to stimulate the probes before at 2 and 5 mA with no responses in all 4 quadrants. Dilator was then placed over the probe and stimulated and there was no response again. Retractor blades were then chosen and retractor placed and secured in position and to the table. The blades were carefully then opened slightly and the IONM probe sent down all 4 quadrants again without any responses at 2, 5 and 10 mA. The retractor was then opened further for visualization and the dilators and wire removed. Disc space was visible and a combination of bipolar and EC were used to clean margins and identify discs. Once it was identified, rongeur was used to remove outer osteophytes. A osteotome was then used to pass through the disc space under fluoroscopic guidance once this was passed a Ayala was then passed in a similar fashion through to the opposite side to release the osteophytes on this side as well. Once these were released sequential box osteotomes were passed in a similar fashion until the disc had been completely removed. Good bleeding endplates were noted. Pituitary was used to remove any floating or excess fragments. The trial was then placed and sized. The disc space was irrigated. A [55 mm x 18 mm 8-16 mm] expandable lateral leg spine cage was then selected and placed under fluoroscopic guidance. The cages then expanded to its desired height, reducing a and restoring disc space height and lordosis and alignment. The cage was backfilled with assorted graft. The infusion rn was then removed and the area inspected. No injury was evident, minimal bleeding was cauterized and AP and Lateral images confirmed good placement of cage. The retractor was then removed under direct visualization at 20 min in the psoas. The wound was copiously irrigated with NSS. The deep fascia was then closed with 0 Vicryl superficial closed with 2-0 Vicryl and the skin was closed with a 3-0 running nylon given her poor skin quality. Skin glue was then placed after it was cleaned it was then dressed sterilely with an operative foam dressing. The patient was transferred back to their hospital bed atraumatically and the beds were flipped for the second stage posteriorly. Pt was then positioned prone on a [employer] spine top table. All bony prominences including wrists, elbows, axilla, chest, hips, and thighs, and feet were padded very well. Special attention was paid to the genitalia and these were padded accordingly. SCDs were placed on bilateral lower extremities and were connected. Arms were well padded and placed on armboard pillows. The patient was taped to the table and secured. Once in position, again we confirmed good ventilation capabilities and that lines were running appropriately. The patient's left lateral lumbar and flank was then exposed. 1010s were placed outlining the incision site. Standard alcohol was used to clean the incision site and allowed to dry. C-arm was used to biomark the patient and confirm level for incision which was marked with a skin marker. Operative briefing was performed with all teams and everyone in agreement to proceed. The patient was then prepped and draped in a normal sterile fashion. Timeout was then performed and all parties were in agreement with the procedure to be performed. Skin nicks were then made over the PSIS on the Right side and pins placed for the [employer] Navigation tracker system. This was then secured. A 3D Ziehm spin was then obtained and registered. Once it was confirmed to be accurate, pedicles were targeted through bilateral skin incisions over L3 and L4. Navigated Jamshidi was used to plan screws followed by a navigated drill bit. Once drilled a wire was placed in the pedicle and they were all confirmed to be in good position on AP and Lateral imaging. Screws were then placed over the wires using lateral imaging. Once in position screws were tested and all tested above 20 mA. Rods were then selected and bent appropriately. Posterolateral gutters were decorticated with a high speed evgeny and Ventris bio placed in the PL gutters for fusion. Rods were then placed through tulip heads, subfascial and secured with set screws. Set screws were then finally tightened. Tabs were broken off. AP and Lateral imaging confirmed good placement of screws with reduction of height, lordosis and alignment. Wounds were copiously irrigated with NSS. Local anesthetic is placed remote to the incision for the block. The deep fascia was closed with 0 vicryl. Superficial closed with 2-0 Vicryl and skin closed with mary kay. Wound edges approximated very well. Wounds were then cleaned and dressed sterilly with optifoam dressing. The patient was then transferred to their hospital bed atraumatically. Patient was then awakened and extubated by the department of anesthesia having tolerated the procedure very well with no complications. They were transferred to the postoperative care unit in stable condition.
[2023-11-24] MEDS ORDERED: Potassium Replacement Protocol 1 EACH MISC MISCELLANE PRN (09:00)
[2023-11-24] MEDS ORDERED: ALBUTEROL NEBULIZED 2.5 MG/3 ML INHALATION PRN (09:00)
[2023-11-24] MEDS ORDERED: DEXTROSE 50% SYRINGE 50 ML IVP PRN ×2 (09:03)
[2023-11-24] MEDS: POTASSIUM CHLORIDE ER 20 MEQ TAB.ER PO SCH (09:18)
[2023-11-24] MEDS: SENNOSIDES-DOCUSATE SODIUM 1 EACH TAB PO SCH (09:18)
[2023-11-24] MEDS: FERROUS SULFATE 325 MG TAB PO SCH (09:18)
[2023-11-24] MEDS: PANTOPRAZOLE 40 MG TABLET PO SCH (09:24)
[2023-11-24] MEDS: LIRAGLUTIDE 0.6 MG/0.1 ML SQ SCH (10:11)
[2023-11-24 11:10] LABS: Glucose,Whole Blood 117 mg/dL (70-110)
[2023-11-24] MEDS: INSULIN ASPART (NovoLOG) 100 UNIT/ML VIAL SQ SCH (11:39)
[2023-11-24] MEDS: HYDROCORTISONE SUCCINATE 100 MG/2 ML VIAL IV SCH ×2 (12:08→20:05)
--- NOTE | 2023-11-24 14:08 | P.CONS ---
History of Present Illness - Reason for Consult Consult date: 11/24/23 Medical management, status post L3-4 fusion - History of Present Illness This is a 53-year-old female who was admitted under orthopedic services for severe spondylosis with severe stenosis of the L3-4 and is status post L3-4 lateral interbody fusion. Patient follows with Dr. Carrasco in the outpatient setting with a past medical history of asthma, diabetes mellitus, GERD, memory impairment, musculoskeletal disorder, osteoarthritis, sleep apnea, thyroid disorder with extensive degenerative disc disease, PCOS, adrenal insufficiency with chronic steroid use with chronic back pain. Patient also with history of ADD/ADHD with anxiety and reports is a former smoker and rarely uses alcohol and denies any other drug use. Patient underwent surgical intervention with fusion and patient reports needs to have revision of the surgery tomorrow for exchange of the right-sided screws. Patient is chronically maintained on prednisone with adrenal insufficiency and follows with endocrine out of [facility] and did receive a dose of Solu-Cortef during surgery last night by anesthesia. Will add Solu-Cortef 100 mg 3 times daily and strongly recommend a higher dose during surgery tomorrow and will monitor closely and taper postsurgery. Patient currently having continued pain and difficulty with position changes and maintained on pain medications per orthopedics. Will also add incentive spirometer and encouraged the patient to continue using pre and postoperatively. Patient is a diabetic with chronic steroid use and will monitor with Accu-Cheks before meals and at bedtime and continue with sliding scale. Patient does take Victoza daily. Home medications have been reviewed and resumed as appropriate. REVIEW OF SYSTEMS: CONSTITUTIONAL: No fever, no malaise, no fatigue. HEENT: No recent visual problems or hearing problems. Denied any sore throat. CARDIOVASCULAR: No chest pain, orthopnea, PND, no palpitations, no syncope. PULMONARY: No shortness of breath, no cough, no hemoptysis. GASTROINTESTINAL: No diarrhea, no nausea, no vomiting, no abdominal pain. NEUROLOGICAL: No headaches, no weakness, no numbness. HEMATOLOGICAL: Denies any bleeding or petechiae. GENITOURINARY: Denies any burning micturition, frequency, or urgency. MUSCULOSKELETAL/RHEUMATOLOGICAL: Denies any joint pain, swelling, or any muscle pain. Reports continued back pain and difficulty with position changes ENDOCRINE: Denies any polyuria or polydipsia. The rest of the 14-point review of systems is negative. PHYSICAL EXAMINATION: GENERAL: The patient is alert and oriented x3, lying in bed. Well developed, well nourished. Morbidly obese HEENT: Pupils are round and equally reacting to light. EOMI. No scleral icterus. No conjunctival pallor. Normocephalic, atraumatic. No pharyngeal erythema. No thyromegaly. CARDIOVASCULAR: S1 and S2 present. No murmurs, rubs, or gallops. PULMONARY: Chest is clear to auscultation, no wheezing or crackles. ABDOMEN: Soft, nontender, nondistended, normoactive bowel sounds. No palpable organomegaly. MUSCULOSKELETAL: No joint swelling or deformity. EXTREMITIES: No cyanosis, clubbing, or pedal edema. Generalized edema noted bilaterally to lower extremities although slightly more edematous on the left NEUROLOGICAL: Gross neurological examination did not reveal any focal deficits. Diffusely weak SKIN: No rashes. Assessment: L3-4 spondylolisthesis with spondylosis severe and severe stenosis, status post L3-4 lateral interbody fusion, postop day 1 History of asthma, not in exacerbation Diabetes mellitus GERD Memory impairment History of musculoskeletal disorder with degenerative disc disease History of osteoarthritis History of sleep apnea Hypothyroidism Chronic lower back pain Adrenal insufficiency maintained on chronic steroid use and follows with endocrine out [facility] History of ADD/ADHD History of anxiety Morbid obesity with a BMI of 46.5 GI prophylaxis DVT prophylaxis Full code Plan: Patient did undergo L3-4 lateral interbody fusion with Dr. Barnard yesterday and reports she has to have revision of the surgery due to the right-sided screws and will be n.p.o. at midnight Patient with generalized edema noted on the lower extremities and will monitor and recommend compression stockings Patient will be n.p.o. at midnight and will add gentle IV hydration as patient has significant adrenal insufficiency syndrome and is maintained on chronic steroids Solu-Cortef added and will resume steroids after a taper after surgery. Highly recommend an additional dose of Solu-Cortef during surgery. 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 Incentive spirometer encouraged at least 10 times every hour while awake We will continue to follow with orthopedics during hospitalization. Thank you kindly for this consultation. The impression and plan of care has been dictated by Grace Espinoza, Nurse Practitioner as directed. Dr. Talia MD I have performed a history and examination and MDM of this patient, discussed the same with the dictator, and agree with the dictator's assessment and plan as written ,documented as a scribe. Based on total visit time, I have performed more than 50% of the visit. 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 anemia/low iron, gastritis, diverticulitis, bleeding ulcer 2008, DDD, Left rotator cuff 2 tears that dislocates. PCOS, Metabolic syndrome, Insulin resistance. "Incomplete RBBB." Hx colon polyps. Bruises easily. Edema BLE. LOW BACK PAIN, MULTIPLE LEVELS OF STENOSIS IN LOWER BACK, ADRENAL INSUFFICIENCY-chronic steroid use,has Davenport's like symptoms from steroids, uses CPAP, herniation of disc, chronic back pain. spondylosis, current rectocele History of Any Multi-Drug Resistant Organisms: MRSA Year Discovered:: 2018 MDRO Source:: blood Past Surgical History: Adenoidectomy, Appendectomy, Bariatric Surgery, Breast Surgery, Cholecystectomy, Hysterectomy, Orthopedic Surgery, Tonsillectomy, Tubal Ligation Additional Past Surgical History / Comment(s): arthroscopy bilateral knees, gastric sleeve 02/2012, Hemorrhoids, Colonoscopy/EGD, Brachioplasty, Breast Augmentation w/ implants, Thigh plastic surgery, lower body lift, Panniculectomy, exc cyst upper lip, exc cysts from labia, lt 5th finger repair/reattached, Rt thumb basal joint exc/repair w/ Rt CTR, C-5-C6 PROSTHESIS DEVICE Past Anesthesia/Blood Transfusion Reactions: Previous Problems w/ Anesthesia, Family History of Problems w/ Anesthesia, Postoperative Nausea & Vomiting (PONV) Additional Past Anesthesia/Blood Transfusion Reaction / Comm: Needs low dose anesthesia, VS plummet. Uncle has anesthesia problems, allergic reaction low vital signs". pt states reglan helps to control PONV Smoking Status: Former smoker - Past Family History Father Family Medical History: Cancer, Deep Vein Thrombosis (DVT), Pulmonary Embolus Additional Family Medical History / Comment(s): Possible bone cancer. Mother Family Medical History: Dementia, Diabetes Mellitus, Hypertension Medications and Allergies Home Medications Medication Instructions Recorded Confirmed Type Albuterol Inhaler [Ventolin Hfa 2 puff INHALATION RT-Q6H PRN 11/30/17 11/17/23 History Inhaler] Furosemide [Lasix] 20 - 40 mg PO DAILY PRN 07/19/19 11/17/23 History Baclofen [Lioresal] 10 mg PO TID PRN #60 tab 12/04/20 11/17/23 Rx traZODone HCL [Desyrel] 50 mg PO HS 07/04/21 11/17/23 History Omeprazole [PriLOSEC] 20 mg PO BID 10/30/21 11/17/23 History Liraglutide [Victoza 2-John] 0.6 mg SQ DAILY 11/25/21 11/17/23 History HYDROcodone/APAP 10-325MG [[place] 1 tab PO Q6H PRN 04/08/22 11/17/23 History 10-325] predniSONE 5 mg PO DAILY 01/29/23 11/17/23 History Celecoxib [CeleBREX] 200 mg PO BID 11/17/23 11/17/23 History Ferrous Sulfate [Feosol] 325 mg PO DAILY 11/17/23 11/17/23 History Simethicone [Gas-X] 80 mg PO QID PRN 11/17/23 11/17/23 History Allergies Allergy/AdvReac Type Severity Reaction Status Date / Time broccoli Allergy Abdominal Verified 11/23/23 11:50 Pain eucalyptus Allergy shortness Verified 11/23/23 11:50 of breath lavender (Lavandula Allergy shortness Verified 11/23/23 11:50 angustifolia) of breath mold Allergy Dyspnea Verified 11/23/23 11:50 pineapple Allergy Abdominal Verified 11/23/23 11:50 Pain pollen extracts Allergy Dyspnea Verified 11/23/23 11:50 wheat Allergy Wheezing Verified 11/23/23 11:50 dust Allergy Wheezing Uncoded 11/23/23 11:50 feathers Allergy Wheezing Uncoded 11/23/23 11:50 pine trees Allergy Wheezing Uncoded 11/23/23 11:50 Physical Exam Vitals: Vital Signs Temp Pulse Resp BP BP Pulse Ox 11/24/23 08:00 76 17 11/24/23 07:12 99.2 F 76 17 100/54 95 11/24/23 01:30 99.0 F 83 18 111/69 98 11/23/23 22:13 98.3 F 84 20 114/68 99 11/23/23 21:59 82 106/68 85 L 11/23/23 21:26 90 125/79 97 11/23/23 21:12 95 130/74 99 11/23/23 20:57 93 120/77 99 11/23/23 20:42 92 148/86 99 11/23/23 20:26 100 147/88 99 11/23/23 20:12 93 137/79 95 11/23/23 19:55 97.1 F L 128 H 20 141/96 89 L 11/23/23 18:57 89 17 94 L 11/23/23 18:42 85 17 135/80 93 L 11/23/23 18:27 98 F 81 16 116/67 98 11/23/23 13:03 82 16 136/79 98 11/23/23 12:06 98.0 F 110 H 16 181/96 96 Intake and Output 11/23/23 11/24/23 11/24/23 22:59 06:59 14:59 Intake Total 1100 240 Output Total 850 250 0 Balance 250 -10 0 Intake: IV 1100 Oral 240 Output: Urine 750 250 0 Estimated Blood Loss 100 Other: Voiding Method Indwelling Catheter Results CBC & Chem 7: 11/24/23 05:38 11/24/23 05:38 Labs: Abnormal Lab Results - Last 24 Hours (Table) 11/23/23 11/23/23 11/24/23 Range/Units 12:12 18:58 05:38 WBC 11.2 H (3.8-10.6) k/uL Neutrophils # 8.0 H (1.3-7.7) k/uL Sodium (137-145) mmol/L Potassium (3.5-5.1) mmol/L Glucose (74-99) mg/dL POC Glucose (mg/dL) 115 H 130 H (70-110) mg/dL Calcium (8.4-10.2) mg/dL 11/24/23 11/24/23 Range/Units 05:38 06:43 WBC (3.8-10.6) k/uL Neutrophils # (1.3-7.7) k/uL Sodium 135 L (137-145) mmol/L Potassium 3.4 L (3.5-5.1) mmol/L Glucose 118 H (74-99) mg/dL POC Glucose (mg/dL) 144 H (70-110) mg/dL Calcium 7.4 L (8.4-10.2) mg/dL
--- NOTE | 2023-11-24 14:48 | P.PN ---
Subjective Progress Note Date: 11/24/23 Principal diagnosis: 1. Grade I spondylolisthesis of L3 on L4 2. L3-4 spondylosis with stenosis 3. L3-S1 spondylosis 4. Low back pain 5. Bilateral SI joint osteoarthritis Patient seen and examined this morning. Patient is resting comfortably in bed. She does report that her pain is managed on current regimen. She states that she does have a right sided lumbar pain with activity. Patient denies any numbness or tingling to the bilateral lower extremities. Patient states she has not been up and about since procedure. Encourage patient to work with physical therapy today. Discussed with patient the results of her CT scan that demonstrate her right screws have some malalignment from navigation and that we will need to take her back to surgery tomorrow 11/25/23 for a revision of the right side screws. Patient verbalizes understanding. Informed her that she will be n.p.o. at midnight tonight. Continue to encourage patient to use incentive spirometer. Surgical incisions to the lateral left and lumbar regions are clean dry and intact, no shadowing noted. No acute concerns. Objective - Vital Signs Vital signs: Vital Signs Temp 99.2 F 11/24/23 07:12 Pulse 76 11/24/23 08:00 Resp 17 11/24/23 08:00 BP 100/54 11/24/23 07:12 Pulse Ox 95 11/24/23 07:12 FiO2 Intake & Output 11/23/23 11/24/23 11/24/23 18:59 06:59 18:59 Intake Total 2200 240 Output Total 450 650 0 Balance 1750 -410 0 Weight 130.6 kg Intake: IV 2200 Oral 240 Output: Urine 350 650 0 Estimated Blood Loss 100 Other: Voiding Method Indwelling Catheter - Exam Physical Examination General: The patient is awake and alert, in no acute distress Skin: Skin is warm and dry with no obvious rashes or lesions. Surgical incisions to the left lateral and lumbar region are clean dry and intact, no shadowing noted. Eye: Pupils are equal, round and reactive to light, extra-ocular movements are intact; there is normal conjunctiva bilaterally. Neck: The neck is supple, there is no tenderness and ROM intact. Cardiovascular: There is a regular rate and rhythm. No murmur, rub or gallop is appreciated. Respiratory: Lungs are clear to auscultation, respirations are non-labored, breath sounds are equal. Gastrointestinal: Soft, non-distended, non-tender abdomen. Back: There is no tenderness to palpation in the midline, paralumbar, parathoracic or buttocks region. There is no obvious deformity . Musculoskeletal: ROM limited secondary to pain and stiffness from surgical procedure. Muscle strength in all major muscle groups of bilateral upper extremities 5/5, bilateral lower extremities 5/5. Neurological: CN 2-12 intact. There are no obvious motor or sensory deficits. Movement and coordination equal and intact. Sensory exam to light touch intact C5-T1 and intact from L2-S1. Reflexes 2/4 in bilateral upper and lower extremities. Negative Hoffmans, babinski, and clonus signs. Psychiatric: Cooperative, appropriate mood & affect, normal judgment. - Labs CBC & Chem 7: 11/24/23 05:38 11/24/23 05:38 Labs: Abnormal Lab Results - Last 24 Hours (Table) 11/23/23 11/23/23 11/24/23 Range/Units 12:12 18:58 05:38 WBC 11.2 H (3.8-10.6) k/uL Neutrophils # 8.0 H (1.3-7.7) k/uL Sodium (137-145) mmol/L Potassium (3.5-5.1) mmol/L Glucose (74-99) mg/dL POC Glucose (mg/dL) 115 H 130 H (70-110) mg/dL Calcium (8.4-10.2) mg/dL 11/24/23 11/24/23 Range/Units 05:38 06:43 WBC (3.8-10.6) k/uL Neutrophils # (1.3-7.7) k/uL Sodium 135 L (137-145) mmol/L Potassium 3.4 L (3.5-5.1) mmol/L Glucose 118 H (74-99) mg/dL POC Glucose (mg/dL) 144 H (70-110) mg/dL Calcium 7.4 L (8.4-10.2) mg/dL Assessment and Plan Assessment: Postop day 1: L3-L4 lateral interbody fusion with posterior L3-L4 fusion 1. Grade I spondylolisthesis of L3 on L4 2. L3-4 spondylosis with stenosis 3. L3-S1 spondylosis 4. Low back pain 5. Bilateral SI joint osteoarthritis Plan: -Appreciate group segment consultant and team management. -NPO at [place] - Surgery planned for tomorrow, 11/25/2023 for revision of right sided screws -Activity: Ambulate QID, OOB all meals, up and about, limit lifting bending twisting to less than 5 lbs. Use walker or cane if needed for stability. -Daily PT/OT, increase ambulation strength and balance. -Pain control: Adequate at this time -Meds: reviewed -GI ppx: senna, Miralax -DVT PPX: OK to restart Heparin tonight -Hygiene: Shower today. Maintain dressing clean and dry. Meticulous cleaning after BMs away from the incision site -Encourage IS 10x/hr -Dispo: clinically pending *I reviewed and discussed this case with my attending Dr. Barnard, whom has reviewed this chart and films and is in agreement with assessment and plan of care as outlined above. I have personally seen and examined the patient, performed the documentation and the assessment and plan as written. Number of minutes spent on the visit: 20m.
[2023-11-24 17:19] LABS: Glucose,Whole Blood 194 mg/dL (70-110)
[2023-11-24 20:45] LABS: Glucose,Whole Blood 121 mg/dL (70-110)
[2023-11-24] MEDS: traZODone HCL 50 MG TAB PO SCH (21:15)
[2023-11-24] MEDS: HYDROmorphone 0.5 MG/0.5 ML SYRINGE IVP PRN (23:57)
[2023-11-24] MEDS: ceFAZolin 3 GM in SODIUM CHLORIDE 0.9% 100 ML IVPB SCH (23:58)
[2023-11-24] MEDS: SODIUM CHLORIDE 0.9% 1,000 ML IV SCH (23:58)
[2023-11-25 05:49] LABS: Glucose,Whole Blood 112 mg/dL (70-110)
--- NOTE | 2023-11-25 07:01 | P.PN ---
Progress Note - Text Progress Note Date: 11/25/23 Spine Surgery Clinical and Risk Review Katerina Maurice is a 53 yo female who underwent a two stage lateral L3-4 fusion followed by posteriorlateral instrumented fusion without incident. She was recovered appropriately and sent to the floor. She had a CT post op which was reviewed. This CT demonstrated the lateral cage in good position with good height and lordosis latter-day as well as latter-day of the listhesis at L3-4. Unfortunately, there were issues with Kathie Navigation during surgery which we thought were hashed out and Xrays after placement of screws showed screws to be in what we thought was acceptable position, however CT shows right sided screws Grade II to III canal compromise. There are other factors as well like pt body habitus that play a role in this as she has a very high BMI which changes the accuracy of some of these things. This is not acceptable. Pt has no sx of this, no radiculopathy or issuse, however for the sake of longevity of the construct and her safety, these need to be revised and placed more optimally. [id number], we accept that it happened and we will rectify the situation promptly to make it right for the patient. This was discussed at length with the patient. While not ideal, and never anything we would want to happen, it is a risk of surgery and we explained this to the patient and she understands. She is frustrated, but accepting and gracious given the situation and it is better if we fix them now than down the road when she is having issues. We only want what is in her best interest for the best outcome possible and she understands this. She is willing to proceed. At this time I recommend surgery in the form or a: Revision of right sided screws. I discussed the risk and benefits of this procedure at length with Katerina Maurice. The patient her partner agreed to considered pursuing the procedure abovementioned. Prior to surgery, she should follow up with her PCP (Cardio, ID, IM etc) for clearance. Questions were invited and answered, and the patient wishes to proceed as outlined below. Currently, I am recommendin. Revision Right sided screws 2. Follow up with PCP for surgical clearance 3. Review of surgical risks and benefits as well as an educational packet on the proposed surgical procedure. Risks: All surgical procedures come with inherent risks, including those related to positioning, anesthesia, intraoperative findings, and postoperative complications. It is important to understand that surgery does not come with any guarantee of a successful outcome as complications and adverse events are always possible. The patient was given a handout in office today discussing the surgical procedure and risks associated with the intervention, both of which were discussed with the patient. These risks include but are not limited to the following: * Experiencing same, different or even worse symptoms in back, neck, arms, or legs compared to before surgery. * Requiring further surgery or other forms of treatment presently or at some time in the future at same or other levels of the intended spine surgery. * On an extreme but fortunately relatively rare basis severe complication such as blindness, stroke, heart attack, temporary and/or permanent nerve injury, paralysis, coma, or may occur, sometimes without known explanation. * Surgical complications may include but are not limited to risk of infection, fluid accumulation in the surgical dissection site, including a seroma or hematoma, that requires additional surgery, wound drainage, bleeding, new numbness or weakness, vision changes/loss, spinal fluid leakage, non-healing and/or infected incision, headaches, difficulty or inability to swallow, hoarseness, hemopneumothorax, pneumothorax, impotence, retrograde ejaculation, vaginal dryness; injury to nerves, spinal cord, blood vessels, lymphatics or other vital organs (i.e., bowel injury, injury to the great vessels); heterotopic bone formation; complications related to the hardware such as screws, rods, cages including misplaced hardware, device failure, instrumentation at the wrong spine level, hardware fracture/breakage, or hardware loosening; vertebral failure of the spinal column above or below the newly placed hardware; retained surgical instrumentations or devices and the need for further surgery. * Medical risks of the planned spine surgery include but are not limited to generalized Infections to the whole body or local areas outside of the surgical site (sepsis), heart attack, bleeding, anaphylaxis, meningitis, seizure, epilepsy, hearing loss, burn menjivar, laceration of the head or other areas of the body, bruising, hypersensitivity of the skin, bladder over distension; allergic reaction; shoulder injury related to positioning; fat, blood and air clots to other areas of the body like heart, lungs, brain; failure of internal organs such as lungs, kidneys, liver and excessive bleedi ng. If blood transfusions are necessary, note that transfusions may cause intolerance reactions such as anaphylaxis or other complex reactions. * Despite best efforts, the results of spine surgery might not heal in terms of bone, soft tissues such as skin, fascia, ligaments, and joints. Additionally, in order to achieve best possible results, spine surgery may be carried out beyond the initially planned levels and involve decompression, fusion including insertion of hardware at levels other than the original intended area of surgical interest change some portions of the procedure in order to e nsure the best possible outcomes. * With spine surgery and spinal fusion, there are different off label uses of instrumentation (devices, implants and hardware) as well as biological substances (bone morphogenic proteins, demineralized bone matrix) as well as using extra bone from allograft sources (i.e. cadaver bone) or autograft (iliac crest bone, ribs, or the spine itself). The patient has been given information about these practices and their inherent risks and benefits. The patient has had a chance to review all the listed information, has been given print outs detailing this information, and has had all his/her questions answered to their satisfaction. It was my pleasure to have seen and examined Katerina Maurice In our visit today we have had a chance to go over my understanding of our patient's current condition, the natural course history without intervention and various interventional options. Questions were invited and answered, and the patient wishes to proceed as outlined above. I have seen and examined the patient for 25 minutes and we have spent more than 50% of the time in repeat and detailed counseling about the patient's condition, its natural course history with out and as much as can be predicted with surgery and re-review of various surgical treatment options. In conclusion, Katerina Maurice and Her partner requested we proceed with the above suggested surgery and are willing to accept risks and limitations of the suggested surgery as nature of the disease process and our best attempts at treatment for the condition. Thank you again for allowing us to be part of your patient's care. Please don't hesitate to contact me if you have any further questions. Signed and authenticated by: Dayday Sánchez [facility] [address], [address] [address]
--- NOTE | 2023-11-25 08:20 | P.PN ---
Progress Note - Text Progress Note Date: 11/25/23 Patient seen and examined this morning. Patient has remained NPO since PA for surgical procedure planned for this afternoon for revision of right side screws. She is utilizing ice chips to moisten her mouth. Pateint does report new numbness to the anterior left thigh, discussed with patient this is most likely due to swelling and that it will likely come and go. She verbalizes understanding. Dressings to the lumbar spine are CDI. No acute concerns.
[2023-11-25 11:06] LABS: Basophils # (A) 0.03 X 10*3/uL (0.00-0.10); Basophils % (A) 0.2 %; Eosinophils # (A) 0 X 10*3/uL (0.04-0.35); Eosinophils % (A) 0 %; HCT 34.8 % (37.2-46.3); Lymphocytes # (A) 1.57 X 10*3/uL (0.90-5.00); Lymphocytes % (A) 10.8 %; MCH 28.1 pg (27.0-32.0); MCHC 31.6 g/dL (32.0-37.0); Mean Platelet Volume 9.2 FL (9.5-12.2); Monocytes # (A) 1.02 X 10*3/uL (0.20-1.00); NRBC Per 100 WBC 0 X 10*3/uL (0.00-0.01); Neutrophils # (A) 11.77 X 10*3/uL (1.80-7.70); Platelet Count 238 X 10*3/uL (140-440); RBC 3.91 X 10*6/uL (4.10-5.20); RDW 14.2 % (11.5-14.5); WBC 14.54 X 10*3/uL (4.50-10.00)
[2023-11-25 11:20] LABS: ALT 16 U/L (8-44); AST 24 U/L (13-35); Albumin 3.2 g/dL (3.8-4.9); Alkaline Phosphatase 52 U/L (41-126); Blood Urea Nitrogen 12.9 mg/dL (9.0-27.0); Calcium 7.7 mg/dL (8.7-10.3); Carbon Dioxide 29.1 mmol/L (21.6-31.8); Chloride 106 mmol/L (96-109); Glucose 127 mg/dL (70-110); Sodium 142 mmol/L (135-145); Total Bilirubin <0.2 mg/dL (0.3-1.2); Total Protein 5.2 g/dL (6.2-8.2)
[2023-11-25 11:51] LABS: Glucose,Whole Blood 126 mg/dL (70-110)
[2023-11-25 15:11] LABS: Glucose,Whole Blood 112 mg/dL (70-110)
[2023-11-25] MEDS: LACTATED RINGERS 1,000 ML IV ONE ×4 (15:12→19:05)
[2023-11-25] MEDS: ONDANSETRON 4 MG/2 ML VIAL IVP ONE (15:35)
[2023-11-25] MEDS: MIDAZOLAM 2 MG/2 ML VIAL IVP ONE (15:42)
[2023-11-25] MEDS: fentaNYL (PF) 50 MCG/ML 2 ML AMP IVP ONE (15:42)
[2023-11-25] MEDS ORDERED: LIDOCAINE 1% INJ 10MG/ML (20 ML MDV) ONE (16:35)
[2023-11-25] MEDS ORDERED: MIDAZOLAM 2 MG/2 ML VIAL ONE (16:35)
[2023-11-25] MEDS ORDERED: PROPOFOL 10 MG/ML 20 ML VIAL IV ONE (16:35)
[2023-11-25] MEDS ORDERED: ROCURONIUM 10 MG/ML (5 ML VIAL) IV ONE (16:35)
[2023-11-25] MEDS ORDERED: KETAMINE HCL IN 0.9 % NACL 50 MG/5 ML SYRINGE ONE (16:35)
[2023-11-25] MEDS ORDERED: fentaNYL (PF) 50 MCG/ML 2 ML AMP ONE (16:35)
[2023-11-25] MEDS ORDERED: SUCCINYLCHOLINE CHLORIDE 200 MG/10 ML VIAL IV ONE (16:35)
[2023-11-25] MEDS: HYDROCORTISONE SUCCINATE 100 MG/2 ML VIAL IVP ONE ×2 (16:39→19:15)
[2023-11-25] MEDS: LIDOCAINE 1%-EPI 1:100,000 50 ML VIAL SQ ONE ×2 (17:22→18:52)
[2023-11-25] MEDS: BUPIVACAINE (PF) 0.5% 30 ML VIAL SQ ONE ×2 (17:22)
[2023-11-25 19:19] LABS: Glucose,Whole Blood 141 mg/dL (70-110)
[2023-11-25] MEDS: HYDROmorphone 0.5 MG/0.5 ML SYRINGE IVP ONE (19:40)
--- NOTE | 2023-11-25 19:44 | FL ---
EXAMINATION TYPE: FL guidance operating room Intraoperative/procedural fluoroscopic services were pro vided. Total fluoroscopy time is 5.3 seconds with a total of 3 submitted images to PACS. Please see t he operative/procedural note for further details. DAP: [id number] mGym2
--- NOTE | 2023-11-25 20:03 | P.ANPRN ---
Procedure Note - Anesthesia - Invasive Line Right Arterial Line Time Out Performed: Yes ([id number]) Date of Procedure: 11/25/23 Time of Procedure: 15:43 Location of Patient: PreOp Preparation: Sterile Prep, Sterile Dressing Arterial Line Location: Radial (right) Ultrasound Used: Yes Purpose - Visualization and Identification of Vasculature: Yes Needle Guage: 20g Image Stored and Saved: Yes Narrative: Central line placement per sterile protocol utilized.
--- NOTE | 2023-11-25 21:20 | XR ---
EXAMINATION TYPE: XR lumbar spine 2 or 3V Intraoperative/procedural fluoroscopic services were provid ed. Total fluoroscopy time is 54 seconds with a total of 14 submitted images to PACS. Please see the operative/procedural note for further details. DAP: [id number] cGycm2
--- NOTE | 2023-11-25 21:48 | P.PN ---
Subjective Progress Note Date: 11/25/23 - Reason for Consult Consult date: 11/24/23 Medical management, status post L3-4 fusion - History of Present Illness This is a 53-year-old female who was admitted under orthopedic services for severe spondylosis with severe stenosis of the L3-4 and is status post L3-4 lateral interbody fusion. Patient follows with Dr. Carrasco in the outpatient setting with a past medical history of asthma, diabetes mellitus, GERD, memory impairment, musculoskeletal disorder, osteoarthritis, sleep apnea, thyroid disorder with extensive degenerative disc disease, PCOS, adrenal insufficiency with chronic steroid use with chronic back pain. Patient also with history of ADD/ADHD with anxiety and reports is a former smoker and rarely uses alcohol and denies any other drug use. Patient underwent surgical intervention with fusion and patient reports needs to have revision of the surgery tomorrow for exchange of the right-sided screws. Patient is chronically maintained on prednisone with adrenal insufficiency and follows with endocrine out of [facility] and did receive a dose of Solu-Cortef during surgery last night by anesthesia. Will add Solu-Cortef 100 mg 3 times daily and strongly recommend a higher dose during surgery tomorrow and will monitor closely and taper postsurgery. Patient currently having continued pain and difficulty with position changes and maintained on pain medications per orthopedics. Will also add incentive spirometer and encouraged the patient to continue using pre and postoperatively. Patient is a diabetic with chronic steroid use and will monitor with Accu-Cheks before meals and at bedtime and continue with sliding scale. Patient does take Victoza daily. Home medications have been reviewed and resumed as appropriate. 11/25/2023 Patient is seen in follow-up currently n.p.o. as patient is scheduled to undergo revision of the L3-4 fusion of the right-sided screws with orthopedics today. Patient is continued on Solu-Cortef 3 times daily and blood pressures are controlled. Patient has minimal lower extremity swelling and will monitor and continue on gentle IV hydration. Plans for discontinuing fluids postsurgery. Will follow-up with repeat labs. Patient will taper Solu-Cortef to twice daily after surgery and then transition back to oral prednisone. Patient is currently afebrile with no reported chest pain or shortness of breath. Will await surgical report. Review of systems: Constitutional: No reports of fatigue, fever, or chills Cardiovascular: No reports of chest pain or palpitations Respiratory: No reports of shortness of breath or cough GI: No reports of nausea, vomiting, or diarrhea : No reports of dysuria or retention Neurovascular: reports of generalized weakness and continued back pain All medications have been reviewed PHYSICAL EXAMINATION: GENERAL: The patient is alert and oriented x3, lying in bed. Well developed, well nourished. Morbidly obese HEENT: Pupils are round and equally reacting to light. EOMI. No scleral icterus. No conjunctival pallor. Normocephalic, atraumatic. No pharyngeal erythema. No thyromegaly. CARDIOVASCULAR: S1 and S2 present. No murmurs, rubs, or gallops. PULMONARY: Chest is clear to auscultation, no wheezing or crackles. ABDOMEN: Soft, nontender, nondistended, normoactive bowel sounds. No palpable organomegaly. MUSCULOSKELETAL: No joint swelling or deformity. EXTREMITIES: No cyanosis, clubbing, or pedal edema. Generalized edema noted bilaterally to lower extremities although slightly more edematous on the left NEUROLOGICAL: Gross neurological examination did not reveal any focal deficits. Diffusely weak SKIN: No rashes. Assessment: L3-4 spondylolisthesis with spondylosis severe and severe stenosis, status post L3-4 lateral interbody fusion, awaiting revision today on 11/25/2023 History of asthma, not in exacerbation Diabetes mellitus GERD Memory impairment History of musculoskeletal disorder with degenerative disc disease History of osteoarthritis History of sleep apnea Hypothyroidism Chronic lower back pain Adrenal insufficiency maintained on chronic steroid use and follows with valeria pinedo out of [facility] History of ADD/ADHD History of anxiety Morbid obesity with a BMI of 46.5 GI prophylaxis DVT prophylaxis Full code Plan: Patient did undergo L3-4 lateral interbody fusion with Dr. Barnard yesterday and is scheduled today to have revision of the surgery due to the right-sided screws and is currently n.p.o. Patient with generalized edema noted on the lower extremities and will monitor and recommend compression stockings Solu-Cortef continued and will taper postsurgery and will resume steroids after a taper. Highly recommend an additional dose of Solu-Cortef during surgery. Patient does follow with a endocrine out [facility] and did undergo presurgical clearance with her primary care provider as well as bi tri operator given her significant history Will monitor Accu-Cheks before meals and at bedtime and continue with sliding scale and Victoza has been resumed Follow-up on repeat labs in the a.m. Incentive spirometer encouraged at least 10 times every hour while awake We will continue to follow with orthopedics during hospitalization. Thank you kindly for this consultation. The impression and plan of care has been dictated by Grace Espinoza, Nurse Practitioner as directed. Dr. Talia MD I have performed a history and examination and MDM of this patient, discussed the same with the dictator, and agree with the dictator's assessment and plan as written ,documented as a scribe. Based on total visit time, I have performed more than 50% of the visit. Objective - Vital Signs Vital signs: Vital Signs Temp 98.8 F 11/25/23 08:05 Pulse 69 11/25/23 08:05 Resp 18 11/25/23 08:05 BP 118/71 11/25/23 08:05 Pulse Ox 97 11/25/23 08:05 FiO2 Intake & Output 11/24/23 11/25/23 11/25/23 18:59 06:59 18:59 Intake Total 540 Output Total 0 900 475 Balance 540 -900 -475 Intake: Oral 540 Output: Urine 0 900 475 Other: Voiding Method Indwelling Catheter Indwelling Catheter - Labs CBC & Chem 7: 11/25/23 06:20 11/25/23 06:20 Labs: Abnormal Lab Results - Last 24 Hours (Table) 11/24/23 11/24/23 11/24/23 Range/Units 11:08 17:18 20:44 POC Glucose (mg/dL) 117 H 194 H 121 H (70-110) mg/dL 11/25/23 Range/Units 05:47 POC Glucose (mg/dL) 112 H (70-110) mg/dL
--- NOTE | 2023-11-25 23:43 | CT ---
EXAMINATION TYPE: CT lumbar spine wo con DATE OF EXAM: 11/25/2023 11:24 PM COMPARISON: Prior CT lumbar spine November 23, 2023 HISTORY: s/p revision of right screws at L3-L4 from prior surgery earlier this week. CT DLP: 1901.1 mGycm Automated exposure control for dose reduction was used. Unenhanced CT of the lumbar spine was performed. Bone and soft tissue window settings are submitted as well as coronal and sagittal reconstructions. There are 5 lumbar type vertebra redemonstrated. Metallic disc material at L3-L4 level is again seen. Posterior interpedicular rods and screws bilaterally at L3-L4 level are redemonstrated. Alignment is satisfactory and stable. Vertebral body heights and disc space heights are maintained above and belo w surgical levels. There is improved positioning of the right L4 screw after revision on current stud y versus prior study. [id number] facet arthropathy in the lower lumbar spine is again seen. Mil [id number] ill-defined fluid in the posterior subcutaneous tissue along with some foci of air on t he right and foci of air in the left retroperitoneum along the psoas muscle is noted. IMPRESSION: Satisfactory improved positioning of the right L4 screw after surgical revision.
[2023-11-26 05:55] LABS: Glucose,Whole Blood 228 mg/dL (70-110)
--- NOTE | 2023-11-26 07:02 | P.OP ---
Date of Procedure: 11/25/23 Preoperative Diagnosis: Malpositioned right sided pedicle screws L3-4 s/p L3-4 lateral and posterior fusion No neurological deficit Postoperative Diagnosis: Malpositioned right sided pedicle screws L3-4 s/p L3-4 lateral and posterior fusion No neurological deficit Procedure(s) Performed: Removal with reinsertion of L3 and L4 pedicle screws on the right Use of kathie navigation for screw placement Use of IONM; all screws testing > 20 mA Implants: [place] system Anesthesia: GETA Surgeon: Dayday Barnard Baking Powder Mixer #1: Lucinda Ibarra (WAS PRESENT AND ASSISTED WITH ALL ASPECTS OF THE CASE FROM START TO FINISH) Estimated Blood Loss (ml): 100 IV fluids (ml): 1,000 Urine output (ml): 330 Pathology: none sent Condition: stable Disposition: PACU Indications for Procedure: Katerina Maurice is a 53 yo female who underwent a two stage lateral L3-4 fusion followed by posteriorlateral instrumented fusion without incident. She was recovered appropriately and sent to the floor. She had a CT post op which was reviewed. This CT demonstrated the lateral cage in good position with good height and lordosis christian as well as christian of the listhesis at L3-4. Unfortunately, there were issues with Kathie Navigation during surgery which we thought were hashed out and Xrays after placement of screws showed screws to be in what we thought was acceptable position, however CT shows right sided screws Grade II to III canal compromise. There are other factors as well like pt body habitus that play a role in this as she has a very high BMI which changes the accuracy of some of these things. This is not acceptable. Pt has no sx of this, no radiculopathy or issuse, however for the sake of longevity of the construct and her safety, these need to be revised and placed more optimally. [id number], we accept that it happened and we will rectify the situation promptly to make it right for the patient. This was discussed at length with the patient. While not ideal, and never anything we would want to happen, it is a risk of surgery and we explained this to the patient and she understands. She is frustrated, but accepting and gracious given the situation and it is better if we fix them now than down the road when she is having issues. We only want what is in her best interest for the best outcome possible and she understands this. She is willing to proceed. At this time I recommend surgery in the form or a: Revision of right sided screws. I discussed the risk and benefits of this procedure at length with Katerina Maurice. The patient her partner agreed to considered pursuing the procedure abovementioned. Prior to surgery, she should follow up with her PCP (Cardio, ID, IM etc) for clearance. Questions were invited and answered, and the patient wishes to proceed as outlined below. Currently, I am recommendin. Revision Right sided screws Description of Procedure: The patient was seen and examined in the preoperative area. All preoperative protocols were followed. Informed consent was obtained risks and benefits of the procedure were discussed at length. Risks including bleeding infection damage to the surrounding tissue and risk of reoperation were discussed with the patient. Risk of anesthesia up to and including was a discussed with the patient. These are outlined in the risk review. They were willing to accept these risks and all of the risks of surgery. The patient was given a weight- based dose of antibiotics in the form of 3 g Ancef. The patient was seen and evaluated by the anesthesia team who deemed them fit for surgery. The site was marked, the patient was willing to proceed with the procedure. The patient was transferred to the operative suite by the Department of anesthesia. They were then drifted off to sleep by the department anesthesia and GETA was performed. The patient tolerated this well. Once confirmation of lines and ventilation the patient was transferred to a [prone Jose table very carefully]. All bony prominences including wrists, elbows, axilla, chest, hips, and thighs, and feet were padded very well. Special attention was paid to the genitalia and these were padded accordingly. SCDs were placed on bilateral lower extremities and were connected. Arms were well padded and placed [on arm boards up and out in the 90/90 position]. Once in position, again we confirmed good ventilation capabilities and that lines were running appropriately. The patient's lumbar spine was then exposed. 1010s were placed outlining the incision site. Standard alcohol was used to clean the incision site and allowed to dry. C-arm was used to biomark the patient and confirm level for incision which was marked with a skin marker. Operative briefing was performed with all teams and everyone in agreement to proceed. The patient was then prepped and draped in a normal sterile fashion. Timeout was then performed and all parties were in agreement with the procedure to be performed. Skin incision was made on the right side over the previously marked incision and blunt dissection taken down through the previous surgical tract. Previous sutures were removed and the area irrigated. The hardware was found and set screws removed followed by the chinyere. Screws were then removed at L3 and L4 on the right carefully. The wound was then irrigated. Two skin nicks were then made on the left over the PSIS and the tracker pins introduced and secured to the PSIS. Tracker was then secured to the patient and a 3D Zhiem Spin was done. Once spin was done and registered we confirmed it was accurate with the evgeny and pointer as well as all other instruments. Starting at L3, The navigated bur r was then used to create a new starting point for the screw lateral to the previous. Then, a navigated awl tap was passed down the pedicle first at the 4.5mm diameter and then at the 5.5 diameter for sequential tapping to ensure the screw takes the new path. Finally, a navigated jamshidi was used to find this path and place a wire in the path. Each step, evgeny, awl tap and jamshidi was confirmed with AP and lateral imaging. Once wire was in place, screw was placed over the wire with AP and lateral fluoroscopy. This was repeated at L4 level as well. Once screws were in place a second Zheim spin was done to confirm screw placement. This confirmed improved placement of screws in a more lateral position, with no canal breech. We then selected rods and placed them. Set screws were placed and final tightened. Final images confirmed good placement of hardware. The wound was then copiously irrigated with 3L ancef solution, 3L gent solution and 6L NSS. Local anesthetic was placed in the soft tissue around the wound. The deep fascia was then closed with 0 vicryl and the deep subq with 0 Vicryl. 2-0 Vicryl was placed in the superficial subq tissue and the skin was closed with mary kay. The wound was then cleaned with ETOH and dried and a dressing placed. Cellerate powder was placed on the wound to help with epithelialization and then adaptic, 4x4 and tegaderms. The patient was transferred back to their hospital bed atraumatically. Patient was then awakened and extubated by the department of anesthesia having tolerated the procedure very well with no complications. They were transferred to the postoperative care unit in stable condition. Post op non contrasted CT scan will be ordered Pt will be transferred to the floor when awake and stable per anesthesia staff.
[2023-11-26 07:17] LABS: Basophils # (A) 0.1 k/uL (0-0.2); Basophils % (A) 1 %; Eosinophils % (A) 0 %; HCT 33.1 % (34.0-46.0); HGB 10.9 gm/dL (11.4-16.0); Lymphocytes # (A) 1.9 k/uL (1.0-4.8); Lymphocytes % (A) 15 %; MCV 90.8 fL (80.0-100.0); Mean Platelet Volume 7.3; Monocytes # (A) 0.7 k/uL (0-1.0); Monocytes % (A) 5 %; Neutrophils # (A) 9.5 k/uL (1.3-7.7); Neutrophils % (A) 77 %; Platelet Count 235 k/uL (150-450); RBC 3.64 m/uL (3.80-5.40); RDW 13.8 % (11.5-15.5); WBC 12.4 k/uL (3.8-10.6)
[2023-11-26 07:39] LABS: African American GFR (CKD) >90 (>60 ml/min/1.73 sqM); Anion Gap 5 mmol/L; Blood Urea Nitrogen 16 mg/dL (7-17); Calcium 7.3 mg/dL (8.4-10.2); Carbon Dioxide 26 mmol/L (22-30); Chloride 107 mmol/L (98-107); Glucose 153 mg/dL (74-99); Non-African American GFR(CKD) >90 (>60 ml/min/1.73 sqM); Potassium 3.5 mmol/L (3.5-5.1); Sodium 138 mmol/L (137-145)
[2023-11-26] MEDS: HYDROCORTISONE SUCCINATE 100 MG/2 ML VIAL IV SCH (09:11)
--- NOTE | 2023-11-26 09:43 | P.PN ---
Subjective Progress Note Date: 11/26/23 Principal diagnosis: 1. Grade I spondylolisthesis of L3 on L4 2. L3-4 spondylosis with stenosis 3. L3-S1 spondylosis 4. Low back pain 5. Bilateral SI joint osteoarthritis Patient seen and examined this morning. Patient is resting comfortably in bed. She does report that her pain is managed on current regimen. She states that her back feels much better since the procedure. Patient denies any numbness or tingling to the bilateral lower extremities. She states the numbness to the anterior left thigh has resolved. She is able to freely move her lower extremities without difficulty. Patient states she has not been up and about since procedure. Encourage patient to work with physical therapy today. Continue to encourage patient to use incentive spirometer. Surgical incisions to the lateral left and lumbar regions are clean dry and intact, no shadowing noted. No acute concerns. Objective - Vital Signs Vital signs: Vital Signs Temp 98.6 F 11/26/23 07:15 Pulse 78 11/26/23 07:15 Resp 20 11/26/23 07:15 BP 119/70 11/26/23 07:15 Pulse Ox 96 11/26/23 07:15 FiO2 Intake & Output 11/25/23 11/26/23 11/26/23 18:59 06:59 18:59 Intake Total 2100 400 Output Total 1500 800 Balance 600 -400 Intake: IV 2100 400 Output: Urine 1400 800 Estimated Blood Loss 100 Other: Voiding Method Indwelling Catheter # Voids 1 - Exam Physical Examination General: The patient is awake and alert, in no acute distress Skin: Skin is warm and dry with no obvious rashes or lesions. Surgical incisions to the left lateral flank area and lumbar region are clean dry and intact, no shadowing noted. Eye: Pupils are equal, round and reactive to light, extra-ocular movements are intact; there is normal conjunctiva bilaterally. Neck: The neck is supple, there is no tenderness and ROM intact. Cardiovascular: There is a regular rate and rhythm. No murmur, rub or gallop is appreciated. Respiratory: Lungs are clear to auscultation, respirations are non-labored, breath sounds are equal. Gastrointestinal: Soft, non-distended, non-tender abdomen. Back: There is no tenderness to palpation in the midline, paralumbar, parathoracic or buttocks region. There is no obvious deformity . Musculoskeletal: ROM limited secondary to pain and stiffness from surgical procedure. Muscle strength in all major muscle groups of bilateral upper extremities 5/5, bilateral lower extremities 5/5. Neurological: CN 2-12 intact. There are no obvious motor or sensory deficits. Movement and coordination equal and intact. Sensory exam to light touch intact C5-T1 and intact from L2-S1. Reflexes 2/4 in bilateral upper and lower extremities. Negative Hoffmans, babinski, and clonus signs. Psychiatric: Cooperative, appropriate mood & affect, normal judgment. - Labs CBC & Chem 7: 11/26/23 06:04 11/26/23 06:04 Labs: Abnormal Lab Results - Last 24 Hours (Table) 11/25/23 11/25/23 11/25/23 Range/Units 06:20 06:20 11:50 WBC 14.54 H (4.50-10.00) X 10*3/uL RBC 3.91 L (4.10-5.20) X 10*6/uL Hgb 11.0 L (12.0-15.0) g/dL Hct 34.8 L (37.2-46.3) % MCHC 31.6 L (32.0-37.0) g/dL MPV 9.2 L (9.5-12.2) FL Immature Gran # 0.15 H (0.00-0.04) X 10*3/uL Neutrophils # 11.77 H (1.80-7.70) X 10*3/uL Monocytes # 1.02 H (0.20-1.00) X 10*3/uL Eosinophils # 0 L (0.04-0.35) X 10*3/uL Creatinine 0.5 L (0.6-1.5) mg/dL BUN/Creatinine Ratio 25.80 H (12.00-20.00) Ratio Glucose 127 H (70-110) mg/dL POC Glucose (mg/dL) 126 H (70-110) mg/dL Calcium 7.7 L (8.7-10.3) mg/dL Total Bilirubin <0.2 L (0.3-1.2) mg/dL Total Protein 5.2 L (6.2-8.2) g/dL Albumin 3.2 L (3.8-4.9) g/dL 11/25/23 11/25/23 11/26/23 Range/Units 15:09 19:18 05:53 WBC (4.50-10.00) X 10*3/uL RBC (4.10-5.20) X 10*6/uL Hgb (12.0-15.0) g/dL Hct (37.2-46.3) % MCHC (32.0-37.0) g/dL MPV (9.5-12.2) FL Immature Gran # (0.00-0.04) X 10*3/uL Neutrophils # (1.80-7.70) X 10*3/uL Monocytes # (0.20-1.00) X 10*3/uL Eosinophils # (0.04-0.35) X 10*3/uL Creatinine (0.6-1.5) mg/dL BUN/Creatinine Ratio (12.00-20.00) Ratio Glucose (70-110) mg/dL POC Glucose (mg/dL) 112 H 141 H 228 H (70-110) mg/dL Calcium (8.7-10.3) mg/dL Total Bilirubin (0.3-1.2) mg/dL Total Protein (6.2-8.2) g/dL Albumin (3.8-4.9) g/dL 11/26/23 11/26/23 Range/Units 06:04 06:04 WBC 12.4 H (4.50-10.00) X 10*3/uL RBC 3.64 L (4.10-5.20) X 10*6/uL Hgb 10.9 L (12.0-15.0) g/dL Hct 33.1 L (37.2-46.3) % MCHC (32.0-37.0) g/dL MPV (9.5-12.2) FL Immature Gran # (0.00-0.04) X 10*3/uL Neutrophils # 9.5 H (1.80-7.70) X 10*3/uL Monocytes # (0.20-1.00) X 10*3/uL Eosinophils # (0.04-0.35) X 10*3/uL Creatinine (0.6-1.5) mg/dL BUN/Creatinine Ratio (12.00-20.00) Ratio Glucose 153 H (70-110) mg/dL POC Glucose (mg/dL) (70-110) mg/dL Calcium 7.3 L (8.7-10.3) mg/dL Total Bilirubin (0.3-1.2) mg/dL Total Protein (6.2-8.2) g/dL Albumin (3.8-4.9) g/dL Assessment and Plan Assessment: Postop day 3: L3-L4 lateral interbody fusion with posterior L3-L4 fusion, postop Day 1: Revision L3-L4 right screws 1. Grade I spondylolisthesis of L3 on L4 2. L3-4 spondylosis with stenosis 3. L3-S1 spondylosis 4. Low back pain 5. Bilateral SI joint osteoarthritis Plan: -Appreciate insolvency consultant and team management. -Activity: Ambulate QID, OOB all meals, up and about, limit lifting bending twisting to less than 5 lbs. Use walker or cane if needed for stability. -Daily PT/OT, increase ambulation strength and balance. -Pain control: Adequate at this time -Meds: reviewed -GI ppx: senna, Miralax -DC davis when up and about, bedside commode if needed -DVT PPX: OK to restart Heparin tonight -Hygiene: Shower today. Maintain dressing clean and dry. Meticulous cleaning after BMs away from the incision site -Drains: Maintain for now. Continue to monitor and record output q shift. -Encourage IS 10x/hr -Dispo: Anticipate discharge home tomorrow with homecare *I reviewed and discussed this case with my attending Dr. Barnard, whom has reviewed this chart and films and is in agreement with assessment and plan of care as outlined above. I have personally seen and examined the patient, performed the documentation and the assessment and plan as written. Number of minutes spent on the visit: 20m.
[2023-11-26 11:32] LABS: Glucose,Whole Blood 178 mg/dL (70-110)
[2023-11-26 15:59] LABS: Glucose,Whole Blood 125 mg/dL (70-110)
[2023-11-26 20:25] LABS: Glucose,Whole Blood 103 mg/dL (70-110)
[2023-11-27 05:39] LABS: Glucose,Whole Blood 153 mg/dL (70-110)
--- NOTE | 2023-11-27 09:56 | P.PN ---
Subjective Progress Note Date: 11/26/23 - Reason for Consult Consult date: 11/24/23 Medical management, status post L3-4 fusion - History of Present Illness This is a 53-year-old female who was admitted under orthopedic services for severe spondylosis with severe stenosis of the L3-4 and is status post L3-4 lateral interbody fusion. Patient follows with Dr. Carrasco in the outpatient setting with a past medical history of asthma, diabetes mellitus, GERD, memory impairment, musculoskeletal disorder, osteoarthritis, sleep apnea, thyroid disorder with extensive degenerative disc disease, PCOS, adrenal insufficiency with chronic steroid use with chronic back pain. Patient also with history of ADD/ADHD with anxiety and reports is a former smoker and rarely uses alcohol and denies any other drug use. Patient underwent surgical intervention with fusion and patient reports needs to have revision of the surgery tomorrow for exchange of the right-sided screws. Patient is chronically maintained on prednisone with adrenal insufficiency and follows with endocrine out of [facility] and did receive a dose of Solu-Cortef during surgery last night by anesthesia. Will add Solu-Cortef 100 mg 3 times daily and strongly recommend a higher dose during surgery tomorrow and will monitor closely and taper postsurgery. Patient currently having continued pain and difficulty with position changes and maintained on pain medications per orthopedics. Will also add incentive spirometer and encouraged the patient to continue using pre and postoperatively. Patient is a diabetic with chronic steroid use and will monitor with Accu-Cheks before meals and at bedtime and continue with sliding scale. Patient does take Victoza daily. Home medications have been reviewed and resumed as appropriate. 11/25/2023 Patient is seen in follow-up currently n.p.o. as patient is scheduled to undergo revision of the L3-4 fusion of the right-sided screws with orthopedics today. Patient is continued on Solu-Cortef 3 times daily and blood pressures are controlled. Patient has minimal lower extremity swelling and will monitor and continue on gentle IV hydration. Plans for discontinuing fluids postsurgery. Will follow-up with repeat labs. Patient will taper Solu-Cortef to twice daily after surgery and then transition back to oral prednisone. Patient is currently afebrile with no reported chest pain or shortness of breath. Will await surgical report. 11/26/2023 Patient is status post revision of the L3-4 fusion currently sitting up at the side of the bed working with physical therapy. Patient unable to ambulate at this time although feels her left lower extremity is more strong than yesterday. Patient continues with indwelling Castillo catheter and recommend removing once more mobile. Patient will continue on Solu-Cortef twice daily for 1 to 2 days postsurgery and then transition to oral prednisone. Patient reports she has been taking 10 mg daily. Patient is afebrile with no reports of chest pain or shortness of breath. Blood pressures are stable. Patient has been resumed on diet and tolerating with no reported nausea or vomiting. Review of systems: Constitutional: No reports of fatigue, fever, or chills Cardiovascular: No reports of chest pain or palpitations Respiratory: No reports of shortness of breath or cough GI: No reports of nausea, vomiting, or diarrhea : No reports of dysuria or retention Neurovascular: reports of generalized weakness and inability to ambulate. All medications have been reviewed PHYSICAL EXAMINATION: GENERAL: The patient is alert and oriented x3, lying in bed. Well developed, well nourished. Morbidly obese HEENT: Pupils are round and equally reacting to light. EOMI. No scleral icterus. No conjunctival pallor. Normocephalic, atraumatic. No pharyngeal erythema. No thyromegaly. CARDIOVASCULAR: S1 and S2 present. No murmurs, rubs, or gallops. PULMONARY: Chest is clear to auscultation, no wheezing or crackles. ABDOMEN: Soft, nontender, nondistended, normoactive bowel sounds. No palpable organomegaly. MUSCULOSKELETAL: No joint swelling or deformity. EXTREMITIES: No cyanosis, clubbing, or pedal edema. Generalized edema noted bilaterally to lower extremities although slightly more edematous on the left, edema improved NEUROLOGICAL: Gross neurological examination did not reveal any focal deficits. Diffusely weak SKIN: No rashes. Assessment: L3-4 spondylolisthesis with spondylosis severe and severe stenosis, status post L3-4 lateral interbody fusion, status post revision on 11/25/2023 History of asthma, not in exacerbation Diabetes mellitus GERD Memory impairment History of musculoskeletal disorder with degenerative disc disease History of osteoarthritis History of sleep apnea Hypothyroidism Chronic lower back pain Adrenal insufficiency maintained on chronic steroid use and follows with endocrine out of [facility] History of ADD/ADHD History of anxiety Morbid obesity with a BMI of 46.5 GI prophylaxis DVT prophylaxis Full code Plan: Patient did undergo L3-4 lateral interbody fusion with Dr. Barnard and also underwent revision of the surgery due to the right-sided screws Patient with generalized edema noted on the lower extremities and will monitor and recommend compression stockings. Lower extremity swelling has improved Solu-Cortef continued and will taper post-surgery and will resume steroids after a taper. Continue Solu-Cortef 100 mg twice daily and then transition to prednisone 10 mg daily in the next 1 to 2 days Patient does follow with a endocrine out of [facility] and did undergo presurgical clearance with her primary care provider as well as machine overhauler given her significant history Will monitor Accu-Cheks before meals and at bedtime and continue with sliding scale and Victoza has been resumed Patient have PT/OT therapy to work with her as she is reporting she is unable to ambulate. Incentive spirometer encouraged at least 10 times every hour while awake We will continue to follow with orthopedics during hospitalization. Thank you kindly for this consultation. The impression and plan of care has been dictated by Grace Espinoza, Nurse Practitioner as directed. MD Jeffrey I have performed a history and examination and MDM of this patient, discussed the same with the dictator, and agree with the dictator's assessment and plan as written ,documented as a scribe. Based on total visit time, I have performed more than 50% of the visit. Objective - Vital Signs Vital signs: Vital Signs Temp 98.9 F 11/27/23 07:28 Pulse 79 11/27/23 07:28 Resp 16 11/27/23 07:28 BP 146/77 11/27/23 07:28 Pulse Ox 97 11/27/23 07:28 FiO2 Intake & Output 11/26/23 11/27/23 11/27/23 18:59 06:59 18:59 Intake Total 350 Output Total 2600 900 Balance -2250 -900 Intake: Oral 350 Output: Urine 2600 900 Other: Voiding Method Indwelling Catheter Indwelling Catheter # Voids 1 1 - Labs CBC & Chem 7: 11/26/23 06:04 11/26/23 06:04 Labs: Abnormal Lab Results - Last 24 Hours (Table) 11/26/23 11/26/23 11/27/23 Range/Units 11:31 15:58 05:38 POC Glucose (mg/dL) 178 H 125 H 153 H (70-110) mg/dL
[2023-11-27 11:44] LABS: Glucose,Whole Blood 134 mg/dL (70-110)
--- NOTE | 2023-11-27 14:44 | P.PN ---
Subjective Progress Note Date: 11/27/23 Principal diagnosis: 1. Grade I spondylolisthesis of L3 on L4 2. L3-4 spondylosis with stenosis 3. L3-S1 spondylosis 4. Low back pain 5. Bilateral SI joint osteoarthritis Patient seen and examined this morning. Patient is resting comfortably in bed. She states that her back feels much better since the procedure. Discussed with patient regarding pain management and the need to progress to oral medications to determine what will manage her pain at discharge. Patient verbalizes understanding. Medications have been adjusted. Patient denies any numbness or tingling to the bilateral lower extremities. Patient reports that she has been able to position herself to the edge of the bed. She states she is not able to stand and ambulate without assistance. Patient has informed that she has an elastic lumbar brace that she would like to use from home. Encourage patient to have family member bring brace up to her. Continue to encourage patient to use incentive spirometer. Surgical incisions to the lateral left and lumbar regions are clean dry and intact, no shadowing noted. No acute concerns. Objective - Vital Signs Vital signs: Vital Signs Temp 98.9 F 11/27/23 07:28 Pulse 79 11/27/23 08:00 Resp 16 11/27/23 08:00 BP 146/77 11/27/23 07:28 Pulse Ox 97 11/27/23 07:28 FiO2 Intake & Output 11/26/23 11/27/23 11/27/23 18:59 06:59 18:59 Intake Total 350 Output Total 2600 900 Balance -2250 -900 Intake: Oral 350 Output: Urine 2600 900 Other: Voiding Method Indwelling Catheter Indwelling Catheter Indwelling Catheter # Voids 1 1 - Exam Physical Examination General: The patient is awake and alert, in no acute distress Skin: Skin is warm and dry with no obvious rashes or lesions. Surgical incisions to the left lateral flank area and lumbar region are clean dry and intact, no shadowing noted. Eye: Pupils are equal, round and reactive to light, extra-ocular movements are intact; there is normal conjunctiva bilaterally. Neck: The neck is supple, there is no tenderness and ROM intact. Cardiovascular: There is a regular rate and rhythm. No murmur, rub or gallop is appreciated. Respiratory: Lungs are clear to auscultation, respirations are non-labored, breath sounds are equal. Gastrointestinal: Soft, non-distended, non-tender abdomen. Back: There is no tenderness to palpation in the midline, paralumbar, parath oracic or buttocks region. There is no obvious deformity . Musculoskeletal: ROM limited secondary to pain and stiffness from surgical procedure. Muscle strength in all major muscle groups of bilateral upper extremities 5/5, bilateral lower extremities 5/5. Neurological: CN 2-12 intact. There are no obvious motor or sensory deficits. Movement and coordination equal and intact. Sensory exam to light touch intact C5-T1 and intact from L2-S1. Reflexes 2/4 in bilateral upper and lower extremities. Negative Hoffmans, babinski, and clonus signs. Psychiatric: Cooperative, appropriate mood & affect, normal judgment. - Labs CBC & Chem 7: 11/26/23 06:04 11/26/23 06:04 Labs: Abnormal Lab Results - Last 24 Hours (Table) 11/26/23 11/27/23 11/27/23 Range/Units 15:58 05:38 11:39 POC Glucose (mg/dL) 125 H 153 H 134 H (70-110) mg/dL Assessment and Plan Assessment: Postop day 4: L3-L4 lateral interbody fusion with posterior L3-L4 fusion, postop Day 2: Revision L3-L4 right screws 1. Grade I spondylolisthesis of L3 on L4 2. L3-4 spondylosis with stenosis 3. L3-S1 spondylosis 4. Low back pain 5. Bilateral SI joint osteoarthritis Plan: -Appreciate jewelry consultant and team management. -Activity: Ambulate QID, OOB all meals, up and about, limit lifting bending twisting to less than 5 lbs. Use walker or cane if needed for stability. -Daily PT/OT, increase ambulation strength and balance. -Pain control: Adequate at this time -Meds: reviewed -GI ppx: senna, Miralax -DC davis when up and about, bedside commode if needed -DVT PPX: Heparin -Hygiene: Shower today. Maintain dressing clean and dry. Meticulous cleaning after BMs away from the incision site -Encourage IS 10x/hr -Dispo: Anticipate discharge home with homecare vs [facility] on 11/29/2023. *I reviewed and discussed this case with my attending Dr. Barnard, whom has reviewed this chart and films and is in agreement with assessment and plan of care as outlined above. I have personally seen and examined the patient, performed the documentation and the assessment and plan as written. Number of minutes spent on the visit: 20m.
[2023-11-27 16:49] LABS: Glucose,Whole Blood 90 mg/dL (70-110)
[2023-11-27 20:33] LABS: Glucose,Whole Blood 106 mg/dL (70-110)
[2023-11-28 06:08] LABS: Glucose,Whole Blood 117 mg/dL (70-110)
[2023-11-28 08:11] LABS: Basophils % (A) 0 %; Eosinophils # (A) 0.1 k/uL (0-0.7); Eosinophils % (A) 1 %; HCT 35.6 % (34.0-46.0); HGB 11.3 gm/dL (11.4-16.0); Lymphocytes % (A) 20 %; MCH 28.8 pg (25.0-35.0); MCHC 31.8 g/dL (31.0-37.0); MCV 90.6 fL (80.0-100.0); Mean Platelet Volume 7.5; Monocytes # (A) 0.5 k/uL (0-1.0); Monocytes % (A) 5 %; Neutrophils # (A) 7.2 k/uL (1.3-7.7); Neutrophils % (A) 72 %; Platelet Count 308 k/uL (150-450); RBC 3.93 m/uL (3.80-5.40); RDW 14.1 % (11.5-15.5)
[2023-11-28 08:23] LABS: African American GFR (CKD) >90 (>60 ml/min/1.73 sqM); Anion Gap 5 mmol/L; Blood Urea Nitrogen 15 mg/dL (7-17); Carbon Dioxide 29 mmol/L (22-30); Chloride 103 mmol/L (98-107); Glucose 104 mg/dL (74-99); Non-African American GFR(CKD) >90 (>60 ml/min/1.73 sqM); Sodium 137 mmol/L (137-145)
--- NOTE | 2023-11-28 10:35 | P.PN ---
Subjective Progress Note Date: 11/28/23 Principal diagnosis: 1. Grade I spondylolisthesis of L3 on L4 2. L3-4 spondylosis with stenosis 3. L3-S1 spondylosis 4. Low back pain 5. Bilateral SI joint osteoarthritis Patient seen and examined this morning. Patient is sitting at edge of bed. She does report some right-sided low back pain that persists with activity. Patient does report that her pain is managed on current regimen. She continues to deny any numbness or tingling to the bilateral lower extremities. Patient states she is ambulating to the restroom with a walker. She is needing some assist with her ADLs. Surgical incisions to the lumbar spine are well-approximated with mary kay intact, new surgical dressing applied. Patient's goal is to be discharged home with home care. No acute concerns. Objective - Vital Signs Vital signs: Vital Signs Temp 98.6 F 11/28/23 07:54 Pulse 93 11/28/23 07:54 Resp 17 11/28/23 07:54 BP 139/88 11/28/23 07:54 Pulse Ox 97 11/28/23 08:19 FiO2 Intake & Output 11/27/23 11/28/23 11/28/23 18:59 06:59 18:59 Output Total 1290 1500 Balance -1290 -1500 Output: Urine 1290 1500 Other: Voiding Method Indwelling Catheter Indwelling Catheter - Exam Physical Examination General: The patient is awake and alert, in no acute distress Skin: Skin is warm and dry with no obvious rashes or lesions. Surgical incisions to the left lateral flank area and lumbar region, edges are well approximated with mary kay intact, no active drainage. New surgical dressings codie lied. Eye: Pupils are equal, round and reactive to light, extra-ocular movements are intact; there is normal conjunctiva bilaterally. Neck: The neck is supple, there is no tenderness and ROM intact. Cardiovascular: There is a regular rate and rhythm. No murmur, rub or gallop is appreciated. Respiratory: Lungs are clear to auscultation, respirations are non-labored, breath sounds are equal. Gastrointestinal: Soft, non-distended, non-tender abdomen. Back: There is no tenderness to palpation in the midline, paralumbar, parathoracic or buttocks region. There is no obvious deformity . Musculoskeletal: ROM limited secondary to pain and stiffness from surgical procedure. Muscle strength in all major muscle groups of bilateral upper extremities 5/5, bilateral lower extremities 4/5. Neurological: CN 2-12 intact. There are no obvious motor or sensory deficits. Movement and coordination equal and intact. Sensory exam to light touch intact C5-T1 and intact from L2-S1. Reflexes 2/4 in bilateral upper and lower extremities. Negative Hoffmans, babinski, and clonus signs. Psychiatric: Cooperative, appropriate mood & affect, normal judgment. - Labs CBC & Chem 7: 11/28/23 06:41 11/28/23 06:41 Labs: Abnormal Lab Results - Last 24 Hours (Table) 11/27/23 11/28/23 11/28/23 Range/Units 11:39 06:05 06:41 Hgb 11.3 L (11.4-16.0) gm/dL Creatinine (0.52-1.04) mg/dL Glucose (74-99) mg/dL POC Glucose (mg/dL) 134 H 117 H (70-110) mg/dL Calcium (8.4-10.2) mg/dL 11/28/23 Range/Units 06:41 Hgb (11.4-16.0) gm/dL Creatinine 0.47 L (0.52-1.04) mg/dL Glucose 104 H (74-99) mg/dL POC Glucose (mg/dL) (70-110) mg/dL Calcium 8.0 L (8.4-10.2) mg/dL Assessment and Plan Assessment: Postop day 5: L3-L4 lateral interbody fusion with posterior L3-L4 fusion, postop Day 3: Revision L3-L4 right screws 1. Grade I spondylolisthesis of L3 on L4 2. L3-4 spondylosis with stenosis 3. L3-S1 spondylosis 4. Low back pain 5. Bilateral SI joint osteoarthritis Plan: -Appreciate home energy consultant and team management. -Activity: Ambulate QID, OOB all meals, up and about, limit lifting bending twisting to less than 5 lbs. Use walker or cane if needed for stability. -Daily PT/OT, increase ambulation strength and balance. -Pain control: Adequate at this time -Meds: reviewed -GI ppx: senna, Miralax -DVT PPX: Heparin -Hygiene: Shower today. Maintain dressing clean and dry. Meticulous cleaning after BMs away from the incision site -Encourage IS 10x/hr -Dispo: Anticipate discharge home with homecare within the next 48hrs. *I reviewed and discussed this case with my attending Dr. Barnard, whom has reviewed this chart and films and is in agreement with assessment and plan of care as outlined above. I have personally seen and examined the patient, performed the documentation and the assessment and plan as written. Number of minutes spent on the visit: 20m.
[2023-11-28 11:56] LABS: Glucose,Whole Blood 120 mg/dL (70-110)
[2023-11-28 17:01] LABS: Glucose,Whole Blood 103 mg/dL (70-110)
[2023-11-28 19:58] LABS: Glucose,Whole Blood 101 mg/dL (70-110)
--- NOTE | 2023-11-29 01:07 | P.PN ---
Subjective Progress Note Date: 11/27/23 This is a 53-year-old female who was admitted under orthopedic services for severe spondylosis with severe stenosis of the L3-4 and is status post L3-4 lateral interbody fusion. Patient follows with Dr. Carrasco in the outpatient setting with a past medical history of asthma, diabetes mellitus, GERD, memory impairment, musculoskeletal disorder, osteoarthritis, sleep apnea, thyroid disorder with extensive degenerative disc disease, PCOS, adrenal insufficiency with chronic steroid use with chronic back pain. Patient also with history of ADD/ADHD with anxiety and reports is a former smoker and rarely uses alcohol and denies any other drug use. Patient underwent surgical intervention with fusion and patient reports needs to have revision of the surgery tomorrow for exchange of the right-sided screws. Patient is chronically maintained on prednisone with adrenal insufficiency and follows with endocrine out of [facility] and did receive a dose of Solu-Cortef during surgery last night by anesthesia. Will add Solu-Cortef 100 mg 3 times daily and strongly recommend a higher dose d uring surgery tomorrow and will monitor closely and taper postsurgery. Patient currently having continued pain and difficulty with position changes and maintained on pain medications per orthopedics. Will also add incentive spirometer and encouraged the patient to continue using pre and postoperatively. Patient is a diabetic with chronic steroid use and will monitor with Accu-Cheks before meals and at bedtime and continue with sliding scale. Patient does take Victoza daily. Home medications have been reviewed and resumed as appropriate. 11/25/2023 Patient is seen in follow-up currently n.p.o. as patient is scheduled to undergo revision of the L3-4 fusion of the right-sided screws with orthopedics today. Patient is continued on Solu-Cortef 3 times daily and blood pressures are controlled. Patient has minimal lower extremity swelling and will monitor and continue on gentle IV hydration. Plans for discontinuing fluids postsurgery. Will follow-up with repeat labs. Patient will taper Solu-Cortef to twice daily after surgery and then transition back to oral prednisone. Patient is currently afebrile with no reported chest pain or shortness of breath. Will await surgical report. 11/26/2023 Patient is status post revision of the L3-4 fusion currently sitting up at the side of the bed working with physical therapy. Patient unable to ambulate at this time although feels her left lower extremity is more strong than yesterday. Patient continues with indwelling Castillo catheter and recommend removing once more mobile. Patient will continue on Solu-Cortef twice daily for 1 to 2 days postsurgery and then transition to oral prednisone. Patient reports she has been taking 10 mg daily. Patient is afebrile with no reports of chest pain or shortness of breath. Blood pressures are stable. Patient has been resumed on diet and tolerating with no reported nausea or vomiting. 11/27/2023 Patient is currently resting in bed. Awake alert and oriented x 3. Pain is much improved. Afebrile. No nausea vomiting or abdominal pain or diarrhea. Tolerating oral diet. Currently on Castillo catheter currently. No chest pain or shortness of breath. Laboratory data from 11/26/2023 reviewed. Blood sugar is controlled. No other acute overnight issues. Review of systems: Constitutional: No reports of fatigue, fever, or chills Cardiovascular: No reports of chest pain or palpitations Respiratory: No reports of shortness of breath or cough GI: No reports of nausea, vomiting, or diarrhea : No reports of dysuria or retention Neurovascular: reports of generalized weakness and inability to ambulate. All medications have been reviewed PHYSICAL EXAMINATION: GENERAL: The patient is alert and oriented x3, lying in bed. Well developed, well nourished. Morbidly obese HEENT: Pupils are round and equally reacting to light. EOMI. No scleral icterus. No conjunctival pallor. Normocephalic, atraumatic. No pharyngeal erythema. No thyromegaly. CARDIOVASCULAR: S1 and S2 present. No murmurs, rubs, or gallops. PULMONARY: Chest is clear to auscultation, no wheezing or crackles. ABDOMEN: Soft, nontender, nondistended, normoactive bowel sounds. No palpable organomegaly. MUSCULOSKELETAL: No joint swelling or deformity. EXTREMITIES: No cyanosis, clubbing, or pedal edema. Generalized edema noted bilaterally to lower extremities although slightly more edematous on the left, edema improved NEUROLOGICAL: Gross neurological examination did not reveal any focal deficits. Diffusely weak SKIN: No rashes. Assessment: L3-4 spondylolisthesis with spondylosis severe and severe stenosis, status post L3-4 lateral interbody fusion, status post revision on 11/25/2023 History of asthma, not in exacerbation Diabetes mellitus GERD Memory impairment History of musculoskeletal disorder with degenerative disc disease History of osteoarthritis History of sleep apnea Hypothyroidism Chronic lower back pain Adrenal insufficiency maintained on chronic steroid use and follows with endocrine out [facility] History of ADD/ADHD History of anxiety Morbid obesity with a BMI of 46.5 GI prophylaxis DVT prophylaxis Full code Plan: Patient did undergo L3-4 lateral interbody fusion with Dr. Barnard and also underwent revision of the surgery due to the right-sided screws Patient with generalized edema noted on the lower extremities and will monitor and recommend compression stockings. Lower extremity swelling has improved Solu-Cortef continued and will taper post-surgery and will resume steroids after a taper. Continue Solu-Cortef 100 mg twice daily and then transition to prednisone 10 mg daily in the next 1 to 2 days Patient does follow with a endocrine out [facility] and did undergo presurgical clearance with her primary care provider as well as inclusion internship given her significant history Will monitor Accu-Cheks before meals and at bedtime and continue with sliding scale and Victoza has been resumed Patient have PT/OT therapy to work with her as she is reporting she is unable to ambulate. Incentive spirometer encouraged at least 10 times every hour while awake We will continue to follow with orthopedics during hospitalization. Thank you kindly for this consultation. Objective - Vital Signs Vital signs: Vital Signs Temp 98.6 F 11/27/23 19:46 Pulse 88 11/27/23 19:46 Resp 15 11/27/23 19:46 BP 128/78 11/27/23 19:46 Pulse Ox 98 11/27/23 19:46 FiO2 Intake & Output 11/27/23 11/27/23 11/28/23 06:59 18:59 06:59 Output Total 900 1290 Balance -900 -1290 Output: Urine 900 1290 Other: Voiding Method Indwelling Catheter Indwelling Catheter Indwelling Catheter # Voids 1 - Labs CBC & Chem 7: 11/28/23 06:41 11/28/23 06:41 Labs: Abnormal Lab Results - Last 24 Hours (Table) 11/27/23 11/27/23 Range/Units 05:38 11:39 POC Glucose (mg/dL) 153 H 134 H (70-110) mg/dL
--- NOTE | 2023-11-29 01:10 | P.PN ---
Subjective Progress Note Date: 11/28/23 This is a 53-year-old female who was admitted under orthopedic services for severe spondylosis with severe stenosis of the L3-4 and is status post L3-4 lateral interbody fusion. Patient follows with Dr. Carrasco in the outpatient setting with a past medical history of asthma, diabetes mellitus, GERD, memory impairment, musculoskeletal disorder, osteoarthritis, sleep apnea, thyroid disorder with extensive degenerative disc disease, PCOS, adrenal insufficiency with chronic steroid use with chronic back pain. Patient also with history of ADD/ADHD with anxiety and reports is a former smoker and rarely uses alcohol and denies any other drug use. Patient underwent surgical intervention with fusion and patient reports needs to have revision of the surgery tomorrow for exchange of the right-sided screws. Patient is chronically maintained on prednisone with adrenal insufficiency and follows with endocrine out of [facility] and did receive a dose of Solu-Cortef during surgery last night by anesthesia. Will add Solu-Cortef 100 mg 3 times daily and strongly recommend a higher dose d uring surgery tomorrow and will monitor closely and taper postsurgery. Patient currently having continued pain and difficulty with position changes and maintained on pain medications per orthopedics. Will also add incentive spirometer and encouraged the patient to continue using pre and postoperatively. Patient is a diabetic with chronic steroid use and will monitor with Accu-Cheks before meals and at bedtime and continue with sliding scale. Patient does take Victoza daily. Home medications have been reviewed and resumed as appropriate. 11/25/2023 Patient is seen in follow-up currently n.p.o. as patient is scheduled to undergo revision of the L3-4 fusion of the right-sided screws with orthopedics today. Patient is continued on Solu-Cortef 3 times daily and blood pressures are controlled. Patient has minimal lower extremity swelling and will monitor and continue on gentle IV hydration. Plans for discontinuing fluids postsurgery. Will follow-up with repeat labs. Patient will taper Solu-Cortef to twice daily after surgery and then transition back to oral prednisone. Patient is currently afebrile with no reported chest pain or shortness of breath. Will await surgical report. 11/26/2023 Patient is status post revision of the L3-4 fusion currently sitting up at the side of the bed working with physical therapy. Patient unable to ambulate at this time although feels her left lower extremity is more strong than yesterday. Patient continues with indwelling Castillo catheter and recommend removing once more mobile. Patient will continue on Solu-Cortef twice daily for 1 to 2 days postsurgery and then transition to oral prednisone. Patient reports she has been taking 10 mg daily. Patient is afebrile with no reports of chest pain or shortness of breath. Blood pressures are stable. Patient has been resumed on diet and tolerating with no reported nausea or vomiting. 11/27/2023 Patient is currently resting in bed. Awake alert and oriented x 3. Pain is much improved. Afebrile. No nausea vomiting or abdominal pain or diarrhea. Tolerating oral diet. Currently on Castillo catheter currently. No chest pain or shortness of breath. Laboratory data from 11/26/2023 reviewed. Blood sugar is controlled. No other acute overnight issues. 11/28/2023 Patient is currently lying in the bed. Awake alert and oriented x 3. Was able to sit on the side of the bed. Was able to ambulate with a walker. Otherwise denies any worsening back pain. No complaints of numbness or tingling in the extremities. Afebrile. No chest pain or shortness of breath. No cough or sputum production. Tolerating oral diet. Laboratory showed WBC 12.4 hemoglobin 10.9 and platelets 235 and blood sugar 153. Patient is being continued on IV hydrocortisone and is being transitioned to prednisone. Review of systems: Constitutional: No reports of fatigue, fever, or chills Cardiovascular: No reports of chest pain or palpitations Respiratory: No reports of shortness of breath or cough GI: No reports of nausea, vomiting, or diarrhea : No reports of dysuria or retention Neurovascular: reports of generalized weakness and inability to ambulate. All medications have been reviewed PHYSICAL EXAMINATION: GENERAL: The patient is alert and oriented x3, lying in bed. Well developed, well nourished. Morbidly obese HEENT: Pupils are round and equally reacting to light. EOMI. No scleral icterus. No conjunctival pallor. Normocephalic, atraumatic. No pharyngeal erythema. No thyromegaly. CARDIOVASCULAR: S1 and S2 present. No murmurs, rubs, or gallops. PULMONARY: Chest is clear to auscultation, no wheezing or crackles. ABDOMEN: Soft, nontender, nondistended, normoactive bowel sounds. No palpable organomegaly. MUSCULOSKELETAL: No joint swelling or deformity. EXTREMITIES: No cyanosis, clubbing, or pedal edema. Generalized edema noted bilaterally to lower extremities although slightly more edematous on the left, edema improved NEUROLOGICAL: Gross neurological examination did not reveal any focal deficits. Diffusely weak SKIN: No rashes. Assessment: L3-4 spondylolisthesis with spondylosis severe and severe stenosis, status post L3-4 lateral interbody fusion, status post revision on 11/25/2023 History of asthma, not in exacerbation Diabetes mellitus GERD Memory impairment History of musculoskeletal disorder with degenerative disc disease History of osteoarthritis History of sleep apnea Hypothyroidism Chronic lower back pain Adrenal insufficiency maintained on chronic steroid use and follows with endocrine out [facility] History of ADD/ADHD History of anxiety Morbid obesity with a BMI of 46.5 GI prophylaxis DVT prophylaxis Full code Plan: Patient did undergo L3-4 lateral interbody fusion with Dr. Barnard and also underwent revision of the surgery due to the right-sided screws Patient with generalized edema noted on the lower extremities and will monitor and recommend compression stockings. Lower extremity swelling has improved Solu-Cortef continued and will taper post-surgery and will resume steroids after a taper. Continue Solu-Cortef 100 mg twice daily and then transition to prednisone 10 mg daily in the next 1 to 2 days Patient does follow with a endocrine out [facility] and did undergo presurgical clearance with her primary care provider as well as zinc plater given her significant history Will monitor Accu-Cheks before meals and at bedtime and continue with sliding scale and Victoza has been resumed Patient have PT/OT therapy to work with her as she is reporting she is unable to ambulate. Incentive spirometer encouraged at least 10 times every hour while awake We will continue to follow with orthopedics during hospitalization. Thank you kindly for this consultation. Objective - Vital Signs Vital signs: Vital Signs Temp 98 F 11/28/23 12:44 Pulse 78 11/28/23 12:44 Resp 17 11/28/23 12:44 BP 156/95 11/28/23 12:44 Pulse Ox 98 11/28/23 12:44 FiO2 Intake & Output 11/27/23 11/28/23 11/28/23 18:59 06:59 18:59 Output Total 1290 1500 Balance -1290 -1500 Output: Urine 1290 1500 Other: Voiding Method Indwelling Catheter Indwelling Catheter Indwelling Catheter - Labs CBC & Chem 7: 11/28/23 06:41 11/28/23 06:41 Labs: Abnormal Lab Results - Last 24 Hours (Table) 11/28/23 11/28/23 11/28/23 Range/Units 06:05 06:41 06:41 Hgb 11.3 L (11.4-16.0) gm/dL Creatinine 0.47 L (0.52-1.04) mg/dL Glucose 104 H (74-99) mg/dL POC Glucose (mg/dL) 117 H (70-110) mg/dL Calcium 8.0 L (8.4-10.2) mg/dL 11/28/23 Range/Units 11:54 Hgb (11.4-16.0) gm/dL Creatinine (0.52-1.04) mg/dL Glucose (74-99) mg/dL POC Glucose (mg/dL) 120 H (70-110) mg/dL Calcium (8.4-10.2) mg/dL
[2023-11-29 05:49] LABS: Glucose,Whole Blood 157 mg/dL (70-110)
[2023-11-29] MEDS: predniSONE 10 MG TAB PO SCH (09:01)
[2023-11-29 11:47] LABS: Glucose,Whole Blood 117 mg/dL (70-110)
--- NOTE | 2023-11-29 13:05 | XR ---
EXAMINATION TYPE: XR chest 1V portable DATE OF EXAM: 11/29/2023 COMPARISON: NONE HISTORY: Shortness of breath TECHNIQUE: Single frontal view of the chest is obtained. FINDINGS: There is no focal air space opacity, pleural effusion, or pneumothorax seen. The cardiac silhouette size is within normal limits. The osseous structures are intact. Postsurgical change ove rlying cervical spine. IMPRESSION: No acute process.
--- NOTE | 2023-11-29 13:41 | P.PN ---
Subjective Progress Note Date: 11/29/23 - Reason for Consult Consult date: 11/24/23 Medical management, status post L3-4 fusion - History of Present Illness This is a 53-year-old female who was admitted under orthopedic services for severe spondylosis with severe stenosis of the L3-4 and is status post L3-4 lateral interbody fusion. Patient follows with Dr. Carrasco in the outpatient setting with a past medical history of asthma, diabetes mellitus, GERD, memory impairment, musculoskeletal disorder, osteoarthritis, sleep apnea, thyroid disorder with extensive degenerative disc disease, PCOS, adrenal insufficiency with chronic steroid use with chronic back pain. Patient also with history of ADD/ADHD with anxiety and reports is a former smoker and rarely uses alcohol and denies any other drug use. Patient underwent surgical intervention with fusion and patient reports needs to have revision of the surgery tomorrow for exchange of the right-sided screws. Patient is chronically maintained on prednisone with adrenal insufficiency and follows with endocrine out of [facility] and did receive a dose of Solu-Cortef during surgery last night by anesthesia. Will add Solu-Cortef 100 mg 3 times daily and strongly recommend a higher dose during surgery tomorrow and will monitor closely and taper postsurgery. Patient currently having continued pain and difficulty with position changes and maintained on pain medications per orthopedics. Will also add incentive spirometer and encouraged the patient to continue using pre and postoperatively. Patient is a diabetic with chronic steroid use and will monitor with Accu-Cheks before meals and at bedtime and continue with sliding scale. Patient does take Victoza daily. Home medications have been reviewed and resumed as appropriate. 11/25/2023 Patient is seen in follow-up currently n.p.o. as patient is scheduled to undergo revision of the L3-4 fusion of the right-sided screws with orthopedics today. Patient is continued on Solu-Cortef 3 times daily and blood pressures are controlled. Patient has minimal lower extremity swelling and will monitor and continue on gentle IV hydration. Plans for discontinuing fluids postsurgery. Will follow-up with repeat labs. Patient will taper Solu-Cortef to twice daily after surgery and then transition back to oral prednisone. Patient is currently afebrile with no reported chest pain or shortness of breath. Will await surgical report. 11/26/2023 Patient is status post revision of the L3-4 fusion currently sitting up at the side of the bed working with physical therapy. Patient unable to ambulate at this time although feels her left lower extremity is more strong than yesterday. Patient continues with indwelling Castillo catheter and recommend removing once more mobile. Patient will continue on Solu-Cortef twice daily for 1 to 2 days postsurgery and then transition to oral prednisone. Patient reports she has been taking 10 mg daily. Patient is afebrile with no reports of chest pain or shortness of breath. Blood pressures are stable. Patient has been resumed on diet and tolerating with no reported nausea or vomiting. 11/27/2023 Patient is currently resting in bed. Awake alert and oriented x 3. Pain is much improved. Afebrile. No nausea vomiting or abdominal pain or diarrhea. Tolerating oral diet. Currently on Castillo catheter currently. No chest pain or shortness of breath. Laboratory data from 11/26/2023 reviewed. Blood sugar is controlled. No other acute overnight issues. 11/28/2023 Patient is currently lying in the bed. Awake alert and oriented x 3. Was able to sit on the side of the bed. Was able to ambulate with a walker. Otherwise denies any worsening back pain. No complaints of numbness or tingling in the e xtremities. Afebrile. No chest pain or shortness of breath. No cough or sputum production. Tolera ting oral diet. Laboratory showed WBC 12.4 hemoglobin 10.9 and platelets 235 and blood sugar 153. Patient is being continued on IV hydrocortisone and is being transitioned to prednisone. 11/29/2023 Patient is seen in follow-up today reporting she is awaiting physical therapy to work with her as patient continues with significant weakness. Patient has been up and getting to the bathroom with a walker and concerned she will be going home and currently has no help as her mother who lives with her was recently hospitalized for a fall with an ankle fracture requiring surgery. Case management/social work following to discuss discharge planning along with orthopedics. Patient is afebrile with no reports of chest pain or shortness of breath. Patient does have a slight cough and encouraged incentive spirometer use at least 10 times every hour while awake. Will obtain a chest x-ray. Patient tolerating diet with no reports of nausea or vomiting and maintained on Accu-Cheks to monitor blood sugars. Patient has been transitioned to oral prednisone and was continued on Solu-Cortef postoperatively. Blood pressures are stable. Review of systems: Constitutional: No reports of fatigue, fever, or chills Cardiovascular: No reports of chest pain or palpitations Respiratory: No reports of shortness of breath or cough GI: No reports of nausea, vomiting, or diarrhea : No reports of dysuria or retention Neurovascular: reports of generalized weakness and i difficulty to ambulate. All medications have been reviewed PHYSICAL EXAMINATION: GENERAL: The patient is alert and oriented x3, lying in bed. Well developed, well nourished. Morbidly obese HEENT: Pupils are round and equally reacting to light. EOMI. No scleral icterus. No conjunctival pallor. Normocephalic, atraumatic. No pharyngeal erythema. No thyromegaly. CARDIOVASCULAR: S1 and S2 present. No murmurs, rubs, or gallops. PULMONARY: Chest is clear to auscultation, some scattered coarse rhonchi noted ABDOMEN: Soft, nontender, nondistended, normoactive bowel sounds. No palpable organomegaly. MUSCULOSKELETAL: No joint swelling or deformity. EXTREMITIES: No cyanosis, clubbing, or pedal edema. No significant swelling n oted, left leg more weak 4/5 on strength with 5/5 of the right NEUROLOGICAL: Gross neurological examination did not reveal any focal deficits. Diffusely weak SKIN: No rashes. Assessment: L3-4 spondylolisthesis with spondylosis severe and severe stenosis, status post L3-4 lateral interbody fusion, status post revision on 11/25/2023 History of asthma, not in exacerbation Diabetes mellitus GERD Memory impairment History of musculoskeletal disorder with degenerative disc disease History of osteoarthritis History of sleep apnea Hypothyroidism Chronic lower back pain Adrenal insufficiency maintained on chronic steroid use and follows with endocrine out of [facility] History of ADD/ADHD History of anxiety Morbid obesity with a BMI of 46.5 GI prophylaxis DVT prophylaxis Full code Plan: Patient did undergo L3-4 lateral interbody fusion with Dr. Barnard and also underwent revision of the surgery with fixing to the right-sided screws Patient with generalized edema noted on the lower extremities and has improved, continue compression stockings. Lower extremity swelling has improved Solu-Cortef has been transition to prednisone and patient takes 10 mg daily. Patient was having a slight cough and chest x-ray obtained showing no acute process noted. Encouraged incentive spirometer at least 10 times every hour while awake Patient does follow with a endocrine out of [facility] and did undergo presurgical clearance with her primary care provider as well as e ndocrinologist given her significant history Will monitor Accu-Cheks before meals and at bedtime and continue with sliding scale and Victoza has been resumed Patient to have PT/OT therapy to work with her as well as stairs as patient has multiple stairs to get up into her home. Case management/social work following in the event patient requires ECF Patient is medically stable once cleared by orthopedics We will continue to follow with orthopedics during hospitalization. Thank you kindly for this consultation. The impression and plan of care has been dictated by Grace Espinoza, Nurse Practitioner as directed. Dr. Jong MD I have performed a history and examination and MDM of this patient, discussed the same with the dictator, and agree with the dictator's assessment and plan as written ,documented as a scribe. Based on total visit time, I have performed more than 50% of the visit. Objective - Vital Signs Vital signs: Vital Signs Temp 98.7 F 11/29/23 07:21 Pulse 95 11/29/23 07:21 Resp 20 11/29/23 07:21 BP 143/91 11/29/23 07:21 Pulse Ox 98 11/29/23 07:21 FiO2 Intake & Output 11/28/23 11/29/23 11/29/23 18:59 06:59 18:59 Intake Total 950 Balance 950 Intake: Intake, IV Titration 200 Amount ceFAZolin 3 gm In Sodium 200 Chloride 0.9% 100 ml @ 200 mls/hr IVPB Q8HR [facility] Rx#:[id number] Oral 750 Other: Voiding Method Indwelling Catheter Indwelling Catheter # Voids 3 4 # Bowel Movements 1 - Labs CBC & Chem 7: 11/28/23 06:41 11/28/23 06:41 Labs: Abnormal Lab Results - Last 24 Hours (Table) 11/28/23 11/29/23 Range/Units 11:54 05:43 POC Glucose (mg/dL) 120 H 157 H (70-110) mg/dL
[2023-11-29 16:52] LABS: Glucose,Whole Blood 130 mg/dL (70-110)
[2023-11-29 20:33] LABS: Glucose,Whole Blood 104 mg/dL (70-110)
[2023-11-29] MEDS: SIMETHICONE 80 MG CHEWABLE PO PRN (22:38)
[2023-11-30 06:22] LABS: Glucose,Whole Blood 98 mg/dL (70-110)
[2023-11-30] MEDS: oxyCODONE-APAP 7.5-325MG 1 EACH TAB PO PRN (08:37)
--- NOTE | 2023-11-30 08:59 | P.PN ---
Subjective Progress Note Date: 11/30/23 Principal diagnosis: 1. Grade I spondylolisthesis of L3 on L4 2. L3-4 spondylosis with stenosis 3. L3-S1 spondylosis 4. Low back pain 5. Bilateral SI joint osteoarthritis Patient seen and examined this morning. Patient is sitting at edge of bed. Patient reports increased low back pain with certain activities, medication has been adjusted. She continues to deny any numbness or tingling to the bilateral lower extremities. Patient states she is ambulating to the restroom with a walker. She is needing some assist with her ADLs. Surgical incisions to the lumbar spine are well-approximated with mary kay intact. Currently open to air, patient would like to shower before going home later today. Patient is concerned regarding her taper dose of steroids. Informed RN to reach out to medicine to address. Patient is cleared from an Orthopedic standpoint for discharge later today. Objective - Vital Signs Vital signs: Vital Signs Temp 98.3 F 11/30/23 00:54 Pulse 93 11/30/23 00:54 Resp 15 11/30/23 00:54 BP 121/79 11/30/23 00:54 Pulse Ox 99 11/30/23 00:54 FiO2 Intake & Output 11/29/23 11/30/23 11/30/23 18:59 06:59 18:59 Other: Voiding Method Toilet # Voids 3 3 - Exam Physical Examination General: The patient is awake and alert, in no acute distress Skin: Skin is warm and dry with no obvious rashes or lesions. Surgical incisions to the left lateral flank area and lumbar region, edges are well approximated with mary kay intact, no active drainage. Eye: Pupils are equal, round and reactive to light, extra-ocular movements are intact; there is normal conjunctiva bilaterally. Neck: The neck is supple, there is no tenderness and ROM intact. Cardiovascular: There is a regular rate and rhythm. No murmur, rub or gallop is appreciated. Respiratory: Lungs are clear to auscultation, respirations are non-labored, breath sounds are equal. Gastrointestinal: Soft, non-distended, non-tender abdomen. Back: There is no tenderness to palpation in the midline, paralumbar, parathoracic or buttocks region. There is no obvious deformity . Musculoskeletal: ROM limited secondary to pain and stiffness from surgical procedure. Muscle strength in all major muscle groups of bilateral upper extremities 5/5, bilateral lower extremities 4/5. Neurological: CN 2-12 intact. There are no obvious motor or sensory deficits. Movement and coordination equal and intact. Sensory exam to light touch intact C5-T1 and intact from L2-S1. Reflexes 2/4 in bilateral upper and lower extremities. Negative Hoffmans, babinski, and clonus signs. Psychiatric: Cooperative, appropriate mood & affect, normal judgment. - Labs CBC & Chem 7: 11/28/23 06:41 11/28/23 06:41 Labs: Abnormal Lab Results - Last 24 Hours (Table) 11/29/23 11/29/23 Range/Units 11:46 16:51 POC Glucose (mg/dL) 117 H 130 H (70-110) mg/dL Assessment and Plan Assessment: Postop day 6: L3-L4 lateral interbody fusion with posterior L3-L4 fusion, post op Day 4: Revision L3-L4 right screws 1. Grade I spondylolisthesis of L3 on L4 2. L3-4 spondylosis with stenosis 3. L3-S1 spondylosis 4. Low back pain 5. Bilateral SI joint osteoarthritis Plan: -Appreciate artist consultant and team management. -Activity: Ambulate QID, OOB all meals, up and about, limit lifting bending twisting to less than 5 lbs. Use walker or cane if needed for stability. -Daily PT/OT, increase ambulation strength and balance. -Pain control: Adequate at this time -Meds: reviewed -GI ppx: senna, Miralax -DVT PPX: Heparin -Hygiene: Shower today. Meticulous cleaning after BMs away from the incision site -Encourage IS 10x/hr -Dispo: Discharge home later today with homecare *I reviewed and discussed this case with my attending Dr. Barnard, whom has reviewed this chart and films and is in agreement with assessment and plan of care as outlined above. I have personally seen and examined the patient, performed the documentation and the assessment and plan as written. Number of minutes spent on the visit: 20m.
--- NOTE | 2023-11-30 09:05 | P.DS ---
Providers Date of admission: 11/23/23 11:31 Expected date of discharge: 11/30/23 Attending physician: Dayday Barnard DO Consults: 11/23/23 18:19 Consult Physician Routine Consulting Provider: Keshav Sunshine Reason/Comments: Medical Management Do you want consulting provider notified?: Yes Primary care physician: [facility] Course: Hospital Course: The patient was evaluated preoperatively and found to have the diagnosis of Lumbar spondylosis with grade 1 anterolisthesis L3 on L4. They underwent appropriate preoperative care and were willing to undergo the intended procedure. They underwent a successful stage I L3-L4 lateral interbody fusion; stage II posterior L3-L4 decompression and stabilization, were recovered appropriately and sent to the floor. While on the floor they worked with physical therapy, occupational therapy and nursing to enhance their recovery experience. Their pain was well controlled through their stay and they were started on appropriate medications, DVT ppx modalities, activity and dietary needs. Daily labs were monitored closely, and transfusions were only used when necessary. Medicine as well as other consulting services have made their input and have helped with our team approach and multidisciplinary care. PT milestones have been met and passed and they have made the recommendation of home with home care for this patient and treating providers agree with this care path. The patient will be discharged home with appropriate medications, instructions and follow-up information and in stable condition. Patient Condition at Discharge: Good Plan - Discharge Summary Discharge Rx Participant: Yes New Discharge Prescriptions: New oxyCODONE-APAP 7.5-325MG [Percocet 7.5-325 mg] 1 tab PO Q4HR PRN #42 tab PRN Reason: Pain Baclofen 10 mg PO TID PRN #40 tab PRN Reason: Muscle Spasm Sennosides/Docusate Sodium [Senna Plus 8.6-50 mg Tablet] 1 each PO DAILY PRN #20 tablet PRN Reason: Constipation cefaDROXiL [Duricef] 500 mg PO Q12HR #14 cap No Action Albuterol Inhaler [Ventolin Hfa Inhaler] 2 puff INHALATION RT-Q6H PRN PRN Reason: Shortness Of Breath Furosemide [Lasix] 20 - 40 mg PO DAILY PRN PRN Reason: Edema Baclofen [Lioresal] 10 mg PO TID PRN #60 tab PRN Reason: Muscle Spasm Liraglutide [Victoza 2-John] 0.6 mg SQ DAILY HYDROcodone/APAP 10-325MG [Radnor 10-325] 1 tab PO Q6H PRN PRN Reason: Pain predniSONE 5 mg PO DAILY Simethicone [Gas-X] 80 mg PO QID PRN PRN Reason: gas Celecoxib [CeleBREX] 200 mg PO BID traZODone HCL [Desyrel] 50 mg PO HS Omeprazole [PriLOSEC] 20 mg PO BID Ferrous Sulfate [Feosol] 325 mg PO DAILY Discharge Medication List Albuterol Inhaler [Ventolin Hfa Inhaler] 2 puff INHALATION RT-Q6H PRN 11/30/17 [History] Furosemide [Lasix] 20 - 40 mg PO DAILY PRN 07/19/19 [History] Baclofen [Lioresal] 10 mg PO TID PRN #60 tab 12/04/20 [Rx] traZODone HCL [Desyrel] 50 mg PO HS 07/04/21 [History] Omeprazole [PriLOSEC] 20 mg PO BID 10/30/21 [History] Liraglutide [Victoza 2-John] 0.6 mg SQ DAILY 11/25/21 [History] HYDROcodone/APAP 10-325MG [Radnor 10-325] 1 tab PO Q6H PRN 04/08/22 [History] predniSONE 5 mg PO DAILY 01/29/23 [History] Celecoxib [CeleBREX] 200 mg PO BID 11/17/23 [History] Ferrous Sulfate [Feosol] 325 mg PO DAILY 11/17/23 [History] Simethicone [Gas-X] 80 mg PO QID PRN 11/17/23 [History] Baclofen 10 mg PO TID PRN #40 tab 11/29/23 [Rx] Sennosides/Docusate Sodium [Senna Plus 8.6-50 mg Tablet] 1 each PO DAILY PRN #20 tablet 11/29/23 [Rx] cefaDROXiL [Duricef] 500 mg PO Q12HR #14 cap 11/29/23 [Rx] oxyCODONE-APAP 7.5-325MG [Percocet 7.5-325 mg] 1 tab PO Q4HR PRN #42 tab 11/30/23 [Rx] Follow up Appointment(s)/Referral(s): [facility], [NON-STAFF] - As Needed Jason Carrasco DO [Primary Care Provider] - 1 Week Dayday Barnard DO [Doctor of Osteopathic Medicine] - 12/08/23 10:00 am Activity/Diet/Wound Care/Special Instructions: Spine Discharge and Recovery Instructions Date of Surgery: 11/23/2023 Diagnosis: lumbar spondylosis with stenosis, grade 1 anterolisthesis L3 on L4 Procedure: stage I: L3-L4 lateral interbody fusion, stage II: L3-L4 posterior decompression and stabilization Medications: See medication list All medication refills should be obtained through your primary care doctor or your clinic spine surgeon. Please discuss prescription refills at your follow up appointment. Do not call the hospital for medication refills. Activity: Encourage ambulation with assist of walker, Up and about 6-8x daily PT/OT daily work on balance, strength and mobility Up in chair with all meals Shower daily Dressing: Leave your dressing in place for a total of 3 days post operatively. Then you may remove your dressing and leave open to air. Keep the area clean and if not able to keep area clean, then cover with sterile gauze and tape. Showering: You may shower 3 days after your procedure allowing soap and water to run over incision. Do not scrub. Do not soak. Blot dry. Follow up: Please confirm a follow up appointment with your surgeon 2 weeks post operatively. Please make an appointment to follow up with your PCP in 1-2 weeks after surgery for evaluation `3 phase, 3-week plan POST OP WEEKS 1-3 1. Lifting/carrying/pushing/pulling limited to less than 5 pounds. 2. Do not sit for longer than 15 minutes at one time. Get up and walk around. Prolonged sitting is NOT advised. If you lay down, see if you can tolerate laying down on you front (belly side) 3. Walk for periods of 15 minutes = 1 mile but no longer; do it multiple times times each day. 4. Ice your low back after activity. POST OP WEEKS 3-6 1. Lifting limited to less than 20 pounds. 2. Do not sit for longer than 30 minutes at a time. Frequently change positions. Use a sit-to stand workstation or take frequent breaks from sitting if you have returned to work. 3. Walk for 30 minutes each day. If possible, do these three or more times a day POST OP WEEKS 6+ At your 6-week appointment we will give you a physical therapy referral to focus on a core stabilization and strengthening program. You should also work on leg & buttock strengthening, hamstring & quadriceps stretching, and continue a low impact aerobic activity program such as swimming, walking, or riding a stationary bicycle. During the initial 6 weeks after your surgery, you are at the highest risk of re-injuring your spine. You should generally avoid BLTs (bending, lifting and twisting combination motions) and follow the above guidelines to reduce the chance of reinjury. You can anticipate post op appointments in our office at approximately 3 weeks and 6 weeks after your surgery. INCISION CARE: If your incision is not draining you do NOT need to cover it with a dressing. Keep your incision clean, dry and intact. In most cases, we apply skin glue, mary kay or sutures to the incision at the time of surgery. This will be like a crust or have the appearance of a scab and will fall off in time on its own. The stitches or mary kay need to be removed at 3 weeks post op appointment. You may begin to shower 3 days after surgery (this allows the glue to loza well). However, please avoid scrubbing the incision site or peeling off any of the skin glue. This will ensure optimal healing of your incision. Also, during this time avoid soaking the incision area in water - this includes swimming pools, hot tubs or baths. No ointments, lotions or oils on the incision until your surgeon allows. Leave mary kay, sutures or glue in place. Neurological dysfunction that comes on suddenly can also be a sign of a stroke. Below some common symptoms of a stroke are listed: B - balance difficulty such as sudden onset walking or leaning to one side - NEW E - eye problem such as sudden double vision or trouble seeing on one side - NEW F - Facial weakness or numbness on one side - NEW A - Arm or leg weakness or numbness on one side - NEW S - Slurred speech or difficulty with word finding - NEW T - Time is BRAIN! Call 911 as soon as you recognize these symptoms Diet: Consume a regular diet rich in vegetables and lean protein such as chicken or fish. You should consume in a ratio of approximately 20% fats|40% carbohydrates|40%protein. Vegetables, sweet potatoes, brown rice or quinoa are examples of good carbohydrates. Chips, white bread, cookies and sweets/sugar are examples of bad carbohydrates. Limit your bad carbs, go wild with good carbs. "Life's Simple 7" Guidelines as per [place] [employer] These will help you reclaim your life after surgery and hand former helper in your recovery, keeping in mind your restrictions. (1) Get Active. Physical activity can help people lose weight, control high blood pressure and cholesterol, feel emotionally better, and sleep better. (2) Control Cholesterol. Avoid a diet high in saturated fat, trans fat, & cholesterol. Limit whole milk & cream, ice cream, butter, egg yolks, processed meats (like sausage and hot dogs), and fatty meats. Choose healthy foods that are low in saturated fat, trans fat and cholesterol which include: Fruits and vegetables, fiber rich grain products (like whole grain pasta and brown rice), lean meat such as chicken, fish, nuts, seeds, and legumes. (3) Eat Better. Eat small portions. Shop at the grocery with a list and do not stray from it. Tips for a healthy diet include: Limit sodium intake to less than 1500mg daily, avoid prepackaged, processed, and fast foods, choose a diet rich in fruits, vegetables, and whole grain, high fiber foods, and limit saturated & cholesterol in your diet. (4) Manage Blood Pressure. If you have high blood pressure, you should have a cuff at home so that you can check your blood pressure regularly. Be sure you have a good cuff. An arm one is generally better than a wrist one. Bring the cuff to a doctor's appointment to validate that the measurements that your cuff are taking are accurate. Take your blood pressure twice daily when you are si tting down and relaxing. Record the numbers in a log and bring this log with you to your doctors' appointments. (5) Lose Weight if your BMI is above 25. A healthy BMI is between 19-25. To calculate Your BMI, you may use a Standard BMI Calculator on the NIH BMI website: <www.nhlbi.nih.gov/guidelines/obesity/BMI/bmicalc.htm>. Weigh oneself daily. If you are overweight, set a goal to lose weight. A pound a week loss if needed is a good target. (6) Reduce Blood Sugar. Limit foods and liquids with "added sugars." (Added sugars include sucrose, fructose, glucose, maltose, dextrose, high fructose corn syrup, corn syrup, concentrated fruit juice and honey). (7) Stop Smoking. If you smoke, quitting smoking is one of the best things that you can do for your health. Smoking increases your risk of heart attack, stroke, and peripheral vascular disease, which is a build-up of plaque in your arteries. Please discard all the cigarettes and lighters in your house. Have a plan for what you will do when you have the urge to smoke. Direct and second- hand smoke shortens your life as well as the lives of your family, friends and others around you. For your health and the health of those around you, please consider quitting! Proper Bending Body Mechanics: Maintain a wide stance with one foot slightly in front of the other. Keep your back straight. Bend utilizing the strength in your hips and knees. Do not bend at the waist. Maintain the lifted object at your waist-level close to your body. Avoid lifting weight that causes immediately pain or pain anywhere in the body afterwards. Smoking/Nicotine If there was ever one thing that you could do to increase your overall health, decrease your risk of cardiovascular problems by about 39% the second you make the choice, it is to STOP SMOKING. Your body's most instant gratification is the second you stop smoking. We have all heard the studies, read the articles but it is true, smoking is extremely bad for your overall health, and moreover it is detrimental to your bone health. Nicotine, IN ANY FORM, kills bone cells, prevents your body from healing fractures, and significantly prolongs healing after surgery. In spine surgery specifically, it increases your risk of not healing your bones to create a fusion and increases your risk of having a revision surgery due to this up to 60%. I know it is hard. I know it feels impossible. But there are ways. Take control of your life. We are here to help you through it. And when you are dickson dy, ask us and we can direct you to help if you desire. Use the START Plan to Quit Smoking (please visit the HelpguYouca.st.org website listed below for more information): S = Set a quit date. Choose a date within the next 2 weeks, so you have enough time to prepare without losing your motivation to quit. If you mainly smoke at work, quit on the weekend, so you have a few days to adjust to the change. T = Tell family, friends, and co-workers that you plan to quit. Let your friends and family in on your plan to quit smoking and tell them you need their support and encouragement to stop. Look for a quit malcolm who wants to stop smoking as well. You can help each other get through the rough times. A = Anticipate and plan for the challenges you'll face while quitting. Most people who begin smoking again do so within the first 3 months. You can help yourself make it through by preparing ahead for common challenges, such as nicotine withdrawal and cigarette cravings. R = Remove cigarettes and other tobacco products from your home, car, and work. Throw away all your cigarettes (no emergency pack!), lighters, ashtrays, and matches. Wash your clothes and freshen up anything that smells like smoke. Shampoo your car, clean your drapes and carpet, and steam your furniture. T = Talk to your doctor about getting help to quit. Your doctor can prescribe medication to help with withdrawal and suggest other alternatives. If you can't see a doctor, you can get many products over the counter at your local pharmacy or grocery store, including the nicotine patch, nicotine lozenges, and nicotine gum. Resources for Quitting Smoking: <https://www.[place].gov/documents/[facility]/Quit_Tobacco_Resources_for_patients_313 480_7.pdf> Supplementation: Take recommended dosages of Vitamin D and Calcium to help fortify your bones and help them to heal. See your health maintenance packet for dosages and recommended levels. DVT/VTE prophylaxis: You will be given compression stockings from the hospital. Wear these daily for the first two weeks after surgery. You may take them off at night. You may be prescribed a medication to help thin your blood. Take this as directed. If you are not prescribed this medication, early and frequent ambulation has been shown to be the best prophylaxis to deep vein thrombosis and sequelae related to this event. Discharge Disposition: HOME WITH HOME HEALTH SERVICES
[2023-11-30 10:36] VITALS: BMI 47.9
[2023-11-30 12:02] LABS: Glucose,Whole Blood 125 mg/dL (70-110)
--- NOTE | 2023-11-30 13:52 | P.PN ---
Subjective Progress Note Date: 11/30/23 - Reason for Consult Consult date: 11/24/23 Medical management, status post L3-4 fusion - History of Present Illness This is a 53-year-old female who was admitted under orthopedic services for severe spondylosis with severe stenosis of the L3-4 and is status post L3-4 lateral interbody fusion. Patient follows with Dr. Carrasoc in the outpatient setting with a past medical history of asthma, diabetes mellitus, GERD, memory impairment, musculoskeletal disorder, osteoarthritis, sleep apnea, thyroid disorder with extensive degenerative disc disease, PCOS, adrenal insufficiency with chronic steroid use with chronic back pain. Patient also with history of ADD/ADHD with anxiety and reports is a former smoker and rarely uses alcohol and denies any other drug use. Patient underwent surgical intervention with fusion and patient reports needs to have revision of the surgery tomorrow for exchange of the right-sided screws. Patient is chronically maintained on prednisone with adrenal insufficiency and follows with endocrine out of [facility] and did receive a dose of Solu-Cortef during surgery last night by anesthesia. Will add Solu-Cortef 100 mg 3 times daily and strongly recommend a higher dose during surgery tomorrow and will monitor closely and taper postsurgery. Patient currently having continued pain and difficulty with position changes and maintained on pain medications per orthopedics. Will also add incentive spirometer and encouraged the patient to continue using pre and postoperatively. Patient is a diabetic with chronic steroid use and will monitor with Accu-Cheks before meals and at bedtime and continue with sliding scale. Patient does take Victoza daily. Home medications have been reviewed and resumed as appropriate. 11/25/2023 Patient is seen in follow-up currently n.p.o. as patient is scheduled to undergo revision of the L3-4 fusion of the right-sided screws with orthopedics today. Patient is continued on Solu-Cortef 3 times daily and blood pressures are controlled. Patient has minimal lower extremity swelling and will monitor and continue on gentle IV hydration. Plans for discontinuing fluids postsurgery. Will follow-up with repeat labs. Patient will taper Solu-Cortef to twice daily after surgery and then transition back to oral prednisone. Patient is currently afebrile with no reported chest pain or shortness of breath. Will await surgical report. 11/26/2023 Patient is status post revision of the L3-4 fusion currently sitting up at the side of the bed working with physical therapy. Patient unable to ambulate at this time although feels her left lower extremity is more strong than yesterday. Patient continues with indwelling Castillo catheter and recommend removing once more mobile. Patient will continue on Solu-Cortef twice daily for 1 to 2 days postsurgery and then transition to oral prednisone. Patient reports she has been taking 10 mg daily. Patient is afebrile with no reports of chest pain or shortness of breath. Blood pressures are stable. Patient has been resumed on diet and tolerating with no reported nausea or vomiting. 11/27/2023 Patient is currently resting in bed. Awake alert and oriented x 3. Pain is much improved. Afebrile. No nausea vomiting or abdominal pain or diarrhea. Tolerating oral diet. Currently on Castillo catheter currently. No chest pain or shortness of breath. Laboratory data from 11/26/2023 reviewed. Blood sugar is controlled. No other acute overnight issues. 11/28/2023 Patient is currently lying in the bed. Awake alert and oriented x 3. Was able to sit on the side of the bed. Was able to ambulate with a walker. Otherwise denies any worsening back pain. No complaints of numbness or tingling in the e xtremities. Afebrile. No chest pain or shortness of breath. No cough or sputum production. Tolera ting oral diet. Laboratory showed WBC 12.4 hemoglobin 10.9 and platelets 235 and blood sugar 153. Patient is being continued on IV hydrocortisone and is being transitioned to prednisone. 11/29/2023 Patient is seen in follow-up today reporting she is awaiting physical therapy to work with her as patient continues with significant weakness. Patient has been up and getting to the bathroom with a walker and concerned she will be going home and currently has no help as her mother who lives with her was recently hospitalized for a fall with an ankle fracture requiring surgery. Case management/social work following to discuss discharge planning along with orthopedics. Patient is afebrile with no reports of chest pain or shortness of breath. Patient does have a slight cough and encouraged incentive spirometer use at least 10 times every hour while awake. Will obtain a chest x-ray. Patient tolerating diet with no reports of nausea or vomiting and maintained on Accu-Cheks to monitor blood sugars. Patient has been transitioned to oral prednisone and was continued on Solu-Cortef postoperatively. Blood pressures are stable. 11/30/2023 Patient is seen and evaluated in follow-up today currently up in the bathroom taking a shower. Patient is continued on oral prednisone 10 mg and placed a call out to her primary precision instrument maker Dr. Lili Sanderson of [facility] and reports this was discussed on previous visit as well. Discussed with Dr. Sanderson that patient was on Solu-Cortef during surgery and after and was continued on 100 mg twice daily for a quick taper of 3 days and then transition to prednisone [address] Sanderson patient is to continue with 10 mg for 3 full days and then titrate back to her 5 mg daily thereafter. Patient to follow-up with endocrine in the outpatient setting as well as primary care provider. Patient is afebrile with no reports of chest pain or shortness of breath. Patient did have a chest x-ray yesterday which was showing no acute process. Patient encouraged to use incentive spirometer at least 10 times every hour while awake including taking home. Patient being evaluated by physical therapy with plans on returning home. Patient is medically stable once cleared by orthopedics. Review of systems: Constitutional: No reports of fatigue, fever, or chills Cardiovascular: No reports of chest pain or palpitations Respiratory: No reports of shortness of breath or cough GI: No reports of nausea, vomiting, or diarrhea : No reports of dysuria or retention, reports having some incontinence Neurovascular: reports of generalized weakness and difficulty to ambulate. All medications have been reviewed PHYSICAL EXAMINATION: GENERAL: The patient is alert and oriented x3, well developed, well nourished. Morbidly obese HEENT: Pupils are round and equally reacting to light. EOMI. No scleral icterus. No conjunctival pallor. Normocephalic, atraumatic. No pharyngeal erythema. No thyromegaly. CARDIOVASCULAR: S1 and S2 present. No murmurs, rubs, or gallops. PULMONARY: Chest is clear to auscultation, some scattered coarse rhonchi noted ABDOMEN: Soft, obese. Nontender, nondistended, normoactive bowel sounds. No palpable organomegaly. MUSCULOSKELETAL: No joint swelling or deformity. EXTREMITIES: No cyanosis, clubbing, or pedal edema. No significant swelling noted, left leg more weak 4/5 on strength with 5/5 of the right NEUROLOGICAL: Gross neurological examination did not reveal any focal deficits. Diffusely weak SKIN: No rashes. Assessment: L3-4 spondylolisthesis with spondylosis severe and severe stenosis, status post L3-4 lateral interbody fusion, status post revision on 11/25/2023 History of asthma, not in exacerbation Diabetes mellitus GERD Memory impairment History of musculoskeletal disorder with degenerative disc disease History of osteoarthritis History of sleep apnea Hypothyroidism Chronic lower back pain Adrenal insufficiency maintained on chronic steroid use and follows with endocrine out of [facility] History of ADD/ADHD History of anxiety Morbid obesity with a BMI of 46.5 GI prophylaxis DVT prophylaxis Full code Plan: Patient did undergo L3-4 lateral interbody fusion with Dr. Barnard and also underwent revision of the surgery with fixing to the right-sided screws Patient with generalized edema noted on the lower extremities and has improved, continue compression stockings. Lower extremity swelling has improved. Patient takes Solu-Cortef was continued 2 days postop for a total of 3 days and has been transitioned to prednisone 10 mg and discussed with Dr. Lili Sanderson precision instrument maker from [facility] and was instructed to continue with 3 days of prednisone 10 mg and then the patient is to titrate down to her 5 mg daily and continue with her outpatient follow-up appointment. Details were discussed with Dr. Sanderson on the amount of Solu-Cortef that was given throughout hospitalization. Patient was having a slight cough and chest x-ray obtained showing no acute process noted. Encouraged incentive spirometer at least 10 times every hour while awake Will monitor Accu-Cheks before meals and at bedtime and continue with sliding scale and Victoza has been resumed Patient to work with PT/OT therapy recommending home with home care. Case management/social work following in the event patient requires ECF Patient is medically stable once cleared by orthopedics We will continue to follow with orthopedics during hospitalization. Thank you kindly for this consultation. The impression and plan of care has been dictated by Grace Espinoza, Nurse Practitioner as directed. Dr. Jong MD I have performed a history and examination and MDM of this patient, discussed the same with the dictator, and agree with the dictator's assessment and plan as written ,documented as a scribe. Based on total visit time, I have performed more than 50% of the visit. Objective - Vital Signs Vital signs: Vital Signs Temp 98.2 F 11/30/23 07:35 Pulse 76 11/30/23 07:35 Resp 18 11/30/23 07:35 BP 114/71 11/30/23 07:35 Pulse Ox 98 11/30/23 07:35 FiO2 Intake & Output 11/29/23 11/30/23 11/30/23 18:59 06:59 18:59 Intake Total 100 Balance 100 Weight 134.7 kg Intake: Oral 100 Other: Voiding Method Toilet # Voids 3 3 1 - Labs CBC & Chem 7: 11/28/23 06:41 11/28/23 06:41 Labs: Abnormal Lab Results - Last 24 Hours (Table) 11/29/23 11/30/23 Range/Units 16:51 12:01 POC Glucose (mg/dL) 130 H 125 H (70-110) mg/dL
[2023-11-30 17:00] LABS: Glucose,Whole Blood 102 mg/dL (70-110)
[2023-11-30 20:52] LABS: Glucose,Whole Blood 112 mg/dL (70-110)
[2023-12-01 05:49] LABS: Glucose,Whole Blood 102 mg/dL (70-110)
[2023-12-01 11:14] VITALS: BP 110/70; PULSE 94; RESP 17; TEMP 99.2
--- NOTE | 2023-12-02 03:52 | P.PN ---
Subjective Progress Note Date: 12/01/23 - Reason for Consult Consult date: 11/24/23 Medical management, status post L3-4 fusion - History of Present Illness This is a 53-year-old female who was admitted under orthopedic services for severe spondylosis with severe stenosis of the L3-4 and is status post L3-4 lateral interbody fusion. Patient follows with Dr. Carrasco in the outpatient setting with a past medical history of asthma, diabetes mellitus, GERD, memory impairment, musculoskeletal disorder, osteoarthritis, sleep apnea, thyroid disorder with extensive degenerative disc disease, PCOS, adrenal insufficiency with chronic steroid use with chronic back pain. Patient also with history of ADD/ADHD with anxiety and reports is a former smoker and rarely uses alcohol and denies any other drug use. Patient underwent surgical intervention with fusion and patient reports needs to have revision of the surgery tomorrow for exchange of the right-sided screws. Patient is chronically maintained on prednisone with adrenal insufficiency and follows with endocrine out of [facility] and did receive a dose of Solu-Cortef during surgery last night by anesthesia. Will add Solu-Cortef 100 mg 3 times daily and strongly recommend a higher dose during surgery tomorrow and will monitor closely and taper postsurgery. Patient currently having continued pain and difficulty with position changes and maintained on pain medications per orthopedics. Will also add incentive spirometer and encouraged the patient to continue using pre and postoperatively. Patient is a diabetic with chronic steroid use and will monitor with Accu-Cheks before meals and at bedtime and continue with sliding scale. Patient does take Victoza daily. Home medications have been reviewed and resumed as appropriate. 11/25/2023 Patient is seen in follow-up currently n.p.o. as patient is scheduled to undergo revision of the L3-4 fusion of the right-sided screws with orthopedics today. Patient is continued on Solu-Cortef 3 times daily and blood pressures are controlled. Patient has minimal lower extremity swelling and will monitor and continue on gentle IV hydration. Plans for discontinuing fluids postsurgery. Will follow-up with repeat labs. Patient will taper Solu-Cortef to twice daily after surgery and then transition back to oral prednisone. Patient is currently afebrile with no reported chest pain or shortness of breath. Will await surgical report. 11/26/2023 Patient is status post revision of the L3-4 fusion currently sitting up at the side of the bed working with physical therapy. Patient unable to ambulate at this time although feels her left lower extremity is more strong than yesterday. Patient continues with indwelling Castillo catheter and recommend removing once more mobile. Patient will continue on Solu-Cortef twice daily for 1 to 2 days postsurgery and then transition to oral prednisone. Patient reports she has been taking 10 mg daily. Patient is afebrile with no reports of chest pain or shortness of breath. Blood pressures are stable. Patient has been resumed on diet and tolerating with no reported nausea or vomiting. 11/27/2023 Patient is currently resting in bed. Awake alert and oriented x 3. Pain is much improved. Afebrile. No nausea vomiting or abdominal pain or diarrhea. Tolerating oral diet. Currently on Castillo catheter currently. No chest pain or shortness of breath. Laboratory data from 11/26/2023 reviewed. Blood sugar is controlled. No other acute overnight issues. 11/28/2023 Patient is currently lying in the bed. Awake alert and oriented x 3. Was able to sit on the side of the bed. Was able to ambulate with a walker. Otherwise denies any worsening back pain. No complaints of numbness or tingling in the e xtremities. Afebrile. No chest pain or shortness of breath. No cough or sputum production. Tolera ting oral diet. Laboratory showed WBC 12.4 hemoglobin 10.9 and platelets 235 and blood sugar 153. Patient is being continued on IV hydrocortisone and is being transitioned to prednisone. 11/29/2023 Patient is seen in follow-up today reporting she is awaiting physical therapy to work with her as patient continues with significant weakness. Patient has been up and getting to the bathroom with a walker and concerned she will be going home and currently has no help as her mother who lives with her was recently hospitalized for a fall with an ankle fracture requiring surgery. Case management/social work following to discuss discharge planning along with orthopedics. Patient is afebrile with no reports of chest pain or shortness of breath. Patient does have a slight cough and encouraged incentive spirometer use at least 10 times every hour while awake. Will obtain a chest x-ray. Patient tolerating diet with no reports of nausea or vomiting and maintained on Accu-Cheks to monitor blood sugars. Patient has been transitioned to oral prednisone and was continued on Solu-Cortef postoperatively. Blood pressures are stable. 11/30/2023 Patient is seen and evaluated in follow-up today currently up in the bathroom taking a shower. Patient is continued on oral prednisone 10 mg and placed a call out to her primary powerhouse laborer Dr. Lili Sanderson of [facility] and reports this was discussed on previous visit as well. Discussed with Dr. Sanderson that patient was on Solu-Cortef during surgery and after and was continued on 100 mg twice daily for a quick taper of 3 days and then transition to prednisone [address] Sanderson patient is to continue with 10 mg for 3 full days and then titrate back to her 5 mg daily thereafter. Patient to follow-up with endocrine in the outpatient setting as well as primary care provider. Patient is afebrile with no reports of chest pain or shortness of breath. Patient did have a chest x-ray yesterday which was showing no acute process. Patient encouraged to use incentive spirometer at least 10 times every hour while awake including taking home. Patient being evaluated by physical therapy with plans on returning home. Patient is medically stable once cleared by orthopedics. 12/01/2023 Patient is seen in follow-up this morning with no acute overnight issues noted. Patient was scheduled for discharge yesterday although arranging for some discharge planning and was held overnight with no acute issues noted. Patient with concerns of possible COVID as her mother was found to be positive for COVID and will swab and assess. Patient is currently afebrile with no reports of chest pain or shortness of breath. Patient tolerating room air over 92% and is in no respiratory distress. Arrangements being made for home care in the outpatient setting. Encouraged oral intake and increased activity as tolerated. Discussed with the patient about Dr. Sanderson conversation regarding steroids and resumption of prednisone and tapering. Patient verbalized understanding. Patient will follow-up with Dr. Sanderson in the outpatient setting as well as primary care provider. Review of systems: Constitutional: No reports of fatigue, fever, or chills Cardiovascular: No reports of chest pain or palpitations Respiratory: No reports of shortness of breath or cough GI: No reports of nausea, vomiting, or diarrhea : No reports of dysuria or retention Neurovascular: reports of generalized weakness and continued back pain All medications have been reviewed PHYSICAL EXAMINATION: GENERAL: The patient is alert and oriented x3, well developed, well nourished. Morbidly obese HEENT: Pupils are round and equally reacting to light. EOMI. No scleral icterus. No conjunctival pallor. Normocephalic, atraumatic. No pharyngeal erythema. No thyromegaly. CARDIOVASCULAR: S1 and S2 present. No murmurs, rubs, or gallops. PULMONARY: Chest is clear to auscultation, some scattered coarse rhonchi noted ABDOMEN: Soft, obese. Nontender, nondistended, normoactive bowel sounds. No palpable organomegaly. MUSCULOSKELETAL: No joint swelling or deformity. EXTREMITIES: No cyanosis, clubbing, or pedal edema. No significant swelling noted, left leg more weak 4/5 on strength with 5/5 of the right NEUROLOGICAL: Gross neurological examination did not reveal any focal deficits. Diffusely weak SKIN: No rashes. Assessment: L3-4 spondylolisthesis with spondylosis severe and severe stenosis, status post L3-4 lateral interbody fusion, status post revision on 11/25/2023 History of asthma, not in exacerbation Diabetes mellitus GERD Memory impairment History of musculoskeletal disorder with degenerative disc disease History of osteoarthritis History of sleep apnea Hypothyroidism Chronic lower back pain Adrenal insufficiency maintained on chronic steroid use and follows with endocrine out of [facility] History of ADD/ADHD History of anxiety Morbid obesity with a BMI of 46.5 GI prophylaxis DVT prophylaxis Full code Plan: Patient did undergo L3-4 lateral interbody fusion with Dr. Barnard and also underwent revision of the surgery with fixing to the right-sided screws Patient with generalized edema noted on the lower extremities and has improved, continue compression stockings. Lower extremity swelling has improved. Patient was on Solu-Cortef and was continued 2 days postop for a total of 3 days and has been transitioned to prednisone 10 mg and discussed with Dr[address] Lili Sanderson powerhouse laborer from [facility] and was instructed to continue with 3 days of prednisone 10 mg and then the patient is to titrate down to her 5 mg daily and continue with her outpatient follow-up appointment. Details were discussed with Dr. Sanderson on the amount of Solu-Cortef that was given throughout hospitalization. Patient was having a slight cough and chest x-ray obtained showing no acute process noted. Patient was concerned for COVID as mother had tested positive for COVID a few days ago. COVID testing was negative. Encouraged incentive spirometer at least 10 times every hour while awake Will monitor Accu-Cheks before meals and at bedtime and continue with sliding scale and Victoza has been resumed Patient with case management/social work following arranging discharge planning and home care in the outpatient setting Patient is medically stable once cleared by orthopedics We will continue to follow with orthopedics during hospitalization. Thank you kindly for this consultation. The impression and plan of care has been dictated by Grace Espinoza, Nurse Practitioner as directed. Dr. Jong MD I have performed a history and examination and MDM of this patient, discussed the same with the dictator, and agree with the dictator's assessment and plan as written ,documented as a scribe. Based on total visit time, I have performed more than 50% of the visit. Objective - Vital Signs Vital signs: Vital Signs Temp 99.2 F 12/01/23 08:00 Pulse 94 12/01/23 08:00 Resp 17 12/01/23 08:00 BP 110/70 12/01/23 08:00 Pulse Ox 96 12/01/23 01:22 FiO2 Intake & Output 12/01/23 12/01/23 12/02/23 06:59 18:59 06:59 Intake Total 240 Balance 240 Intake: Oral 240 Other: Voiding Method Incontinent # Voids 2 - Labs CBC & Chem 7: 11/28/23 06:41 11/28/23 06:41
== END 2023-12-01 12:59 | disposition home health service (06) | DRG 304 ==
LOC: 2ORMAIN 11:31 → 4SSUR 18:22
PROVIDERS: ADMIT Orthopaedic Surgery; ATTEND Orthopaedic Surgery
PROC: 0SG0071 Fusion of Lumbar Vertebral Joint with Autologous Tissue Substitute, Posterior Approach, Posterior Column, Open Approach (ICD-10-PCS; 2023-11-23)
PROC: 8E0WXBZ Computer Assisted Procedure of Trunk Region (ICD-10-PCS; 2023-11-23)
PROC: 0SG00AJ Fusion of Lumbar Vertebral Joint with Interbody Fusion Device, Posterior Approach, Anterior Column, Open Approach (ICD-10-PCS; principal; 2023-11-23 13:05)
PROC: 0QP004Z Removal of Internal Fixation Device from Lumbar Vertebra, Open Approach (ICD-10-PCS; 2023-11-25)
PROC: 0QH004Z Insertion of Internal Fixation Device into Lumbar Vertebra, Open Approach (ICD-10-PCS; 2023-11-25)
DX: M43.16 Spondylolisthesis, lumbar region (principal); T84.226A Displacement of internal fixation device of vertebrae, initial encounter; E27.40 Unspecified adrenocortical insufficiency; E11.9 Type 2 diabetes mellitus without complications; E66.01 Morbid (severe) obesity due to excess calories; Z68.42 Body mass index [BMI] 45.0-49.9, adult; E03.9 Hypothyroidism, unspecified; J45.909 Unspecified asthma, uncomplicated; M47.816 Spondylosis without myelopathy or radiculopathy, lumbar region; M48.061 Spinal stenosis, lumbar region without neurogenic claudication; M25.78 Osteophyte, vertebrae; F41.9 Anxiety disorder, unspecified; F90.9 Attention-deficit hyperactivity disorder, unspecified type; K21.9 Gastro-esophageal reflux disease without esophagitis; G89.29 Other chronic pain; G47.30 Sleep apnea, unspecified; M19.90 Unspecified osteoarthritis, unspecified site; M51.36 Other intervertebral disc degeneration, lumbar region; G47.9 Sleep disorder, unspecified; M51.37 Other intervertebral disc degeneration, lumbosacral region; R41.3 Other amnesia; Y79.1 Therapeutic (nonsurgical) and rehabilitative orthopedic devices associated with adverse incidents; Z20.822 Contact with and (suspected) exposure to COVID-19; Z28.310 Unvaccinated for COVID-19; Z87.891 Personal history of nicotine dependence; Z79.52 Long term (current) use of systemic steroids; Z79.1 Long term (current) use of non-steroidal anti-inflammatories (NSAID); Z79.85 Long-term (current) use of injectable non-insulin antidiabetic drugs; Z87.820 Personal history of traumatic brain injury; Z98.84 Bariatric surgery status; Z79.899 Other long term (current) drug therapy; Z91.018 Allergy to other foods; Z91.048 Other nonmedicinal substance allergy status
CPT/HCPCS: 71045; 72100; 72131; 80048; 80053; 83036; 83735; 85025; 87635; 94760

== ENCOUNTER → 2024-07-10 | Outpatient (CLI) | payer OTHER ==
[2024-07-10 08:05] VITALS: BP 127/86; PULSE 60; RESP 16
--- NOTE | 2024-07-10 15:06 | P.PAINPG ---
PQRS Measure Charge Sheet Comment: A 54 yr old female with a history of severe and chronic LBP secondary to radiculopathy, spondylosis and facet arthropathy without myelopathy, BL Sacroiliitis presents today for evaluation . Pain level is provoked at 9 /10 in intensity, constant, localized in the lumbar spine, predominantly axial, throbbing in character without shooting pain. Pain is provoked by weight bearing activity. Pain is alleviated with medications, topicals, use of a lumbar sport brace, injections, heat, ice, PT in 2020, massages semi annually, use of a massage gun at home, Dr Barnard guided daily physician guided exercises since 2020, repositioning and rest. Interventional pain procedures completed include BL SI injection, R Trochanteric Bursitis injection, R TFESI L5-S1 x1 Patient is currently on [place], Baclofen Patient denies any side effects of the medication(s), denies excessive drowsiness or sleepiness, denies suicidal ideation and reports that the current pain medication is helping to control the pain and improve activities of daily living. Patient denies any motor or sensory deficits. Patient denies any fever or night sweats, denies any change in the bowel movements or urination. Physical Examination: -Constitutional: Cooperative. Not in acute distress . - Neurologic: Cranial nerve II to XII intact. No focal neurological deficits. - Psychatric: Alert & oriented x 3. Matching mood & appropriate affect. Judgment and insight intact. - Musculoskeletal: Cervical spine: Muscle bulk/ tone/ strength in the bilateral upper extremities normal Vertebral body tenderness to palpation over Spurling test positive Distraction test positive Facet loading test positive TTP Thoracic spine Muscle bulk / tone/ strength in the bilateral paraspinal muscles normal Vertebral body tender to palpation over Facet loading test positive TTP Lumbar spine: Motor bulk/ tone/ strength lower extremities , thigh and legs : 5/5 Deep tendon reflexes : Normal Knee Jerk. Normal Ankle Jerk . Vertebral body tenderness to palpation Lumbar Facet Loading Test positive BL L5-S1 Straight Leg Raise: positive at 30 degrees right side/ left side Gaenslen's Test positive Sacral spine : Severe tenderness over the Sacroiliac joint: right side / left side Range of motion: Flexion of the lumbar spine <60 degrees Range of motion: Extension of the lumbar spine <20 degrees Gaenslen's Test positive right side / left side [place] test: positive right side / left side Thigh Thrust Test positive right side / left side Sacral Thrust Test positive right side / left side Assessment and plan: Chronic LBP secondary to lumbar radiculopathy, spondylosis with facet arthropathy without myelopathy, BL Sacroiliitis, R Hip OA Recommendation of BL MBB L5-S1 #1. Risks, benefits of procedure discussed and pt verbalized understanding. Protocol for discontinuation/ continuation of medications flip procedure discussed. Minimal anesthesia including Fentanyl and Versed if clinically indicated. All questions answered. I have spent less than 30 minutes on patient care today. Dr Moreno was available by phone for the evaluation of this patient. The time was used to review the medical records including relevant urine studies and Prescription history (MAPs), review of the available imaging, evaluation and examination of the patient, coordination of care with the medical staff and if applicable referring physicians, as well as creation of the medical record PQRS Narrative: Smoking Status Current every day smoker Hx Alcohol Use (MH) No Home Medications: Ambulatory Orders Albuterol Inhaler [Ventolin Hfa Inhaler] 2 puff INHALATION RT-Q6H PRN 11/30/17 Furosemide [Lasix] 20 - 40 mg PO DAILY PRN 07/19/19 Baclofen [Lioresal] 10 mg PO TID PRN #60 tab 12/04/20 traZODone HCL [Desyrel] 50 mg PO HS 07/04/21 Omeprazole [PriLOSEC] 20 mg PO BID 10/30/21 Liraglutide [Victoza 2-John] 0.6 mg SQ DAILY 11/25/21 HYDROcodone/APAP 10-325MG [[place] 10-325] 1 tab PO Q6H PRN 04/08/22 predniSONE 5 mg PO DAILY 01/29/23 Ferrous Sulfate [Iron (65 MG Elemental)] 325 mg PO DAILY 11/17/23 Simethicone [Gas-X] 80 mg PO QID PRN 11/17/23 Baclofen 10 mg PO TID PRN #40 tab 11/29/23 Sennosides/Docusate Sodium [Senna Plus 8.6-50 mg Tablet] 1 each PO DAILY PRN #20 tablet 11/29/23 cefaDROXiL [Duricef] 500 mg PO Q12HR #14 cap 11/29/23 oxyCODONE-APAP 7.5-325MG [Percocet 7.5-325 mg] 1 tab PO Q4HR PRN #42 tab 11/30/23 predniSONE 10 mg PO DAILY 1 Days #1 tab 11/30/23 Controlled Substance Measures - Controlled Substance Measures Is patient prescribed a controlled substance at discharge?: No
== END ==
LOC: PNWHC3 07:45
PROVIDERS: ATTEND Specialist
DX: M47.816 Spondylosis without myelopathy or radiculopathy, lumbar region (principal); M47.814 Spondylosis without myelopathy or radiculopathy, thoracic region; M43.16 Spondylolisthesis, lumbar region; M54.16 Radiculopathy, lumbar region; M47.817 Spondylosis without myelopathy or radiculopathy, lumbosacral region; F17.200 Nicotine dependence, unspecified, uncomplicated; M54.50 Low back pain, unspecified; Z91.018 Allergy to other foods; Z91.030 Bee allergy status; Z91.09 Other allergy status, other than to drugs and biological substances; Z88.8 Allergy status to other drugs, medicaments and biological substances; Z91.048 Other nonmedicinal substance allergy status
CPT/HCPCS: 99211

== ENCOUNTER 2024-08-03 06:12 | Day surgery (SDC) | payer OTHER ==
[2024-07-31 10:55] VITALS: BMI 42.7
[2024-08-03] MEDS: IV FLUID CONTINUATION 1,000 ML IV ONE ×2 (06:15→07:31)
[2024-08-03 06:37] LABS: Glucose,Whole Blood 93 mg/dL (70-110)
[2024-08-03 06:41] VITALS: RESP 16; TEMP 97.5
[2024-08-03] MEDS: LACTATED RINGERS 1,000 ML IV SCH (07:00)
[2024-08-03] MEDS ORDERED: MIDAZOLAM 2 MG/2 ML VIAL ONE (07:11)
[2024-08-03] MEDS ORDERED: fentaNYL (PF) 50 MCG/ML 2 ML AMP ONE (07:11)
[2024-08-03] MEDS ORDERED: ROPIVACAINE 5MG/ML 20ML VIAL ONE (07:11)
[2024-08-03] MEDS ORDERED: ONDANSETRON 4 MG/2 ML VIAL ONE (07:11)
--- NOTE | 2024-08-03 07:26 | P.PCN ---
Date of Procedure: 08/03/24 Procedure(s) Performed: PREOPERATIVE DIAGNOSIS : 1- Lumbar spondylosis with Facet Arthropathy without myelopathy . 2- Lumber degenerative disc disease POSTOPERATIVE DIAGNOSIS: 1- Lumbar spondylosis with Facet Arthropathy without myelopathy . 2- Lumber degenerative disc disease PROCEDURE: Diagnostic bilateral L4 , and L5 medial branch block under fluoroscopy guidance(fluoroscopy images available in the radiology Department ) ( To target the facet joint between Bilateral L5-S1 )#1st ANESTHESIA:moderate sedation with intravenous Versed 2 mg and Fentanyl 50 mcg. (Patient started at 07:11, ended at 07:22 ) EBL: Minimal COMPLICATION: None PROCEDURE INDICATION: Chronic low back pain secondary to Facet arthropathy unresponsive to conservative treatment. PROCEDURE DESCRIPTION: the patient was seen and identified in the preop holding area , risks and benefits and possible complications of the procedure and alternative were discussed with the patient, and the patient agreed to proceed with the procedure and signed the consent and vital signs monitored during the procedure and fluoroscopy was used to maximize the benefit and accuracy of the needle placement, and sedation was given to decrease patient anxiety, patient was taken to the procedure room and placed in prone position vital signs monitored in the back prepped with chlorhexidine X3 then under strict sterile technique using a right oblique fluoroscopy ,the junction of the transverse process and the superior articulating process of the right L4 , and L5 vertebra which corresponding to the fluoroscopy image of the eye of the Michael dog on the block side for the medial branches and subsequently , after local infiltration of skin and subcu tissuies with Ropivacaine 0.5 % , one mL at each level ,then 22-gauge 5 inches long Quincke-type needles , 3 needle was used , each one of them placed at the junction of the base of the transverse process and the superior articular process at the appropriate level, and the needle was advanced until the periosteum contacted, needle placement confirmed with AP oblique and lateral view and after appropriate needle placement confirmed, and after negative aspiration for heme and CSF and there was no paresthesia 1 mL of Ropivacaine 0.5%, then half mL injected at each level after negative aspiration the needle subsequently removed and the same procedure repeated for the left side at left side at L4 and L5 levels. At the end of the procedure and the needles removed and a bandage applied after the skin was cleaned the cleaning solution patient taken to recovery room in stable condition and monitors in the recovery room for 20-30 minutes and discharged home in stable condition after discharge criteria met and patient will follow up with the pain clinic in 2-4 weeks
[2024-08-03 07:44] VITALS: BP 142/90; PULSE 102
--- NOTE | 2024-08-03 09:41 | FL ---
EXAMINATION TYPE: FL guided pain mgmt statistic DATE OF EXAM: 08/03/2024 FLUOROSCOPY Fluoroscopy time of 22 seconds was used during lumbar spine pain management procedure. 4 image/s doc ument/s the procedure. .[id number] DAP dose [facility], , 08/03/2024 9:38 AM
== END 2024-08-03 08:00 | disposition home or self-care (01) ==
LOC: ORPAIN 06:12
PROVIDERS: ATTEND Specialist
DX: M47.816 Spondylosis without myelopathy or radiculopathy, lumbar region
CPT/HCPCS: 99152

== ENCOUNTER → 2024-08-14 | Outpatient (CLI) | payer OTHER ==
[2024-08-14 14:32] VITALS: BP 125/85; PULSE 79; RESP 17; TEMP 98
--- NOTE | 2024-08-14 15:04 | P.PAINPG ---
PQRS Measure Charge Sheet Comment: A 54 yr old female with a history of severe and chronic LBP secondary to radiculopathy, spondylosis and facet arthropathy without myelopathy, BL Sacroiliitis presents today for evaluation s/p BL MBB L5-S1 #1. Pt states she experienced 90 % pain relief x 2 hrs s/p procedure. Pain level is provoked at 8 /10 in intensity, constant, localized in the lumbar spine, predominantly axial, throbbing in character without shooting pain. Pain is provoked by weight bearing activity. Pain is alleviated with medications, topicals, use of a lumbar sport brace, injections, heat, ice, PT in 2020, massages semi annually, use of a massage gun at home, Dr Barnard guided daily physician guided exercises since 2020, repositioning and rest. Interventional pain procedures completed include BL SI injection, R Trochanteric Bursitis injection, R TFESI L5-S1 x1, BL MBB L5-S1 x1 Patient is currently on [place], Baclofen Patient denies any side effects of the medication(s), denies excessive drowsiness or sleepiness, denies suicidal ideation and reports that the current pain medication is helping to control the pain and improve activities of daily living. Patient denies any motor or sensory deficits. Patient denies any fever or night sweats, denies any change in the bowel movements or urination. Physical Examination: -Constitutional: Cooperative. Not in acute distress . - Neurologic: Cranial nerve II to XII intact. No focal neurological deficits. - Psychatric: Alert & oriented x 3. Matching mood & appropriate affect. Judgment and insight intact. - Musculoskeletal: Cervical spine: Muscle bulk/ tone/ strength in the bilateral upper extremities normal Vertebral body tenderness to palpation over Spurling test positive Distraction test positive Facet loading test positive TTP Thoracic spine Muscle bulk / tone/ strength in the bilateral paraspinal muscles normal Vertebral body tender to palpation over Facet loading test positive TTP Lumbar spine: Motor bulk/ tone/ strength lower extremities , thigh and legs : 5/5 Deep tendon reflexes : Normal Knee Jerk. Normal Ankle Jerk . Vertebral body tenderness to palpation Lumbar Facet Loading Test positive BL L5-S1 Straight Leg Raise: positive at 30 degrees right side/ left side Gaenslen's Test positive Sacral spine : Severe tenderness over the Sacroiliac joint: right side / left side Range of motion: Flexion of the lumbar spine <60 degrees Range of motion: Extension of the lumbar spine <20 degrees Gaenslen's Test positive right side / left side [place] test: positive right side / left side Thigh Thrust Test positive right side / left side Sacral Thrust Test positive right side / left side Assessment and plan: Chronic LBP secondary to lumbar radiculopathy, spondylosis with facet arthropathy without myelopathy, BL Sacroiliitis, R Hip OA Recommendation of BL MBB L5-S1 #2. Risks, benefits of procedure discussed and pt verbalized understanding. Protocol for discontinuation/ continuation of medications flip procedure discussed. Minimal anesthesia including Fentanyl and Versed if clinically indicated. All questions answered. I have spent less than 30 minutes on patient care today. Dr Moreno was available by phone for the evaluation of this patient. The time was used to review the medical records including relevant urine studies and Prescription history (MAPs), review of the available imaging, evaluation and examination of the patient, coordination of care with the medical staff and if applicable referring physicians, as well as creation of the medical record - Pain Location Lower Back Non-Pharmacological Interventions: Position/Reposition PQRS Narrative: Smoking Status Current every day smoker Hx Alcohol Use (MH) No Home Medications: Ambulatory Orders Albuterol Inhaler [Ventolin Hfa Inhaler] 2 puff INHALATION RT-Q6H PRN 11/30/17 Furosemide [Lasix] 20 - 40 mg PO DAILY PRN 07/19/19 Baclofen [Lioresal] 10 mg PO TID PRN #60 tab 12/04/20 traZODone HCL [Desyrel] 50 mg PO HS 07/04/21 Omeprazole [PriLOSEC] 20 mg PO BID 10/30/21 HYDROcodone/APAP 10-325MG [[place] 10-325] 1 tab PO Q6H PRN 04/08/22 predniSONE 5 mg PO DAILY 01/29/23 Ammonium Lactate Lotion [Lac-Hydrin 12% Lotion] 1 applic TOPICAL BID 07/31/24 Cholecalciferol (Vitamin D3) [Vitamin D3 (125 MCG = 5,000 IU)] 250 mcg PO DAILY 07/31/24 Ciclesonide [Alvesco] 1 puff INHALATION BID 07/31/24 Dexamethasone -Otic 0.1 % BOTH EARS DAILY 07/31/24 Dicyclomine [Bentyl] 10 mg PO DIRECTED PRN 07/31/24 L.acidoph,Paracasei, B.lactis [Probiotic] 1 each PO DAILY 07/31/24 Loratadine [Claritin] 10 mg PO DAILY 07/31/24 Melatonin [Melatonin ER] 10 mg PO HS 07/31/24 Tirzepatide [Mounjaro] 5 mg SQ TH 07/31/24 Triamcinolone Acetonide [Nasacort] 1 spray EA NOSTRIL DAILY 07/31/24 Vitamin B Complex 1 each PO DAILY 07/31/24 Vitamin K2 [Vitamin K-2] 100 mcg PO DAILY 07/31/24 Controlled Substance Measures - Controlled Substance Measures Is patient prescribed a controlled substance at discharge?: No
== END ==
LOC: PNWHC3 14:08
PROVIDERS: ATTEND Specialist
DX: M47.816 Spondylosis without myelopathy or radiculopathy, lumbar region
CPT/HCPCS: 99211

== ENCOUNTER 2024-09-08 06:59 | Day surgery (SDC) | payer OTHER ==
[2024-09-08 07:39] LABS: Glucose,Whole Blood 114 mg/dL (70-110)
[2024-09-08 07:41] VITALS: TEMP 97
[2024-09-08] MEDS: IV FLUID CONTINUATION 1,000 ML IV ONE (07:45)
[2024-09-08] MEDS: LACTATED RINGERS 1,000 ML IV SCH (07:46)
[2024-09-08] MEDS ORDERED: fentaNYL (PF) 50 MCG/ML 2 ML AMP ONE (08:08)
[2024-09-08] MEDS ORDERED: ROPIVACAINE 5MG/ML 20ML VIAL ONE (08:08)
[2024-09-08] MEDS ORDERED: ONDANSETRON 4 MG/2 ML VIAL ONE (08:08)
[2024-09-08] MEDS ORDERED: MIDAZOLAM 2 MG/2 ML VIAL ONE (08:08)
--- NOTE | 2024-09-08 08:20 | P.PCN ---
Date of Procedure: 09/08/24 Procedure(s) Performed: PREOPERATIVE DIAGNOSIS : 1- Lumbar spondylosis with Facet Arthropathy without myelopathy . 2- Lumber degenerative disc disease POSTOPERATIVE DIAGNOSIS: 1- Lumbar spondylosis with Facet Arthropathy without myelopathy . 2- Lumber degenerative disc disease PROCEDURE: Diagnostic bilateral L4 , and L5 medial branch block under fluoroscopy guidance(fluoroscopy images available in the radiology Department ) ( To target the facet joint between Bilateral L5-S1 )#2nd ANESTHESIA:moderate sedation with intravenous Versed 2 mg and Fentanyl 50 mcg. (Patient started at 08:08, ended at 08:18 ) EBL: Minimal COMPLICATION: None PROCEDURE INDICATION: Chronic low back pain secondary to Facet arthropathy unresponsive to conservative treatment. PROCEDURE DESCRIPTION: the patient was seen and identified in the preop holding area , risks and benefits and possible complications of the procedure and alternative were discussed with the patient, and the patient agreed to proceed with the procedure and signed the consent and vital signs monitored during the procedure and fluoroscopy was used to maximize the benefit and accuracy of the needle placement, and sedation was given to decrease patient anxiety, patient was taken to the procedure room and placed in prone position vital signs monitored in the back prepped with chlorhexidine X3 then under strict sterile technique using a right oblique fluoroscopy ,the junction of the transverse process and the superior articulating process of the right L4 , and L5 vertebra which corresponding to the fluoroscopy image of the eye of the Michael dog on the block side for the medial branches and subsequently , after local infiltration of skin and subcu tissuies with Ropivacaine 0.5 % , one mL at each level ,then 22-gauge 5 inches long Quincke-type needles , 3 needle was used , each one of them placed at the junction of the base of the transverse process and the superior articular process at the appropriate level, and the needle was advanced until the periosteum contacted, needle placement confirmed with AP oblique and lateral view and after appropriate needle placement confirmed, and after negative aspiration for heme and CSF and there was no paresthesia 1 mL of Ropivacaine 0.5%, then half mL injected at each level after negative aspiration the needle subsequently removed and the same procedure repeated for the left side at left side at L4 and L5 levels. At the end of the procedure and the needles removed and a bandage applied after the skin was cleaned the cleaning solution patient taken to recovery room in stable condition and monitors in the recovery room for 20-30 minutes and discharged home in stable condition after discharge criteria met and patient will follow up with the pain clinic in 2-4 weeks
[2024-09-08] MEDS: LACTATED RINGERS 1,000 ML IV ONE (08:28)
[2024-09-08 08:35] VITALS: RESP 18
--- NOTE | 2024-09-08 08:43 | FL ---
EXAMINATION TYPE: FL guided pain mgmt statistic DATE OF EXAM: 09/08/2024 8:24 AM COMPARISON: Pre Operative Images if available both CT/MRI or plain film CLINICAL INDICATION: Female, 54 years old with history of PAIN; TECHNIQUE: FL guided pain mgmt statistic, multiple fluoroscopic images provided for procedure. Total fluoroscopy time: 18.4 seconds Total submitted images to PACS: 4 DAP: 0.79625 mGym2 Gycm2 uGym2 cGycm2 or equivalent. FINDINGS: Fluoroscopic images during injection for pain management demonstrate multilevel degeneration changes throughout the spine. No evidence for fracture. No acute process identified. IMPRESSION: 1. No evidence for intraoperative complication. 2. Please see the operative/procedural note for further details. [facility], , 09/08/2024 8:40 AM
[2024-09-08 08:58] VITALS: BP 116/81; PULSE 94
== END 2024-09-08 08:53 | disposition home or self-care (01) ==
LOC: ORPAIN 06:59
PROVIDERS: ATTEND Specialist
DX: M47.816 Spondylosis without myelopathy or radiculopathy, lumbar region (principal); M51.369 Other intervertebral disc degeneration, lumbar region without mention of lumbar back pain or lower extremity pain; E11.9 Type 2 diabetes mellitus without complications; Z88.2 Allergy status to sulfonamides
CPT/HCPCS: 64493; 99152; J2250; J2405; J3010; J2795

== ENCOUNTER → 2024-09-28 | Outpatient (CLI) | payer OTHER ==
[2024-09-28 14:18] VITALS: BP 91/69; PULSE 58; RESP 16
--- NOTE | 2024-09-28 15:24 | P.PAINPG ---
Objective - Vital Signs Vital signs: Intake & Output 09/27/24 09/28/24 09/28/24 18:59 06:59 18:59 Weight 122.47 kg PQRS Measure Charge Sheet Comment: A 54 yr old female with a history of severe and chronic LBP secondary to radiculopathy, spondylosis and facet arthropathy without myelopathy, BL Sacroiliitis presents today for evaluation s/p BL MBB L5-S1 #2. Pt states she experienced 100 % pain relief x 4 hrs s/p procedure. Pain level is provoked at 8 /10 in intensity, constant, localized in the lumbar spine, predominantly axial, throbbing in character without shooting pain. Pain is provoked by weight bearing activity. Pain is alleviated with medications, topicals, use of a lumbar sport brace, injections, heat, ice, PT in 2020, massages semi annually, use of a massage gun at home, Dr Barnard guided daily physician guided exercises since 2020, repositioning and rest. Interventional pain procedures completed include BL SI injection, R Trochanteric Bursitis injection, R TFESI L5-S1 x1, BL MBB L5-S1 x2 Patient is currently on [place], Baclofen Patient denies any side effects of the medication(s), denies excessive drowsiness or sleepiness, denies suicidal ideation and reports that the current pain medication is helping to control the pain and improve activities of daily living. Patient denies any motor or sensory deficits. Patient denies any fever or night sweats, denies any change in the bowel movements or urination. Physical Examination: -Constitutional: Cooperative. Not in acute distress . - Neurologic: Cranial nerve II to XII intact. No focal neurological deficits. - Psychatric: Alert & oriented x 3. Matching mood & appropriate affect. Judgment and insight intact. - Musculoskeletal: Cervical spine: Muscle bulk/ tone/ strength in the bilateral upper extremities normal Vertebral body tenderness to palpation over Spurling test positive Distraction test positive Facet loading test positive TTP Thoracic spine Muscle bulk / tone/ strength in the bilateral paraspinal muscles normal Vertebral body tender to palpation over Facet loading test positive TTP Lumbar spine: Motor bulk/ tone/ strength lower extremities , thigh and legs : 5/5 Deep tendon reflexes : Normal Knee Jerk. Normal Ankle Jerk . Vertebral body tenderness to palpation Lumbar Facet Loading Test positive BL L5-S1 Straight Leg Raise: positive at 30 degrees right side/ left side Gaenslen's Test positive Sacral spine : Severe tenderness over the Sacroiliac joint: right side / left side Range of motion: Flexion of the lumbar spine <60 degrees Range of motion: Extension of the lumbar spine <20 degrees Gaenslen's Test positive right side / left side [place] test: positive right side / left side Thigh Thrust Test positive right side / left side Sacral Thrust Test positive right side / left side Imaging: CT lumbar spine from 11/25/23 states pt continues to have "mild to moderate facet arthropathy in the lower lumbar spine." This is consistent with an MRI lumbar spine from 01/21/22 stating "scattered facet arthropathy" Assessment and plan: Chronic LBP secondary to lumbar radiculopathy, spondylosis with facet arthropathy without myelopathy, BL Sacroiliitis, R Hip OA Recommendation of BL RFA L5-S1. Risks, benefits of procedure discussed and pt verbalized understanding. Protocol for discontinuation/ continuation of medications flip procedure discussed. Minimal anesthesia including Fentanyl and Versed if clinically indicated. All questions answered. I have spent less than 30 minutes on patient care today. Dr Moreno was available by phone for the evaluation of this patient. The time was used to review the medical records including relevant urine studies and Prescription history (MAPs), review of the available imaging, evaluation and examination of the patient, coordination of care with the medical staff and if applicable referring physicians, as well as creation of the medical record PQRS Narrative: Smoking Status Current every day smoker Narcotic Agreement Date Signed 08/14/24 Hx Alcohol Use (MH) No Home Medications: Ambulatory Orders Albuterol Inhaler [Ventolin Hfa Inhaler] 2 puff INHALATION RT-Q6H PRN 11/30/17 Furosemide [Lasix] 20 - 40 mg PO DAILY PRN 07/19/19 Baclofen [Lioresal] 10 mg PO TID PRN #60 tab 12/04/20 traZODone HCL [Desyrel] 50 mg PO HS 07/04/21 Omeprazole [PriLOSEC] 20 mg PO BID 10/30/21 HYDROcodone/APAP 10-325MG [[place] 10-325] 1 tab PO Q6H PRN 04/08/22 predniSONE 5 mg PO DAILY 01/29/23 Ammonium Lactate Lotion [Lac-Hydrin 12% Lotion] 1 applic TOPICAL BID 07/31/24 Cholecalciferol (Vitamin D3) [Vitamin D3 (125 MCG = 5,000 IU)] 250 mcg PO DAILY 07/31/24 Ciclesonide [Alvesco] 1 puff INHALATION BID 07/31/24 Dicyclomine [Bentyl] 10 mg PO DIRECTED PRN 07/31/24 L.acidoph,Paracasei, B.lactis [Probiotic] 1 each PO DAILY 07/31/24 Loratadine [Claritin] 10 mg PO DAILY 07/31/24 Melatonin [Melatonin Tr] 10 mg PO HS 07/31/24 Tirzepatide [Mounjaro] 5 mg SQ FR 07/31/24 Triamcinolone Acetonide [Nasacort] 1 spray EA NOSTRIL DAILY 07/31/24 Vitamin B Complex 1 each PO DAILY 07/31/24 Vitamin K2 [Vitamin K-2] 100 mcg PO DAILY 07/31/24 Controlled Substance Measures - Controlled Substance Measures Is patient prescribed a controlled substance at discharge?: No
== END ==
LOC: PNWHC3 13:53
PROVIDERS: ATTEND Specialist
DX: M47.26 Other spondylosis with radiculopathy, lumbar region (principal); M46.1 Sacroiliitis, not elsewhere classified; M16.11 Unilateral primary osteoarthritis, right hip; F17.200 Nicotine dependence, unspecified, uncomplicated; Z91.018 Allergy to other foods; Z91.041 Radiographic dye allergy status; Z91.09 Other allergy status, other than to drugs and biological substances; Z91.048 Other nonmedicinal substance allergy status
CPT/HCPCS: 99211

== ENCOUNTER 2024-10-12 12:25 | Day surgery (SDC) | payer OTHER ==
[2024-10-11 10:52] VITALS: BMI 43.5
[2024-10-12 12:42] VITALS: TEMP 97
[2024-10-12] MEDS: IV FLUID CONTINUATION 1,000 ML IV ONE ×2 (12:49→14:03)
[2024-10-12] MEDS: LACTATED RINGERS 1,000 ML IV SCH (12:57)
[2024-10-12 13:02] LABS: Glucose,Whole Blood 124 mg/dL (70-110)
[2024-10-12] MEDS ORDERED: methylPREDNISolone ACETATE 40 MG/ML 1 ML VIAL ONE (13:35)
[2024-10-12] MEDS ORDERED: MIDAZOLAM 2 MG/2 ML VIAL ONE (13:35)
[2024-10-12] MEDS ORDERED: ROPIVACAINE 5MG/ML 20ML VIAL ONE (13:35)
[2024-10-12] MEDS ORDERED: fentaNYL (PF) 50 MCG/ML 2 ML AMP ONE (13:35)
--- NOTE | 2024-10-12 13:58 | P.PCN ---
Date of Procedure: 10/12/24 Procedure(s) Performed: PREOPERATIVE DIAGNOSIS: 1-Lumbar Spondylosis with Facet Arthropathy without myelopathy. 2- Lumber degenerative disc disease. POSTOPERATIVE DIAGNOSIS: 1- Lumbar Spondylosis with Facet Arthropathy without myelopathy. 2- Lumber degenerative disc disease. PROCEDURES : Bilateral Radiofrequency thermocoagulation L4 , L5 medial branch, with fluoroscopic guidance (fluoroscopy images in the radiology department) ( to denervate the facet joint at bilateral L5-S1 levels ). ANESTHESIA: Moderate sedation with intravenous versed 2 mg and fentaneyl 100 mcg, (sedation started at 13:35,ended at 13:54 ). EBL: Minimal PROCEDURE INDICATION: The patient with low back pain secondary to lumbar facet arthropathy who had more than 50% relief of her pain with previous diagnostic lumbar medial branch block with bupivacaine. PROCEDURE DESCRIPTION / TECHNIQUE: The patient was seen and identified in the preoperative area. Risks, benefits, complications, including but not limited to risk of infection ,bleeding , allergic reactions to the medications and no compl ete pain releife , and alternatives were discussed with the patient, the patient agreed to proceed with the procedure and signed the consent. IV was started. Vital signs remained stable throughout the procedure. Patient was taken to the OR and time out was completed. The patient was placed in the prone position on the procedure table. The lumber area was prepped and draped in the usual sterile fashion. . Vital signs were closely monitored during the procedure .IV sedation was used during the procedure to decrease patients anxiety. Using AP and then oblique fluoroscopy, the ``eye of the Michael dog corresponding to the connection between the superior and transverse articular processes of right L4, and L5 were identified, marked, and localized with 1% lidocaine. Subsequently, a 18 -xs radiofrequency cannula with a 10-mm active tip was advanced guided by fluoroscopy to each of the``eyes of the Michael dog at right L4, and L5. Each site then underwent sensory testing at 50 Hz and 0 to 1 volt and motor testing at 2.5 Hz and 0 to 3 volt with local stimulation, but no radicular symptoms down the legs. Thereafter each sites underwent radiofrequency thermocoagulation at 80 degrees celsius for 90 seconds after injecting 0.5 ml of PF Ropivacaine 1ml, then after the thermocoagulation done , 1 ml of the block solution containing Depo-Medrol 20 mg and 3 ml of Ropivacaine 0.5% was injected at the right L4 , and L5 , levels after negative aspiration of CSF and blood and with no paresthesias. Cannulas were retracted while injecting lidocaine 1% until the needle is out. The same procedure was repeated at the level of Left L4, and L5 levels. At the end of the procedure, the skin was cleansed and bandages were applied. COMPLICATIONS: No acute complications. DISPOSITION / PLANS: The patient was placed in a supine position and transferred to the recovery area in a stable condition for observation and was discharged from the recovery room after meeting discharge criteria. Home discharge instructions given to the patient by the staff. The patient was reexamined prior to discharge. The patient will schedule a follow up in the clinic in 2-4 weeks.
[2024-10-12 14:19] VITALS: BP 118/79; PULSE 94; RESP 16
--- NOTE | 2024-10-12 14:34 | FL ---
EXAMINATION TYPE: FL guided pain mgmt statistic DATE OF EXAM: 10/12/2024 2:02 PM COMPARISON: Pre Operative Images if available both CT/MRI or plain film CLINICAL INDICATION: Female, 54 years old with history of Phillip Lumbar Rad Freq; TECHNIQUE: FL guided pain mgmt statistic, multiple fluoroscopic images provided for procedure. Total fluoroscopy time: 45.2 seconds Total submitted images to PACS: 5 DAP: [id number] mGym2 Gycm2 uGym2 cGycm2 or equivalent. FINDINGS: Fluoroscopic images during injection for pain management demonstrate multilevel degeneration changes throughout the spine. No evidence for fracture. No acute process identified. IMPRESSION: 1. No evidence for intraoperative complication. 2. Please see the operative/procedural note for further details. [facility], Workstation: [facility], 10/12/2024 2:31 PM
== END 2024-10-12 14:30 | disposition home or self-care (01) ==
LOC: ORPAIN 12:25
PROVIDERS: ATTEND Specialist
DX: M47.816 Spondylosis without myelopathy or radiculopathy, lumbar region (principal); M51.369 Other intervertebral disc degeneration, lumbar region without mention of lumbar back pain or lower extremity pain; Z88.2 Allergy status to sulfonamides; Z91.041 Radiographic dye allergy status
CPT/HCPCS: 64635; 64636 ×2; 99152; J2250; J3010; J2795; J1010

== ENCOUNTER → 2024-11-09 | Outpatient (CLI) | payer OTHER ==
--- NOTE | 2024-11-09 11:46 | MM ---
Reason for Exam: Screening (asymptomatic). Last mammogram was performed 1 year(s) and 4 month(s) ago. Patient History: Menarche at age 15. First Full-Term at age 20. Hysterectomy at age 46. Patient has history of breast feeding. Patient used Progesterone for 2 years. 05/22/2014, Bilateral Implants. Maternal aunt had breast cancer. Risk Values: Marie 5 year model risk: 0.8%. NCI Lifetime model risk: 6.3%. Prior Study Comparison: 03/27/2020 Bilateral Screening Mammogram, [facility]. 04/11/2021 Bilateral Screening Mammogram, [facility]. 07/02/2023 Bilateral MG screening mammo implant/CAD, [facility]. Tissue Density: There are scattered areas of fibroglandular density. Findings: Analyzed By CAD. Bilateral breast implants are redemonstrated. There are scattered small benign-appearing round calcifications bilaterally redemonstrated. There is no suspicious group of microcalcifications or new suspicious mass in either breast. Overall Assessment: Benign, BI-RAD 2 Management: Screening Mammogram of both breasts in 1 year. . Patient should continue monthly self-breast exams. A clinical breast exam by your physician is recommended on an annual basis. This exam should not preclude additional follow-up of suspicious palpable abnormalities. Note on Marie scores and lifetime risk: 1. A Marie score greater than 3% is considered moderate risk. If this is the case, consider specialist referral to assess eligibility for a risk reducing agent. 2. If overall lifetime risk for the development of breast cancer is 20% or higher, the patient may qualify for future screening with alternating mammogram and breast MRI. [facility], , 11/09/2024 11:44 AM. Electronically signed and approved by: Osmar Jimenez M.D.
== END | disposition home or self-care (01) ==
LOC: RADMAMWWP 07:25
PROVIDERS: ATTEND Family Medicine
DX: Z12.31 Encounter for screening mammogram for malignant neoplasm of breast (principal); Z80.3 Family history of malignant neoplasm of breast; R92.323 Mammographic fibroglandular density, bilateral breasts
CPT/HCPCS: 77067

== ENCOUNTER → 2024-12-20 | Outpatient (CLI) | payer OTHER ==
[2024-12-20 08:38] VITALS: BP 132/88; PULSE 77; RESP 19; TEMP 97.8
--- NOTE | 2024-12-20 14:30 | P.PAINPG ---
PQRS Measure Charge Sheet Comment: A 54 yr old female with a history of severe and chronic LBP secondary to radiculopathy, spondylosis and facet arthropathy without myelopathy, BL Sacroiliitis presents today for evaluation s/p BL RFA L5-S1. Pt states she experienced 70 % pain relief s/p procedure. Pain level is provoked at 6 /10 in intensity, constant, localized in the lumbar spine, predominantly axial, throbbing in character without shooting pain. Pain is provoked by weight bearing activity. Pain is alleviated with medications, topicals, use of a lumbar sport brace, injections, heat, ice, PT in 2020, massages semi annually, use of a massage gun at home, Dr Barnard guided daily physician guided exercises since 2020, repositioning and rest. Interventional pain procedures completed include BL SI injection, R Trochanteric Bursitis injection, R TFESI L5-S1 x1, BL RFA L5-S1 (Oct 2024) Patient is currently on [place], Baclofen, Celebrex Patient denies any side effects of the medication(s), denies excessive drowsiness or sleepiness, denies suicidal ideation and reports that the current pain medication is helping to control the pain and improve activities of daily living. Patient denies any motor or sensory deficits. Patient denies any fever or night sweats, denies any change in the bowel movements or urination. Physical Examination: -Constitutional: Cooperative. Not in acute distress . - Neurologic: Cranial nerve II to XII intact. No focal neurological deficits. - Psychatric: Alert & oriented x 3. Matching mood & appropriate affect. Judgment and insight intact. - Musculoskeletal: Cervical spine: Muscle bulk/ tone/ strength in the bilateral upper extremities normal Vertebral body tenderness to palpation over [place] test positive Distraction test positive Facet loading test positive TTP Thoracic spine Muscle bulk / tone/ strength in the bilateral paraspinal muscles normal Vertebral body tender to palpation over Facet loading test positive TTP Lumbar spine: Motor bulk/ tone/ strength lower extremities , thigh and legs : 5/5 Deep tendon reflexes : Normal Knee Jerk. Normal Ankle Jerk . Vertebral body tenderness to palpation Lumbar Facet Loading Test positive BL L5-S1 Straight Leg Raise: positive at 30 degrees right side/ left side Gaenslen's Test positive Sacral spine : Severe tenderness over the Sacroiliac joint: right side / left side Range of motion: Flexion of the lumbar spine <60 degrees Range of motion: Extension of the lumbar spine <20 degrees Gaenslen's Test positive right side / left side [place] test: positive right side / left side Thigh Thrust Test positive right side / left side Sacral Thrust Test positive right side / left side Imaging: CT lumbar spine from 11/25/23 states pt continues to have "mild to moderate facet arthropathy in the lower lumbar spine." This is consistent with an MRI lumbar spine from 01/21/22 stating "scattered facet arthropathy" Assessment and plan: Chronic LBP secondary to lumbar radiculopathy, spondylosis with facet arthropathy without myelopathy, BL Sacroiliitis, R Hip OA Recommendation of PT integrated w massage x 6 wks M54.16. All questions answered. I have spent less than 30 minutes on patient care today. Dr Moreno was available by phone for the evaluation of this patient. The time was used to review the medical records including relevant urine studies and Prescription history (MAPs), review of the available imaging, evaluation and examination of the patient, coordination of care with the medical staff and if applicable referring physicians, as well as creation of the medical record - Pain Location Lower Back Non-Pharmacological Interventions: Heat, Ice Pharmacological Interventions: Topical Medication PQRS Narrative: Smoking Status Current every day smoker Narcotic Agreement Date Signed 08/14/24 Hx Alcohol Use (MH) No Home Medications: Ambulatory Orders Albuterol Inhaler [Ventolin Hfa Inhaler] 2 puff INHALATION RT-Q6H PRN 11/30/17 Furosemide [Lasix] 20 - 40 mg PO DAILY PRN 07/19/19 Baclofen [Lioresal] 10 mg PO TID PRN #60 tab 12/04/20 traZODone HCL [Desyrel] 50 mg PO HS 07/04/21 Omeprazole [PriLOSEC] 20 mg PO BID 10/30/21 HYDROcodone/APAP 10-325MG [[place] 10-325] 1 tab PO Q6H PRN 04/08/22 predniSONE 7.5 mg PO DAILY 01/29/23 Ammonium Lactate Lotion [Lac-Hydrin 12% Lotion] 1 applic TOPICAL BID 07/31/24 Cholecalciferol (Vitamin D3) [Vitamin D3 (125 MCG = 5,000 IU)] 250 mcg PO DAILY 07/31/24 Ciclesonide [[place]ves[place]] 1 puff INHALATION BID 07/31/24 Dicyclomine [Bentyl] 10 mg PO DIRECTED PRN 07/31/24 L.acidoph,Paracasei, B.lactis [Probiotic] 1 each PO DAILY 07/31/24 Loratadine [Claritin] 10 mg PO DAILY 07/31/24 Melatonin [Melatonin Tr] 10 mg PO HS 07/31/24 Tirzepatide [Mounjaro] 5 mg SQ FR 07/31/24 Triamcinolone Acetonide [Nasacort] 1 spray EA NOSTRIL DAILY 07/31/24 Vitamin B Complex 1 each PO DAILY 07/31/24 Vitamin K2 [Vitamin K-2] 100 mcg PO DAILY 07/31/24 Phentermine HCl [Adipex P] 37.5 mg PO QAM 10/11/24 Controlled Substance Measures - Controlled Substance Measures Is patient prescribed a controlled substance at discharge?: No
== END ==
LOC: PNWHC3 08:04
PROVIDERS: ATTEND Specialist
DX: M47.26 Other spondylosis with radiculopathy, lumbar region (principal); G89.29 Other chronic pain; M46.1 Sacroiliitis, not elsewhere classified; M16.11 Unilateral primary osteoarthritis, right hip; F17.210 Nicotine dependence, cigarettes, uncomplicated; Z91.018 Allergy to other foods; Z91.09 Other allergy status, other than to drugs and biological substances; Z91.048 Other nonmedicinal substance allergy status
CPT/HCPCS: 99212

== ENCOUNTER → 2025-05-02 | Outpatient (CLI) | payer OTHER ==
--- NOTE | 2025-05-02 14:22 | XR ---
EXAMINATION TYPE: XR chest 2V DATE OF EXAM: 05/02/2025 2:08 PM COMPARISON: Chest radiographs from 11/29/2023 TECHNIQUE: XR chest 2V Frontal and lateral views of the chest. CLINICAL INDICATION:Female, 54 years old with history of J45.901 ASTHMA; FINDINGS: Lungs/Pleura: There is no evidence of pleural effusion, focal consolidation, or pneumothorax. Pulmonary vascularity: Unremarkable. Heart/mediastinum: Cardiomediastinal silhouette is prominent in size. Musculoskeletal: No acute osseous pathology. IMPRESSION: No acute cardiopulmonary disease/process. [facility], , 05/02/2025 2:20 PM
== END | disposition home or self-care (01) ==
LOC: RADXRMAIN 13:56
DX: J45.901 Unspecified asthma with (acute) exacerbation (principal)
CPT/HCPCS: 71046